=== PATIENT | female | born 1965 | race Caucasian/White ===

== ENCOUNTER 2020-10-17 15:21 | Inpatient (IN) ==
[2020-10-17] MEDS ORDERED: DEXAMETHASONE SOD INJ 10 MG/ML VIAL IV ONE (15:47)
[2020-10-17] MEDS ORDERED: SODIUM CHLORIDE 0.9% 1000ML 1,000 ML IV STA (15:47)
[2020-10-17] MEDS ORDERED: KETOROLAC TROMETHAMINE 15 MG/ML VIAL IV ONE (15:49)
--- NOTE | 2020-10-17 15:57 | Emergency Department Note ---
Impression & Plan Pneumonia due to COVID-19 virus, Breathlessness, Weakness, Fatigue, Respiratory failure ED Provider Note Provider: Mac Lorenzo MD DATE OF SERVICE: 10/17/2020 CHIEF COMPLAINT: Shortness of breath, weakness HISTORY OF PRESENT ILLNESS: Patient is a 55-year-old female history of diabetes, hypertension, hyperlipidemia as well as GERD presenting here today via ambulance from her house due to worsening weakness shortness of breath and fatigue. Patient states he began to feel ill about 1 week ago and last Sunday went to urgent care and had a rapid Covid test that was positive. Patient states she has had decreased oral intake over the course the week and since yesterday evening has a decline of her breathing status. Reports a little bit of chest discomfort on deep inspiration. Denies significant qing pain or nausea but reports a little bit loose stools. She is unsure if this is related to Covid or possibly related to Metformin she takes it she says when she does not eat a nor mal amount she sometimes gets loose stools. States she is quite thirsty and again has not been drinking well. Patient reports she has been using some Tylenol Motrin and [id number] cold medicine last taken this morning. Was at home with her who is also mildly ill and son who tested negative is otherwise well. EMS found the patient to be in the 70s on room air and significantly tachycardic. Brought here for further evaluation receiving supplemental oxygen. Denies leg swelling or rash. REVIEW OF SYSTEMS: A total of 10 review of systems was obtained and negative except as stated above in the HPI. 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 NECK: Trachea midline. LUNGS: Airway patent. No retractions but increased work of breathing noted. Tachypnea. HEART: Regular tachycardic rate and rhythm. ABDOMEN: Soft and non-tender, without guarding or rebound. SKIN: Acyanotic, warm, dry, without rashes EXTREMITIES: Without swelling, tenderness or deformity NEUROLOGICAL: No focal deficits. No aphasia. No facial droop or slurred speech. EK bpm sinus tachycardia with PVC noted. No acute ST segment elevation noted QTC 458. Left axis noted. Compared to previous from July 09, 2015 patient now with a left axis and significantly tachycardic with inferior Q waves noted. CONTINUOUS CARDIAC MONITORING: was ordered and showed a heart rate of 102-126 bpm in sinus tachycardia Patient's laboratory studies and imaging reviewed. Differential includes Infection, dehydration, metabolic abnormality, hypo/hyperglycemia, electrolyte disturbance, anemia, hypoxia, cardiac sources, intracerebral event, toxicologic, neurologic, as well as other pathologies. IMPRESSION/MEDICAL DECISION MAKING: Patient is a 55-year-old female reportedly positive week ago with rapid Covid test with worsening symptoms today found to be hypoxic. Now on supplemental oxygen initially 10 L. Patient distant former smoker. Patient Dors is thirsty and given some IV fluids she appears somewhat clinically dehydrated. Benign abdomen. EKG without STEMI criteria patient denies significant chest discomfort. Troponin was sent as well as inflammatory markers. Chest x-ray ordered as well as a CT of the chest to exclude PE overlying this. Given some dexamethasone given her hypoxic Covid status. Formal Covid test was ordered here. Patient febrile upon arrival and given small dose of Toradol. Chest x-ray showed extensive inflammatory infiltrative process consistent with COVID-19 and Covid test was positive. No leukocytosis, leukopenia or anemia noted. Electrolytes within normal limits. Renal function appears stable. Hypoglycemia noted given D50. Patient has been stable on [address] of the chest per radiology without evidence of PE inflammatory change consistent with Covid. Discussed with the patient. She is having some juice and did receive some D50 for some hyperglycemia noted on blood work and this improved. Stable on 10 L but if she takes the mask off for more than 10 or 20 seconds does desaturate. Do not feel she needs high flow oxygen at this point but may in the near future. Discussed the need for admission for further care she was in agreement with this plan. DIAGNOSIS: COVID-19 pneumonia, hypoxic respiratory failure, weakness, fatigue, shortness of breath DISPOSITION: Hospitalist will evaluate Patient was agreeable with this plan. Critical Care I have personally spent 32 minutes of critical care time in the direct management of this patient. This includes bedside care, interpretation of diagnostic studies, and testing, discussion with consultants, patient, and other required patient management activities. These 32 minutes is in excess of all separately billable procedures. Past Med/Surg History Medical History (Updated 10/17/20 @ 17:44 by Mac Lorenzo M.D.) Diabetes mellitus Diabetic neuropathy Diverticulosis GERD (gastroesophageal reflux disease) Hyperlipemia Hypertension Osteoarthritis PCOS (polycystic ovarian syndrome) Surgical History (Updated 08/24/20 @ 10:53 by Terri Sherman DO) Previous section (2006) Family History (Updated 08/24/20 @ 10:53 by Terri Sherman DO) Mother Breast cancer, Onset Age: 51 Hypertension Gall bladder disease Father Hypertension Heart disease S/P coronary artery stent placement Diabetes Sister Hypertension Gall bladder disease Denies family history of Ovarian cancer Prostate cancer Myocardial infarction Colorectal cancer Social History (Updated 08/24/20 @ 10:54 by Terri Sherman DO) Smoking Status: Never smoker Tobacco Type: Cigarettes Age Started Using Tobacco: 16; Age Quit Using Tobacco: 41; packs per day: 0.5; Second Hand Exposure: No; Hx Alcohol Use: No Hx Substance Use: No Preferred Language: Faroese Visual Impairment: Limited Hearing Ability: Normal Motion Picture Scene 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 Required: No Beliefs That Will Affect Care: None marital status: Current Living Situation: Spouse and Family Current Living Situation Comment: lives with and son current occupational status: employed current occupation: works for [employer] How many Children do You have: 1 Feels Safe at Home: Yes Childhood Exposure to Second-Hand Smoke: Yes (father smoked) caffeine: Yes during the past year weight has: remained stable Dental Care, Regularly: No Physical Activity Frequency: Daily Physical Activity Frequency 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 Seatbelt Use: always Sunscreen Use: No Assistive Devices: Glasses Allergies Allergies Allergy/AdvReac Type Severity Reaction Status Date / Time No Known Allergies Allergy Verified 10/17/20 16:50 Home Meds Home Medications Medication Instructions Recorded Confirmed aspirin 81 mg tablet,delayed 81 mg PO QAM 08/24/20 10/17/20 release omeprazole 20 mg capsule,delayed 20 mg PO DAILY PRN 08/24/20 10/17/20 release atorvastatin 20 mg PO QAM 10/17/20 10/17/20 glimepiride 8 mg PO QAM 10/17/20 10/17/20 metformin 2,000 mg PO QAM 10/17/20 10/17/20 olmesartan 20 mg PO QAM 10/17/20 10/17/20 Previous Rx's Medication Instructions Recorded linagliptin 5 mg tablet 5 mg PO QAM #90 tab 08/30/20 Results & Data (ED) Vital Signs Vital Signs - 24 hr 10/17/20 15:27 10/17/20 15:33 10/17/20 15:35 Temperature Temperature Source Pulse Rate 122 H 124 H 125 H Pulse Rate from SpO2 Sensor 120 H 125 H 125 H Respiratory Rate Blood Pressure 104/78 143/88 H Blood Pressure Mean 86 106 Pulse Oximetry 90 92 90 Oxygen Delivery Method Oxygen Flow Rate Sepsis Recent Fever Within 48 Hours Sepsis New/Unexplained Change in Mental Status Sepsis Action Taken by Nursing 10/17/20 15:40 10/17/20 15:50 10/17/20 16:00 Temperature 39.2 C H Temperature Source Oral Pulse Rate 123 H 120 H 123 H Pulse Rate from SpO2 Sensor 124 H 120 H 125 H Respiratory Rate 20 Blood Pressure 104/78 Blood Pressure Mean 86 Pulse Oximetry 92 92 90 Oxygen Delivery Method Oxymask Oxygen Flow Rate 10 Sepsis Recent Fever Within 48 Hours Yes Sepsis New/Unexplained Change in Mental Status No Sepsis Action Taken by Nursing Physician Notified 10/17/20 16:01 10/17/20 16:10 10/17/20 16:20 Temperature Temperature Source Pulse Rate 111 H 115 H Pulse Rate from SpO2 Sensor 125 H 117 H 108 H Respiratory Rate 24 24 Blood Pressure 156/111 H Blood Pressure Mean 126 Pulse Oximetry 76 L 93 94 Oxygen Delivery Method Oxygen Flow Rate Sepsis Recent Fever Within 48 Hours Sepsis New/Unexplained Change in Mental Status Sepsis Action Taken by Nursing 10/17/20 16:30 10/17/20 16:40 10/17/20 16:50 Temperature Temperature Source Pulse Rate Pulse Rate from SpO2 Sensor 111 H 103 H 106 H Respiratory Rate Blood Pressure 135/84 Blood Pressure Mean 101 Pulse Oximetry 92 91 94 Oxygen Delivery Method Oxygen Flow Rate Sepsis Recent Fever Within 48 Hours Sepsis New/Unexplained Change in Mental Status Sepsis Action Taken by Nursing 10/17/20 17:00 10/17/20 17:03 10/17/20 17:10 Temperature Temperature Source Pulse Rate 99 H 99 H 101 H Pulse Rate from SpO2 Sensor 102 H 99 H 101 H Respiratory Rate 24 24 24 Blood Pressure 120/70 Blood Pressure Mean 86 Pulse Oximetry 91 91 93 Oxygen Delivery Method Oxygen Flow Rate Sepsis Recent Fever Within 48 Hours Sepsis New/Unexplained Change in Mental Status Sepsis Action Taken by Nursing 10/17/20 17:20 10/17/20 17:30 10/17/20 18:01 Temperature Temperature Source Pulse Rate 93 H 99 H Pulse Rate from SpO2 Sensor 100 H 93 H 99 H Respiratory Rate 23 6 L Blood Pressure 136/89 122/80 Blood Pressure Mean 104 94 Pulse Oximetry 92 92 93 Oxygen Delivery Method Oxygen Flow Rate Sepsis Recent Fever Within 48 Hours Sepsis New/Unexplained Change in Mental Status Sepsis Action Taken by Nursing 10/17/20 18:30 10/17/20 18:46 Temperature Temperature Source Pulse Rate 100 H 103 H Pulse Rate from SpO2 Sensor 99 H 102 H Respiratory Rate 27 H 18 Blood Pressure 135/75 104/84 Blood Pressure Mean 95 90 Pulse Oximetry 94 89 L Oxygen Delivery Method Oxygen Flow Rate Sepsis Recent Fever Within 48 Hours Sepsis New/Unexplained Change in Mental Status Sepsis Action Taken by Nursing Laboratory Data Result diagrams: 10/17/20 15:45 10/17/20 17:02 Lab Results 10/17/20 10/17/20 10/17/20 Range/Units 15:45 15:45 15:45 WBC (4.8-10.8) K/uL RBC (4.2-5.4) M/uL Hgb (12.0-16.0) g/dL Hct (37-47) % MCV (80-100) fL MCH (25-34) pg MCHC (32-36) g/dL RDW Std Deviation (36.4-46.3) fL RDW Coeff of Nader (11.5-14.5) % Plt Count (130-400) K/uL MPV (7.4-10.4) fL Immature Gran % (Auto) % Neut % (Auto) % Lymph % (Auto) % Hitchcock % (Auto) % Eos % (Auto) % Baso % (Auto) % Neut # (Auto) (1.4-6.5) K/uL Lymph # (Auto) (1.2-3.4) K/uL Hitchcock # (Auto) (0.11-0.59) K/uL Eos # (Auto) (0-0.5) K/uL Baso # (Auto) (0-0.2) K/uL Immature Gran # (Auto) (0.00-0.02) K/uL PT 10.1 (9.0-12.0) Seconds INR 1.0 (0.9-1.1) D-Dimer 1060 H* (0-500) ug/L FEU Sodium Cancelled Potassium Cancelled Chloride Cancelled Carbon Dioxide Cancelled Anion Gap Cancelled BUN Cancelled Creatinine Cancelled Est Cr Clr Drug Dosing Cancelled Est GFR ( Amer) Cancelled Est GFR (Non-Af Amer) Cancelled BUN/Creatinine Ratio Cancelled Glucose Cancelled POC Glucose (70-99) mg/dl Lactate Calcium Cancelled Total Bilirubin Cancelled AST Cancelled ALT Cancelled Alkaline Phosphatase Cancelled Troponin I Cancelled C-Reactive Protein Cancelled Total Protein Cancelled Albumin Cancelled Globulin Cancelled Albumin/Globulin Ratio Cancelled Lipase Cancelled Procalcitonin Cancelled COVID-19 Eval Order SARS-CoV-2 (PCR) (Negative) Influenza Type A (PCR) (Neg) Influenza Type B (PCR) (Neg) RSV (RT-PCR) (Neg) 10/17/20 10/17/20 10/17/20 Range/Units 15:45 15:45 16:15 WBC 5.95 (4.8-10.8) K/uL RBC 5.28 (4.2-5.4) M/uL Hgb 15.9 (12.0-16.0) g/dL Hct 44.6 (37-47) % MCV 84.5 (80-100) fL MCH 30.1 (25-34) pg MCHC 35.7 (32-36) g/dL RDW Std Deviation 44.5 (36.4-46.3) fL RDW Coeff of Nader 14.3 (11.5-14.5) % Plt Count 285 (130-400) K/uL MPV 9.4 (7.4-10.4) fL Immature Gran % (Auto) 0.2 % Neut % (Auto) 77.5 % Lymph % (Auto) 13.9 % Hitchcock % (Auto) 8.2 % Eos % (Auto) 0.0 % Baso % (Auto) 0.2 % Neut # (Auto) 4.61 (1.4-6.5) K/uL Lymph # (Auto) 0.83 L (1.2-3.4) K/uL Hitchcock # (Auto) 0.49 (0.11-0.59) K/uL Eos # (Auto) 0.00 (0-0.5) K/uL Baso # (Auto) 0.01 (0-0.2) K/uL Immature Gran # (Auto) 0.01 (0.00-0.02) K/uL PT (9.0-12.0) Seconds INR (0.9-1.1) D-Dimer (0-500) ug/L FEU Sodium Potassium Chloride Carbon Dioxide Anion Gap BUN Creatinine Est Cr Clr Drug Dosing Est GFR ( Amer) Est GFR (Non-Af Amer) BUN/Creatinine Ratio Glucose POC Glucose (70-99) mg/dl Lactate Cancelled Calcium Total Bilirubin AST ALT Alkaline Phosphatase Troponin I C-Reactive Protein Total Protein Albumin Globulin Albumin/Globulin Ratio Lipase Procalcitonin COVID-19 Eval Order CovFluRsv at [facility] SARS-CoV-2 (PCR) (Negative) Influenza Type A (PCR) (Neg) Influenza Type B (PCR) (Neg) RSV (RT-PCR) (Neg) 10/17/20 10/17/20 10/17/20 Range/Units 16:15 17:02 17:02 WBC (4.8-10.8) K/uL RBC (4.2-5.4) M/uL Hgb (12.0-16.0) g/dL Hct (37-47) % MCV (80-100) fL MCH (25-34) pg MCHC (32-36) g/dL RDW Std Deviation (36.4-46.3) fL RDW Coeff of Nader (11.5-14.5) % Plt Count (130-400) K/uL MPV (7.4-10.4) fL Immature Gran % (Auto) % Neut % (Auto) % Lymph % (Auto) % Hitchcock % (Auto) % Eos % (Auto) % Baso % (Auto) % Neut # (Auto) (1.4-6.5) K/uL Lymph # (Auto) (1.2-3.4) K/uL Hitchcock # (Auto) (0.11-0.59) K/uL Eos # (Auto) (0-0.5) K/uL Baso # (Auto) (0-0.2) K/uL Immature Gran # (Auto) (0.00-0.02) K/uL PT (9.0-12.0) Seconds INR (0.9-1.1) D-Dimer (0-500) ug/L FEU Sodium 139 Potassium 3.9 Chloride 107 Carbon Dioxide 22 Anion Gap 10.0 BUN 9 Creatinine 0.63 Est Cr Clr Drug Dosing 125.8 Est GFR ( Amer) 118.7 Est GFR (Non-Af Amer) 102.4 BUN/Creatinine Ratio 14.3 Glucose 45 L* POC Glucose (70-99) mg/dl Lactate Calcium 8.3 L Total Bilirubin 0.6 AST 32 ALT 17 Alkaline Phosphatase 53 Troponin I C-Reactive Protein 11.90 H Total Protein 7.3 Albumin 3.0 L Globulin 4.3 H Albumin/Globulin Ratio 0.7 L Lipase Procalcitonin < 0.05 COVID-19 Eval Order SARS-CoV-2 (PCR) POSITIVE A* (Negative) Influenza Type A (PCR) Negative (Neg) Influenza Type B (PCR) Negative (Neg) RSV (RT-PCR) Negative (Neg) 10/17/20 10/17/20 Range/Units 17:02 18:26 WBC (4.8-10.8) K/uL RBC (4.2-5.4) M/uL Hgb (12.0-16.0) g/dL Hct (37-47) % MCV (80-100) fL MCH (25-34) pg MCHC (32-36) g/dL RDW Std Deviation (36.4-46.3) fL RDW Coeff of Ndaer (11.5-14.5) % Plt Count (130-400) K/uL MPV (7.4-10.4) fL Immature Gran % (Auto) % Neut % (Auto) % Lymph % (Auto) % Hitchcock % (Auto) % Eos % (Auto) % Baso % (Auto) % Neut # (Auto) (1.4-6.5) K/uL Lymph # (Auto) (1.2-3.4) K/uL Hitchcock # (Auto) (0.11-0.59) K/uL Eos # (Auto) (0-0.5) K/uL Baso # (Auto) (0-0.2) K/uL Immature Gran # (Auto) (0.00-0.02) K/uL PT (9.0-12.0) Seconds INR (0.9-1.1) D-Dimer (0-500) ug/L FEU Sodium Potassium Chloride Carbon Dioxide Anion Gap BUN Creatinine Est Cr Clr Drug Dosing Est GFR ( Amer) Est GFR (Non-Af Amer) BUN/Creatinine Ratio Glucose POC Glucose 198 H (70-99) mg/dl Lactate 0.8 Calcium Total Bilirubin AST ALT Alkaline Phosphatase Troponin I C-Reactive Protein Total Protein Albumin Globulin Albumin/Globulin Ratio Lipase Procalcitonin COVID-19 Eval Order SARS-CoV-2 (PCR) (Negative) Influenza Type A (PCR) (Neg) Influenza Type B (PCR) (Neg) RSV (RT-PCR) (Neg) Administered Medications Discontinued Medications Dexamethasone (Dexamethasone Sod Inj 10 Mg/Ml Vial) 6 mg IV NOW ONE Stop: 10/17/20 15:48 Last Admin: 10/17/20 16:12 Dose: 6 mg Documented by: [id number] Dextrose (Dextrose 50% 50 Ml Syringe) 50 ml IV NOW STA Stop: 10/17/20 17:41 Last Admin: 10/17/20 17:49 Dose: 50 ml Documented by: [id number] Sodium Chloride (Nss 1000ml) 1,000 mls @ 125 mls/hr IV .Q8H STA Stop: 10/17/20 23:46 Last Admin: 10/17/20 16:12 Dose: Not Given Documented by: [id number] Sodium Chloride (Nss 1000ml) 1,000 mls @ 999 mls/hr IV .Q1H1M ONE Stop: 10/17/20 17:07 Last Infusion: 10/17/20 17:27 Dose: 0 mls/hr Documented by: [id number] Admin: 10/17/20 16:12 Dose: 999 mls/hr Documented by: [id number] Ioversol (Optiray 320 125ml) 119 ml IV ONCE ONE Stop: 10/17/20 17:39 Last Admin: 10/17/20 17:39 Dose: 119 ml Documented by: [id number] Ketorolac Tromethamine (Ketorolac Tromethamine 15 Mg/Ml Vial) 10 mg IV NOW ONE Stop: 10/17/20 15:50 Last Admin: 10/17/20 16:13 Dose: 10 mg Documented by: [id number] Discharge Plan Visit Data Chief Complaint: Shortness of Breath/Dyspnea Stated Complaint: SOB, FATIGUE, COVID + ED Provider: Mac Lorenzo Discharge Problem: Pneumonia due to COVID-19 virus, Breathlessness, Weakness, Fatigue, Respiratory failure Patient Disposition: Admitted As Inpatient Forms Stand Alone Forms: My [facility] Prescriptions Prescriptions: No Action Tradjenta 5 mg tablet 5 mg PO QAM Qty: 90 RF: 3 omeprazole 20 mg capsule,delayed release(DR/EC) 20 mg PO DAILY PRN (Reason: Acid Reflux) RF: 0 aspirin [Adult Low Dose Aspirin] 81 mg tablet,delayed release (DR/EC) 81 mg PO QAM RF: 0 atorvastatin 20 mg tablet 20 mg PO QAM RF: 0 glimepiride 4 mg tablet 8 mg PO QAM RF: 0 metformin 500 mg tablet extended release 24 hr 2,000 mg PO QAM RF: 0 olmesartan 20 mg tablet 20 mg PO QAM RF: 0 Referrals Referrals: Terri Sherman DO [Primary Care Provider] - Discharge Problem: Fatigue Qualifiers: Fatigue type: unspecified Qualified Code(s): R53.83 - Other fatigue Respiratory failure Qualifiers: Chronicity: acute Respiratory failure complication: hypoxia Qualified Code(s): J96.01 - Acute respiratory failure with hypoxia
[2020-10-17] MEDS ORDERED: SODIUM CHLORIDE 0.9% 1000ML 1,000 ML IV ONE (16:07)
[2020-10-17 16:17] LABS: Basophils # (auto) 0.01 K/uL (0-0.2); Basophils % (auto) 0.2 %; Hematocrit (blood only) 44.6 % (37-47); Hemoglobin 15.9 g/dL (12.0-16.0); Immature Granulocytes # (auto) 0.01 K/uL (0.00-0.02); Immature Granulocytes % (auto) 0.2 %; Lymphocytes # (auto) 0.83 K/uL (1.2-3.4); Lymphocytes % (auto) 13.9 %; Mean Corpuscular Hemoglobin 30.1 pg (25-34); Mean Corpuscular Hgb Conc 35.7 g/dL (32-36); Mean Corpuscular Volume 84.5 fL (80-100); Mean Platelet Volume 9.4 fL (7.4-10.4); Monocytes # (auto) 0.49 K/uL (0.11-0.59); Monocytes % (auto) 8.2 %; Neutrophils # (auto) 4.61 K/uL (1.4-6.5); Neutrophils % (auto) 77.5 %; Platelet Count 285 K/uL (130-400); RDW Coefficient of Variation 14.3 % (11.5-14.5); RDW Standard Deviation 44.5 fL (36.4-46.3); Red Blood Count 5.28 M/uL (4.2-5.4); White Blood Count 5.95 K/uL (4.8-10.8)
--- NOTE | 2020-10-17 16:32 | XRay Report ---
XR chest 1V portable HISTORY: Fever COMPARISON: Chest 07/07/2015. FINDINGS: Multifocal bilateral airspace opacities are new from the prior study. This likely represent s a pneumonia. No pneumothorax. No pleural effusions. There are low lung volumes. Stable mild cardiom egaly. IMPRESSION: Moderate multifocal airspace opacities consistent with a pneumonia. ACT 112: Negative or not required by law. Electronically signed by: Diego Bowen M.D. 10/17/2020 4:31 PM
[2020-10-17 16:34] LABS: Prothrombin Time 10.1 Seconds (9.0-12.0)
[2020-10-17 16:44] LABS: D Dimer 1060 ug/L FEU (0-500)
[2020-10-17 17:06] LABS: Influenza A virus by PCR Negative (Neg); Influenza B virus by PCR Negative (Neg); RSV by PCR Negative (Neg)
[2020-10-17 17:11] LABS: SARS CoV2 RNA(COVID-19) InHosp POSITIVE (Negative)
[2020-10-17 17:38] LABS: Albumin Globulin Ratio 0.7 (0.9-2); BUN Creatinine Ratio 14.3 (10-20); Bilirubin,Total 0.6 mg/dl (0.2-1); Calcium 8.3 mg/dl (8.5-10.1); Creatinine Clr Calc Pharmacy 125.8 ml/min; Est GFR (African American) 118.7; Est GFR (Non-African American) 102.4; Globulin 4.3 gm/dl (2.5-4.0); Potassium 3.9 mmol/L (3.5-5.1); Total Protein 7.3 gm/dl (6.4-8.2)
[2020-10-17] MEDS ORDERED: OPTIRAY 320 125ml IV ONE (17:38)
[2020-10-17] MEDS ORDERED: DEXTROSE 50% 50 ML SYRINGE IV STA (17:40)
--- NOTE | 2020-10-17 18:01 | CT Scan Report ---
CHEST CTA for PULMONARY ARTERIES CT DOSE: 757.29 mGy.cm HISTORY: PE, COVID, shortness of breath, hypoxic TECHNIQUE: Multiaxial CT images of the chest were performed following the intravenous administration of contrast to evaluate the pulmonary arteries. Maximal intensity projection images were also obtaine d. A dose lowering technique was utilized adhering to the principles of ALARA. COMPARISON STUDY: None. FINDINGS: Normal caliber thoracic aorta with no evidence for dissection. No pleural or pericardial ef fusions. The heart is mildly enlarged. Visualized liver and spleen are unremarkable. Normal caliber e sophagus. A few prominent mediastinal and bilateral hilar lymph nodes. This may be reactive. No filli ng defects within the pulmonary arteries to suggest pulmonary embolus. No suspicious lytic or blastic osseous lesions. No pneumothorax. The central airways are patent. Moderate multifocal groundglass ai rspace opacities seen throughout the lungs consistent with a viral pneumonia. IMPRESSION: 1. No evidence for pulmonary embolus. 2. Moderate multifocal pneumonia. 3. Mild cardiomegaly. ACT 112: Negative or not required by law. Electronically signed by: Diego Bowen M.D. 10/17/2020 6:00 PM
--- NOTE | 2020-10-17 18:39 | History & Physical Report ---
Date of Service October 17, 2020 Assessment & Plan (1) Acute respiratory failure with hypoxia: Aim O2 sats > 90% Secondary to COVID-19 PNA, no definitive evidence of bacterial pneumonia but slight concern she feels she has been getting much worse in the last 2 days after initially doing well. (2) Pneumonia due to COVID-19 virus: Symptoms > 1 week therefore no benefit from remdesivir or convalescent plasma Dexamethasone 6mg IV daily for 10 days Isolation precautions (3) Left leg swelling: without calf pain US venous doppler to r/o DVT (4) Diabetes mellitus: HbA1C 7.3 in Aug 2020. Repeat with AM labs. Hold her usual metformin, linagliptin and glimepiride Consult pharmacy for glycemic control in setting of steroid use. (5) Diabetic neuropathy: Noted history of this (6) Hypertension: Continue olmesartan with hold parameters sBP < 100 (7) Hyperlipemia: Continue atorvastatin 20mg PO daily (8) PCOS (polycystic ovarian syndrome): Noted (9) GERD (gastroesophageal reflux disease): Switch omeprazole for pantoprazole as per hospital formulary (10) DVT prophylaxis: Lovenox 0.5mg/kg due to elevated d-dimer in setting of COVID-19 pneumonia and elevated BMI > 40 Admission and Anticipated Discharge Date Admission Date: October 17, 2020 History of Present Illness Chief Complaint: Shortness of breath, hypoxia Primary Care Provider: Terri Sherman DO Nikky Law is a 55 year old female with morbid obesity, T2DM, former smoker who presents to the ER with worsening shortness of breath in the setting of known COVID-19 pneumonia. Initial symptoms started Sunday (8 days ago). She tested positive that following Sunday. Initially was feeling ok until becoming much more short of breath over the past few days with new onset sore throat and continued fever and chills. Associated poor appetite, dry mouth, mild cough and nasal congestion. She denies any chest pain, abdominal pain, diarrhea. In the ER she was symptomatically hypoglycemic which responded to Dextrose 50% 50 ml, CXR confirmed multifocal viral pneumonia, d-dimer was elevated therefore patient underwent CT angiogram which was negative for pulmonary embolism. She was referred to medicine for admission and ongoing management for COVID-19 and hypoxia. Allergies Allergy/AdvReac Type Severity Reaction Status Date / Time No Known Allergies Allergy Verified 10/17/20 16:50 Home Medications Medication Instructions Recorded Confirmed Type aspirin 81 mg tablet,delayed 81 mg PO QAM 08/24/20 10/17/20 History release omeprazole 20 mg capsule,delayed 20 mg PO DAILY PRN 08/24/20 10/17/20 History release linagliptin 5 mg tablet 5 mg PO QAM #90 tab 08/30/20 10/17/20 Rx atorvastatin 20 mg PO QAM 10/17/20 10/17/20 History glimepiride 8 mg PO QAM 10/17/20 10/17/20 History metformin 2,000 mg PO QAM 10/17/20 10/17/20 History olmesartan 20 mg PO QAM 10/17/20 10/17/20 History Past Med/Surg History Medical History Diabetes mellitus Diabetic neuropathy Diverticulosis GERD (gastroesophageal reflux disease) Hyperlipemia Hypertension Osteoarthritis PCOS (polycystic ovarian syndrome) Surgical History Previous section (2006) Family History Mother Breast cancer, Onset Age: 51 Hypertension Gall bladder disease Father Hypertension Heart disease S/P coronary artery stent placement Diabetes Sister Hypertension Gall bladder disease Denies family history of Ovarian cancer Prostate cancer Myocardial infarction Colorectal cancer Social History Smoking Status: Former smoker Tobacco Type: Cigarettes Age Started Using Tobacco: 16; Age Quit Using Tobacco: 41; packs per day: 0.5; Second Hand Exposure: No; Hx Alcohol Use: No Hx Substance Use: No Preferred Language: Japanese Visual Impairment: Limited Hearing Ability: Normal 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 Beliefs That Will Affect Care: None marital status: Current Living Situation: Spouse and Family Current Living Situation Comment: lives with and son current occupational status: employed current occupation: works for [employer] How many Children do You have: 1 Feels Safe at Home: Yes Childhood Exposure to Second-Hand Smoke: Yes (father smoked) caffeine: Yes during the past year weight has: remained stable Dental Care, Regularly: No Physical Activity Frequency: Daily Physical Activity Frequency 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 Seatbelt Use: always Sunscreen Use: No Assistive Devices: Glasses and Oxygen - Continuous Review of Systems Review of Systems: All systems reviewed & are unremarkable except as noted in HPI & below Physical Exam Constitutional: well developed, + acute distress (shortness of breath) and + morbidly obese; + not well nourished Eyes: + anicteric sclerae; normal pupil size Neck: normal visual inspection and trachea midline Respiratory: + respiratory distress, + labored breathing, + uses accessory muscles and able to speak in complete sentences; no cough Auscultation: + diminished lung sounds (bibasal); no crackles and no wheezes Cardiovascular: RRR, no murmur, no edema Gastrointestinal (Abdomen): normal bowel sounds, soft, nontender, no hepatosplenomegaly Musculoskeletal: no cyanosis or clubbing, extremities motor strength 5/5 Skin: no rashes, warm and dry Neurologic: moves all extremities and awake; not confused Psychiatric: A+Ox3, euthymic affect Genitourinary: no CVA tenderness Results & Data Results & Data ([facility]) Vital Signs (Past 12 Hours) Vital Signs Temp Pulse Resp BP Pulse Ox 10/17/20 17:20 92 10/17/20 17:10 101 H 24 93 10/17/20 17:03 99 H 24 120/70 91 10/17/20 17:00 99 H 24 91 10/17/20 16:50 94 10/17/20 16:40 91 10/17/20 16:30 135/84 92 10/17/20 16:20 115 H 94 10/17/20 16:10 111 H 24 93 10/17/20 16:01 24 156/111 H 76 L 10/17/20 16:00 123 H 90 10/17/20 15:50 120 H 92 10/17/20 15:40 39.2 C H 123 H 20 104/78 92 10/17/20 15:35 125 H 143/88 H 90 10/17/20 15:33 124 H 92 10/17/20 15:27 122 H 104/78 90 Diagnostic Findings XR chest 1V portable IMPRESSION: Moderate multifocal airspace opacities consistent with a pneumonia. CHEST CTA for PULMONARY ARTERIES IMPRESSION: 1. No evidence for pulmonary embolus. 2. Moderate multifocal pneumonia. 3. Mild cardiomegaly. Medications Administered ER Medications given: NSS 1L bolus then 125 ml/hr Toradol 10mg IV Dexamethasone 6mg IV Dextrose 50% 50ml IV ECG Indication: tachycardia Rate (beats per minute): 122 Findings: + other (Non specific ST abnormality) and + PVC Comparison ECG Date: from (October 17, 2020) Change: the following changes noted (PVCs now present) Code Status & VTE Plan Code Status Full VTE Prophylaxis Plan VTE Prophylaxis will be ordered: Yes PG Care Time/CCT Total # of Minutes Spent Total Time Spent with Patient: Total time spent is greater than 50% in coordination of care (as documented) at patient's floor/unit and/or counseling patient: Coding Level of Care Code 87363 Initial Inpt Care Lvl 3 Diagnoses Acute respiratory failure with hypoxia J96.01 Pneumonia due to COVID-19 virus U07.1; J12.82 Left leg swelling M79.89 Diabetes mellitus E11.9 Diabetic neuropathy E11.40 Hypertension I10 Hyperlipemia E78.5 PCOS (polycystic ovarian syndrome) E28.2 GERD (gastroesophageal reflux disease) K21.9 DVT prophylaxis Z29.9
[2020-10-17 18:59] LABS: C Reactive Protein 11.9 mg/dl (0-0.29)
[2020-10-17] MEDS ORDERED: ONDANSETRON INJ 2 MG/ML 2 ML VIAL IV PRN (20:06)
[2020-10-17] MEDS ORDERED: PHARMACY GLYCEMIC MGMT CONSULT PRN (20:06)
[2020-10-17] MEDS ORDERED: ALUMINUM/MAGNESIUM SUSP 30 ML UDC PO PRN (20:06)
[2020-10-17] MEDS ORDERED: POLYETHYLENE (MIRALAX) 17 GM PACK PO PRN (20:06)
[2020-10-17] MEDS: PANTOprazole 40 MG TAB PO SCH (20:46)
[2020-10-17] MEDS: cefTRIAXone SODIUM 2,000 MG in DEXTROSE 5% 50 ML IV SCH (20:48)
[2020-10-17] MEDS: INSULIN ASPART 100 UNITS/ML 3 ML PEN SC SCH ×2 (21:30→22:04)
[2020-10-17] MEDS: guaiFENesin 600 MG TABCR PO SCH (22:11)
[2020-10-17] MEDS: ENOXAPARIN INJ 60 MG/0.6 ML SYR SQ SCH (22:11)
[2020-10-17] MEDS: AZITHROMYCIN 500 MG in DEXTROSE 5% 250 ML IV SCH (22:15)
[2020-10-18] MEDS: INSULIN ASPART 100 UNITS/ML 3 ML PEN SC SCH ×7 (00:10→23:58)
[2020-10-18] MEDS: ACETAMINOPHEN 325 MG TAB PO PRN ×2 (01:32→21:03)
[2020-10-18 03:48] LABS: Appearance Urine Clear (Clear); Bilirubin Urine Negative (Negative); Blood Urine Negative (Negative); Color Urine Yellow; Glucose Urine UA 3+ (Negative); Ketones Urine Trace (Negative); Leukocyte Esterase Urine Negative (Negative); Nitrite Urine Negative (Negative); Protein Urine Negative (Negative); Specific Gravity Urine 1.028 (1.000-1.030); Urobilinogen Urine Negative (Negative)
--- NOTE | 2020-10-18 06:51 | Ultrasound Report ---
US venous doppler LE LT CLINICAL HISTORY: Left lower extremity swelling. Covid positive patient COMPARISON STUDY: No previous studies for comparison. FINDINGS: Real-time and color flow Doppler imaging were performed. Flow was seen within the femoral, popliteal and calf veins with no intraluminal thrombus demonstrated. The saphenous vein is patent. IMPRESSION: No evidence of left lower extremity DVT ACT 112: Negative or not required by law. Electronically signed by: Lauri Wilks M.D. 10/18/2020 6:50 AM
[2020-10-18] MEDS: ALBUT/IPRATROP 3MG/0.5MG NEB 3 ML VIAL NEB SCH ×4 (07:15→19:44)
[2020-10-18 07:30] LABS: Hematocrit (blood only) 43.1 % (37-47); Hemoglobin 15.3 g/dL (12.0-16.0); Immature Granulocytes # (auto) 0.01 K/uL (0.00-0.02); Immature Granulocytes % (auto) 0.2 %; Lymphocytes # (auto) 0.87 K/uL (1.2-3.4); Lymphocytes % (auto) 13.6 %; Mean Corpuscular Hemoglobin 30.1 pg (25-34); Mean Corpuscular Hgb Conc 35.5 g/dL (32-36); Mean Corpuscular Volume 84.8 fL (80-100); Monocytes # (auto) 0.57 K/uL (0.11-0.59); Monocytes % (auto) 8.9 %; Neutrophils # (auto) 4.94 K/uL (1.4-6.5); Neutrophils % (auto) 77.3 %; Platelet Count 311 K/uL (130-400); RDW Coefficient of Variation 14.3 % (11.5-14.5); RDW Standard Deviation 44.8 fL (36.4-46.3); Red Blood Count 5.08 M/uL (4.2-5.4); White Blood Count 6.39 K/uL (4.8-10.8)
[2020-10-18 08:05] LABS: BUN Creatinine Ratio 11.7 (10-20); Calcium 8.9 mg/dl (8.5-10.1); Creatinine Clr Calc Pharmacy 95.6 ml/min; Est GFR (African American) 93.3; Est GFR (Non-African American) 80.5; Magnesium 1.8 mg/dl (1.8-2.4); Potassium 4.4 mmol/L (3.5-5.1)
[2020-10-18 08:47] LABS: Estimated Average Glucose 171 mg/dl; Hemoglobin A1C 7.6 % (4.5-5.6)
[2020-10-18] MEDS ORDERED: DEXAMETHASONE SOD INJ 10 MG/ML VIAL IV SCH (09:00)
--- NOTE | 2020-10-18 09:01 | Hospitalist Progress Note ---
Date of Service October 18, 2020 Assessment & Plan (1) Acute respiratory failure with hypoxia: Aim O2 sats > 90% Secondary to COVID-19 PNA, no definitive evidence of bacterial pneumonia no on vapo therm 30 L and 85 5 and bipap, some loss of smell (2) Pneumonia due to COVID-19 virus: Symptoms > 1 week therefore no indication for remdesivir or convalescent plasma Dexamethasone 6mg daily for 10 days airborne Isolation precautions (3) Left leg swelling: without calf pain US venous doppler negative for DVT elevated D Dimer from covid and not suspected from clot (4) Diabetes mellitus: HbA1C 7.3 in Aug 2020 Hold her usual metformin lingliptin and glimepiride Consult pharmacy for glycemic control in setting (5) Diabetic neuropathy: Noted history of this (6) Hypertension: Continue olmesartan with hold parameters sBP < 100 (7) Hyperlipemia: Continue atorvastatin 20mg PO daily (8) PCOS (polycystic ovarian syndrome): Noted (9) GERD (gastroesophageal reflux disease): Switch omeprazole for pantoprazole as per hospital formulary (10) DVT prophylaxis: Lovenox 0.5mg/kg due to elevated d-dimer in setting of COVID-19 pneumonia and elevated BMI > 40 Admission and Anticipated Discharge Date Admission Date: October 17, 2020 Subjective this pt is emotionally labile, she is not aware of her hypoxia, she is tolerating vapotherm and bipap when needed and trying to prone as much as able. Review of Systems Review of Systems: Moderate distress and fatigue no headache, blurry or double vision some loss of smell no loss of taste no speech or swallowing issues no chest pain, pressure or palpitations shortness of breath, non productive cough no wheezes no abdominal pain, nausea or vomiting, no diarrhea no dysuria, hematuria or frequency no focal joint pain or swelling no back pain, CVA tenderness or radicular pain no bruising, bleeding or rashes no focal signs of weakness or numbness or altered sensation no complaints of anxiety or depression.. Physical Exam Physical Exam: The patient appeared in moderate distress Vital signs as documented. Head exam is normocephalic atraumatic no scleral icterus Neck is without JVD, thyromegaly, or carotid bruits. Lungs are coarse breath sounds with rales bilaterally, poor air movement Cardiac exam, Rhythm is regular.. No murmurs, rubs or gallops. Abdominal exam reveals normal bowel sounds, soft non tender, no masses Extremities are nonedematous and both pedal pulses are present Neurologic exam is alert and oriented, no focal loss of strength or sensation Skin is without bruises or rashes Psychologically is without concerns for anxiety or depression Results & Data Results & Data ([facility]) Vital Signs (Past 12 Hours) Vital Signs Temp Pulse Pulse Resp BP Pulse Ox 10/18/20 08:08 99.0 F 76 26 H 147/60 H 96 10/18/20 07:31 80 91 10/18/20 07:18 86 32 H 92 10/18/20 05:24 85 29 H 93 10/18/20 03:59 98.2 F 85 20 141/69 H 96 10/18/20 03:35 86 26 H 95 10/18/20 00:00 98.2 F 88 20 121/77 93 10/17/20 22:36 97.9 F 96 H 20 129/75 92 PG Care Time/CCT Total # of Minutes Spent Total Time Spent with Patient: Total time spent is greater than 50% in coor dination of care (as documented) at patient's floor/unit and/or counseling patient: Coding Level of Care Code 45363 Subseq Hosp Care Lvl 3 Diagnoses Acute respiratory failure with hypoxia J96.01 Pneumonia due to COVID-19 virus U07.1; J12.82 Left leg swelling M79.89 Diabetes mellitus E11.9 Diabetic neuropathy E11.40 Hypertension I10 Hyperlipemia E78.5 PCOS (polycystic ovarian syndrome) E28.2 GERD (gastroesophageal reflux disease) K21.9 DVT prophylaxis Z29.9
[2020-10-18] MEDS: OLMESARTAN MEDOXOMIL 20 MG TAB PO SCH (09:14)
[2020-10-18] MEDS: dexAMETHasone 6 MG in SYRINGE 0 ML IV SCH (09:14)
[2020-10-18] MEDS: ATORVASTATIN 20 MG TAB PO SCH (09:14)
[2020-10-18] MEDS: PANTOprazole 40 MG TAB PO SCH (09:14)
[2020-10-18] MEDS: ASPIRIN 81 MG ECTAB PO SCH (09:14)
[2020-10-18] MEDS: guaiFENesin 600 MG TABCR PO SCH ×2 (09:15→19:58)
[2020-10-18] MEDS: ENOXAPARIN INJ 60 MG/0.6 ML SYR SQ SCH ×2 (09:15→19:58)
[2020-10-18] MEDS ORDERED: INSULIN HUMAN NPH SC ONE (10:00)
--- NOTE | 2020-10-18 10:58 | Pharmacy Report ---
Pharmacy Glycemic Short Note 2 - Date of Service October 18, 2020 - Glycemic Short BSG Results (Last 24 hours): 10/17/20 10/17/20 10/17/20 15:45 17:02 18:26 Glucose Cancelled 45 L* POC Glucose 198 H 10/17/20 10/18/20 10/18/20 20:39 00:25 04:01 Glucose POC Glucose 267 H 297 H 253 H 10/18/20 10/18/20 07:09 08:17 Glucose 235 H POC Glucose 226 H OUTPATIENT ANTIDIABETIC REGIMEN: * Metformin 2 g PO qAM * Tradjenta 5 mg PO daily * Glimepiride 8 mg PO daily * HbA1c: 7.6% (10/18/20) ASSESSMENT: * HEAVEN is a 55 year old female admitted on evening of 10/17/20 with COVID-19 pneumonia * Ordered dexamethasone 6 mg IV daily (first dose yesterday at 1612) - no basal insulin administered yesterday * BSGs poorly controlled yesterday evening, 267, 297, and 253 mg/dL * Fasting BSG of 226 mg/dL * Will order NPH with today's dexamethasone dose and tighten Novolog parameters * Receiving IV ceftriaxone and azithromycin PLAN FOR INPATIENT GLYCEMIC CONTROL: * Hold outpatient oral diabetes medications * Basal insulin * NPH 35 units (0.32 unit/kg actual body weight) SC x 1 with dexamethasone * NPH scale with dinner (0-10 units based on BSG) * Bolus insulin - tighten * NovoLog per scale ACHS or Q6hrs while NPO * Goal Range: Low 110 mg/dL - High 140 mg/dL * Correction Factor: 15 mg/dL/unit * Nutritional / Prandial insulin per carb ratio of 1 unit per 5 grams CHO consumed * 00,04 checks overnight PLAN FOR DISCHARGE: * tbd
[2020-10-18 11:23] LABS: iSTAT Creatinine 0.5 mg/dl (0.6-1.3); iSTAT Hemoglobin 13.9 g/dl (12.0-16.0); iSTAT Ionized Calcium 1.12 mmol/l (1.12-1.32); iSTAT Potassium 3.8 mmol/L (3.3-5.0)
--- NOTE | 2020-10-18 12:28 | Electrocardiogram Report ---
Test Reason : Blood Pressure : / mmHG Vent. Rate : 122 BPM Atrial Rate : 122 BPM P-R Int : 162 ms QRS Dur : 110 ms QT Int : 322 ms P-R-T Axes : 045 -36 036 degrees QTc Int : 458 ms Sinus tachycardia with occasional Premature ventricular complexes Left axis deviation Minimal voltage criteria for LVH, may be normal variant Nonspecific ST abnormality Abnormal ECG When compared with ECG of 09-JUL-2015 07:06, Premature ventricular complexes are now Present Vent. rate has increased BY 57 BPM Questionable change in QRS duration Confirmed by Kentrell Rodriguez ([id number]) on 10/18/2020 12:27:40 PM Referred By: REFERRED SELF Confirmed By:Kentrell Rodriguez
[2020-10-18] MEDS ORDERED: INSULIN HUMAN NPH SC SCH (17:30)
[2020-10-18] MEDS: cefTRIAXone SODIUM 2,000 MG in DEXTROSE 5% 50 ML IV SCH (20:00)
[2020-10-18] MEDS: AZITHROMYCIN 500 MG in DEXTROSE 5% 250 ML IV SCH (21:05)
[2020-10-19] MEDS: ACETAMINOPHEN 325 MG TAB PO PRN ×3 (04:44→21:37)
[2020-10-19] MEDS: INSULIN ASPART 100 UNITS/ML 3 ML PEN SC SCH ×5 (04:53→21:00)
[2020-10-19] MEDS: ALBUT/IPRATROP 3MG/0.5MG NEB 3 ML VIAL NEB SCH (07:33)
[2020-10-19] MEDS: ENOXAPARIN INJ 60 MG/0.6 ML SYR SQ SCH ×2 (08:46→20:30)
[2020-10-19] MEDS: dexAMETHasone 6 MG in SYRINGE 0 ML IV SCH (08:46)
[2020-10-19] MEDS: OLMESARTAN MEDOXOMIL 20 MG TAB PO SCH (08:47)
[2020-10-19] MEDS: guaiFENesin 600 MG TABCR PO SCH ×2 (08:47→20:30)
[2020-10-19] MEDS: ASPIRIN 81 MG ECTAB PO SCH (08:48)
[2020-10-19] MEDS: ATORVASTATIN 20 MG TAB PO SCH (08:48)
[2020-10-19] MEDS: PANTOprazole 40 MG TAB PO SCH (08:48)
[2020-10-19] MEDS ORDERED: INSULIN HUMAN NPH SC ONE (09:00)
--- NOTE | 2020-10-19 09:25 | Pharmacy Report ---
Pharmacy Glycemic Short Note 2 - Date of Service October 19, 2020 - Glycemic Short BSG Results (Last 24 hours): 10/17/20 10/18/20 10/18/20 17:09 11:54 16:35 POC Glucose 270 H 299 H POC Glucose (other) 47 L* 10/18/20 10/18/20 10/18/20 21:06 21:08 23:32 POC Glucose 318 H* 318 H* 253 H POC Glucose (other) 10/19/20 10/19/20 04:04 07:38 POC Glucose 115 H 91 POC Glucose (other) OUTPATIENT ANTIDIABETIC REGIMEN: * Metformin 2 g PO qAM * Tradjenta 5 mg PO daily * Glimepiride 8 mg PO daily * HbA1c: 7.6% (10/18/20) ASSESSMENT: 10/19/20 * BSGs significantly elevated yesterday, 226, 270, 299, and 318 mg/dL * Patient received 122 units of insulin (45 units of NPH and 77 units of Novolog) * Hyperglycemia likely steroid-induced given IV dexamethasone * Fasting BSG of 91 mg/dL this morning * Will give NPH 45 units with this morning's dose of IV dexamethasone (0.4 unit/kg) 10/18/20 * MJ is a 55 year old female admitted on evening of 10/17/20 with COVID-19 pneumonia * Ordered dexamethasone 6 mg IV daily (first dose yesterday at 1612) - no basal insulin administered yesterday * BSGs poorly controlled yesterday evening, 267, 297, and 253 mg/dL * Fasting BSG of 226 mg/dL * Will order NPH with today's dexamethasone dose and tighten Novolog parameters * Receiving IV ceftriaxone and azithromycin PLAN FOR INPATIENT GLYCEMIC CONTROL: * Hold outpatient oral diabetes medications * Basal insulin * NPH 45 units SC daily with IV dexamethasone (0.4 unit/kg) * Bolus insulin * NovoLog per scale ACHS or Q6hrs while NPO * Goal Range: Low 110 mg/dL - High 140 mg/dL * Correction Factor: 12 mg/dL/unit * Nutritional / Prandial insulin per carb ratio of 1 unit per 4 grams CHO consumed PLAN FOR DISCHARGE: * Reasonable HbA1c goal for most non- adults would be less than 7% * HbA1c of 7.6% is above goal * Patient is on three PO antidiabetic medications that are all at maximum doses * Patient would likely benefit from once daily basal insulin - will need to reassess dose once steroids are discontinued
[2020-10-19] MEDS ORDERED: ALBUT/IPRATROP 3MG/0.5MG NEB 3 ML VIAL NEB PRN (10:38)
--- NOTE | 2020-10-19 18:50 | Hospitalist Progress Note ---
Date of Service October 19, 2020 Assessment & Plan (1) Acute respiratory failure with hypoxia: Aim O2 sats > 90% Secondary to COVID-19 PNA, no definitive evidence of bacterial pneumonia no on vapo therm 35 L and 80% and bipap when she sleeps, will try 1 dose of Lasix in the evening of 10/19/2020 (2) Pneumonia due to COVID-19 virus: Symptoms > 1 week therefore no indication for remdesivir or convalescent plasma Dexamethasone 6mg daily while hypoxic airborne Isolation precautions (3) Left leg swelling: without calf pain US venous doppler negative for DVT elevated D Dimer from covid and not suspected from clot (4) Diabetes mellitus: HbA1C 7.3 in Aug 2020. Repeat with AM labs. Hold her usual metformin, linagliptin and glimepiride Consult pharmacy for glycemic control in setting of steroid use. (5) Diabetic neuropathy: Noted history of this (6) Hypertension: Continue olmesartan with hold parameters sBP < 100 (7) Hyperlipemia: Continue atorvastatin 20mg PO daily (8) PCOS (polycystic ovarian syndrome): Noted (9) GERD (gastroesophageal reflux disease): Switch omeprazole for pantoprazole as per hospital formulary (10) DVT prophylaxis: Lovenox 0.5mg/kg due to elevated d-dimer in setting of COVID-19 pneumonia and elevated BMI > 40 Admission and Anticipated Discharge Date Admission Date: October 17, 2020 Subjective Patient is somewhat better spirits in the room today. Even while she is low and walking around the room she is not aware of her hypoxia, she is tolerating vapotherm and bipap when needed and continues trying to prone as much as able. Review of Systems Review of Systems: Moderate distress and fatigue no headache, blurry or double vision some loss of smell no loss of taste no speech or swallowing issues no chest pain, pressure or palpitations shortness of breath, non productive cough no wheezes no abdominal pain, nausea or vomiting, no diarrhea no dysuria, hematuria or frequency no focal joint pain or swelling no back pain, CVA tenderness or radicular pain no bruising, bleeding or rashes no focal signs of weakness or numbness or altered sensation no complaints of anxiety or depression.. Physical Exam Physical Exam: The patient appeared in moderate distress Vital signs as documented. Head exam is normocephalic atraumatic no scleral icterus Neck is without JVD, thyromegaly, or carotid bruits. Lungs are coarse breath sounds with rales bilaterally, poor air movement Cardiac exam, Rhythm is regular.. No murmurs, rubs or gallops. Abdominal exam reveals normal bowel sounds, soft non tender, no masses Extremities are nonedematous and both pedal pulses are present Neurologic exam is alert and oriented, no focal loss of strength or sensation Skin is without bruises or rashes Psychologically is without concerns for anxiety or depression Results & Data Results & Data ([facility]) Vital Signs (Past 12 Hours) Vital Signs Temp Pulse Pulse Resp BP Pulse Ox 10/19/20 16:00 98.2 F 87 24 166/86 H 89 L 10/19/20 15:13 88 21 90 10/19/20 11:44 97.7 F 97 H 24 137/87 88 L 10/19/20 11:25 100 H 20 90 10/19/20 08:00 85 10/19/20 07:41 99.0 F 98 H 22 141/87 H 90 10/19/20 07:34 93 H 22 89 L PG Care Time/CCT Total # of Minutes Spent Total Time Spent with Patient: Total time spent is greater than 50% in coordination of care (as documented) at patient's floor/unit and/or counseling patient: Coding Level of Care Code 55050 Subseq Hosp Care Lvl 3 Diagnoses Acute respiratory failure with hypoxia J96.01 Pneumonia due to COVID-19 virus U07.1; J12.82 Left leg swelling M79.89 Diabetes mellitus E11.9 Diabetic neuropathy E11.40 Hypertension I10 Hyperlipemia E78.5 PCOS (polycystic ovarian syndrome) E28.2 GERD (gastroesophageal reflux disease) K21.9 DVT prophylaxis Z29.9
[2020-10-19] MEDS ORDERED: FUROSEMIDE 20 MG in SYRINGE 0 ML IV ONE (19:30)
[2020-10-19] MEDS: cefTRIAXone SODIUM 2,000 MG in DEXTROSE 5% 50 ML IV SCH (20:31)
[2020-10-19] MEDS: AZITHROMYCIN 500 MG in DEXTROSE 5% 250 ML IV SCH (21:36)
[2020-10-20] MEDS ORDERED: INSULIN ASPART 100 UNITS/ML 3 ML PEN SC SCH (02:00)
[2020-10-20 06:49] LABS: BUN Creatinine Ratio 21.2 (10-20); Calcium 9.6 mg/dl (8.5-10.1); Creatinine Clr Calc Pharmacy 93.7 ml/min; Est GFR (Non-African American) 79.3; Potassium 3.6 mmol/L (3.5-5.1)
[2020-10-20] MEDS: dexAMETHasone 6 MG in SYRINGE 0 ML IV SCH (07:16)
[2020-10-20] MEDS: ASPIRIN 81 MG ECTAB PO SCH (07:16)
[2020-10-20] MEDS: OLMESARTAN MEDOXOMIL 20 MG TAB PO SCH (07:17)
[2020-10-20] MEDS: PANTOprazole 40 MG TAB PO SCH (07:17)
[2020-10-20] MEDS: ATORVASTATIN 20 MG TAB PO SCH (07:17)
[2020-10-20] MEDS: guaiFENesin 600 MG TABCR PO SCH ×2 (07:17→21:14)
[2020-10-20] MEDS: ENOXAPARIN INJ 60 MG/0.6 ML SYR SQ SCH ×2 (07:18→21:15)
[2020-10-20] MEDS: INSULIN ASPART 100 UNITS/ML 3 ML PEN SC SCH ×4 (08:12→22:19)
[2020-10-20] MEDS: INSULIN HUMAN NPH SC SCH (08:15)
[2020-10-20] MEDS ORDERED: INSULIN HUMAN NPH SC SCH (09:00)
[2020-10-20] MEDS: ACETAMINOPHEN 325 MG TAB PO PRN ×2 (09:44→18:05)
[2020-10-20] MEDS ORDERED: COUGH DROP (SUGAR FREE) LOZ 24 LOZ/1 BOX BUCCAL PRN (18:17)
[2020-10-20] MEDS ORDERED: CHLORASEPTIC 1.4% SOLN 180 ML BTL MT PRN (18:17)
--- NOTE | 2020-10-20 18:19 | Hospitalist Progress Note ---
Date of Service October 20, 2020 Assessment & Plan (1) Acute respiratory failure with hypoxia: Aim O2 sats > 90% Secondary to COVID-19 PNA, no definitive evidence of bacterial pneumonia no on vapo therm 35 L and 80-85 % and bipap when she sleeps, no real help with lasix (2) Pneumonia due to COVID-19 virus: Symptoms > 1 week therefore no indication for remdesivir or convalescent plasma Dexamethasone 6mg daily while hypoxic airborne Isolation precautions try low dose oxycodone to help arthritic shoulder pain to help prone (3) Left leg swelling: without calf pain US venous doppler negative for DVT elevated D Dimer from covid and not suspected from clot (4) Diabetes mellitus: HbA1C 7.3 in Aug 2020. Repeat with AM labs. Hold her usual metformin, linagliptin and glimepiride Consult pharmacy for glycemic control in setting of steroid use. (5) Diabetic neuropathy: Noted history of this (6) Hypertension: Continue olmesartan with hold parameters sBP < 100 (7) Hyperlipemia: Continue atorvastatin 20mg PO daily (8) PCOS (polycystic ovarian syndrome): Noted (9) GERD (gastroesophageal reflux disease): Switch omeprazole for pantoprazole as per hospital formulary (10) DVT prophylaxis: Lovenox 0.5mg/kg due to elevated d-dimer in setting of COVID-19 pneumonia and elevated BMI > 40 Admission and Anticipated Discharge Date Admission Date: October 17, 2020 Subjective Patient is somewhat better spirits in the room today. Even while she is low and walking around the room she is not aware of her hypoxia, she is tolerating vapotherm and bipap when needed and continues trying to prone as much as able. Review of Systems Review of Systems: Moderate distress and fatigue no headache, blurry or double vision some loss of smell no loss of taste no speech or swallowing issues no chest pain, pressure or palpitations shortness of breath, non productive cough no wheezes no abdominal pain, nausea or vomiting, no diarrhea no dysuria, hematuria or frequency no focal joint pain or swelling no back pain, CVA tenderness or radicular pain no bruising, bleeding or rashes no focal signs of weakness or numbness or altered sensation no complaints of anxiety or depression.. Physical Exam Physical Exam: The patient appeared in moderate distress Vital signs as documented. Head exam is normocephalic atraumatic no scleral icterus Neck is without JVD, thyromegaly, or carotid bruits. Lungs are coarse breath sounds with rales bilaterally, poor air movement Cardiac exam, Rhythm is regular.. No murmurs, rubs or gallops. Abdominal exam reveals normal bowel sounds, soft non tender, no masses Extremities are nonedematous and both pedal pulses are present Neurologic exam is alert and oriented, no focal loss of strength or sensation Skin is without bruises or rashes Psychologically is without concerns for anxiety or depression Results & Data Results & Data ([facility]) Vital Signs (Past 12 Hours) Vital Signs Temp Pulse Pulse Resp BP BP Pulse Ox 10/20/20 17:26 98.2 F 95 H 20 135/96 93 10/20/20 15:13 80 10/20/20 14:53 76 33 H 94 10/20/20 11:12 98.1 F 80 20 125/73 91 10/20/20 10:28 92 H 20 91 10/20/20 10:13 83 10/20/20 07:17 84 24 127/80 85 L PG Care Time/CCT Total # of Minutes Spent Total Time Spent with Patient: Total time spent is greater than 50% in coordination of care (as documented) at patient's floor/unit and/or counseling patient: Coding Level of Care Code 91707 Subseq Hosp Care Lvl 3 Diagnoses Acute respiratory failure with hypoxia J96.01 Pneumonia due to COVID-19 virus U07.1; J12.82 Left leg swelling M79.89 Diabetes mellitus E11.9 Diabetic neuropathy E11.40 Hypertension I10 Hyperlipemia E78.5 PCOS (polycystic ovarian syndrome) E28.2 GERD (gastroesophageal reflux disease) K21.9 DVT prophylaxis Z29.9
[2020-10-20] MEDS: cefTRIAXone SODIUM 2,000 MG in DEXTROSE 5% 50 ML IV SCH (22:01)
[2020-10-20] MEDS: oxyCODONE HCL IR 5 MG TAB (IMMEDIATE RELEASE) PO PRN (22:51)
[2020-10-21] MEDS ORDERED: GLUCAGON FOR INJ 1 MG VIAL IM PRN (07:45)
[2020-10-21] MEDS ORDERED: GLUCOSE 40% GEL 15 GM TUBE PO PRN (07:45)
[2020-10-21] MEDS ORDERED: DEXTROSE 50% 50 ML SYRINGE IV PRN (07:45)
[2020-10-21] MEDS ORDERED: GLUCOSE 10 TABS/TUBE PO PRN (07:45)
[2020-10-21] MEDS: guaiFENesin 600 MG TABCR PO SCH ×2 (08:07→20:34)
[2020-10-21] MEDS: OLMESARTAN MEDOXOMIL 20 MG TAB PO SCH (08:07)
[2020-10-21] MEDS: ATORVASTATIN 20 MG TAB PO SCH (08:08)
[2020-10-21] MEDS: ENOXAPARIN INJ 60 MG/0.6 ML SYR SQ SCH ×2 (08:08→20:34)
[2020-10-21] MEDS: PANTOprazole 40 MG TAB PO SCH (08:08)
[2020-10-21] MEDS: ASPIRIN 81 MG ECTAB PO SCH (08:08)
[2020-10-21] MEDS: INSULIN ASPART 100 UNITS/ML 3 ML PEN SC SCH ×3 (08:18→18:05)
[2020-10-21] MEDS: dexAMETHasone 6 MG in SYRINGE 0 ML IV SCH (09:31)
[2020-10-21] MEDS: ZINC SULFATE 220 MG CAPSULE PO SCH (09:31)
[2020-10-21] MEDS: AZITHROMYCIN 250 MG TAB PO SCH (09:31)
[2020-10-21] MEDS: INSULIN HUMAN NPH SC SCH (09:45)
--- NOTE | 2020-10-21 10:25 | Pharmacy Report ---
Pharmacy Glycemic Short Note 2 - Date of Service October 21, 2020 - Glycemic Short BSG Results (Last 24 hours): 10/20/20 10/20/20 10/20/20 11:11 16:26 21:05 POC Glucose 234 H 294 H 342 H* 10/21/20 10/21/20 10/21/20 07:31 07:32 08:18 POC Glucose 60 L* 60 L* 78 OUTPATIENT ANTIDIABETIC REGIMEN: * Metformin 2 g PO qAM * Tradjenta 5 mg PO daily * Glimepiride 8 mg PO daily * HbA1c: 7.6% (10/18/20) ASSESSMENT: 10/20/20 * BSGs continue to be uncontrolled, especially postprandials: [phone] mg/dL * Fasting hypoglycemia today of 60 mg/dL - no Novolog administered this AM * Will tighten CR with breakfast, lunch and dinner * Will loosen CF/CR at bedtime to prevent fasting hypoglycemia * Continued 50 units NPH for Dexamethasone dose 10/19/20 * BSGs significantly elevated yesterday, 226, 270, 299, and 318 mg/dL * Patient received 122 units of insulin (45 units of NPH and 77 units of Novolog) * Hyperglycemia likely steroid-induced given IV dexamethasone * Fasting BSG of 91 mg/dL this morning * Will give NPH 45 units with this morning's dose of IV dexamethasone (0.4 unit/kg) 10/18/20 * MJ is a 55 year old female admitted on evening of 10/17/20 with COVID-19 pneumonia * Ordered dexamethasone 6 mg IV daily (first dose yesterday at 1612) - no basal insulin administered yesterday * BSGs poorly controlled yesterday evening, 267, 297, and 253 mg/dL * Fasting BSG of 226 mg/dL * Will order NPH with today's dexamethasone dose and tighten Novolog parameters * Receiving IV ceftriaxone and azithromycin PLAN FOR INPATIENT GLYCEMIC CONTROL: * Hold outpatient oral diabetes medications * Basal insulin * NPH 50 units SC daily with IV dexamethasone * Bolus insulin * NovoLog per scale ACHS or Q6hrs while NPO * Goal Range: Low 110 mg/dL - High 140 mg/dL * Breakfast, Lunch, Dinner: Correction Factor: 10 mg/dL/unit; Nutritional / Prandial insulin per carb ratio of 1 unit per 3 grams CHO consumed * Bedtime: Correction Factor: 15 mg/dL/unit; Nutritional / Prandial insulin per carb ratio of 1 unit per 5 grams CHO consumed PLAN FOR DISCHARGE: * Reasonable HbA1c goal for most non- adults would be less than 7% * HbA1c of 7.6% is above goal * Patient is on three PO antidiabetic medications that are all at maximum doses * Patient would likely benefit from once daily basal insulin - will need to reassess dose once steroids are discontinued
[2020-10-21] MEDS ORDERED: LOPERAMIDE HCL 2 MG CAP PO PRN ×2 (13:24→13:40)
--- NOTE | 2020-10-21 13:45 | Hospitalist Progress Note ---
Date of Service October 21, 2020 Assessment & Plan (1) Acute respiratory failure with hypoxia: Aim O2 sats > 90% Secondary to COVID-19 PNA, no definitive evidence of bacterial pneumonia no on vapo therm 30 L and 75 % and bipap when she sleeps, no real help with lasix so will not continue diarrhea likely secondary to covid, will check c diff and add imodium (2) Pneumonia due to COVID-19 virus: Symptoms > 1 week therefore no indication for remdesivir or convalescent plasma Dexamethasone 6mg daily while hypoxic airborne Isolation precautions try low dose oxycodone to help arthritic shoulder pain to help prone (3) Left leg swelling: without calf pain US venous doppler negative for DVT elevated D Dimer from covid and not suspected from clot (4) Diabetes mellitus: HbA1C 7.3 in Aug 2020. Repeat with AM labs. Hold her usual metformin, linagliptin and glimepiride Consult pharmacy for glycemic control in setting of steroid use. (5) Diabetic neuropathy: Noted history of this (6) Hypertension: Continue olmesartan with hold parameters sBP < 100 (7) Hyperlipemia: Continue atorvastatin 20mg PO daily (8) PCOS (polycystic ovarian syndrome): Noted (9) GERD (gastroesophageal reflux disease): Switch omeprazole for pantoprazole as per hospital formulary (10) DVT prophylaxis: Lovenox 0.5mg/kg due to elevated d-dimer in setting of COVID-19 pneumonia and elevated BMI > 40 Admission and Anticipated Discharge Date Admission Date: October 17, 2020 Subjective Patient is on slightly less oxygen that days previous for the first time, continues with diarrhea, she did prone longer than ever yesterday and we may have noted the hypoxia improve due to that. Review of Systems Review of Systems: Moderate distress and fatigue no headache, blurry or double vision some loss of smell no loss of taste no speech or swallowing issues no chest pain, pressure or palpitations shortness of breath, non productive cough no wheezes no abdominal pain, nausea or vomiting, no diarrhea no dysuria, hematuria or frequency no focal joint pain or swelling no back pain, CVA tenderness or radicular pain no bruising, bleeding or rashes no focal signs of weakness or numbness or altered sensation no complaints of anxiety or depression.. Physical Exam Physical Exam: The patient appeared in moderate distress Vital signs as documented. Head exam is normocephalic atraumatic no scleral icterus Neck is without JVD, thyromegaly, or carotid bruits. Lungs are coarse breath sounds with rales bilaterally, poor air movement Cardiac exam, Rhythm is regular.. No murmurs, rubs or gallops. Abdominal exam reveals normal bowel sounds, soft non tender, no masses Extremities are nonedematous and both pedal pulses are present Neurologic exam is alert and oriented, no focal loss of strength or sensation Skin is without bruises or rashes Psychologically is without concerns for anxiety or depression Results & Data Results & Data ([facility]) Vital Signs (Past 12 Hours) Vital Signs Temp Pulse Pulse Resp BP BP Pulse Ox 10/21/20 11:36 98.2 F 92 H 20 135/83 90 10/21/20 11:28 84 20 91 10/21/20 08:03 97.9 F 76 20 162/79 H 92 10/21/20 07:51 49 L 10/21/20 07:19 70 22 94 10/21/20 03:43 98.1 F 80 24 105/90 90 10/21/20 02:33 55 L 30 H 90 PG Care Time/CCT Total # of Minutes Spent Total Time Spent with Patient: Total time spent is greater than 50% in coordination of care (as documented) at patient's floor/unit and/or counseling patient: Coding Level of Care Code 40985 Subseq Hosp Care Lvl 3 Diagnoses Acute respiratory failure with hypoxia J96.01 Pneumonia due to COVID-19 virus U07.1; J12.82 Left leg swelling M79.89 Diabetes mellitus E11.9 Diabetic neuropathy E11.40 Hypertension I10 Hyperlipemia E78.5 PCOS (polycystic ovarian syndrome) E28.2 GERD (gastroesophageal reflux disease) K21.9 DVT prophylaxis Z29.9
[2020-10-21] MEDS: oxyCODONE HCL IR 5 MG TAB (IMMEDIATE RELEASE) PO PRN ×2 (14:10→22:57)
[2020-10-21] MEDS: cefTRIAXone SODIUM 2,000 MG in DEXTROSE 5% 50 ML IV SCH (20:31)
[2020-10-22] MEDS: INSULIN ASPART 100 UNITS/ML 3 ML PEN SC SCH ×5 (00:04→21:01)
[2020-10-22] MEDS ORDERED: INSULIN ASPART 100 UNITS/ML 3 ML PEN SC SCH (02:00)
[2020-10-22] MEDS: AZITHROMYCIN 250 MG TAB PO SCH (08:35)
[2020-10-22] MEDS: ATORVASTATIN 20 MG TAB PO SCH (08:35)
[2020-10-22] MEDS: OLMESARTAN MEDOXOMIL 20 MG TAB PO SCH (08:35)
[2020-10-22] MEDS: ZINC SULFATE 220 MG CAPSULE PO SCH (08:35)
[2020-10-22] MEDS: guaiFENesin 600 MG TABCR PO SCH ×2 (08:35→21:00)
[2020-10-22] MEDS: PANTOprazole 40 MG TAB PO SCH (08:35)
[2020-10-22] MEDS: ASPIRIN 81 MG ECTAB PO SCH (08:35)
[2020-10-22] MEDS: dexAMETHasone 6 MG in SYRINGE 0 ML IV SCH (08:35)
[2020-10-22] MEDS: ENOXAPARIN INJ 60 MG/0.6 ML SYR SQ SCH ×2 (08:37→21:01)
[2020-10-22] MEDS: INSULIN HUMAN NPH SC SCH (09:02)
--- NOTE | 2020-10-22 13:06 | Pharmacy Report ---
Pharmacy Glycemic Short Note 2 - Date of Service October 22, 2020 - Glycemic Short BSG Results (Last 24 hours): 10/21/20 10/21/20 10/22/20 16:39 20:29 03:22 POC Glucose 229 H 353 H* 70 10/22/20 10/22/20 07:33 11:53 POC Glucose 140 H 255 H OUTPATIENT ANTIDIABETIC REGIMEN: * Metformin 2 g PO qAM * Tradjenta 5 mg PO daily * Glimepiride 8 mg PO daily * HbA1c: 7.6% (10/18/20) ASSESSMENT: 10/22/20 * BSGs increased throughout the day yesterday, 60, 152, 229, and 353 mg/dL * Will tighten carb ratio today * Fasting BSG this morning of 140 mg/dL * Continues on dexamethasone 6 mg IV daily - will continue to cover with NPH 50 units * Give lows observed in hr analyst on last 2 days - will loosen HS Novolog parameters 10/18/20 * MJ is a 55 year old female admitted on evening of 10/17/20 with COVID-19 pneumonia * Ordered dexamethasone 6 mg IV daily (first dose yesterday at 1612) - no basal insulin administered yesterday * BSGs poorly controlled yesterday evening, 267, 297, and 253 mg/dL * Fasting BSG of 226 mg/dL * Will order NPH with today's dexamethasone dose and tighten Novolog parameters * Receiving IV ceftriaxone and azithromycin PLAN FOR INPATIENT GLYCEMIC CONTROL: * Hold outpatient oral diabetes medications * Basal insulin * NPH 50 units SC daily with IV dexamethasone * Bolus insulin * NovoLog per scale ACHS or Q6hrs while NPO * Goal Range: Low 110 mg/dL - High 140 mg/dL * Breakfast, Lunch, Dinner: Correction Factor: 10 mg/dL/unit; Nutritional / Prandial insulin per carb ratio of 1 unit per 2.5 grams CHO consumed * Bedtime: Correction Factor: 25 mg/dL/unit; Nutritional / Prandial insulin per carb ratio of 1 unit per 8 grams CHO consumed PLAN FOR DISCHARGE: * Reasonable HbA1c goal for most non- adults would be less than 7% * HbA1c of 7.6% is above goal * Patient is on three PO antidiabetic medications that are all at maximum doses * Patient would likely benefit from once daily basal insulin - will need to reassess dose once steroids are discontinued
--- NOTE | 2020-10-22 17:35 | Hospitalist Progress Note ---
Date of Service October 22, 2020 Assessment & Plan (1) Acute respiratory failure with hypoxia: Aim O2 sats > 90% Secondary to COVID-19 PNA, no definitive evidence of bacterial pneumonia transitioning off vapotherm, to wall unit high flow diarrhea likely secondary to covid, pending check c diff and add imodium (2) Pneumonia due to COVID-19 virus: Symptoms > 1 week therefore no indication for remdesivir or convalescent plasma Dexamethasone 6mg daily while hypoxic airborne Isolation precautions low dose oxycodone has helped arthritic shoulder pain to help prone (3) Left leg swelling: without calf pain US venous doppler negative for DVT elevated D Dimer from covid and not suspected from clot (4) Diabetes mellitus: HbA1C 7.3 in Aug 2020. Repeat with AM labs. Hold her usual metformin, linagliptin and glimepiride Consult pharmacy for glycemic control in setting of steroid use. (5) Diabetic neuropathy: Noted history of this (6) Hypertension: Continue olmesartan with hold parameters sBP < 100 (7) Hyperlipemia: Continue atorvastatin 20mg PO daily (8) PCOS (polycystic ovarian syndrome): Noted (9) GERD (gastroesophageal reflux disease): Switch omeprazole for pantoprazole as per hospital formulary (10) DVT prophylaxis: Lovenox 0.5mg/kg due to elevated d-dimer in setting of COVID-19 pneumonia and elevated BMI > 40 Admission and Anticipated Discharge Date Admission Date: October 17, 2020 Subjective the pt has had improving oxygenation with attempts to have high flow now in place of vapo therm, otherwise still has some diarrhea Review of Systems Review of Systems: Moderate distress and fatigue no headache, blurry or double vision some loss of smell no loss of taste no speech or swallowing issues no chest pain, pressure or palpitations shortness of breath, non productive cough no wheezes no abdominal pain, nausea or vomiting, no diarrhea no dysuria, hematuria or frequency no focal joint pain or swelling no back pain, CVA tenderness or radicular pain no bruising, bleeding or rashes no focal signs of weakness or numbness or altered sensation no complaints of anxiety or depression.. Physical Exam Physical Exam: The patient appeared in moderate distress Vital signs as documented. Head exam is normocephalic atraumatic no scleral icterus Neck is without JVD, thyromegaly, or carotid bruits. Lungs are coarse breath sounds with rales bilaterally, poor air movement Cardiac exam, Rhythm is regular.. No murmurs, rubs or gallops. Abdominal exam reveals normal bowel sounds, soft non tender, no masses Extremities are nonedematous and both pedal pulses are present Neurologic exam is alert and oriented, no focal loss of strength or sensation Skin is without bruises or rashes Psychologically is without concerns for anxiety or depression Results & Data Results & Data ([facility]) Vital Signs (Past 12 Hours) Vital Signs Temp Pulse Pulse Pulse Resp BP Pulse Ox 10/22/20 16:19 98.4 F 72 19 153/91 H 94 10/22/20 15:05 82 18 90 10/22/20 12:04 97.7 F 87 18 137/92 10/22/20 11:12 88 18 90 10/22/20 08:11 78 19 93 10/22/20 07:35 98.4 F 70 93 H 18 156/98 H 90 PG Care Time/CCT Total # of Minutes Spent Total Time Spent with Patient: Total time spent is greater than 50% in coordination of care (as documented) at patient's floor/unit and/or counseling patient: Coding Level of Care Code 46589 Subseq Hosp Care Lvl 2 Diagnoses Acute respiratory failure with hypoxia J96.01 Pneumonia due to COVID-19 virus U07.1; J12.82 Left leg swelling M79.89 Diabetes mellitus E11.9 Diabetic neuropathy E11.40 Hypertension I10 Hyperlipemia E78.5 PCOS (polycystic ovarian syndrome) E28.2 GERD (gastroesophageal reflux disease) K21.9 DVT prophylaxis Z29.9
[2020-10-22] MEDS: cefTRIAXone SODIUM 2,000 MG in DEXTROSE 5% 50 ML IV SCH (20:59)
[2020-10-22] MEDS: oxyCODONE HCL IR 5 MG TAB (IMMEDIATE RELEASE) PO PRN (22:41)
[2020-10-23] MEDS: INSULIN ASPART 100 UNITS/ML 3 ML PEN SC SCH ×3 (08:33→17:00)
[2020-10-23] MEDS: ATORVASTATIN 20 MG TAB PO SCH (08:49)
[2020-10-23] MEDS: OLMESARTAN MEDOXOMIL 20 MG TAB PO SCH (08:49)
[2020-10-23] MEDS: guaiFENesin 600 MG TABCR PO SCH ×2 (08:49→21:20)
[2020-10-23] MEDS: AZITHROMYCIN 250 MG TAB PO SCH (08:50)
[2020-10-23] MEDS: PANTOprazole 40 MG TAB PO SCH (08:50)
[2020-10-23] MEDS: dexAMETHasone 6 MG in SYRINGE 0 ML IV SCH (08:50)
[2020-10-23] MEDS: ZINC SULFATE 220 MG CAPSULE PO SCH (08:50)
[2020-10-23] MEDS: ASPIRIN 81 MG ECTAB PO SCH (08:50)
[2020-10-23] MEDS: ENOXAPARIN INJ 60 MG/0.6 ML SYR SQ SCH ×2 (08:50→21:21)
[2020-10-23] MEDS ORDERED: INSULIN HUMAN NPH SC SCH (09:00)
[2020-10-23] MEDS: ACETAMINOPHEN 325 MG TAB PO PRN (13:17)
--- NOTE | 2020-10-23 13:44 | Pharmacy Report ---
Pharmacy Glycemic Short Note 2 - Date of Service October 23, 2020 - Glycemic Short BSG Results (Last 24 hours): 10/22/20 10/22/20 10/22/20 16:16 16:18 21:00 POC Glucose 365 H* 327 H* 305 H* 10/23/20 10/23/20 10/23/20 07:50 07:51 11:57 POC Glucose 67 L* 60 L* 195 H OUTPATIENT ANTIDIABETIC REGIMEN: * Metformin 2 g PO qAM * Tradjenta 5 mg PO daily * Glimepiride 8 mg PO daily * HbA1c: 7.6% (10/18/20) ASSESSMENT: 10/23/20 * BSGs remain poorly controlled, 140, 255, 327, and 305 mg/dL yesterday * This is certainly steroid-induced, discussed with hospitalist and will switch to PO starting tomorrow * Will further tighten Novolog parameters this morning and lower the low end of goal range to subtract off less insulin * Fasting BSG of 60 mg/dL this morning * Patient received 153 units of insulin yesterday - 50 units of NPH and 103 units of prandial/correctional * Given pattern of AM lows - will remove HS Novolog check 10/18/20 * MJ is a 55 year old female admitted on evening of 10/17/20 with COVID-19 pneu monia * Ordered dexamethasone 6 mg IV daily (first dose yesterday at 1612) - no basal insulin administered yesterday * BSGs poorly controlled yesterday evening, 267, 297, and 253 mg/dL * Fasting BSG of 226 mg/dL * Will order NPH with today's dexamethasone dose and tighten Novolog parameters * Receiving IV ceftriaxone and azithromycin PLAN FOR INPATIENT GLYCEMIC CONTROL: * Hold outpatient oral diabetes medications * Basal insulin - increase * NPH 55 units SC daily with IV dexamethasone * Bolus insulin - tighten parameters, lower the low-end of goal range * NovoLog per scale ACHS or Q6hrs while NPO * Goal Range: Low 90 mg/dL - High 140 mg/dL * Breakfast, Lunch, Dinner: Correction Factor: 8 mg/dL/unit; Nutritional / Prandial insulin per carb ratio of 1 unit per 2 grams CHO consumed * Bedtime: no insulin PLAN FOR DISCHARGE: * Reasonable HbA1c goal for most non- adults would be less than 7% * HbA1c of 7.6% is above goal * Patient is on three PO antidiabetic medications that are all at maximum doses * Patient would likely benefit from once daily basal insulin - will need to reassess dose once steroids are discontinued
--- NOTE | 2020-10-23 15:56 | Hospitalist Progress Note ---
Date of Service October 23, 2020 Assessment & Plan (1) Acute respiratory failure with hypoxia: Aim O2 sats > 90% Secondary to COVID-19 PNA, no definitive evidence of bacterial pneumonia transitioning off vapotherm, to wall unit high flow diarrhea likely secondary to covid, negative c diff (2) Pneumonia due to COVID-19 virus: Symptoms > 1 week therefore no indication for remdesivir or convalescent plasma Dexamethasone 6mg daily while hypoxic, transition to po due to difficult to control glucoses airborne Isolation precautions low dose oxycodone has helped arthritic shoulder pain to help prone (3) Left leg swelling: without calf pain US venous doppler negative for DVT elevated D Dimer from covid and not suspected from clot (4) Diabetes mellitus: HbA1C 7.3 in Aug 2020. Repeat with AM labs. Hold her usual metformin, linagliptin and glimepiride Consult pharmacy for glycemic control in setting of steroid use. now on nph and ssi (5) Diabetic neuropathy: Noted history of this (6) Hypertension: Continue olmesartan with hold parameters sBP < 100 (7) Hyperlipemia: Continue atorvastatin 20mg PO daily (8) PCOS (polycystic ovarian syndrome): Noted (9) GERD (gastroesophageal reflux disease): Switch omeprazole for pantoprazole as per hospital formulary (10) DVT prophylaxis: Lovenox 0.5mg/kg due to elevated d-dimer in setting of COVID-19 pneumonia and elevated BMI > 40 Admission and Anticipated Discharge Date Admission Date: October 17, 2020 Subjective the pt has had improving oxygenation now on wall regulator high flow and off vapotherm, encouraged to prone as much as able, otherwise still has some diarrhea Review of Systems Review of Systems: Moderate distress and fatigue no headache, blurry or double vision some loss of smell no loss of taste no speech or swallowing issues no chest pain, pressure or palpitations shortness of breath, non productive cough no wheezes no abdominal pain, nausea or vomiting, no diarrhea no dysuria, hematuria or frequency no focal joint pain or swelling no back pain, CVA tenderness or radicular pain no bruising, bleeding or rashes no focal signs of weakness or numbness or altered sensation no complaints of anxiety or depression.. Physical Exam Physical Exam: The patient appeared in moderate distress Vital signs as documented. Head exam is normocephalic atraumatic no scleral icterus Neck is without JVD, thyromegaly, or carotid bruits. Lungs are coarse breath sounds with rales bilaterally, poor air movement Cardiac exam, Rhythm is regular.. No murmurs, rubs or gallops. Abdominal exam reveals normal bowel sounds, soft non tender, no masses Extremities are nonedematous and both pedal pulses are present Neurologic exam is alert and oriented, no focal loss of strength or sensation Skin is without bruises or rashes Psychologically is without concerns for anxiety or depression Results & Data Results & Data ([facility]) Vital Signs (Past 12 Hours) Vital Signs Temp Pulse Pulse Resp BP Pulse Ox 10/23/20 12:00 98.2 F 85 20 145/99 H 90 10/23/20 08:00 80 10/23/20 07:56 97.7 F 88 20 146/93 H 90 10/23/20 04:00 97.5 F L 82 16 152/85 H 89 L PG Care Time/CCT Total # of Minutes Spent Total Time Spent with Patient: Total time spent is greater than 50% in coordination of care (as documented) at patient's floor/unit and/or counseling patient: Coding Level of Care Code 77935 Subseq Hosp Care Lvl 2 Diagnoses Acute respiratory failure with hypoxia J96.01 Pneumonia due to COVID-19 virus U07.1; J12.82 Left leg swelling M79.89 Diabetes mellitus E11.9 Diabetic neuropathy E11.40 Hypertension I10 Hyperlipemia E78.5 PCOS (polycystic ovarian syndrome) E28.2 GERD (gastroesophageal reflux disease) K21.9 DVT prophylaxis Z29.9
[2020-10-23] MEDS ORDERED: INSULIN ASPART 100 UNITS/ML 3 ML PEN SC ONE (17:30)
[2020-10-23] MEDS: oxyCODONE HCL IR 5 MG TAB (IMMEDIATE RELEASE) PO PRN (21:20)
[2020-10-24 06:50] LABS: Hematocrit (blood only) 42.1 % (37-47); Hemoglobin 14.6 g/dL (12.0-16.0); Mean Corpuscular Hemoglobin 29.3 pg (25-34); Mean Corpuscular Hgb Conc 34.7 g/dL (32-36); Mean Corpuscular Volume 84.5 fL (80-100); Mean Platelet Volume 8.9 fL (7.4-10.4); Platelet Count 463 K/uL (130-400); RDW Coefficient of Variation 13.4 % (11.5-14.5); RDW Standard Deviation 40.7 fL (36.4-46.3); Red Blood Count 4.98 M/uL (4.2-5.4); White Blood Count 11.22 K/uL (4.8-10.8)
[2020-10-24 07:31] LABS: BUN Creatinine Ratio 23.3 (10-20); Calcium 8.9 mg/dl (8.5-10.1); Creatinine Clr Calc Pharmacy 110.7 ml/min; Est GFR (African American) 112.7; Est GFR (Non-African American) 97.2
[2020-10-24] MEDS: ZINC SULFATE 220 MG CAPSULE PO SCH (08:44)
[2020-10-24] MEDS: OLMESARTAN MEDOXOMIL 20 MG TAB PO SCH (08:44)
[2020-10-24] MEDS: ASPIRIN 81 MG ECTAB PO SCH (08:44)
[2020-10-24] MEDS: ATORVASTATIN 20 MG TAB PO SCH (08:44)
[2020-10-24] MEDS: PANTOprazole 40 MG TAB PO SCH (08:44)
[2020-10-24] MEDS: guaiFENesin 600 MG TABCR PO SCH ×2 (08:44→21:30)
[2020-10-24] MEDS: ENOXAPARIN INJ 60 MG/0.6 ML SYR SQ SCH ×2 (08:45→21:31)
[2020-10-24] MEDS: metFORMIN HCL ER 500 MG TABCR PO SCH (08:55)
[2020-10-24] MEDS ORDERED: dexAMETHasone 4 MG TAB PO SCH (09:00)
[2020-10-24] MEDS ORDERED: INSULIN HUMAN NPH SC SCH ×2 (09:00)
[2020-10-24] MEDS: INSULIN ASPART 100 UNITS/ML 3 ML PEN SC SCH ×3 (09:10→17:24)
--- NOTE | 2020-10-24 14:25 | Pharmacy Report ---
Pharmacy Glycemic Short Note 2 - Date of Service October 24, 2020 - Glycemic Short BSG Results (Last 24 hours): 10/23/20 10/23/20 10/24/20 16:13 20:26 06:33 Glucose 58 L POC Glucose 282 H 264 H 10/24/20 10/24/20 08:16 12:10 Glucose POC Glucose 74 299 H OUTPATIENT ANTIDIABETIC REGIMEN: * Metformin 2 g PO qAM * Tradjenta 5 mg PO daily * Glimepiride 8 mg PO daily * HbA1c: 7.6% (10/18/20) ASSESSMENT: 10/24/20 * BSGs yesterday, 60, 195, 282, and 264 mg/dL * Patient received 55 units of NPH and 118 units of Novolog * Steroids changed to PO dexamethasone today * Fasting BSG of 74 mg/dL this morning - continue to hold HS Novolog * Discussed with hospitalist and will restart metformin today * Reduced NPH empirically given change in steroids to PO and addition of metformin * Pre-lunch BSG of 299 mg/dL - will tighten Novolog back to yesterday's parameters 10/23/20 * BSGs remain poorly controlled, 140, 255, 327, and 305 mg/dL yesterday * This is certainly steroid-induced, discussed with hospitalist and will switch to PO starting tomorrow * Will further tighten Novolog parameters this morning and lower the low end of goal range to subtract off less insulin * Fasting BSG of 60 mg/dL this morning * Patient received 153 units of insulin yesterday - 50 units of NPH and 103 units of prandial/correctional * Given pattern of AM lows - will remove HS Novolog check 10/18/20 * MJ is a 55 year old female admitted on evening of 10/17/20 with COVID-19 pneumonia * Ordered dexamethasone 6 mg IV daily (first dose yesterday at 1612) - no basal insulin administered yesterday * BSGs poorly controlled yesterday evening, 267, 297, and 253 mg/dL * Fasting BSG of 226 mg/dL * Will order NPH with today's dexamethasone dose and tighten Novolog parameters * Receiving IV ceftriaxone and azithromycin PLAN FOR INPATIENT GLYCEMIC CONTROL: * Restart metformin ER 2 g PO daily * Consider adding glimepiride 8 mg PO daily starting tomorrow * Basal insulin * NPH 45 units SC daily with IV dexamethasone * Bolus insulin - tighten parameters, lower the low-end of goal range * NovoLog per scale ACHS or Q6hrs while NPO * Goal Range: Low 90 mg/dL - High 140 mg/dL * Breakfast, Lunch, Dinner: Correction Factor: 8 mg/dL/unit; Nutritional / Prandial insulin per carb ratio of 1 unit per 2 grams CHO consumed * Bedtime: no insulin PLAN FOR DISCHARGE: * Reasonable HbA1c goal for most non- adults would be less than 7% * HbA1c of 7.6% is above goal * Patient is on three PO antidiabetic medications that are all at maximum doses * Patient would likely benefit from once daily basal insulin - will need to reassess dose once steroids are discontinued
--- NOTE | 2020-10-24 15:30 | Hospitalist Progress Note ---
Date of Service October 24, 2020 Assessment & Plan (1) Acute respiratory failure with hypoxia: Aim O2 sats > 90% Secondary to COVID-19 PNA, no definitive evidence of bacterial pneumonia transitioning off vapotherm, to wall unit high flow diarrhea likely secondary to covid, negative c diff (2) Pneumonia due to COVID-19 virus: Symptoms > 1 week therefore no indication for remdesivir or convalescent plasma Dexamethasone 6mg daily while hypoxic, transition to po due to difficult to control glucoses airborne Isolation precautions low dose oxycodone has helped arthritic shoulder pain to help prone (3) Left leg swelling: without calf pain US venous doppler negative for DVT elevated D Dimer from covid and not suspected from clot (4) Diabetes mellitus: HbA1C 7.3 in Aug 2020. Repeat with AM labs. Hold her usual metformin, linagliptin and glimepiride Consult pharmacy for glycemic control in setting of steroid use. now on nph and ssi (5) Diabetic neuropathy: Noted history of this (6) Hypertension: Continue olmesartan with hold parameters sBP < 100 (7) Hyperlipemia: Continue atorvastatin 20mg PO daily (8) PCOS (polycystic ovarian syndrome): Noted (9) GERD (gastroesophageal reflux disease): Switch omeprazole for pantoprazole as per hospital formulary (10) DVT prophylaxis: Lovenox 0.5mg/kg due to elevated d-dimer in setting of COVID-19 pneumonia and elevated BMI > 40 Admission and Anticipated Discharge Date Admission Date: October 17, 2020 Subjective the pt now on wall regulator high flow and off vapotherm, encouraged to prone as much as able, otherwise still has some diarrhea, has not made great strides in oxygen today Review of Systems Review of Systems: Moderate distress and fatigue no headache, blurry or double vision some loss of smell no loss of taste no speech or swallowing issues no chest pain, pressure or palpitations shortness of breath, non productive cough no wheezes no abdominal pain, nausea or vomiting, no diarrhea no dysuria, hematuria or frequency no focal joint pain or swelling no back pain, CVA tenderness or radicular pain no bruising, bleeding or rashes no focal signs of weakness or numbness or altered sensation no complaints of anxiety or depression.. Physical Exam Physical Exam: The patient appeared in moderate distress Vital signs as documented. Head exam is normocephalic atraumatic no scleral icterus Neck is without JVD, thyromegaly, or carotid bruits. Lungs are coarse breath sounds with rales bilaterally, poor air movement Cardiac exam, Rhythm is regular.. No murmurs, rubs or gallops. Abdominal exam reveals normal bowel sounds, soft non tender, no masses Extremities are nonedematous and both pedal pulses are present Neurologic exam is alert and oriented, no focal loss of strength or sensation Skin is without bruises or rashes Psychologically is without concerns for anxiety or depression Results & Data Results & Data ([facility]) Vital Signs (Past 12 Hours) Vital Signs Temp Pulse Pulse Resp BP Pulse Ox 10/24/20 12:13 97.9 F 82 19 136/84 92 10/24/20 08:13 97.9 F 77 19 157/86 H 96 10/24/20 08:00 63 10/24/20 04:31 98.4 F 78 19 150/96 H 90 PG Care Time/CCT Total # of Minutes Spent Total Time Spent with Patient: Total time spent is greater than 50% in coordination of care (as documented) at patient's floor/unit and/or counseling patient: Coding Level of Care Code 92642 Subseq Hosp Care Lvl 2 Diagnoses Acute respiratory failure with hypoxia J96.01 Pneumonia due to COVID-19 virus U07.1; J12.82 Left leg swelling M79.89 Diabetes mellitus E11.9 Diabetic neuropathy E11.40 Hypertension I10 Hyperlipemia E78.5 PCOS (polycystic ovarian syndrome) E28.2 GERD (gastroesophageal reflux disease) K21.9 DVT prophylaxis Z29.9
[2020-10-24] MEDS: oxyCODONE HCL IR 5 MG TAB (IMMEDIATE RELEASE) PO PRN (21:29)
[2020-10-25 01:19] LABS: BUN Creatinine Ratio 21.4 (10-20); Calcium 9.4 mg/dl (8.5-10.1); Creatinine Clr Calc Pharmacy 95.8 ml/min; Est GFR (African American) 94.7; Est GFR (Non-African American) 81.7; Magnesium 1.6 mg/dl (1.8-2.4); Phosphorus 2.4 mg/dl (2.5-4.9); Potassium 3.6 mmol/L (3.5-5.1)
[2020-10-25] MEDS: MAGNESIUM SULFATE / D5W 1 GM/100 ML BAG IV SCH ×2 (02:42→05:12)
[2020-10-25 07:59] LABS: BUN Creatinine Ratio 23.2 (10-20); Calcium 8.6 mg/dl (8.5-10.1); Creatinine Clr Calc Pharmacy 113.9 ml/min; Est GFR (African American) 115.2; Est GFR (Non-African American) 99.4; Magnesium 2.3 mg/dl (1.8-2.4); Potassium 3.7 mmol/L (3.5-5.1)
[2020-10-25] MEDS: CARBOHYDRATES FOR HYPOGLYCEMIA PO PRN (08:11)
[2020-10-25] MEDS: metFORMIN HCL ER 500 MG TABCR PO SCH (08:12)
[2020-10-25] MEDS: dexAMETHasone 6 MG in SYRINGE 0 ML IV SCH (08:12)
[2020-10-25] MEDS: PANTOprazole 40 MG TAB PO SCH (08:12)
[2020-10-25] MEDS: ASPIRIN 81 MG ECTAB PO SCH (08:12)
[2020-10-25] MEDS: ZINC SULFATE 220 MG CAPSULE PO SCH (08:12)
[2020-10-25] MEDS: ATORVASTATIN 20 MG TAB PO SCH (08:12)
[2020-10-25] MEDS: guaiFENesin 600 MG TABCR PO SCH ×2 (08:13→20:37)
[2020-10-25] MEDS: OLMESARTAN MEDOXOMIL 20 MG TAB PO SCH (08:13)
[2020-10-25] MEDS: ENOXAPARIN INJ 60 MG/0.6 ML SYR SQ SCH ×2 (08:13→20:37)
[2020-10-25] MEDS: INSULIN HUMAN NPH SC SCH (09:15)
[2020-10-25] MEDS: INSULIN ASPART 100 UNITS/ML 3 ML PEN SC SCH ×3 (09:15→16:43)
[2020-10-25] MEDS ORDERED: POTASSIUM PHOS 3 MMOL/1 ML INFUSION IV STA (09:25)
--- NOTE | 2020-10-25 09:25 | Hospitalist Progress Note ---
Date of Service October 25, 2020 Assessment & Plan (1) Acute respiratory failure with hypoxia: Aim O2 sats > 90% Secondary to COVID-19 PNA, no definitive evidence of bacterial pneumonia on 9L wall high flow give Lasix 20mg IV trial, see if she responds and can try to titrate down on oxygen requirements once down to 3-4L NC will try for two step, hope to get home later this week (2) Pneumonia due to COVID-19 virus: Symptoms > 1 week therefore no indication for remdesivir or convalescent plasma Dexamethasone 6mg daily while hypoxic, transition to po due to difficult to control glucoses airborne Isolation precautions low dose oxycodone has helped arthritic shoulder pain to help prone Day 8 of admission, two more days of Decadron improving slowly, add Lasix today to keep lungs dry (3) Left leg swelling: without calf pain US venous doppler negative for DVT elevated D Dimer from covid and not suspected from clot (4) Diabetes mellitus: HbA1C 7.3 in Aug 2020. Repeat with AM labs. Hold her usual metformin, linagliptin and glimepiride Consult pharmacy for glycemic control in setting of steroid use. now on nph and ssi sugars labile, low this morning at 65, up to 87 now prior to Decadron sugars will jump to 300's later in day pharmacy helping to manage (5) Diabetic neuropathy: Noted history of this (6) Hypertension: Continue olmesartan with hold parameters sBP < 100 (7) Hyperlipemia: Continue atorvastatin 20mg PO daily (8) PCOS (polycystic ovarian syndrome): Noted (9) GERD (gastroesophageal reflux disease): Switch omeprazole for pantoprazole as per hospital formulary (10) DVT prophylaxis: Lovenox 0.5mg/kg due to elevated d-dimer in setting of COVID-19 pneumonia and elevated BMI > 40 (11) Hypophosphatemia: low at 2.4, give K PHos today Admission and Anticipated Discharge Date Admission Date: October 17, 2020 Subjective patient feeling well, sitting up in a chair, no distress she says her breathing is better than yesterday quick review of I/O and she is 4.6 liters positive, not sure if this is entirely accurate she is eating and drinking well, bowels are moving, soft BM will give Lasix 20mg IV, discussed with RN, will allow her to shower as well, can take off monitor temporarily reviewed chart, reviewed labs, K is 3.7, Cr 0.69, glucose was low at 65, up to 87 phos low 2.4, will give K Phos IV today Review of Systems Review of Systems: All systems reviewed & are unremarkable except as noted in Subjective Constitutional: no fever, no chills, no sweats, no fatigue and no weakness Respiratory: + dyspnea on exertion; no cough and no dyspnea Cardiovascular: no chest pain and no edema Gastrointestinal: no abdominal pain, no nausea, no vomiting, no constipation and no diarrhea/loose stools Physical Exam Constitutional: WD/WN, vitals as above + overweight Neck: trachea midline, no thyromegaly Respiratory: normal respiratory effort, lungs clear to auscultation Cardiovascular: RRR, no murmur, no edema Gastrointestinal (Abdomen): normal bowel sounds, soft, nontender, no hepatosplenomegaly Musculoskeletal: no cyanosis or clubbing, extremities motor strength 5/5 Skin: no rashes, warm and dry Neurologic: patellar DTR's 2+ bilat, sensation intact and PERRL, EOMI, accommodation nl, no face palsy, no dysarthria Psychiatric: A+Ox3, euthymic affect Lymphatic: no cervical or axillary lymphadenopathy Results & Data Results & Data ([facility]) Vital Signs (Past 12 Hours) Vital Signs Temp Pulse Pulse Resp BP Pulse Ox 10/25/20 07:59 36.6 C 70 16 163/74 H 92 10/25/20 02:50 36.9 C 71 18 169/85 H 92 10/25/20 00:07 36.9 C 79 18 161/80 H 93 10/25/20 00:00 53 L Laboratory Results Laboratory Results - last 24 hr 10/24/20 10/24/20 10/24/20 12:10 17:10 17:11 Sodium Potassium Chloride Carbon Dioxide Anion Gap BUN Creatinine Est Cr Clr Drug Dosing Est GFR ( Amer) Est GFR (Non-Af Amer) BUN/Creatinine Ratio Glucose POC Glucose 299 H 336 H* 340 H* Calcium Phosphorus Magnesium 10/24/20 10/25/20 10/25/20 20:50 00:14 07:02 Sodium 141 143 Potassium 3.6 3.7 Chloride 106 109 H Carbon Dioxide 30 29 Anion Gap 5.0 5.0 BUN 18 16 Creatinine 0.82 0.69 Est Cr Clr Drug Dosing 95.8 113.9 Est GFR ( Amer) 94.7 115.2 Est GFR (Non-Af Amer) 81.7 99.4 BUN/Creatinine Ratio 21.4 H 23.2 H Glucose 112 H 65 L POC Glucose 269 H Calcium 9.4 8.6 Phosphorus 2.4 L Magnesium 1.6 L 2.3 10/25/20 10/25/20 10/25/20 07:55 08:22 08:23 Sodium Potassium Chloride Carbon Dioxide Anion Gap BUN Creatinine Est Cr Clr Drug Dosing Est GFR ( Amer) Est GFR (Non-Af Amer) BUN/Creatinine Ratio Glucose POC Glucose 64 L* 64 L* 65 L* Calcium Phosphorus Magnesium 10/25/20 08:43 Sodium Potassium Chloride Carbon Dioxide Anion Gap BUN Creatinine Est Cr Clr Drug Dosing Est GFR ( Amer) Est GFR (Non-Af Amer) BUN/Creatinine Ratio Glucose POC Glucose 87 Calcium Phosphorus Magnesium Medications Administered Current Inpatient Medications Acetaminophen (Acetaminophen 325 Mg Tab) 650 mg PO Q4H PRN PRN Reason: Pain or Fever Stop: 11/16/20 20:05 Last Admin: 10/23/20 13:17 Dose: 650 mg Documented by: Al Hydrox/Mg Hydrox/Simethicone (Aluminum/Magnesium Susp 30 Ml Udc) 15 ml PO Q4H PRN PRN Reason: Dyspepsia Stop: 11/16/20 20:05 Albuterol (Albut/Ipratrop 3mg/0.5mg Neb 3 Ml Vial) 3 ml NEB Q4 PRN PRN Reason: Shortness Of Breath Or Wheezing Stop: 11/18/20 10:36 Aspirin (Aspirin 81 Mg Ectab) 81 [facility] [place] Stop: 11/17/20 08:59 Last Admin: 10/25/20 08:12 Dose: 81 mg Documented by: Atorvastatin Calcium (Atorvastatin 20 Mg Tab) 20 mg PO QAM [facility] Stop: 11/17/20 08:59 Last Admin: 10/25/20 08:12 Dose: 20 mg Documented by: Dextrose (Dextrose 50% 50 Ml Syringe) 25 - 50 ml IV UD PRN; Protocol PRN Reason: Hypoglycemia Protocol Stop: 11/20/20 07:44 Enoxaparin Sodium (Enoxaparin Inj 60 Mg/0.6 Ml Syr) 60 mg SQ Q12H [facility] Stop: 11/16/20 20:59 Last Admin: 10/25/20 08:13 Dose: 60 mg Documented by: Glucagon (Glucagon For Inj 1 Mg Vial) 1 mg IM UD PRN; Protocol PRN Reason: Hypoglycemia Protocol Stop: 11/20/20 07:44 Glucose (Glucose 40% Gel 15 Gm Tube) 15 - 30 gm PO UD PRN; Protocol PRN Reason: Hypoglycemia Protocol Stop: 11/20/20 07:44 Last Admin: 10/25/20 08:27 Dose: 15 gm Documented by: Glucose (Glucose 10 Tabs/Tube) 4 - 8 tabs PO UD PRN; Protocol PRN Reason: Hypoglycemia Protocol Stop: 11/20/20 07:44 Guaifenesin (Guaifenesin 600 Mg Tabcr) 1,200 mg PO Q12 [facility] Stop: 11/16/20 20:59 Last Admin: 10/25/20 08:13 Dose: 1,200 mg Documented by: Dexamethasone Sodium Phosphate (6 mg/ Syringe) 1.5 mls @ 1 mls/min IV DAILY [facility] Stop: 11/24/20 08:59 Last Admin: 10/25/20 08:12 Dose: 1 mls/min Documented by: Furosemide 20 mg/ Syringe 2 mls @ 4 mls/min IV ONE ONE Stop: 10/25/20 09:31 Insulin Aspart (Insulin Aspart 100 Units/Ml 3 Ml Pen) 0 units SC 0730,1130,1630 [facility] Stop: 11/20/20 11:29 Last Admin: 10/25/20 09:15 Dose: 26 units Documented by: Insulin Human NPH (Insulin Human Nph) 65 units SC DAILY@0900 [facility]; Protocol Stop: 11/19/20 08:59 Last Admin: 10/25/20 09:15 Dose: 65 units Documented by: Loperamide HCl (Loperamide Hcl 2 Mg Cap) 2 mg PO Q4 PRN PRN Reason: Diarrhea Stop: 11/20/20 13:23 Loperamide HCl (Loperamide Hcl 2 Mg Cap) 2 mg PO Q4H PRN PRN Reason: Diarrhea Stop: 11/20/20 13:39 Menthol (Cough Drop (Sugar Free) Rahat 24 Rahat/1 Box) 1 rahat BUCCAL Q1H PRN PRN Reason: Sore Throat Stop: 11/19/20 18:16 Last Admin: 10/20/20 21:15 Dose: 1 rahat Documented by: Metformin HCl (Metformin Hcl Er 500 Mg Tabcr) 2,000 mg PO DAILY@0800 [facility] Stop: 11/23/20 08:59 Last Admin: 10/25/20 08:12 Dose: 2,000 mg Documented by: Miscellaneous (Carbohydrates For Hypoglycemia ) 15 - 30 gm PO UD PRN PRN Reason: Hypoglycemia Treatment Stop: 11/20/20 07:44 Last Admin: 10/25/20 08:11 Dose: 15 gm Documented by: Kieracellaneous Information (Pharmacy Glycemic Mgmt Consult) 1 ea N/A UD PRN PRN Reason: Consult Stop: 11/16/20 20:05 Olmesartan (Olmesartan Medoxomil 20 Mg Tab) 20 mg PO QAM [facility] Stop: 11/17/20 08:59 Last Admin: 10/25/20 08:13 Dose: 20 mg Documented by: Ondansetron HCl (Ondansetron Inj 2 Mg/Ml 2 Ml Vial) 4 mg IV Q6H PRN PRN Reason: Nausea Stop: 11/16/20 20:05 Oxycodone HCl (Oxycodone Hcl Ir 5 Mg Tab (Immediate Release)) 5 mg PO Q4H PRN PRN Reason: Pain Stop: 11/03/20 18:16 Last Admin: 10/24/20 21:29 Dose: 5 mg Documented by: Pantoprazole Sodium (Pantoprazole 40 Mg Tab) 40 mg PO DAILY [facility] Stop: 11/16/20 20:05 Last Admin: 10/25/20 08:12 Dose: 40 mg Documented by: Phenol (Chloraseptic 1.4% Soln 180 Ml Btl) 2 sprays MT Q1H PRN PRN Reason: Sore Throat Stop: 11/19/20 18:16 Polyethylene Glycol (Polyethylene (Miralax) 17 Gm Pack) 17 gm PO DAILY PRN PRN Reason: Constipation Stop: 11/16/20 20:05 Zinc Sulfate (Zinc Sulfate 220 Mg Capsule) 220 mg PO QAM [facility] Stop: 11/20/20 08:59 Last Admin: 10/25/20 08:12 Dose: 220 mg Documented by: PG Care Time/CCT Total # of Minutes Spent Total Time Spent with Patient: Total time spent is greater than 50% in coordination of care (as documented) at patient's floor/unit and/or counseling patient: Coding Level of Care Code 24407 Subseq Hosp Care Lvl 3 Diagnoses Acute respiratory failure with hypoxia J96.01 Pneumonia due to COVID-19 virus U07.1; J12.82 Left leg swelling M79.89 Diabetes mellitus E11.9 Diabetic neuropathy E11.40 Hypertension I10 Hyperlipemia E78.5 PCOS (polycystic ovarian syndrome) E28.2 GERD (gastroesophageal reflux disease) K21.9 DVT prophylaxis Z29.9 Hypophosphatemia E83.39
[2020-10-25] MEDS ORDERED: FUROSEMIDE 20 MG in SYRINGE 0 ML IV ONE (09:30)
[2020-10-25] MEDS ORDERED: POTASSIUM PHOSPHATE 21 MMOL in SODIUM CHLORIDE 0.9% 500 ML IV ONE (10:00)
--- NOTE | 2020-10-25 11:21 | Pharmacy Report ---
Pharmacy Glycemic Short Note 2 - Date of Service October 25, 2020 - Glycemic Short BSG Results (Last 24 hours): 10/24/20 10/24/20 10/24/20 12:10 17:10 17:11 Glucose POC Glucose 299 H 336 H* 340 H* 10/24/20 10/25/20 10/25/20 20:50 00:14 07:02 Glucose 112 H 65 L POC Glucose 269 H 10/25/20 10/25/20 10/25/20 07:55 08:22 08:23 Glucose POC Glucose 64 L* 64 L* 65 L* 10/25/20 08:43 Glucose POC Glucose 87 OUTPATIENT ANTIDIABETIC REGIMEN: * Metformin 2 g PO qAM * Tradjenta 5 mg PO daily * Glimepiride 8 mg PO daily * HbA1c: 7.6% (10/18/20) ASSESSMENT: 10/25/20 * BSGs yesterday continue to be uncontrolled: [id number] mg/dL * Received a total of 169 units of insulin yesterday: 45 units NPH + 124 units bolus * Metformin ER 2000 mg was restarted yesterday as well * Given large bolus insulin requirements while on steroids, will defer starting Glimepiride for now * Fasting BSG of 64 mg/dL this AM - again trend of fasting hypoglycemia continues despite no insulin being administered at HS * Find it highly unlikely that NPH is last 24 hours in this patient and resulting in fasting hypoglycemia * Will discuss adding HS snack nightly to hopefully prevent fasting hypoglycemia in the future * Goal range lowered yesterday * Steroid-induced postprandial hyperglycemia continues to be an issue * Dexamethasone was changed back to IV yesterday by attending * Therefore, given uncontrolled hyperglycemia on current dose and transition from PO to IV steroids, will significantly increase NPH dose to be given with Dexamethasone today 10/24/20 * BSGs yesterday, 60, 195, 282, and 264 mg/dL * Patient received 55 units of NPH and 118 units of Novolog * Steroids changed to PO dexamethasone today * Fasting BSG of 74 mg/dL this morning - continue to hold HS Novolog * Discussed with hospitalist and will restart metformin today * Reduced NPH empirically given change in steroids to PO and addition of metformin * Pre-lunch BSG of 299 mg/dL - will tighten Novolog back to yesterday's parameters 10/23/20 * BSGs remain poorly controlled, 140, 255, 327, and 305 mg/dL yesterday * This is certainly steroid-induced, discussed with hospitalist and will switch to PO starting tomorrow * Will further tighten Novolog parameters this morning and lower the low end of goal range to subtract off less insulin * Fasting BSG of 60 mg/dL this morning * Patient received 153 units of insulin yesterday - 50 units of NPH and 103 units of prandial/correctional * Given pattern of AM lows - will remove HS Novolog check 10/18/20 * HEAVEN is a 55 year old female admitted on evening of 10/17/20 with COVID-19 pneumonia * Ordered dexamethasone 6 mg IV daily (first dose yesterday at 1612) - no basal insulin administered yesterday * BSGs poorly controlled yesterday evening, 267, 297, and 253 mg/dL * Fasting BSG of 226 mg/dL * Will order NPH with today's dexamethasone dose and tighten Novolog parameters * Receiving IV ceftriaxone and azithromycin PLAN FOR INPATIENT GLYCEMIC CONTROL: * Restart metformin ER 2 g PO daily * Defer starting Glimepiride today * Basal insulin - increased * NPH 65 units SC daily with IV dexamethasone * Bolus insulin * NovoLog per scale ACHS or Q6hrs while NPO * Goal Range: Low 70 mg/dL - High 140 mg/dL * Breakfast, Lunch, Dinner: Correction Factor: 8 mg/dL/unit; Nutritional / Prandial insulin per carb ratio of 1 unit per 1.5 grams CHO consumed * Bedtime: no insulin PLAN FOR DISCHARGE: * Reasonable HbA1c goal for most non- adults would be less than 7% * HbA1c of 7.6% is above goal * Patient is on three PO antidiabetic medications that are all at maximum doses * Patient would likely benefit from once daily basal insulin - will need to reassess dose once steroids are discontinued
--- NOTE | 2020-10-26 06:06 | Electrocardiogram Report ---
Test Reason : Blood Pressure : / mmHG Vent. Rate : 069 BPM Atrial Rate : 069 BPM P-R Int : 182 ms QRS Dur : 118 ms QT Int : 446 ms P-R-T Axes : 047 -24 023 degrees QTc Int : 477 ms Sinus rhythm with occasional Premature ventricular complexes Left ventricular hypertrophy with QRS widening Poor R wave progression, consider anterior LA vs. lead placement vs. LVH Abnormal ECG When compared with ECG of 17-OCT-2020 15:33, Vent. rate has decreased BY 53 BPM Confirmed by Fletcher Young ([id number]) on 10/26/2020 6:06:32 AM Referred By: REFERRED SELF Confirmed By:Fletcher Young
[2020-10-26] MEDS: INSULIN ASPART 100 UNITS/ML 3 ML PEN SC SCH ×3 (08:00→18:56)
[2020-10-26] MEDS: dexAMETHasone 6 MG in SYRINGE 0 ML IV SCH (08:24)
[2020-10-26] MEDS: PANTOprazole 40 MG TAB PO SCH (08:24)
[2020-10-26] MEDS: ZINC SULFATE 220 MG CAPSULE PO SCH (08:24)
[2020-10-26] MEDS: guaiFENesin 600 MG TABCR PO SCH ×2 (08:24→20:55)
[2020-10-26] MEDS: ENOXAPARIN INJ 60 MG/0.6 ML SYR SQ SCH ×2 (08:24→20:55)
[2020-10-26] MEDS: ATORVASTATIN 20 MG TAB PO SCH (08:25)
[2020-10-26] MEDS: metFORMIN HCL ER 500 MG TABCR PO SCH (08:25)
[2020-10-26] MEDS: ASPIRIN 81 MG ECTAB PO SCH (08:25)
[2020-10-26] MEDS: OLMESARTAN MEDOXOMIL 20 MG TAB PO SCH (08:25)
[2020-10-26] MEDS: INSULIN HUMAN NPH SC SCH (08:36)
[2020-10-26] MEDS ORDERED: FUROSEMIDE 20 MG in SYRINGE 0 ML IV ONE (08:45)
--- NOTE | 2020-10-26 12:57 | Hospitalist Progress Note ---
Date of Service October 26, 2020 Assessment & Plan (1) Acute respiratory failure with hypoxia: Aim O2 sats > 90% Secondary to COVID-19 PNA, no definitive evidence of bacterial pneumonia down to 3L today continue Lasix 20mg IV again today with great response yesterday will remove airborne isolation (2) Pneumonia due to COVID-19 virus: Symptoms > 1 week therefore no indication for remdesivir or convalescent plasma Dexamethasone 6mg daily x 10 days stop airborne Isolation precautions low dose oxycodone has helped arthritic shoulder pain to help prone Day 9 of admission, one more day of Decadron improving quickly ever since Lasix started (3) Left leg swelling: without calf pain US venous doppler negative for DVT elevated D Dimer from covid and not suspected from clot (4) Diabetes mellitus: HbA1C 7.3 in Aug 2020. Repeat with AM labs. Hold her usual metformin, linagliptin and glimepiride Consult pharmacy for glycemic control in setting of steroid use. now on nph and ssi sugars labile, low in morning and 300's in afternoon trying to use night time snack to help prevent morning hypoglycemia pharmacy helping to manage tomorrow is last day of dexamethasone (5) Diabetic neuropathy: Noted history of this (6) Hypertension: Continue olmesartan with hold parameters sBP < 100 (7) Hyperlipemia: Continue atorvastatin 20mg PO daily (8) PCOS (polycystic ovarian syndrome): Noted (9) GERD (gastroesophageal reflux disease): Switch omeprazole for pantoprazole as per hospital formulary (10) DVT prophylaxis: Lovenox 0.5mg/kg due to elevated d-dimer in setting of COVID-19 pneumonia and elevated BMI > 40 (11) Hypophosphatemia: resolved, up to 3.6 today check BMP, Mg, Phos, CBC tomorrow likely for discharge in a few days Admission and Anticipated Discharge Date Admission Date: October 17, 2020 Subjective patient doing better, down to 3L after starting Lasix, great response breathing easier d/w infection control, can remove airborne isolation based on her initial symptoms she is eating well, wants to get clean today happy about the prospect of getting out of the hospital soon no chest pain, no fever, no N/V, no diarrhea, no sweats Review of Systems Review of Systems: All systems reviewed & are unremarkable except as noted in Subjective Physical Exam Constitutional: WD/WN, vitals as above + overweight Neck: trachea midline, no thyromegaly Respiratory: normal respiratory effort, lungs clear to auscultation Cardiovascular: RRR, no murmur, no edema Gastrointestinal (Abdomen): normal bowel sounds, soft, nontender, no hepatosplenomegaly Musculoskeletal: no cyanosis or clubbing, extremities motor strength 5/5 Skin: no rashes, warm and dry Neurologic: patellar DTR's 2+ bilat, sensation intact and PERRL, EOMI, accommodation nl, no face palsy, no dysarthria Psychiatric: A+Ox3, euthymic affect Lymphatic: no cervical or axillary lymphadenopathy Results & Data Results & Data ([facility]) Vital Signs (Past 12 Hours) Vital Signs Temp Pulse Pulse Resp BP Pulse Ox 10/26/20 10:41 36.5 C 89 18 133/82 96 10/26/20 08:00 79 10/26/20 07:59 80 20 143/83 H 91 10/26/20 03:10 37.1 C 59 L 20 161/83 H 91 Laboratory Results Laboratory Results - last 24 hr 10/25/20 10/25/20 10/26/20 16:26 20:08 07:57 POC Glucose 319 H* 202 H 148 H Phosphorus 10/26/20 10/26/20 09:16 10:40 POC Glucose 234 H Phosphorus 3.6 D Medications Administered Current Inpatient Medications Acetaminophen (Acetaminophen 325 Mg Tab) 650 mg PO Q4H PRN PRN Reason: Pain or Fever Stop: 11/16/20 20:05 Last Admin: 10/23/20 13:17 Dose: 650 mg Documented by: Al Hydrox/Mg Hydrox/Simethicone (Aluminum/Magnesium Susp 30 Ml Udc) 15 ml PO Q4H PRN PRN Reason: Dyspepsia Stop: 11/16/20 20:05 Albuterol (Albut/Ipratrop 3mg/0.5mg Neb 3 Ml Vial) 3 ml NEB Q4 PRN PRN Reason: Shortness Of Breath Or Wheezing Stop: 11/18/20 10:36 Aspirin (Aspirin 81 Mg Ectab) [address] [facility] Stop: 11/17/20 08:59 Last Admin: 10/26/20 08:25 Dose: 81 mg Documented by: Atorvastatin Calcium (Atorvastatin 20 Mg Tab) [address] [facility] Stop: 11/17/20 08:59 Last Admin: 10/26/20 08:25 Dose: 20 mg Documented by: Dextrose (Dextrose 50% 50 Ml Syringe) 25 - 50 ml IV UD PRN; Protocol PRN Reason: Hypoglycemia Protocol Stop: 11/20/20 07:44 Enoxaparin Sodium (Enoxaparin Inj 60 Mg/0.6 Ml Syr) 60 mg SQ Q12H AMPARO Stop: 11/16/20 20:59 Last Admin: 10/26/20 08:24 Dose: 60 mg Documented by: Glucagon (Glucagon For Inj 1 Mg Vial) 1 mg IM UD PRN; Protocol PRN Reason: Hypoglycemia Protocol Stop: 11/20/20 07:44 Glucose (Glucose 40% Gel 15 Gm Tube) 15 - 30 gm PO UD PRN; Protocol PRN Reason: Hypoglycemia Protocol Stop: 11/20/20 07:44 Last Admin: 10/25/20 08:27 Dose: 15 gm Documented by: Glucose (Glucose 10 Tabs/Tube) 4 - 8 tabs PO UD PRN; Protocol PRN Reason: Hypoglycemia Protocol Stop: 11/20/20 07:44 Guaifenesin (Guaifenesin 600 Mg Tabcr) 1,200 mg PO Q12 AMPARO Stop: 11/16/20 20:59 Last Admin: 10/26/20 08:24 Dose: 1,200 mg Documented by: Dexamethasone Sodium Phosphate (6 mg/ Syringe) 1.5 mls @ 1 mls/min IV DAILY AMPARO Stop: 11/24/20 08:59 Last Admin: 10/26/20 08:24 Dose: 1 mls/min Documented by: Insulin Aspart (Insulin Aspart 100 Units/Ml 3 Ml Pen) 0 units SC 0730,1130,1630 [facility] Stop: 11/20/20 11:29 Last Admin: 10/26/20 12:20 Dose: 38 units Documented by: Insulin Human NPH (Insulin Human Nph) 65 units SC DAILY@0900 [facility]; Protocol Stop: 11/19/20 08:59 Last Admin: 10/26/20 08:36 Dose: 65 units Documented by: Loperamide HCl (Loperamide Hcl 2 Mg Cap) 2 mg PO Q4 PRN PRN Reason: Diarrhea Stop: 11/20/20 13:23 Loperamide HCl (Loperamide Hcl 2 Mg Cap) 2 mg PO Q4H PRN PRN Reason: Diarrhea Stop: 11/20/20 13:39 Menthol (Cough Drop (Sugar Free) Rahat 24 Rahat/1 Box) 1 rahat BUCCAL Q1H PRN PRN Reason: Sore Throat Stop: 11/19/20 18:16 Last Admin: 10/20/20 21:15 Dose: 1 rahat Documented by: Metformin HCl (Metformin Hcl Er 500 Mg Tabcr) 2,000 mg PO DAILY@0800 [facility] Stop: 11/23/20 08:59 Last Admin: 10/26/20 08:25 Dose: 2,000 mg Documented by: Miscellaneous (Carbohydrates For Hypoglycemia ) 15 - 30 gm PO UD PRN PRN Reason: Hypoglycemia Treatment Stop: 11/20/20 07:44 Last Admin: 10/25/20 08:11 Dose: 15 gm Documented by: Kieracellaneous Information (Pharmacy Glycemic Mgmt Consult) 1 ea N/A UD PRN PRN Reason: Consult Stop: 11/16/20 20:05 Olmesartan (Olmesartan Medoxomil 20 Mg Tab) [facility] Stop: 11/17/20 08:59 Last Admin: 10/26/20 08:25 Dose: 20 mg Documented by: Ondansetron HCl (Ondansetron Inj 2 Mg/Ml 2 Ml Vial) 4 mg IV Q6H PRN PRN Reason: Nausea Stop: 11/16/20 20:05 Oxycodone HCl (Oxycodone Hcl Ir 5 Mg Tab (Immediate Release)) 5 mg PO Q4H PRN PRN Reason: Pain Stop: 11/03/20 18:16 Last Admin: 10/24/20 21:29 Dose: 5 mg Documented by: Pantoprazole Sodium (Pantoprazole 40 Mg Tab) 40 mg PO DAILY [facility] Stop: 11/16/20 20:05 Last Admin: 10/26/20 08:24 Dose: 40 mg Documented by: Phenol (Chloraseptic 1.4% Soln 180 Ml Btl) 2 sprays MT Q1H PRN PRN Reason: Sore Throat Stop: 11/19/20 18:16 Polyethylene Glycol (Polyethylene (Miralax) 17 Gm Pack) 17 gm PO DAILY PRN PRN Reason: Constipation Stop: 11/16/20 20:05 Zinc Sulfate (Zinc Sulfate 220 Mg Capsule) 220 [facility] Stop: 11/20/20 08:59 Last Admin: 10/26/20 08:24 Dose: 220 mg Documented by: PG Care Time/CCT Total # of Minutes Spent Total Time Spent with Patient: Total time spent is greater than 50% in coordination of care (as documented) at patient's floor/unit and/or counseling patient: Coding Level of Care Code 95806 Subseq Hosp Care Lvl 3 Diagnoses Acute respiratory failure with hypoxia J96.01 Pneumonia due to COVID-19 virus U07.1; J12.82 Left leg swelling M79.89 Diabetes mellitus E11.9 Diabetic neuropathy E11.40 Hypertension I10 Hyperlipemia E78.5 PCOS (polycystic ovarian syndrome) E28.2 GERD (gastroesophageal reflux disease) K21.9 DVT prophylaxis Z29.9 Hypophosphatemia E83.39
[2020-10-27] MEDS: dexAMETHasone 6 MG in SYRINGE 0 ML IV SCH (07:59)
[2020-10-27] MEDS: OLMESARTAN MEDOXOMIL 20 MG TAB PO SCH (07:59)
[2020-10-27] MEDS: ENOXAPARIN INJ 60 MG/0.6 ML SYR SQ SCH ×2 (07:59→20:22)
[2020-10-27] MEDS: ZINC SULFATE 220 MG CAPSULE PO SCH (07:59)
[2020-10-27] MEDS: metFORMIN HCL ER 500 MG TABCR PO SCH (08:00)
[2020-10-27] MEDS: ASPIRIN 81 MG ECTAB PO SCH (08:00)
[2020-10-27] MEDS: guaiFENesin 600 MG TABCR PO SCH ×2 (08:00→20:23)
[2020-10-27] MEDS: INSULIN HUMAN NPH SC SCH (08:01)
[2020-10-27] MEDS: ATORVASTATIN 20 MG TAB PO SCH (08:01)
[2020-10-27] MEDS: PANTOprazole 40 MG TAB PO SCH (08:01)
[2020-10-27] MEDS: CARBOHYDRATES FOR HYPOGLYCEMIA PO PRN ×2 (08:14→08:36)
[2020-10-27] MEDS: INSULIN ASPART 100 UNITS/ML 3 ML PEN SC SCH ×3 (09:07→17:33)
--- NOTE | 2020-10-27 14:25 | Pharmacy Report ---
Pharmacy Glycemic Short Note 2 - Date of Service October 27, 2020 - Glycemic Short BSG Results (Last 24 hours): 10/26/20 10/26/20 10/27/20 16:57 20:58 08:14 POC Glucose 256 H 154 H 59 L* 10/27/20 10/27/20 10/27/20 08:34 08:51 12:05 POC Glucose 62 L* 72 213 H OUTPATIENT ANTIDIABETIC REGIMEN: * Metformin 2 g PO qAM * Tradjenta 5 mg PO daily * Glimepiride 8 mg PO daily * HbA1c: 7.6% (10/18/20) ASSESSMENT: 10/27/20 * Patient received total of 239 units of insulin yesterday, of which 65 units were NPH * Fasting BSG low at 59 mg/dL - nurse called and treated per hypoglycemia protocol. Already given NPH dose for this AM. * Loosened CR to 1.5 this AM * Appears patient's BSGs tend to drop throughout the day - will loosen CF/CR with dinner to hopefully prevent overnight lows PLAN FOR INPATIENT GLYCEMIC CONTROL: * Restart metformin ER 2 g PO daily * Defer starting Glimepiride today * Basal insulin - increased * NPH 65 units SC daily with IV dexamethasone * Bolus insulin * NovoLog per scale ACHS or Q6hrs while NPO * Goal Range: Low 70 mg/dL - High 140 mg/dL * Breakfast, Lunch Correction Factor: 8 mg/dL/unit; Nutritional / Prandial insulin per carb ratio of 1 unit per 1.5 grams CHO consumed * Dinner Correction Factor: 10 mg/dL/unit; Nutritional / Prandial insulin per carb ratio of 1 unit per 2 grams CHO consumed * Bedtime: no insulin PLAN FOR DISCHARGE: * Reasonable HbA1c goal for most non- adults would be less than 7% * HbA1c of 7.6% is above goal * Reasonable to continue home medications on discharge. Could consider dietary changes to help with improvement of A1c * Patient is requiring quite a bit of insulin while on steroids here in hospital, could consider once daily NPH if steroids are going to be continued outpatient
--- NOTE | 2020-10-27 15:55 | Hospitalist Progress Note ---
Date of Service October 27, 2020 Assessment & Plan (1) Acute respiratory failure with hypoxia: Aim O2 sats > 90% Secondary to COVID-19 PNA, no definitive evidence of bacterial pneumonia down to 2L today no need for further Lasix today will remove airborne isolation plan for two step tomorrow and discharge in the afternoon (2) Pneumonia due to COVID-19 virus: Symptoms > 1 week therefore no indication for remdesivir or convalescent plasma Dexamethasone 6mg daily x 10 days, last day today stop airborne Isolation precautions low dose oxycodone has helped arthritic shoulder pain to help prone Day 10 of admission improving quickly ever since Lasix started plan for discharge tomorrow (3) Left leg swelling: without calf pain US venous doppler negative for DVT elevated D Dimer from covid and not suspected from clot (4) Diabetes mellitus: HbA1C 7.3 in Aug 2020. Repeat with AM labs. resumed metformin, holding linagliptin and glimepiride but will resume on discharge sugars labile, low in morning and 300's in afternoon trying to use night time snack to help prevent morning hypoglycemia pharmacy helping to manage no further dexamethasone, stop the NPH tomorrow, can stay on Novolog HbA1c is at goal, < 7.5% will plan to resume home regimen on discharge and dietary changes, low carb (5) Diabetic neuropathy: Noted history of this (6) Hypertension: Continue olmesartan with hold parameters sBP < 100 (7) Hyperlipemia: Continue atorvastatin 20mg PO daily (8) PCOS (polycystic ovarian syndrome): Noted (9) GERD (gastroesophageal reflux disease): Switch omeprazole for pantoprazole as per hospital formulary (10) DVT prophylaxis: Lovenox 0.5mg/kg due to elevated d-dimer in setting of COVID-19 pneumonia and elevated BMI > 40 (11) Hypophosphatemia: resolved Admission and Anticipated Discharge Date Admission Date: October 17, 2020 Subjective patient doing great today, breathing well, down to 2L today, no distress at all she is eating well, making urine, moving her bowels, no diarrhea no labs today sugars remain labile, hypoglycemia this morning but she is on her last day of dexamethasone this morning, will stop NPH insulin tomorrow morning plan for two step tomorrow and discharge Review of Systems Review of Systems: All systems reviewed & are unremarkable except as noted in Subjective Constitutional: no fever, no chills, no sweats, no fatigue and no weakness Respiratory: no cough and no dyspnea Cardiovascular: no chest pain and no edema Gastrointestinal: no abdominal pain, no nausea, no vomiting, no constipation and no diarrhea/loose stools Physical Exam Constitutional: WD/WN, vitals as above + overweight Neck: trachea midline, no thyromegaly Respiratory: normal respiratory effort, lungs clear to auscultation Cardiovascular: RRR, no murmur, no edema Gastrointestinal (Abdomen): normal bowel sounds, soft, nontender, no hepatosplenomegaly Musculoskeletal: no cyanosis or clubbing, extremities motor strength 5/5 Skin: no rashes, warm and dry Neurologic: patellar DTR's 2+ bilat, sensation intact and PERRL, EOMI, accommodation nl, no face palsy, no dysarthria Psychiatric: A+Ox3, euthymic affect Lymphatic: no cervical or axillary lymphadenopathy Results & Data Results & Data ([facility]) Vital Signs (Past 12 Hours) Vital Signs Temp Pulse Resp BP Pulse Ox 10/27/20 08:25 36.5 C 67 18 149/85 H 91 Laboratory Results Laboratory Results - last 24 hr 10/26/20 10/26/20 10/27/20 16:57 20:58 08:14 POC Glucose 256 H 154 H 59 L* 10/27/20 10/27/20 10/27/20 08:34 08:51 12:05 POC Glucose 62 L* 72 213 H Medications Administered Current Inpatient Medications Acetaminophen (Acetaminophen 325 Mg Tab) 650 mg PO Q4H PRN PRN Reason: Pain or Fever Stop: 11/16/20 20:05 Last Admin: 10/23/20 13:17 Dose: 650 mg Documented by: Al Hydrox/Mg Hydrox/Simethicone (Aluminum/Magnesium Susp 30 Ml Udc) 15 ml PO Q4H PRN PRN Reason: Dyspepsia Stop: 11/16/20 20:05 Albuterol (Albut/Ipratrop 3mg/0.5mg Neb 3 Ml Vial) 3 ml NEB Q4 PRN PRN Reason: Shortness Of Breath Or Wheezing Stop: 11/18/20 10:36 Aspirin (Aspirin 81 Mg Ectab) [facility] Stop: 11/17/20 08:59 Last Admin: 10/27/20 08:00 Dose: 81 mg Documented by: Atorvastatin Calcium (Atorvastatin 20 Mg Tab) 20 mg PO QAM [facility] Stop: 11/17/20 08:59 Last Admin: 10/27/20 08:01 Dose: 20 mg Documented by: Dextrose (Dextrose 50% 50 Ml Syringe) 25 - 50 ml IV UD PRN; Protocol PRN Reason: Hypoglycemia Protocol Stop: 11/20/20 07:44 Enoxaparin Sodium (Enoxaparin Inj 60 Mg/0.6 Ml Syr) 60 mg SQ Q12H AMPARO Stop: 11/16/20 20:59 Last Admin: 10/27/20 07:59 Dose: 60 mg Documented by: Glucagon (Glucagon For Inj 1 Mg Vial) 1 mg IM UD PRN; Protocol PRN Reason: Hypoglycemia Protocol Stop: 11/20/20 07:44 Glucose (Glucose 40% Gel 15 Gm Tube) 15 - 30 gm PO UD PRN; Protocol PRN Reason: Hypoglycemia Protocol Stop: 11/20/20 07:44 Last Admin: 10/25/20 08:27 Dose: 15 gm Documented by: Glucose (Glucose 10 Tabs/Tube) 4 - 8 tabs PO UD PRN; Protocol PRN Reason: Hypoglycemia Protocol Stop: 11/20/20 07:44 Guaifenesin (Guaifenesin 600 Mg Tabcr) 1,200 mg PO Q12 AMPARO Stop: 11/16/20 20:59 Last Admin: 10/27/20 08:00 Dose: 1,200 mg Documented by: Insulin Aspart (Insulin Aspart 100 Units/Ml 3 Ml Pen) 0 units SC 0730,1130,1630 [facility] Stop: 11/20/20 11:29 Last Admin: 10/27/20 12:35 Dose: 47 units Documented by: Insulin Aspart (Insulin Aspart 100 Units/Ml 3 Ml Pen) 0 units SC 0000 [facility] Stop: 10/28/20 00:01 Loperamide HCl (Loperamide Hcl 2 Mg Cap) 2 mg PO Q4 PRN PRN Reason: Diarrhea Stop: 11/20/20 13:23 Last Admin: 10/26/20 20:54 Dose: 2 mg Documented by: Loperamide HCl (Loperamide Hcl 2 Mg Cap) 2 mg PO Q4H PRN PRN Reason: Diarrhea Stop: 11/20/20 13:39 Menthol (Cough Drop (Sugar Free) Rahat 24 Rahat/1 Box) 1 rahat BUCCAL Q1H PRN PRN Reason: Sore Throat Stop: 11/19/20 18:16 Last Admin: 10/20/20 21:15 Dose: 1 rahat Documented by: Metformin HCl (Metformin Hcl Er 500 Mg Tabcr) 2,000 mg PO DAILY@0800 [facility] Stop: 11/23/20 08:59 Last Admin: 10/27/20 08:00 Dose: 2,000 mg Documented by: Miscellaneous (Carbohydrates For Hypoglycemia ) 15 - 30 gm PO UD PRN PRN Reason: Hypoglycemia Treatment Stop: 11/20/20 07:44 Last Admin: 10/27/20 08:36 Dose: 15 gm Documented by: Miscellaneous Information (Pharmacy Glycemic Mgmt Consult) 1 ea N/A UD PRN PRN Reason: Consult Stop: 11/16/20 20:05 Olmesartan (Olmesartan Medoxomil 20 Mg Tab) 20 mg PO QAM [facility] Stop: 11/17/20 08:59 Last Admin: 10/27/20 07:59 Dose: 20 mg Documented by: Ondansetron HCl (Ondansetron Inj 2 Mg/Ml 2 Ml Vial) 4 mg IV Q6H PRN PRN Reason: Nausea Stop: 11/16/20 20:05 Oxycodone HCl (Oxycodone Hcl Ir 5 Mg Tab (Immediate Release)) 5 mg PO Q4H PRN PRN Reason: Pain Stop: 11/03/20 18:16 Last Admin: 10/24/20 21:29 Dose: 5 mg Documented by: Pantoprazole Sodium (Pantoprazole 40 Mg Tab) 40 mg PO DAILY [facility] Stop: 11/16/20 20:05 Last Admin: 10/27/20 08:01 Dose: 40 mg Documented by: Phenol (Chloraseptic 1.4% Soln 180 Ml Btl) 2 sprays MT Q1H PRN PRN Reason: Sore Throat Stop: 11/19/20 18:16 Polyethylene Glycol (Polyethylene (Miralax) 17 Gm Pack) 17 gm PO DAILY PRN PRN Reason: Constipation Stop: 11/16/20 20:05 Zinc Sulfate (Zinc Sulfate 220 Mg Capsule) 220 mg PO QAM [facility] Stop: 11/20/20 08:59 Last Admin: 10/27/20 07:59 Dose: 220 mg Documented by: PG Care Time/CCT Total # of Minutes Spent Total Time Spent with Patient: Total time spent is greater than 50% in coordination of care (as documented) at patient's floor/unit and/or counseling patient: Coding Level of Care Code 17380 Subseq Hosp Care Lvl 2 Diagnoses Acute respiratory failure with hypoxia J96.01 Pneumonia due to COVID-19 virus U07.1; J12.82 Left leg swelling M79.89 Diabetes mellitus E11.9 Diabetic neuropathy E11.40 Hypertension I10 Hyperlipemia E78.5 PCOS (polycystic ovarian syndrome) E28.2 GERD (gastroesophageal reflux disease) K21.9 DVT prophylaxis Z29.9 Hypophosphatemia E83.39
[2020-10-28] MEDS ORDERED: INSULIN ASPART 100 UNITS/ML 3 ML PEN SC SCH
[2020-10-28] MEDS: guaiFENesin 600 MG TABCR PO SCH (07:42)
[2020-10-28] MEDS: ZINC SULFATE 220 MG CAPSULE PO SCH (07:42)
[2020-10-28] MEDS: PANTOprazole 40 MG TAB PO SCH (07:43)
[2020-10-28] MEDS: ASPIRIN 81 MG ECTAB PO SCH (07:43)
[2020-10-28] MEDS: OLMESARTAN MEDOXOMIL 20 MG TAB PO SCH (07:44)
[2020-10-28] MEDS: ATORVASTATIN 20 MG TAB PO SCH (07:44)
[2020-10-28] MEDS: ENOXAPARIN INJ 60 MG/0.6 ML SYR SQ SCH (07:45)
[2020-10-28] MEDS: metFORMIN HCL ER 500 MG TABCR PO SCH (08:50)
[2020-10-28] MEDS: INSULIN ASPART 100 UNITS/ML 3 ML PEN SC SCH ×3 (08:50→18:07)
--- NOTE | 2020-10-28 11:01 | Pharmacy Report ---
Pharmacy Glycemic Short Note 2 - Date of Service October 28, 2020 - Glycemic Short BSG Results (Last 24 hours): 10/27/20 10/27/20 10/28/20 12:05 16:50 00:08 POC Glucose 213 H 207 H 259 H 10/28/20 08:22 POC Glucose 105 H OUTPATIENT ANTIDIABETIC REGIMEN: * Metformin 2 g PO qAM * Tradjenta 5 mg PO daily * Glimepiride 8 mg PO daily * HbA1c: 7.6% (10/18/20) ASSESSMENT: 10/28/20: * Pt has received 181 units of insulin over the past 24hrs * 65 units of basal with NPH * 116 units of bolus with NovoLog * BSGs 59,72,213,207,259,105 mg/dl * Last day of DXM was yesterday - no NPH needed today without steroids. * Will loosen CF/CR with dc DXM * Continue metformin; patient can resume glimepiride and tradjenta at DC 10/27/20 * Patient received total of 239 units of insulin yesterday, of which 65 units were NPH * Fasting BSG low at 59 mg/dL - nurse called and treated per hypoglycemia protocol. Already given NPH dose for this AM. * Loosened CR to 1.5 this AM * Appears patient's BSGs tend to drop throughout the day - will loosen CF/CR with dinner to hopefully prevent overnight lows PLAN FOR INPATIENT GLYCEMIC CONTROL: * Continue metformin ER 2 g PO daily * Basal insulin * DC; DXM dc therefore no longer needed. * Bolus insulin: loosen parameters * NovoLog per scale ACHS or Q6hrs while NPO * Goal Range: Low 70 mg/dL - High 140 mg/dL * Correction Factor: 15 mg/dL/unit * Nutritional / Prandial insulin per carb ratio of 1 unit per 5 grams CHO consumed * Bedtime: no insulin PLAN FOR DISCHARGE: * Reasonable HbA1c goal for most non- adults would be less than 7% * HbA1c of 7.6% is above goal * Reasonable to continue home medications on discharge. Could consider d ietary changes to help with improvement of A1c * Patient is requiring quite a bit of insulin while on steroids here in hospital, could consider once daily NPH if steroids are going to be continued outpatient
--- NOTE | 2020-10-28 11:29 | Discharge Summary ---
Date of Service October 28, 2020 Admission HPI Per Admitting Provider Nikky Law is a 55 year old female with morbid obesity, T2DM, former smoker who presents to the ER with worsening shortness of breath in the setting of known COVID-19 pneumonia. Initial symptoms started Sunday (8 days ago). She tested positive that following Sunday. Initially was feeling ok until becoming much more short of breath over the past few days with new onset sore throat and continued fever and chills. Associated poor appetite, dry mouth, mild cough and nasal congestion. She denies any chest pain, abdominal pain, diarrhea. In the ER she was symptomatically hypoglycemic which responded to Dextrose 50% 50 ml, CXR confirmed multifocal viral pneumonia, d-dimer was elevated therefore patient underwent CT angiogram which was negative for pulmonary embolism. She was referred to medicine for admission and ongoing management for COVID-19 and hypoxia. Principal Diagnosis COVID 19 pneumonia, acute hypoxic respiratory failure Discharge Exam Constitutional WD/WN, vitals as above + overweight Neck trachea midline, no thyromegaly Respiratory normal respiratory effort, lungs clear to auscultation Cardiovascular RRR, no murmur, no edema Gastrointestinal (Abdomen) normal bowel sounds, soft, nontender, no hepatosplenomegaly Musculoskeletal no cyanosis or clubbing, extremities motor strength 5/5 Skin no rashes, warm and dry Neurologic patellar DTR's 2+ bilat, sensation intact and PERRL, EOMI, accommodation nl, no face palsy, no dysarthria Psychiatric A+Ox3, euthymic affect Lymphatic no cervical or axillary lymphadenopathy Discharge Data Allergies Allergy/AdvReac Type Severity Reaction Status Date / Time No Known Allergies Allergy Verified 10/17/20 16:50 Consultations 10/17/20 18:42 ED Decision to Admit Stat Ordered Studies 10/17/20 15:47 CT angio chest PE protocol Stat 10/17/20 19:52 US venous doppler LE LT Urgent Hospital Course (1) Acute respiratory failure with hypoxia: Aim O2 sats > 90% Secondary to COVID-19 PNA, no definitive evidence of bacterial pneumonia down to room air at rest, 89%, required 3L on exertion with two step on day of discharge arrange for home oxygen, likely will be off oxygen in a week (2) Pneumonia due to COVID-19 virus: Symptoms > 1 week therefore no indication for remdesivir or convalescent plasma Dexamethasone 6mg daily x 10 days, last day on 10/27 stop airborne Isolation precautions improving quickly ever since Lasix started, removed several liters of fluid (3) Left leg swelling: without calf pain US venous doppler negative for DVT elevated D Dimer from covid and not suspected from clot (4) Diabetes mellitus: HbA1C 7.3 in Aug 2020. Repeat with AM labs. resumed metformin, holding linagliptin and glimepiride but will resume on discharge sugars labile, low in morning and 300's in afternoon trying to use night time snack to help prevent morning hypoglycemia pharmacy helping to manage no further dexamethasone, stop the NPH HbA1c is at goal, < 7.5% will plan to resume home regimen on discharge and dietary changes, low carb do not anticipate any further issues since she will be off dexamethasone (5) Diabetic neuropathy: Noted history of this (6) Hypertension: Continue olmesartan with hold parameters sBP < 100 (7) Hyperlipemia: Continue atorvastatin 20mg PO daily (8) PCOS (polycystic ovarian syndrome): Noted (9) GERD (gastroesophageal reflux disease): Switch omeprazole for pantoprazole as per hospital formulary (10) Hypophosphatemia: resolved Total Time Total Time Spent Total Time Spent (In Minutes): 32 Total Time Includes: Examination of the Patient, Discharge Planning and Medication Reconciliation Discharge Plan Discharge Items Patient Disposition: Home - Self-Care Reason For Visit: ACUTE HYPOXIC RESPIRATORY FAILURE, HYPOGLYCEMIA Discharge Diagnosis: COVID 19 pneumonia Acute hypoxic respiratory failure Condition on Discharge: Good Goals: taper off oxygen the next 7-10 days stay well nourished, well hydrated, well rested Activity: Resume your previous activity Driving/Machine Use: No limitations Weightbearing: Full weightbearing Non-emergency contact: Primary Care Provider Call non-emergency contact if: you have any medication questions Follow-up/Referrals: Terri Sherman DO [Primary Care Provider] - 11/04/20 9:20 am (TELEHEALTH VISIT WITH DR SHERMAN; one week) Diet: Carb Consistent or DM2 Addtl Attending Provider Instructions: Medications: resume all prior home medications, including your diabetic medications Oxygen: prescribed 3L on exertion, you were 89% on room air at rest, if you want to wear 1L at rest for the next few days that is okay use finger pulse oximeter to determine when you can be off oxygen, saturation goal is 90% COVID 19 pneumonia completed 10 days of dexamethasone, last day was yesterday, no further steroids needed use oxygen as described above continue to get rest, stay well nourished and well hydrated you are not considered contagious at this point, so no need to quarantine Diabetes: follow a low carbohydrate diet continue your prior regimen there were issues with high and low blood sugars while here but this was related to acute illness and steroid use Pending Studies at Discharge: No Stand-Alone Forms: My [facility], Smoking Cessation Medications and DC Order Prescriptions: Continued Tradjenta 5 mg tablet 5 mg PO QAM Qty: 90 RF: 3 omeprazole 20 mg capsule,delayed release(DR/EC) 20 mg PO DAILY PRN (Reason: Acid Reflux) RF: 0 aspirin [Adult Low Dose Aspirin] 81 mg tablet,delayed release (DR/EC) 81 mg PO QAM RF: 0 atorvastatin 20 mg tablet 20 mg PO QAM RF: 0 glimepiride 4 mg tablet 8 mg PO QAM RF: 0 metformin 500 mg tablet extended release 24 hr 2,000 mg PO QAM RF: 0 olmesartan 20 mg tablet 20 mg PO QAM RF: 0 Discharge Orders: Discharge Order (Routine); Ordered 10/28/20 Ordered By: Scottie Davey/Other Patient Handouts: Managing Type 2 Diabetes, Managing Diabetes: The A1C Test Admission Data Admit Date/Time: 10/17/20 18:45 Attending Provider: Scottie Lance Admit Provider: Enrique Savage Primary Care Provider: Terri Sherman Other Providers: Enrique Savage Other Interventions: Discharge Summary Assessment (RN) Last Done: 10/28/20 12:12 Coding Level of Care Code D/C Day Management >30 mins Diagnoses Acute respiratory failure with hypoxia J96.01 Pneumonia due to COVID-19 virus U07.1; J12.82 Left leg swelling M79.89 Diabetes mellitus E11.9 Diabetic neuropathy E11.40 Hypertension I10 Hyperlipemia E78.5 PCOS (polycystic ovarian syndrome) E28.2 GERD (gastroesophageal reflux disease) K21.9 Hypophosphatemia E83.39
== END 2020-10-28 19:03 | disposition home or self-care (01) | DRG 177 ==
LOC: ED 15:21 → SUATTDRO 18:45 → 2S 18:45 → 3W 10-26 13:03

== ENCOUNTER 2020-11-17 10:12 | Inpatient (IN) ==
--- NOTE | 2020-11-17 11:29 | Emergency Department Note ---
Impression & Plan Precordial chest pain, SOB (shortness of breath), Pneumonia, COVID-19, Elevated troponin ED Provider Note NAME: GURJIT LONG AGE: 55 SEX: F : 1965 ARRIVES VIA: Walk-In INFORMANT: [Patient] ED PROVIDER(S): [Isreal Montoya MD] CHIEF COMPLAINT: Shortness of breath HISTORY OF PRESENT ILLNESS: The patient is a 55-year-old female who has a history of COVID-19 pneumonia. She was hospitalized about a month ago. She was discharged on oxygen and still has O2 at home and still requires O2. Yesterday, she walked out in her driveway. She only went about 80 feet. She had her oxygen. When she got back to the house, she was very short of breath and her O2 saturation was around 88%. She had some chest pain that lasted a minute. The pain was a 4/10 and did not radiate. It resolved with rest. Patient was told by family, because of the pain, she should be assessed. She has had no further pain since. She has no cardiac history. There has been no vomiting or diarrhea. She has not had fever. REVIEW OF SYSTEMS: See HPI for pertinent positives and negatives. A total of ten systems were reviewed and were otherwise negative. PMHx/PSHx: See Below SOCIAL HISTORY: See Below. PHYSICAL EXAM: GENERAL: Patient is in no acute distress. HEENT: No acute trauma, normocephalic atraumatic, mucous membranes moist, no nasal congestion, no scleral icterus. NECK: No stridor, no adenopathy, no meningismus, trachea is midline. LUNGS: Clear to auscultation bilaterally, no wheeze, no rhonchi, breath sounds equal. HEART: Without murmurs gallops or rubs, regular rate and rhythm. ABDOMEN: Soft, nontender, bowel sounds positive, no hernias, no peritonitis. EXTREMITIES: No cyanosis, mild bilateral pedal edema, full range of motion of all the joints without pain or difficulty, no signs for acute trauma. NEUROLOGIC: Oriented x 3, no acute motor or sensory deficits, no focal weakness. SKIN: No rash, no jaundice, no diaphoresis. DIFFERENTIAL DIAGNOSIS: Reactive airway disease, pneumonia, pneumothorax, COPD, CHF, COVID-19, influenza , infection, cardiac ischemia, pulmonary embolism, bronchitis, musculoskeletal, gastrointestinal, as well as other pathologies. EMERGENCY DEPARTMENT COURSE/PROCEDURES: ECG: Indication was shortness of breath. The ECG shows a normal sinus rhythm with a rate of 79. LVH is present. There is evidence for potential old lateral infarct. The QTc is 472. There is no ST elevation, no PVCs. Compared to an ECG from 24 October 2020, PVCs are no longer present. Continuous Cardiac Monitoring: An order was placed for continuous cardiac monitoring. The monitor shows a rate of 87 with normal sinus rhythm. MEDICAL DECISION MAKING: There is no leukocytosis or concerning anemia. There is a normal platelet count. No coagulopathy. No kidney failure. Magnesium is somewhat low at 1.5. No concerning liver enzyme elevation. ECG shows a sinus rhythm, no acute ischemia. Cardiac enzyme testing x1 does show a slight elevation, this elevation could be consistent with cardiac injury or strain or possibly mismatch. Chest film shows a bilateral pneumonia consistent with her Covid diagnosis. Chest CT showed improvement of her Covid pneumonia, no PE. The patient was given a dose of IV magnesium. She received oral aspirin. She has been resting comfortably. The patient presents with a bout of chest pain yesterday. She is currently on oxygen and recovering from her Covid pneumonia. She has no cardiac history. With her troponin elevation, with the chest pain description, I do think a hospital stay for further cardiac work-up is warranted. I spoke to the patient and case management. The on-call hospitalist was consulted. Past Med/Surg History Medical History Diabetes mellitus Diabetic neuropathy Diverticulosis GERD (gastroesophageal reflux disease) Hyperlipemia Hypertension Osteoarthritis PCOS (polycystic ovarian syndrome) Pneumonia due to COVID-19 virus (10/2020) Surgical History Previous section (2006) Family History Mother Breast cancer, Onset Age: 51 Hypertension Gall bladder disease Father Hypertension Heart disease S/P coronary artery stent placement Diabetes Sister Hypertension Gall bladder disease Denies family history of Ovarian cancer Prostate cancer Myocardial infarction Colorectal cancer Social History Smoking Status: Former smoker Tobacco Type: Cigarettes Age Started Using Tobacco: 16; Age Quit Using Tobacco: 41; packs per day: 0.5; Second Hand Exposure: No; Hx Alcohol Use: No Hx Substance Use: No Preferred Language: Chilean Communication Ability: Effective Visual Impairment: Limited Hearing Ability: Normal Research 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 Required: No Beliefs That Will Affect Care: None marital status: Current Living Situation: Spouse and Family Current Living Situation Comment: lives with and son current occupational status: employed current occupation: works for [employer] How many Children do You have: 1 Feels Safe at Home: Yes Childhood Exposure to Second-Hand Smoke: Yes (father smoked) caffeine: Yes during the past year weight has: remained stable Dental Care, Regularly: No Physical Activity Frequency: Daily Physical Activity Frequency 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 Seatbelt Use: always Sunscreen Use: No Assistive Devices: None Allergies Allergies Allergy/AdvReac Type Severity Reaction Status Date / Time No Known Allergies Allergy Verified 11/04/20 09:29 Home Meds Home Medications Medication Instructions Recorded Confirmed aspirin 81 mg tablet,delayed 81 mg PO QAM 08/24/20 11/17/20 release atorvastatin 20 mg PO QAM 10/17/20 11/17/20 glimepiride 8 mg PO QAM 10/17/20 11/17/20 metformin 2,000 mg PO QAM 10/17/20 11/17/20 olmesartan 20 mg PO QAM 10/17/20 11/17/20 Previous Rx's Medication Instructions Recorded linagliptin 5 mg tablet 5 mg PO QAM #90 tab 08/30/20 Results & Data (ED) Vital Signs Vital Signs - 24 hr 11/17/20 10:16 11/17/20 10:39 11/17/20 10:40 Temperature 36.4 C L Temperature Source Temporal Artery Scan Pulse Rate 93 H Pulse Rate from SpO2 Sensor Respiratory Rate 22 Respiratory Effort / Characteristics Non-Labored Non-Labored Spontaneous Respiratory Depth Normal Blood Pressure 162/87 H Blood Pressure Mean 112 Blood Pressure Position Sitting Pulse Oximetry 97 95 Oxygen Delivery Method Nasal Cannula Nasal Cannula Nasal Cannula Oxygen Flow Rate 3 3 3 Sepsis Recent Fever Within 48 Hours No Sepsis New/Unexplained Change in Mental Status No Sepsis Action Taken by Nursing No Action Required 11/17/20 10:48 11/17/20 10:51 11/17/20 11:00 Temperature Temperature Source Pulse Rate 77 72 Pulse Rate from SpO2 Sensor 79 73 Respiratory Rate 22 28 H Respiratory Effort / Characteristics Respiratory Depth Blood Pressure 153/92 H 153/98 H Blood Pressure Mean 112 116 Blood Pressure Position Pulse Oximetry 97 99 97 Oxygen Delivery Method Room Air Nasal Cannula Room Air Oxygen Flow Rate 3 Sepsis Recent Fever Within 48 Hours Sepsis New/Unexplained Change in Mental Status Sepsis Action Taken by Nursing 11/17/20 11:30 11/17/20 12:08 11/17/20 12:30 Temperature Temperature Source Pulse Rate 72 75 73 Pulse Rate from SpO2 Sensor 73 76 73 Respiratory Rate 27 H 22 24 Respiratory Effort / Characteristics Respiratory Depth Blood Pressure 142/101 H 160/73 H 137/78 Blood Pressure Mean 114 102 97 Blood Pressure Position Pulse Oximetry 97 97 99 Oxygen Delivery Method Room Air Nasal Cannula Nasal Cannula Oxygen Flow Rate 2 2 Sepsis Recent Fever Within 48 Hours Sepsis New/Unexplained Change in Mental Status Sepsis Action Taken by Nursing 11/17/20 13:17 11/17/20 13:30 11/17/20 14:00 Temperature Temperature Source Pulse Rate 77 69 70 Pulse Rate from SpO2 Sensor 79 70 71 Respiratory Rate 18 18 23 Respiratory Effort / Characteristics Respiratory Depth Blood Pressure 146/83 H 144/72 H 158/86 H Blood Pressure Mean 104 96 110 Blood Pressure Position Pulse Oximetry 100 99 100 Oxygen Delivery Method Nasal Cannula Nasal Cannula Nasal Cannula Oxygen Flow Rate 3 3 3 Sepsis Recent Fever Within 48 Hours Sepsis New/Unexplained Change in Mental Status Sepsis Action Taken by Nursing 11/17/20 14:30 11/17/20 15:00 11/17/20 15:30 Temperature Temperature Source Pulse Rate 68 72 70 Pulse Rate from SpO2 Sensor 70 72 69 Respiratory Rate 24 24 15 Respiratory Effort / Characteristics Respiratory Depth Blood Pressure 142/82 H 146/85 H 150/96 H Blood Pressure Mean 102 105 114 Blood Pressure Position Pulse Oximetry 98 99 98 Oxygen Delivery Method Nasal Cannula Nasal Cannula Nasal Cannula Oxygen Flow Rate 3 3 3 Sepsis Recent Fever Within 48 Hours Sepsis New/Unexplained Change in Mental Status Sepsis Action Taken by Nursing 11/17/20 16:00 Temperature Temperature Source Pulse Rate 87 Pulse Rate from SpO2 Sensor 87 Respiratory Rate 16 Respiratory Effort / Characteristics Respiratory Depth Blood Pressure 142/84 H Blood Pressure Mean 103 Blood Pressure Position Pulse Oximetry 95 Oxygen Delivery Method Nasal Cannula Oxygen Flow Rate 3 Sepsis Recent Fever Within 48 Hours Sepsis New/Unexplained Change in Mental Status Sepsis Action Taken by Long-Term Medications Current Medication List: was personally reviewed by ar Laboratory Data Attestation: I reviewed the patient's lab results. Result diagrams: 11/17/20 11:40 11/17/20 13:59 Lab Results 11/17/20 11/17/20 11/17/20 Range/Units 11:40 11:40 11:54 WBC 7.64 (4.8-10.8) K/uL RBC 4.70 (4.2-5.4) M/uL Hgb 13.8 (12.0-16.0) g/dL Hct 41.0 (37-47) % MCV 87.2 (80-100) fL MCH 29.4 (25-34) pg MCHC 33.7 (32-36) g/dL RDW Std Deviation 48.2 H (36.4-46.3) fL RDW Coeff of Nader 15.2 H (11.5-14.5) % Plt Count 269 (130-400) K/uL MPV 9.2 (7.4-10.4) fL Immature Gran % (Auto) 0.3 % Neut % (Auto) 59.4 % Lymph % (Auto) 26.3 % [place] % (Auto) 9.2 % Eos % (Auto) 4.5 % Baso % (Auto) 0.3 % Neut # (Auto) 4.55 (1.4-6.5) K/uL Lymph # (Auto) 2.01 (1.2-3.4) K/uL [place] # (Auto) 0.70 H (0.11-0.59) K/uL Eos # (Auto) 0.34 (0-0.5) K/uL Baso # (Auto) 0.02 (0-0.2) K/uL Immature Gran # (Auto) 0.02 (0.00-0.02) K/uL PT 10.0 (9.0-12.0) Seconds INR 1.0 (0.9-1.1) APTT 23.9 (21.0-31.0) Seconds PTT Ratio 0.9 Fibrinogen (184-400) mg/dl Sodium 140 (136-145) mmol/L Potassium TNP Chloride 107 (98-107) mmol/L Carbon Dioxide 30 (21-32) mmol/L Anion Gap 3.0 (3-11) BUN 12 (7-18) mg/dl Creatinine 0.72 (0.6-1.2) mg/dl Est Cr Clr Drug Dosing 111.9 ml/min Est GFR ( Amer) 110.8 Est GFR (Non-Af Amer) 95.6 BUN/Creatinine Ratio 16.1 (10-20) Glucose 129 H (70-99) mg/dl POC Glucose (70-99) mg/dl Calcium 8.8 (8.5-10.1) mg/dl Magnesium TNP Total Bilirubin 1.1 H (0.2-1) mg/dl AST TNP ALT 22 (12-78) U/L Alkaline Phosphatase 81 (45-117) U/L Troponin I 0.050 H* (0-0.045) ng/ml C-Reactive Protein (0-0.29) mg/dl Total Protein 7.8 (6.4-8.2) gm/dl Albumin 3.3 L (3.4-5.0) gm/dl Globulin 4.5 H (2.5-4.0) gm/dl Albumin/Globulin Ratio 0.7 L (0.9-2) Procalcitonin (0-0.5) ng/ml 11/17/20 11/17/20 11/17/20 Range/Units 12:37 13:59 14:57 WBC (4.8-10.8) K/uL RBC (4.2-5.4) M/uL Hgb (12.0-16.0) g/dL Hct (37-47) % MCV (80-100) fL MCH (25-34) pg MCHC (32-36) g/dL RDW Std Deviation (36.4-46.3) fL RDW Coeff of Nader (11.5-14.5) % Plt Count (130-400) K/uL MPV (7.4-10.4) fL Immature Gran % (Auto) % Neut % (Auto) % Lymph % (Auto) % [place] % (Auto) % Eos % (Auto) % Baso % (Auto) % Neut # (Auto) (1.4-6.5) K/uL Lymph # (Auto) (1.2-3.4) K/uL [place] # (Auto) (0.11-0.59) K/uL Eos # (Auto) (0-0.5) K/uL Baso # (Auto) (0-0.2) K/uL Immature Gran # (Auto) (0.00-0.02) K/uL PT (9.0-12.0) Seconds INR (0.9-1.1) APTT (21.0-31.0) Seconds PTT Ratio Fibrinogen 420 H (184-400) mg/dl Sodium (136-145) mmol/L Potassium 3.6 Chloride (98-107) mmol/L Carbon Dioxide (21-32) mmol/L Anion Gap (3-11) BUN (7-18) mg/dl Creatinine (0.6-1.2) mg/dl Est Cr Clr Drug Dosing ml/min Est GFR ( Amer) Est GFR (Non-Af Amer) BUN/Creatinine Ratio (10-20) Glucose (70-99) mg/dl POC Glucose 111 H (70-99) mg/dl Calcium (8.5-10.1) mg/dl Magnesium 1.5 L Total Bilirubin (0.2-1) mg/dl AST 12 L ALT (12-78) U/L Alkaline Phosphatase (45-117) U/L Troponin I (0-0.045) ng/ml C-Reactive Protein (0-0.29) mg/dl Total Protein (6.4-8.2) gm/dl Albumin (3.4-5.0) gm/dl Globulin (2.5-4.0) gm/dl Albumin/Globulin Ratio (0.9-2) Procalcitonin (0-0.5) ng/ml 11/17/20 11/17/20 11/17/20 Range/Units 14:57 14:57 15:54 WBC (4.8-10.8) K/uL RBC (4.2-5.4) M/uL Hgb (12.0-16.0) g/dL Hct (37-47) % MCV (80-100) fL MCH (25-34) pg MCHC (32-36) g/dL RDW Std Deviation (36.4-46.3) fL RDW Coeff of Nader (11.5-14.5) % Plt Count (130-400) K/uL MPV (7.4-10.4) fL Immature Gran % (Auto) % Neut % (Auto) % Lymph % (Auto) % [place] % (Auto) % Eos % (Auto) % Baso % (Auto) % Neut # (Auto) (1.4-6.5) K/uL Lymph # (Auto) (1.2-3.4) K/uL [place] # (Auto) (0.11-0.59) K/uL Eos # (Auto) (0-0.5) K/uL Baso # (Auto) (0-0.2) K/uL Immature Gran # (Auto) (0.00-0.02) K/uL PT (9.0-12.0) Seconds INR (0.9-1.1) APTT (21.0-31.0) Seconds PTT Ratio Fibrinogen (184-400) mg/dl Sodium (136-145) mmol/L Potassium Chloride (98-107) mmol/L Carbon Dioxide (21-32) mmol/L Anion Gap (3-11) BUN (7-18) mg/dl Creatinine (0.6-1.2) mg/dl Est Cr Clr Drug Dosing ml/min Est GFR ( Amer) Est GFR (Non-Af Amer) BUN/Creatinine Ratio (10-20) Glucose (70-99) mg/dl POC Glucose 92 (70-99) mg/dl Calcium (8.5-10.1) mg/dl Magnesium Total Bilirubin (0.2-1) mg/dl AST ALT (12-78) U/L Alkaline Phosphatase (45-117) U/L Troponin I (0-0.045) ng/ml C-Reactive Protein 0.92 H (0-0.29) mg/dl Total Protein (6.4-8.2) gm/dl Albumin (3.4-5.0) gm/dl Globulin (2.5-4.0) gm/dl Albumin/Globulin Ratio (0.9-2) Procalcitonin < 0.05 (0-0.5) ng/ml Administered Medications Magnesium Sulfate/Dextrose (Magnesium Sulfate / D5w) 1 gm in 100 mls @ 50 mls/hr IV Q2H AMPARO Stop: 11/17/20 20:59 Last Admin: 11/17/20 16:48 Dose: 50 mls/hr Documented by: [id number] Discontinued Medications Magnesium Sulfate/Dextrose (Magnesium Sulfate / D5w) 1 gm in 100 mls @ 50 mls/hr IV Q2H STA Stop: 11/17/20 16:34 Last Infusion: 11/17/20 16:49 Dose: 0 mls/hr Documented by: [id number] Admin: 11/17/20 14:46 Dose: 50 mls/hr Documented by: [id number] Ioversol (Optiray 320 125ml) 119 ml IV ONCE ONE Stop: 11/17/20 13:08 Last Admin: 11/17/20 13:07 Dose: 119 ml Documented by: [id number] Potassium Chloride (Potassium Chloride 10 Meq Tabcr) 20 meq PO NOW STA Stop: 11/17/20 15:30 Last Admin: 11/17/20 15:45 Dose: 20 meq Documented by: [id number] Prednisone (Prednisone 20 Mg Tab) 20 mg PO BID STA Stop: 11/17/20 15:41 Last Admin: 11/17/20 15:45 Dose: 20 mg Documented by: [id number] Imaging Data Radiologist's Impression: Chest X-Ray 11/17/20 00:00 XR chest 1V portable CLINICAL HISTORY: Shortness of breath. COMPARISON STUDY: Chest CT and chest radiograph October 17, 2020. FINDINGS: Cardiomegaly is unchanged. There is no pneumothorax or pleural effusion. Lung volumes are diminished. Moderate multifocal airspace opacities are noted. Overall, mild improvement is noted since prior exam. IMPRESSION: Moderate multifocal airspace opacities, slightly diminished since prior exam. The findings favor viral pneumonia. ACT 112: Negative or not required by law. Electronically signed by: Daniel Bynum M.D. 11/17/2020 1:23 PM Chest CTA 11/17/20 11:22 CT ANGIOGRAM OF THE CHEST CLINICAL HISTORY: Dyspnea. COMPARISON STUDY: Chest CT dated 10/17/2020. TECHNIQUE: Following the IV administration of 119 cc of Optiray 320, CT angiogram of the chest was performed from the upper abdomen to the thoracic inlet utilizing the pulmonary embolus protocol. Images are reviewed in the axial, sagittal, and coronal planes. 3-D MIPS images are created and assessed. IV contrast was administered without complication. A dose lowering technique was utilized adhering to the principles of ALARA. The examination is degraded by large body habitus, and by streak artifact from the body wall abutting the CT gantry. CT DOSE: 866.89 mGy.cm FINDINGS: Thyroid: Normal in size and heterogeneous in attenuation. Thoracic aorta: There is atherosclerotic calcification of the thoracic aorta, which is normal in caliber and demonstrates bovine variant arch anatomy. No dissection is seen. Pulmonary vasculature: The pulmonary trunk is normal in caliber. There are no filling defects identified in main, lobar, or segmental pulmonary branches to suggest pulmonary embolus. Heart: The heart is enlarged and without pericardial effusion. The coronary arteries are densely calcified. Lungs and pleural spaces: Multifocal groundglass consolidation is seen throughout both lungs. No pleural effusion or pneumothorax is seen. The trachea and central airways are clear. Mediastinum: There are numerous subcentimeter mediastinal lymph nodes. Danni: Mildly enlarged hilar nodes measure up to 13 mm in short axis. Axillae: There is no axillary lymphadenopathy. Upper abdomen: The liver appears enlarged and steatotic. A small hiatal hernia is noted. Skeletal structures: The skeletal structures are osteopenic. Degenerative change and hyperkyphosis are noted in the thoracic spine. No lytic or blastic bony lesions are seen. IMPRESSION: 1. There is no evidence of pulmonary embolus in the main, lobar, or segmental pulmonary arteries. 2. Multifocal groundglass consolidation is seen throughout both lungs. This has only partially cleared as compared to 10/17/2020. 3. Cardiomegaly. 4. Hepatic steatosis. 5. Mildly enlarged hilar nodes are likely reactive. ACT 112: Negative or not required by law. Electronically signed by: Isreal Todd M.D. 11/17/2020 1:23 PM Discharge Plan Visit Data Chief Complaint: Shortness of Breath/Dyspnea Stated Complaint: CHEST PAIN WITH ACTIVITY,TACHYCARDIA,HX COVID ED Provider: Isreal Montoya Discharge Problem: Precordial chest pain, SOB (shortness of breath), Pneumonia, COVID-19, Elevated troponin Patient Disposition: Admitted As Inpatient Condition: Fair Forms Stand Alone Forms: [employer] [facility] Prescriptions Prescriptions: No Action Tradjenta 5 mg tablet 5 mg PO QAM Qty: 90 RF: 3 aspirin [Adult Low Dose Aspirin] 81 mg tablet,delayed release (DR/EC) 81 mg PO QAM RF: 0 atorvastatin 20 mg tablet 20 mg PO QAM RF: 0 glimepiride 4 mg tablet 8 mg PO QAM RF: 0 metformin 500 mg tablet extended release 24 hr 2,000 mg PO QAM RF: 0 olmesartan 20 mg tablet 20 mg PO QAM RF: 0 Referrals Referrals: Terri Sherman DO [Primary Care Provider] - Discharge Problem: Pneumonia Qualifiers: Pneumonia type: due to unspecified organism Laterality: bilateral Lung location: unspecified part of lung Qualified Code(s): J18.9 - Pneumonia, unspecified organism
[2020-11-17 11:55] LABS: Basophils # (auto) 0.02 K/uL (0-0.2); Basophils % (auto) 0.3 %; Eosinophils # (auto) 0.34 K/uL (0-0.5); Eosinophils % (auto) 4.5 %; Hemoglobin 13.8 g/dL (12.0-16.0); Immature Granulocytes # (auto) 0.02 K/uL (0.00-0.02); Immature Granulocytes % (auto) 0.3 %; Lymphocytes # (auto) 2.01 K/uL (1.2-3.4); Lymphocytes % (auto) 26.3 %; Mean Corpuscular Hemoglobin 29.4 pg (25-34); Mean Corpuscular Hgb Conc 33.7 g/dL (32-36); Mean Corpuscular Volume 87.2 fL (80-100); Mean Platelet Volume 9.2 fL (7.4-10.4); Monocytes % (auto) 9.2 %; Neutrophils # (auto) 4.55 K/uL (1.4-6.5); Neutrophils % (auto) 59.4 %; Platelet Count 269 K/uL (130-400); RDW Coefficient of Variation 15.2 % (11.5-14.5); RDW Standard Deviation 48.2 fL (36.4-46.3); White Blood Count 7.64 K/uL (4.8-10.8)
[2020-11-17 12:34] LABS: Partial Thromboplastin Ratio 0.9; Partial Thromboplastin Time 23.9 Seconds (21.0-31.0)
[2020-11-17 12:56] LABS: Alanine Aminotransferase 22 U/L (12-78); Albumin Globulin Ratio 0.7 (0.9-2); Albumin Level 3.3 gm/dl (3.4-5.0); Alkaline Phosphatase 81 U/L (45-117); BUN Creatinine Ratio 16.1 (10-20); Bilirubin,Total 1.1 mg/dl (0.2-1); Blood Urea Nitrogen 12 mg/dl (7-18); Calcium 8.8 mg/dl (8.5-10.1); Carbon Dioxide 30 mmol/L (21-32); Chloride 107 mmol/L (98-107); Creatinine Clr Calc Pharmacy 111.9 ml/min; Est GFR (African American) 110.8; Est GFR (Non-African American) 95.6; Globulin 4.5 gm/dl (2.5-4.0); Glucose 129 mg/dl (70-99); Sodium 140 mmol/L (136-145); Total Protein 7.8 gm/dl (6.4-8.2)
[2020-11-17] MEDS ORDERED: OPTIRAY 320 125ml IV ONE (13:07)
--- NOTE | 2020-11-17 13:24 | CT Scan Report ---
CT ANGIOGRAM OF THE CHEST CLINICAL HISTORY: Dyspnea. COMPARISON STUDY: Chest CT dated 10/17/2020. TECHNIQUE: Following the IV administration of 119 cc of Optiray 320, CT angiogram of the chest was pe rformed from the upper abdomen to the thoracic inlet utilizing the pulmonary embolus protocol. Images are reviewed in the axial, sagittal, and coronal planes. 3-D MIPS images are created and assessed. I V contrast was administered without complication. A dose lowering technique was utilized adhering to the principles of ALARA. The examination is degraded by large body habitus, and by streak artifact f rom the body wall abutting the CT gantry. CT DOSE: 866.89 mGy.cm FINDINGS: Thyroid: Normal in size and heterogeneous in attenuation. Thoracic aorta: There is atherosclerotic calcification of the thoracic aorta, which is normal in [place] and demonstrates bovine variant arch anatomy. No dissection is seen. Pulmonary vasculature: The pulmonary trunk is normal in caliber. There are no filling defects identif ied in main, lobar, or segmental pulmonary branches to suggest pulmonary embolus. Heart: The heart is enlarged and without pericardial effusion. The coronary arteries are densely calc ified. Lungs and pleural spaces: Multifocal groundglass consolidation is seen throughout both lungs. No pleu ral effusion or pneumothorax is seen. The trachea and central airways are clear. Mediastinum: There are numerous subcentimeter mediastinal lymph nodes. Danni: Mildly enlarged hilar nodes measure up to 13 mm in short axis. Axillae: There is no axillary lymphadenopathy. Upper abdomen: The liver appears enlarged and steatotic. A small hiatal hernia is noted. Skeletal structures: The skeletal structures are osteopenic. Degenerative change and hyperkyphosis ar e noted in the thoracic spine. No lytic or blastic bony lesions are seen. IMPRESSION: 1. There is no evidence of pulmonary embolus in the main, lobar, or segmental pulmonary arteries. 2. Multifocal groundglass consolidation is seen throughout both lungs. This has only partially cleare d as compared to 10/17/2020. 3. Cardiomegaly. 4. Hepatic steatosis. 5. Mildly enlarged hilar nodes are likely reactive. ACT 112: Negative or not required by law. Electronically signed by: Isreal Todd M.D. 11/17/2020 1:23 PM
--- NOTE | 2020-11-17 13:24 | XRay Report ---
XR chest 1V portable CLINICAL HISTORY: Shortness of breath. COMPARISON STUDY: Chest CT and chest radiograph October 17, 2020. FINDINGS: Cardiomegaly is unchanged. There is no pneumothorax or pleural effusion. Lung volumes are d iminished. Moderate multifocal airspace opacities are noted. Overall, mild improvement is noted since prior exam. IMPRESSION: Moderate multifocal airspace opacities, slightly diminished since prior exam. The findin gs favor viral pneumonia. ACT 112: Negative or not required by law. Electronically signed by: Daniel Bynum M.D. 11/17/2020 1:23 PM
[2020-11-17 14:28] LABS: Potassium 3.6 mmol/L (3.5-5.1)
--- NOTE | 2020-11-17 14:30 | Electrocardiogram Report ---
Test Reason : Blood Pressure : / mmHG Vent. Rate : 079 BPM Atrial Rate : 079 BPM P-R Int : 172 ms QRS Dur : 110 ms QT Int : 412 ms P-R-T Axes : 032 -34 016 degrees QTc Int : 472 ms Normal sinus rhythm Left axis deviation Moderate voltage criteria for LVH, may be normal variant Possible Lateral infarct , age undetermined Abnormal ECG When compared with ECG of 24-OCT-2020 23:37, Premature ventricular complexes are no longer Present Confirmed by Kentrell Rodriguez ([id number]) on 11/17/2020 2:29:47 PM Referred By: REFERRED SELF Confirmed By:Kentrell Rodriguez
[2020-11-17 14:32] LABS: Magnesium 1.5 mg/dl (1.8-2.4)
[2020-11-17] MEDS ORDERED: MAGNESIUM SULFATE / D5W 1 GM/100 ML BAG IV STA ×2 (14:35→14:59)
--- NOTE | 2020-11-17 15:12 | History & Physical Report ---
Date of Service November 17, 2020 Assessment & Plan (1) Abnormal CT scan, lung: Patient s/p COVID 19 pneumonia, with dyspnea on exertion - Continue progression and rehab following COVID (2) Dyspnea: Continue with home O2- continues to recover from COVID disease - Prednisone 40mg QD (20mg q12) for 3-5 days - Albuterol 2 puffs q4-6 hours as needed PRN - Continue with activity progression as above - PT/OT consult (3) Atypical chest pain: Chest pain x1 eppisode with exertion and hypoxia post COVID - will trend troponin and ECG q6 hours - ECHO to evaluate heart function and size following COVID as well with borderline LVH and HTN (4) Hypertension: Poorly controlled - Continue Olmesartan - Continue to work with PCP to get to goal <140 - Additional agents may be required - Continue ASA for primary prevention (5) Hyperlipemia: Lipids in morning - continue moderate dose statin- Atorvastatin 20 (6) Diabetes mellitus: A1C 7 - transition to insulin sliding scale while in house - Goal <180 (7) DVT prophylaxis: Lovenox 40mg Qd- inflammatory markers pending. If still remain high will increase to 0.5mg/kg/day History of Present Illness Chief Complaint: chest pain Primary Care Provider: Terri Sherman, DO 55 YOF with past medical history of DMII, HTN, HLD, PCOS, GERD, lower leg swelling, COVID 19 pneumonia (10/17/20). Was recently discharged from [facility] on following COVID infection. The patient was discharged on home oxygen 3L and she has been slowly working her way back up to activity. She still gets short of breath at home and has to take breaks, but she recovers without problems. Yesterday she went down the driveway ~80feet to get the mail, she wore her oxygen 3L with her. She got chest pain that "just hurt" in the center of her chest, she walked back up the driveway and sat down. She checked her SPO2 and it was at 88% with her HR 110 on her home pulse ox reader. The pain went away while she was resting and lasted ~15 minutes. She called her PCP and was recommended that she come to the ER yesterday, but patient deferred and came today. The patient is comfortable in her room with normal respirations, normal HR, and SPO2 98-100 % resting on her 3LNC. The patient troponin level was checked in the emergency room and noted to be at 0.050; her ECG has no acute changes borderline LVH still noted and PVC's on monitor. Patient will be admitted to trend troponin, continue with pulmonary rehab. In the ER the patient had a CT scan of the chest that was negative for pulmonary embolism, but still shows moderate ground glass opacities. Allergies Allergy/AdvReac Type Severity Reaction Status Date / Time No Known Allergies Allergy Verified 11/04/20 09:29 Home Medications Medication Instructions Recorded Confirmed Type aspirin 81 mg tablet,delayed 81 mg PO QAM 08/24/20 11/17/20 History release linagliptin 5 mg tablet 5 mg PO QAM #90 tab 08/30/20 11/17/20 Rx atorvastatin 20 mg PO QAM 10/17/20 11/17/20 History glimepiride 8 mg PO QAM 10/17/20 11/17/20 History metformin 2,000 mg PO QAM 10/17/20 11/17/20 History olmesartan 20 mg PO QAM 10/17/20 11/17/20 History Past Med/Surg History Medical History Diabetes mellitus Diabetic neuropathy Diverticulosis GERD (gastroesophageal reflux disease) Hyperlipemia Hypertension Osteoarthritis PCOS (polycystic ovarian syndrome) Pneumonia due to COVID-19 virus (10/2020) Surgical History Previous section (2006) Family History Mother Breast cancer, Onset Age: 51 Hypertension Gall bladder disease Father Hypertension Heart disease S/P coronary artery stent placement Diabetes Sister Hypertension Gall bladder disease Denies family history of Ovarian cancer Prostate cancer Myocardial infarction Colorectal cancer Social History Smoking Status: Former smoker Tobacco Type: Cigarettes Age Started Using Tobacco: 16; Age Quit Using Tobacco: 41; packs per day: 0.5; Second Hand Exposure: No; Hx Alcohol Use: No Hx Substance Use: No Preferred Language: Montserratian Communication Ability: Effective Visual Impairment: Limited Hearing Ability: Normal Passenger Flagman Required: No Beliefs That Will Affect Care: None marital status: Current Living Situation: Spouse and Family Current Living Situation Comment: lives with and son current occupational status: employed current occupation: works for [employer] How many Children do You have: 1 Other Information That Helps Us Care for You: No Feels Safe at Home: Yes Safety Concerns: Feels Safe At This Time Childhood Exposure to Second-Hand Smoke: Yes (father smoked) caffeine: Yes during the past year weight has: remained stable Dental Care, Regularly: No Physical Activity Frequency: Daily Physical Activity Frequency 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 Seatbelt Use: always Sunscreen Use: No Assistive Devices: Glasses and Oxygen - Continuous Review of Systems Review of Systems: REVIEW OF SYSTEMS: Constitutional: No fever, sweats or chills Eyes: No diplopia, no worsening or blurred vision ENT: normal hearing, no trouble swallowing Respiratory: (+) cough, dyspnea on exertion, (-) sputum, dyspnea at rest Cardiovascular: (+) chest pain, (-) tightness or palpitations Abdomen: No pain, nausea, vomiting, diarrhea or constipation Musculoskeletal:(+) swelling of lower extremities, No joint pain, calf pain Neurologic: No weakness, numbness/tingling, or balance problems Psychiatric: No anxiety or depression Skin: No rash or itch Physical Exam Physical Exam: PHYSICAL EXAM: General: awake, alert, no apparent distress Head: Normocephalic, atraumatic ENT: PERRL, EOMI, no pharyngeal exudate, mucous membranes moist Neuro: AAO x 3, speech clear and appropriate, strength intact bilaterally 5/5, sensation intact and equal all extremities and dermatomes, no pronator drift Chest: equal rise and fall of the chest, no accessory muscle use, no heaves or thrills,decreased in lower thirds of the bilateral lung hahn to auscultation, on 3LNC, Cardiac: Regular rate and rhythm, telemetry reviewed occasional PVC, skin warm dry, cap refill <3 seconds, peripheral pulses +2 no JVD, no murmur, trace lower extremity edema bilateral GI: NABS x 4 quadrants, soft, nontender to palpation, no rebound, guarding or tenderness : Spontaneously voiding, no pain, no CVA tenderness, Extremities: Normal inspection, no peripheral edema or erythema, calfs nontender to palpation Psych: Normal mood and affect Skin: no rash or erythema Results & Data Results & Data ([facility]) Vital Signs (Past 12 Hours) Vital Signs Temp Pulse Resp BP Pulse Ox 11/17/20 14:30 68 24 142/82 H 98 11/17/20 14:00 70 23 158/86 H 100 11/17/20 13:30 69 18 144/72 H 99 11/17/20 13:17 77 18 146/83 H 100 11/17/20 12:30 73 24 137/78 99 11/17/20 12:08 75 22 160/73 H 97 11/17/20 11:30 72 27 H 142/101 H 97 11/17/20 11:00 72 28 H 153/98 H 97 11/17/20 10:51 99 11/17/20 10:48 77 22 153/92 H 97 11/17/20 10:39 95 11/17/20 10:16 36.4 C L 93 H 22 162/87 H 97 Laboratory Results Abnormal lab results 11/17/20 11/17/20 11/17/20 Range/Units 11:40 11:40 12:37 RDW Std Deviation 48.2 H (36.4-46.3) fL RDW Coeff of Nader 15.2 H (11.5-14.5) % Edmunds # (Auto) 0.70 H (0.11-0.59) K/uL Glucose 129 H (70-99) mg/dl POC Glucose 111 H (70-99) mg/dl Magnesium (1.8-2.4) mg/dl Total Bilirubin 1.1 H (0.2-1) mg/dl AST (15-37) U/L Troponin I 0.050 H* (0-0.045) ng/ml Albumin 3.3 L (3.4-5.0) gm/dl Globulin 4.5 H (2.5-4.0) gm/dl Albumin/Globulin Ratio 0.7 L (0.9-2) 11/17/20 Range/Units 13:59 RDW Std Deviation (36.4-46.3) fL RDW Coeff of Nader (11.5-14.5) % Edmunds # (Auto) (0.11-0.59) K/uL Glucose (70-99) mg/dl POC Glucose (70-99) mg/dl Magnesium 1.5 L (1.8-2.4) mg/dl Total Bilirubin (0.2-1) mg/dl AST 12 L (15-37) U/L Troponin I (0-0.045) ng/ml Albumin (3.4-5.0) gm/dl Globulin (2.5-4.0) gm/dl Albumin/Globulin Ratio (0.9-2) Diagnostic Findings CT ANGIOGRAM OF THE CHEST CLINICAL HISTORY: Dyspnea. COMPARISON STUDY: Chest CT dated 10/17/2020. TECHNIQUE: Following the IV administration of 119 cc of Optiray 320, CT angiogram of the chest was performed from the upper abdomen to the thoracic inlet utilizing the pulmonary embolus protocol. Images are reviewed in the axial, sagittal, and coronal planes. 3-D MIPS images are created and assessed. IV contrast was administered without complication. A dose lowering technique was utilized adhering to the principles of ALARA. The examination is degraded by large body habitus, and by streak artifact from the body wall abutting the CT gantry. CT DOSE: 866.89 mGy.cm FINDINGS: Thyroid: Normal in size and heterogeneous in attenuation. Thoracic aorta: There is atherosclerotic calcification of the thoracic aorta, which is normal in caliber and demonstrates bovine variant arch anatomy. No dissection is seen. Pulmonary vasculature: The pulmonary trunk is normal in caliber. There are no filling defects identified in main, lobar, or segmental pulmonary branches to suggest pulmonary embolus. Heart: The heart is enlarged and without pericardial effusion. The coronary arteries are densely calcified. Lungs and pleural spaces: Multifocal groundglass consolidation is seen throughout both lungs. No pleural effusion or pneumothorax is seen. The trachea and central airways are clear. Mediastinum: There are numerous subcentimeter mediastinal lymph nodes. Danni: Mildly enlarged hilar nodes measure up to 13 mm in short axis. Axillae: There is no axillary lymphadenopathy. Upper abdomen: The liver appears enlarged and steatotic. A small hiatal hernia is noted. Skeletal structures: The skeletal structures are osteopenic. Degenerative change and hyperkyphosis are noted in the thoracic spine. No lytic or blastic bony lesions are seen. IMPRESSION: 1. There is no evidence of pulmonary embolus in the main, lobar, or segmental pulmonary arteries. 2. Multifocal groundglass consolidation is seen throughout both lungs. This has only partially cleared as compared to 10/17/2020. 3. Cardiomegaly. 4. Hepatic steatosis. 5. Mildly enlarged hilar nodes are likely reactive. XR chest 1V portable CLINICAL HISTORY: Shortness of breath. COMPARISON STUDY: Chest CT and chest radiograph October 17, 2020. FINDINGS: Cardiomegaly is unchanged. There is no pneumothorax or pleural effusion. Lung volumes are diminished. Moderate multifocal airspace opacities are noted. Overall, mild improvement is noted since prior exam. IMPRESSION: Moderate multifocal airspace opacities, slightly diminished since prior exam. The findings favor viral pneumonia. Medications Administered Magnesium Sulfate/Dextrose (Magnesium Sulfate / D5w) 1 gm in 100 mls @ 50 mls/hr IV Q2H STA Stop: 11/17/20 16:34 Last Admin: 11/17/20 14:46 Dose: 50 mls/hr Documented by: [id number] Discontinued Medications Ioversol (Optiray 320 125ml) 119 ml IV ONCE ONE Stop: 11/17/20 13:08 Last Admin: 11/17/20 13:07 Dose: 119 ml Documented by: [id number] Home Medications aspirin 81 mg tablet,delayed release 81 mg PO QAM 08/24/20 [History Confirmed 11/17/20] linagliptin 5 mg tablet 5 mg PO QAM #90 tab 08/30/20 [Rx Confirmed 11/17/20] atorvastatin 20 mg PO QAM 10/17/20 [History Confirmed 11/17/20] glimepiride 8 mg PO QAM 10/17/20 [History Confirmed 11/17/20] metformin 2,000 mg PO QAM 10/17/20 [History Confirmed 11/17/20] olmesartan 20 mg PO QAM 10/17/20 [History Confirmed 11/17/20] Active Medications Magnesium Sulfate/Dextrose (Magnesium Sulfate / D5w) 1 gm in 100 mls @ 50 mls/hr IV Q2H STA Stop: 11/17/20 16:34 Last Admin: 11/17/20 14:46 Dose: 50 mls/hr Documented by: Magnesium Sulfate/Dextrose (Magnesium Sulfate / D5w) 1 gm in 100 mls @ 50 mls/hr IV Q2H AMPARO Stop: 11/17/20 20:59 ECG Additional Comments: Vent. Rate : 079 BPM Atrial Rate : 079 BPM P-R Int : 172 ms QRS Dur : 110 ms QT Int : 412 ms P-R-T Axes : 032 -34 016 degrees QTc Int : 472 ms Normal sinus rhythm Left axis deviation Moderate voltage criteria for LVH, may be normal variant Possible Lateral infarct , age undetermined Abnormal ECG When compared with ECG of 24-OCT-2020 23:37, Premature ventricular complexes are no longer Present Confirmed by Kentrell Rodriguez ([id number]) on 11/17/2020 2:29:47 PM Code Status & VTE Plan VTE Prophylaxis Plan VTE Prophylaxis will be ordered: Yes Supervising Physician Co-Signing Physician Notes Attending Attestation: Pt seen/examined, chart reviewed, care plan d/w LAWRENCE Smith. I agree w/ the angela components of his documentation. Ti 55yo female with morbid obesity, PCOS, T2DM, HTN, hyperlipidemia, prior tobacco usage - hospitalized at [facility] in early October for 10 days due to severe COVID-19 pneumonia, d/c home on 3 L NC O2 continuously - presents with episode of chest pain that occurred while walking to the mailbox yesterday. Pain lasted about 5 minutes in total; pain resolved with sitting down to rest. On her 3 L NC O2 her sats were 88% when she got back into her house. Pain did not radiate. No nausea. No diaphoresis. She has had no further episodes of central chest discomfort since then, but has had some vague discomfort in her lower neck/throat region since being admitted to the hospital. It does not feel like GERD as she has had GERD symptoms in the past - and this is different. She is discouraged by her slow recovery as she is getting dyspneic with minimal activities at home. PMH, PSH, allergies, meds, sochx, famhx - reviewed VSS, no fever, O2 sats mid 90s on 3 L NC gen - pleasant, NAD, obese neck - no JVD heart - RRR, s1 s2, no murmur lungs - decreased BS bases, no rales/wheeze abd - soft NT ND BS+ ext - left calf is larger than right calf, no cords/swelling/tenderness/warmth labs reviewed CTA chest reviewed EKG - my reading: NSR, ST flattening anterolateral leads and inferior leads; poor anterior R wave progression; RSR' pattern III; in comparison to EKG on 10/17/[address] flattening is new A/P: 1. severe COVID-19 pneumonia with resp failure leading to hospital admission in October 2020 2. chronic hypoxic resp failure 2nd to #1 3. chest pain x 5 minutes on 11/16, now resolved 4. troponin elevation at presentation today, now normal 5. multiple CAD risk factors as above 6. LLE larger than RLE 7. uncontrolled HTN echo in am pulmonary consult for ongoing #2; question if patient should be on ongoing steroids, inhalers, etc - defer to pulmonary consider cardiology consultation - does patient need stress test?? other testing? +troponin, abnormal EKG, symptoms, etc. doppler LLE r/o DVT titrate BP meds replace low mag Enrique Mejia MD PG Care Time/CCT Total # of Minutes Spent Total Time Spent with Patient: Total time spent is greater than 50% in coordination of care (as documented) at patient's floor/unit and/or counseling patient: Coding Level of Care Code 61349 Initial Inpt Care Lvl [address] scan, lung R91.8 Dyspnea R06.02 Dyspnea type: shortness of breath Atypical chest pain R07.89 Hypertension I10 Hypertension type: essential hypertension Hyperlipemia E78.5 Hyperlipidemia type: unspecified Diabetes mellitus E11.9 Diabetes mellitus complication status: without complication Diabetes mellitus senior care insulin use: without director long term care use Diabetes mellitus type: type 2 DVT prophylaxis Z29.9 (1) Diabetes mellitus Diabetes mellitus complication status: without complication Diabetes mellitus director long term care insulin use: without senior care use Diabetes mellitus type: type 2 Qualified Code(s): E11.9 - Type 2 diabetes mellitus without complications (2) Dyspnea Dyspnea type: shortness of breath Qualified Code(s): R06.02 - Shortness of breath (3) Hyperlipemia Hyperlipidemia type: unspecified Qualified Code(s): E78.5 - Hyperlipidemia, unspecified (4) Hypertension Hypertension type: essential hypertension Qualified Code(s): I10 - Essential (primary) hypertension
[2020-11-17] MEDS ORDERED: POTASSIUM CHLORIDE 10 MEQ TABCR PO STA (15:29)
[2020-11-17 15:39] LABS: Fibrinogen 420 mg/dl (184-400)
[2020-11-17] MEDS ORDERED: predniSONE 20 MG TAB PO STA (15:40)
[2020-11-17] MEDS: MAGNESIUM SULFATE / D5W 1 GM/100 ML BAG IV SCH ×2 (16:48→20:42)
[2020-11-17] MEDS ORDERED: ASPIRIN CHEW 324 MG PO STA (17:02)
[2020-11-17] MEDS ORDERED: DEXTROSE 50% 50 ML SYRINGE IV PRN (18:39)
[2020-11-17] MEDS ORDERED: GLUCOSE 10 TABS/TUBE PO PRN (18:39)
[2020-11-17] MEDS ORDERED: GLUCOSE 40% GEL 15 GM TUBE PO PRN (18:39)
[2020-11-17] MEDS ORDERED: GLUCAGON FOR INJ 1 MG VIAL SQ PRN (18:39)
[2020-11-17] MEDS ORDERED: CARBOHYDRATES FOR HYPOGLYCEMIA PO PRN (18:39)
[2020-11-17] MEDS ORDERED: ACETAMINOPHEN 325 MG TAB PO PRN (19:02)
[2020-11-17] MEDS ORDERED: ONDANSETRON INJ 2 MG/ML 2 ML VIAL IV PRN (19:02)
[2020-11-17] MEDS ORDERED: POLYETHYLENE (MIRALAX) 17 GM PACK PO PRN (19:02)
[2020-11-17] MEDS ORDERED: SODIUM CHLORIDE 0.65% NA SOLN 45 ML (OCEAN) PRN (19:02)
[2020-11-17] MEDS: INSULIN ASPART 100 UNITS/ML 3 ML PEN SC SCH ×2 (20:42→20:54)
[2020-11-17] MEDS: ENOXAPARIN INJ 40 MG/0.4 ML SYR SQ SCH (20:42)
--- NOTE | 2020-11-18 06:44 | Ultrasound Report ---
US venous doppler LE LT HISTORY: 55 years-old Female recent COVID, LLE enlargement; eval DVT acute pain and swelling of the left lower extremity COMPARISON: Doppler exam 10/18/2020 TECHNIQUE: Multiple real-time sonographic images of the left lower extremity deep venous structures w ere obtained assessing grayscale appearance, color and spectral flow FINDINGS: Normal flow, compressibility, phasicity and augmentation of the left lower extremity deep venous stru ctures. IMPRESSION: No sonographic evidence of deep venous thrombosis. ACT 112: Negative or not required by law. The above report was generated using voice recognition software. It may contain grammatical, syntax o r spelling errors. Electronically signed by: Sen Wall M.D. 11/18/2020 6:43 AM
--- NOTE | 2020-11-18 07:11 | Hospitalist Progress Note ---
Date of Service November 18, 2020 Assessment & Plan (1) Abnormal CT scan, lung: Patient s/p COVID 19 pneumonia, with dyspnea on exertion, pulmonary medicine did see and does not recommend any additional testing outside of 2 step prior to dc - CT chest 11/17/20 IMPRESSION: 1. There is no evidence of pulmonary embolus in the main, lobar, or segmental pulmonary arteries. 2. Multifocal groundglass consolidation is seen throughout both lungs. This has only partially cleared as compared to 10/17/2020. 3. Cardiomegaly. 4. Hepatic steatosis. 5. Mildly enlarged hilar nodes are likely reactive (2) Dyspnea: systolic heart failure, Echo reveals EF 40-45% with inferior RWMA, will have cardiology evaluate to consider lhc (3) Atypical chest pain: ef is depressed which could be covid but does have discrete RWMA and risk factors of diabetes previous smoking dyslipidemia and obesity, plus father with CAD last lipid 09/02 shows favorable treatment (4) Hypertension: Poorly controlled - Continue Olmesartan - Continue to work with PCP to get to goal <140 - Additional agents may be required - Continue ASA for primary prevention (5) Hyperlipemia: Lipids in morning - continue moderate dose statin- Atorvastatin 20 (6) Diabetes mellitus: A1C 7 - transition to insulin sliding scale while in house - Goal <180 (7) DVT prophylaxis: Lovenox 40mg Qd- inflammatory markers pending. If still remain high will increase to 0.5mg/kg/day Admission and Anticipated Discharge Date Admission Date: November 17, 2020 Subjective Pt describes two days prehospital with intermittent symptoms, one while doing laundry 2 days ago that was fatigued and with some shortness of breath. the second one day prior to admission with walking to mailbox, this was with chest pressure, shortness of breath without radiation or diaphoresis, no nausea or other symptoms, I did discuss case with Cardiology and may consider LHC will keep npo after mn Review of Systems Review of Systems: Mild distress and fatigue no headache, blurry or double vision no speech or swallowing issues chest pain, described as pressure no palpitations associated with shortness of breath, no cough or wheezes( previous wheezes ) no abdominal pain, nausea or vomiting, diarrhea or constipation no dysuria, hematuria or frequency no focal joint pain or swelling no back pain, CVA tenderness or radicular pain no bruising, bleeding or rashes no focal signs of weakness or numbness or altered sensation no complaints of anxiety or depression.. Physical Exam Physical Exam: The patient appeared well nourished and normally developed. Vital signs as documented. Head exam is normocephalic atraumatic no scleral icterus Neck is without JVD, thyromegaly, or carotid bruits. Lungs are clear to auscultation, no focal loss of breath sounds Cardiac exam, Rhythm is regular.. No murmurs, rubs or gallops. Abdominal exam reveals normal bowel sounds, soft non tender, no masses Extremities are nonedematous and both pedal pulses are present Neurologic exam is alert and oriented, no focal loss of strength or sensation Skin is without bruises or rashes Psychologically is without concerns for anxiety or depression Results & Data Results & Data ([facility]) Vital Signs (Past 12 Hours) Vital Signs Temp Pulse Pulse Resp BP Pulse Ox 11/18/20 03:09 98.6 F 76 18 131/83 97 11/18/20 00:02 96 H 11/17/20 23:48 99.0 F 92 H 18 133/81 94 11/17/20 20:07 96 H 11/17/20 19:59 98.6 F 70 18 150/87 H 93 PG Care Time/CCT Total # of Minutes Spent Total Time Spent with Patient: Total time spent is greater than 50% in coordination of care (as documented) at patient's floor/unit and/or counseling patient: Coding Level of Care Code 96739 Subseq Hosp Care Lvl [address] scan, lung R91.8 Dyspnea R06.02 Dyspnea type: shortness of breath Atypical chest pain R07.89 Hypertension I10 Hypertension type: essential hypertension Hyperlipemia E78.5 Hyperlipidemia type: unspecified Diabetes mellitus E11.9 Diabetes mellitus complication status: without complication Diabetes mellitus mcfp insulin use: without long term care pharmacist use Diabetes mellitus type: type 2 DVT prophylaxis Z29.9 (1) Diabetes mellitus Diabetes mellitus complication status: without complication Diabetes mellitus mcfp insulin use: without long term care pharmacist use Diabetes mellitus type: type 2 Qualified Code(s): E11.9 - Type 2 diabetes mellitus without complications (2) Dyspnea Dyspnea type: shortness of breath Qualified Code(s): R06.02 - Shortness of breath (3) Hyperlipemia Hyperlipidemia type: unspecified Qualified Code(s): E78.5 - Hyperlipidemia, unspecified (4) Hypertension Hypertension type: essential hypertension Qualified Code(s): I10 - Essential (primary) hypertension
[2020-11-18 07:16] LABS: Basophils # (auto) 0.01 K/uL (0-0.2); Basophils % (auto) 0.1 %; Eosinophils # (auto) 0.16 K/uL (0-0.5); Eosinophils % (auto) 1.8 %; Hematocrit (blood only) 41.5 % (37-47); Hemoglobin 13.8 g/dL (12.0-16.0); Immature Granulocytes # (auto) 0.04 K/uL (0.00-0.02); Immature Granulocytes % (auto) 0.5 %; Lymphocytes # (auto) 2.59 K/uL (1.2-3.4); Lymphocytes % (auto) 29.8 %; Mean Corpuscular Hgb Conc 33.3 g/dL (32-36); Mean Corpuscular Volume 87.2 fL (80-100); Monocytes # (auto) 0.71 K/uL (0.11-0.59); Monocytes % (auto) 8.2 %; Neutrophils # (auto) 5.17 K/uL (1.4-6.5); Neutrophils % (auto) 59.6 %; Platelet Count 341 K/uL (130-400); RDW Coefficient of Variation 15.4 % (11.5-14.5); RDW Standard Deviation 48.7 fL (36.4-46.3); Red Blood Count 4.76 M/uL (4.2-5.4); White Blood Count 8.68 K/uL (4.8-10.8)
[2020-11-18 07:42] LABS: BUN Creatinine Ratio 15.6 (10-20); Calcium 8.5 mg/dl (8.5-10.1); Creatinine Clr Calc Pharmacy 133.2 ml/min; Est GFR (African American) 120.6; Est GFR (Non-African American) 104.1; Magnesium 2.3 mg/dl (1.8-2.4)
[2020-11-18] MEDS: ATORVASTATIN 20 MG TAB PO SCH (08:23)
[2020-11-18] MEDS: ASPIRIN 81 MG ECTAB PO SCH (08:23)
[2020-11-18] MEDS: OLMESARTAN MEDOXOMIL 20 MG TAB PO SCH (08:24)
[2020-11-18] MEDS: INSULIN ASPART 100 UNITS/ML 3 ML PEN SC SCH ×4 (08:27→20:29)
--- NOTE | 2020-11-18 08:36 | Pulmonary Consultation ---
Date of Consultation November 18, 2020 Assessment & Plan (1) SOB (shortness of breath): Impression: This is a 55-year-old female that was recently admitted for Covid pneumonia in October 2020. At the time of her discharge she was sent home with 3 L of supplemental oxygen per minute via nasal cannula. She is remained on supplemental oxygen since that time with no further follow-up regarding her oxygenation status. She presents with dyspnea with exertion and some precordial chest pain. Slight elevation in troponins. Appears to be at baseline since discharge from Covid with her respiratory status. Recommendations: 1. Dyspnea with exertion: I suspect this is probably continued inflammatory response to the COVID-19 pneumonia. Her procalcitonin is negative. She has no white count. She has no fever. She has no sputum production. She has no hemoptysis. On physical examination she has no bronchospasm. I explained to the patient that she probably will have some residual shortness of breath and oxygen requirements for several weeks. Would recommend incentive spirometry while inpatient and continue on discharge. Would also recommend ambulation as tolerated. Prior to discharge, a two-step should be completed to evaluate for continued supplemental oxygen need. She does have a prior history of tobacco abuse and is never seen a help desk agent or had pulmonary function testing. We will be glad to set up outpatient follow-up in the pulmonary office for PFTs and further evaluation of her solitary pulmonary nodule. 2. Right lower lobe pulmonary nodule: Patient has CT chest in September 2019 ordered by her PCP for shortness of breath. She had identified 6 mm pulmonary nodule of on clear etiology. A follow-up CT chest was completed in March 2020 and showed a stable 6 mm pulmonary nodule. On her CT scan in October when she was admitted for Covid and her follow-up CT scan yesterday, she has groundglass opacities secondary to her Covid pneumonia so is difficult to evaluate for pulmonary nodules. Inasmuch as she is a former smoker, would recommend follow- up in the outpatient office with continued CT surveillance per Fleischner criteria. 3. Hypoxia: This appears to be residual since her Covid pneumonia admission. She had no prior requirement for supplemental oxygen. Would continue to allow tincture of time for continued healing of her postinflammatory response from Covid. Recommend two-step evaluation prior to discharge. Again, we would be glad to follow her in the outpatient office. 4. Precordial chest pain with elevated troponin: Patient has slight elevation in her troponin on admission. The following 2 troponins serially showed decre ase in her troponin with no further significant chest pain and no EKG findings that were relevant. Echocardiogram has been ordered and report is pending. Will defer to remaining chest pain work-up to hospitalist team. 5. GERD: No outpatient PPI or H2 larissa. It may be beneficial to treat the patient with famotidine in the event that the precordial pain was midepigastric pain. Will defer to the hospitalist team regarding further treatment. Thank you very much for including us in the care of this patient. At this time we will sign off from a pulmonary perspective. Feel free to reconsult if further pulmonary needs are identified. We would be glad to follow the patient in an outpatient setting. Please refer to Dr. Cadena's addendum for further recommendations and corrections (2) Chronic hypoxemic respiratory failure: (3) Abnormal CT scan, lung: (4) Pulmonary nodule: (5) Precordial chest pain: (6) Elevated troponin: (7) GERD (gastroesophageal reflux disease): (8) Diabetes mellitus: Diabetes mellitus complication status: without complication Diabetes mellitus buttermaker helper insulin use: without buttermaker helper use Diabetes mellitus type: type 2 Qualified Code(s): E11.9 - Type 2 diabetes mellitus witho ut complications (9) Hypertension: Hypertension type: essential hypertension Qualified Code(s): I10 - Essential (primary) hypertension (10) DVT prophylaxis: Supervising Physician Co-Signing Physician Notes Patient seen and examined. EMR reviewed. Imaging was independently reviewed as well. This 55-year-old female with a history of Covid 2 weeks ago presents with chest pain. She is hypoxemic due to her Covid infection and a CT scan confirmed persistent fibrotic lung disease. She is scheduled to meet with pulmonary next month in the outpatient setting. She had an echocardiogram showing reduced ejection fraction of 40 to 45% with severe hypokinesis of the inferior lateral wall. She is scheduled to undergo cardiac catheterization tomorrow. With regards to her post Covid pulmonary symptoms, there is no current therapy shown to impact her disease. Supportive care is recommended. Continue supplemental oxygen titrated to keep saturations at or above 88%. Would recommend pulmonary function test and a follow-up CT scan in 8 to 10 weeks. She already has follow-up scheduled with pulmonary. Pulmonary will sign off at this point time. Feel free to contact us if we can be of additional assistance. History of Present Illness Attending Physician: Natalio Aquino MD History of Present Illness Attending: Dr. Cadena This is a 55-year-old female with a past medical history including diabetes mellitus type 2, hypertension, hyperlipidemia, PCOS, GERD, chronic lower extremity swelling, COVID-19 pneumonia (discharged and and NC 10/28/2020). She has been on 3 L/min via nasal cannula since discharge with COVID. No previous supplemental oxygen use. Pulmonary nodule identified in 09/2020 by PCP. Patient unclear on follow up. Has not seen a help desk agent in the past. She feels as though she has sleep apnea but has never been tested and has never been on CPAP or BiPAP in the past. The patient presented the emergency department for evaluation treatment for chest pain which she developed while walking approximately 80 feet to get the mail yesterday. She had her oxygen on and states that she just had this pain in the middle of her chest. She never had any syncope or presyncope but felt e xtremely weak. She was able to walk back to the house and rest. She has a pulse oximeter and noted that her heart rate was 110 but that she was saturating appropriately. In the emergency room the patient had a CT scan of her chest to rule out pulmonary emboli. This was negative. She has moderate groundglass opacities which are chronic and have slightly improved since previous imaging during her admission for COVID PNA. White count is 8.68. Procalcitonin is negative. Electrolytes are balanced. Hemoglobin A1c was 7.6% on 10/18/2020. Presenting troponin was 0.05. It is trending down and is currently 0.04. Patient currently denies any further chest pain. She has no conversational dysp ismael. She has no cough or sputum production is significant. She denies any fever. Appetite is appropriate. No nausea or vomiting with eating. No other acute complaints at this time. Allergies Allergy/AdvReac Type Severity Reaction Status Date / Time No Known Allergies Allergy Verified 11/04/20 09:29 Home Medications Medication Instructions Recorded Confirmed Type aspirin 81 mg tablet,delayed 81 mg PO QAM 08/24/20 11/17/20 History release linagliptin 5 mg tablet 5 mg PO QAM #90 tab 08/30/20 11/17/20 Rx atorvastatin 20 mg PO QAM 10/17/20 11/17/20 History glimepiride 8 mg PO QAM 10/17/20 11/17/20 History metformin 2,000 mg PO QAM 10/17/20 11/17/20 History olmesartan 20 mg PO QAM 10/17/20 11/17/20 History Patient History Medical History (Updated 11/18/20 @ 08:49 by Isreal Hook PA-C) Chronic hypoxemic respiratory failure Diabetes mellitus Diabetic neuropathy Diverticulosis GERD (gastroesophageal reflux disease) Hyperlipemia Hypertension Osteoarthritis PCOS (polycystic ovarian syndrome) Pneumonia due to COVID-19 virus (10/2020) Surgical History Previous section (2006) Family History Mother Breast cancer, Onset Age: 51 Hypertension Gall bladder disease Father Hypertension Heart disease S/P coronary artery stent placement Diabetes Sister Hypertension Gall bladder disease Denies family history of Ovarian cancer Prostate cancer Myocardial infarction Colorectal cancer Social History Smoking Status: Former smoker Tobacco Type: Cigarettes Age Started Using Tobacco: 16; Age Quit Using Tobacco: 41; packs per day: 0.5; Second Hand Exposure: No; Hx Alcohol Use: No Hx Substance Use: No Preferred Language: French Communication Ability: Effective Visual Impairment: Limited Hearing Ability: Normal Bartender Required: No Beliefs That Will Affect Care: None marital status: Current Living Situation: Spouse and Family Current Living Situation Comment: lives with and son current occupational status: employed current occupation: works for [employer] How many Children do You have: 1 Other Information That Helps Us Care for You: No Feels Safe at Home: Yes Safety Concerns: Feels Safe At This Time Childhood Exposure to Second-Hand Smoke: Yes (father smoked) caffeine: Yes during the past year weight has: remained stable Dental Care, Regularly: No Physical Activity Frequency: Daily Physical Activity Frequency 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 Good inspirational effort. No cough with deep breathing. No conversational dyspnea. HEART: Regular, rate controlled ABDOMEN: Soft, NT, ND, BS Present EXTREMITIES: No LE edema, pedal pulses intact NEURO: A&OX3 Results & Data Results & Data ([facility]) Vital Signs (Past 12 Hours) Vital Signs Temp Pulse Pulse Resp BP Pulse Ox 11/18/20 07:58 36.7 C 70 18 130/82 94 11/18/20 07:12 94 H 11/18/20 03:09 37 C 76 18 131/83 97 11/18/20 00:02 96 H 11/17/20 23:48 37.2 C 92 H 18 133/81 94 Laboratory Results 11/18/20 06:34 11/18/20 06:34 11/17/20 11/17/20 11/17/20 11:40 19:22 22:26 Troponin I 0.050 H* 0.[address] ANGIOGRAM OF THE CHEST CLINICAL HISTORY: Dyspnea. COMPARISON STUDY: Chest CT dated 10/17/2020. TECHNIQUE: Following the IV administration of 119 cc of Optiray 320, CT angiogram of the chest was performed from the upper abdomen to the thoracic inlet utilizing the pulmonary embolus protocol. Images are reviewed in the a xial, sagittal, and coronal planes. 3-D MIPS images are created and assessed. IV contrast was administered without complication. A dose lowering technique was utilized adhering to the principles of ALARA. The examination is degraded by large body habitus, and by streak artifact from the body wall abutting the CT gantry. CT DOSE: 866.89 mGy.cm FINDINGS: Thyroid: Normal in size and heterogeneous in attenuation. Thoracic aorta: There is atherosclerotic calcification of the thoracic aorta, which is normal in caliber and demonstrates bovine variant arch anatomy. No dissection is seen. Pulmonary vasculature: The pulmonary trunk is normal in caliber. There are no filling defects identified in main, lobar, or segmental pulmonary branches to suggest pulmonary embolus. Heart: The heart is enlarged and without pericardial effusion. The coronary arteries are densely calcified. Lungs and pleural spaces: Multifocal groundglass consolidation is seen throughout both lungs. No pleural effusion or pneumothorax is seen. The trachea and central airways are clear. Mediastinum: There are numerous subcentimeter mediastinal lymph nodes. Danni: Mildly enlarged hilar nodes measure up to 13 mm in short axis. Axillae: There is no axillary lymphadenopathy. Upper abdomen: The liver appears enlarged and steatotic. A small hiatal hernia is noted. Skeletal structures: The skeletal structures are osteopenic. Degenerative change and hyperkyphosis are noted in the thoracic spine. No lytic or blastic bony lesions are seen. IMPRESSION: 1. There is no evidence of pulmonary embolus in the main, lobar, or segmental pulmonary arteries. 2. Multifocal groundglass consolidation is seen throughout both lungs. This has only partially cleared as compared to 10/17/2020. 3. Cardiomegaly. 4. Hepatic steatosis. 5. Mildly enlarged hilar nodes are likely reactive. ACT 112: Negative or not required by law. Electronically signed by: Isreal Todd M.D. 11/17/2020 1:23 PM US venous doppler LE LT HISTORY: 55 years-old Female recent COVID, LLE enlargement; eval DVT acute pain and swelling of the left lower extremity COMPARISON: Doppler exam 10/18/2020 TECHNIQUE: Multiple real-time sonographic images of the left lower extremity deep venous structures were obtained assessing grayscale appearance, color and spectral flow FINDINGS: Normal flow, compressibility, phasicity and augmentation of the left lower extremity deep venous structures. IMPRESSION: No sonographic evidence of deep venous thrombosis. ACT 112: Negative or not required by law. The above report was generated using voice recognition software. It may contain grammatical, syntax or spelling errors. Electronically signed by: Sen Wall M.D. 11/18/2020 6:43 AM PG Care Time/CCT Total # of Minutes Spent Total Time Spent with Patient: Total time spent is greater than 50% in coordination of care (as documented) at patient's floor/unit and/or counseling patient:45 minutes Coding Level of Care Code 43281 Inpt Consult Level 4 Diagnoses SOB (shortness of breath) R06.02 Chronic hypoxemic respiratory failure J96.[address] scan, lung R91.8 Pulmonary nodule R91.1 Precordial chest pain R07.2 Elevated troponin R77.8 GERD (gastroesophageal reflux disease) K21.9 Diabetes mellitus E11.9 Diabetes mellitus complication status: without complication Diabetes mellitus intermediate insulin use: without buttermaker helper use Diabetes mellitus type: type 2 Hypertension I10 Hypertension type: essential hypertension DVT prophylaxis Z29.9 Time Spent (min) 45
[2020-11-18 08:57] LABS: Estimated Average Glucose 169 mg/dl; Hemoglobin A1C 7.5 % (4.5-5.6)
--- NOTE | 2020-11-18 09:17 | XCELERA ---
[id number]
--- NOTE | 2020-11-18 15:34 | Electrocardiogram Report ---
Test Reason : Blood Pressure : / mmHG Vent. Rate : 077 BPM Atrial Rate : 077 BPM P-R Int : 180 ms QRS Dur : 074 ms QT Int : 420 ms P-R-T Axes : 036 -30 021 degrees QTc Int : 475 ms Normal sinus rhythm Left axis deviation Moderate voltage criteria for LVH, may be normal variant Abnormal ECG When compared with ECG of 17-NOV-2020 10:45, QRS duration has decreased Nonspecific T wave abnormality no longer evident in Lateral leads Confirmed by Kentrell Rodriguez ([id number]) on 11/18/2020 3:33:42 PM Referred By: REFERRED SELF Confirmed By:Kentrell Rodriguez
[2020-11-18] MEDS ORDERED: LORazepam 0.5 MG TAB PO PRN (20:02)
--- NOTE | 2020-11-18 20:27 | Cardiology Consultation ---
Date of Consultation November 18, 2020 Assessment & Plan (1) Precordial chest pain: 2. Mild LV dysfunction with inferior/inferolateral wall motion abnormality. 3. Heavily calcified coronary arteries on CT 4. Type 2 diabetes 5. Hypertension 6. Dyslipidemia 7. Recent Covid pneumonia with chronic respiratory failure 8. Obesity 9. Brief nonsustained VT on telemetry Patient here after episode of exertional chest pain with minimal elevated troponin. Current ECG unremarkable. Of note did have borderline inferior ST elevations on initial ECG on admission back in October. Brief NSVT on telemetry during cardioversion. Reviewed patient's recent echocardiogram and CTA. Echo imaging technically limited but LV function at least mild to mildly reduced and wall motion abnormalities seen to extend from inferolateral to inferior, inferoseptal renteria as well. CTA remarkable for dense, heavily calcified left system. With risk factors, echo, CT finding suspicion for CAD is high and would favor proceeding directly with cardiac catheterization for additional risk stratification. Discussed procedure including risk, benefits, alternatives and she is when to proceed. We will perform via right radial artery tomorrow. N.p.o. after midnight History of Present Illness Attending Physician: Natalio Aquino MD History of Present Illness 55-year-old woman seen today as a new consult in the setting of episode of exertional chest pain and newly noted LV dysfunction with regional wall motion abnormalities. Patient with a history of type 2 diabetes, hypertension, dyslipidemia, GERD, PCOS, former smoker and recent hospitalization for acute respiratory failure secondary to COVID-19 pneumonia (10/17-10/28). Slowly recovering, intermittently requiring 3 L O2 at home. Admitted yesterday after an episode of exertional chest discomfort 2 days ago (11/16) lasting approximately 15 minutes. No prior similar symptoms. No prior cardiac history. ECG on arrival showed sinus rhythm, LVH with no dynamic ST changes. Of note prior ECG on 10/17/[address]ations. Initial troponin on arrival 0.05 and has since down trended. CTA negative for PE. Had stable groundglass opacities. Notable dense coronary calcification. Echo today showed LVEF 40 to 45% with severe inferolateral hypokinesis, severe LVH. Allergies Allergy/AdvReac Type Severity Reaction Status Date / Time No Known Allergies Allergy Verified 11/04/20 09:29 Home Medications Medication Instructions Recorded Confirmed Type aspirin 81 mg tablet,delayed 81 mg PO QAM 08/24/20 11/17/20 History release linagliptin 5 mg tablet 5 mg PO QAM #90 tab 08/30/20 11/17/20 Rx atorvastatin 20 mg PO QAM 10/17/20 11/17/20 History glimepiride 8 mg PO QAM 10/17/20 11/17/20 History metformin 2,000 mg PO QAM 10/17/20 11/17/20 History olmesartan 20 mg PO QAM 10/17/20 11/17/20 History Patient History Medical History (Updated 11/18/20 @ 08:49 by Isreal Hook PA-C) Chronic hypoxemic respiratory failure Diabetes mellitus Diabetic neuropathy Diverticulosis GERD (gastroesophageal reflux disease) Hyperlipemia Hypertension Osteoarthritis PCOS (polycystic ovarian syndrome) Pneumonia due to COVID-19 virus (10/2020) Surgical History Previous section (2006) Family History Mother Breast cancer, Onset Age: 51 Hypertension Gall bladder disease Father Hypertension Heart disease S/P coronary artery stent placement Diabetes Sister Hypertension Gall bladder disease Denies family history of Ovarian cancer Prostate cancer Myocardial infarction Colorectal cancer Social History Smoking Status: Former smoker Tobacco Type: Cigarettes Age Started Using Tobacco: 16; Age Quit Using Tobacco: 41; packs per day: 0.5; Second Hand Exposure: No; Hx Alcohol Use: No Hx Substance Use: No Preferred Language: Greenlandic Communication Ability: Effective Visual Impairment: Limited Hearing Ability: Normal Cyber Security Architect Required: No Beliefs That Will Affect Care: None marital status: Current Living Situation: Spouse and Family Current Living Situation Comment: lives with and son current occupational status: employed current occupation: works for [employer] How many Children do You have: 1 Other Information That Helps Us Care for You: No Feels Safe at Home: Yes Safety Concerns: Feels Safe At This Time Childhood Exposure to Second-Hand Smoke: Yes (father smoked) caffeine: Yes during the past year weight has: remained stable Dental Care, Regularly: No Physical Activity Frequency: Daily Physical Activity Frequency 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 Unable to assess JVD Abdomen: Soft, nontender, nondistended, positive bowel sounds. Extremities: Warm, well perfused, no edema. 2+ radial pulses Skin: No rashes or lesions. Neuro: Nonfocal Psych: Alert orient x3, normal affect and mood Results & Data ([facility]) Vital Signs (Past 12 Hours) Vital Signs Temp Pulse Pulse Resp BP Pulse Ox 11/18/20 19:26 98.8 F 74 16 138/84 95 11/18/20 18:37 86 11/18/20 15:27 98.4 F 79 20 132/79 95 11/18/20 11:19 98.4 F 76 18 139/86 96 PG Care Time/CCT Total # of Minutes Spent Total Time Spent with Patient: Total time spent is greater than 50% in coordination of care (as documented) at patient's floor/unit and/or counseling patient: Coding Level of Care Code 47206 Inpt Consult Level 4 Diagnoses Precordial chest pain R07.2
[2020-11-18] MEDS: ENOXAPARIN INJ 40 MG/0.4 ML SYR SQ SCH (20:28)
[2020-11-19 06:46] LABS: Basophils # (auto) 0.02 K/uL (0-0.2); Basophils % (auto) 0.3 %; Eosinophils # (auto) 0.41 K/uL (0-0.5); Eosinophils % (auto) 5.5 %; Hematocrit (blood only) 38.1 % (37-47); Hemoglobin 13.1 g/dL (12.0-16.0); Immature Granulocytes # (auto) 0.02 K/uL (0.00-0.02); Immature Granulocytes % (auto) 0.3 %; Lymphocytes # (auto) 2.33 K/uL (1.2-3.4); Lymphocytes % (auto) 31.3 %; Mean Corpuscular Hemoglobin 29.9 pg (25-34); Mean Corpuscular Hgb Conc 34.4 g/dL (32-36); Mean Platelet Volume 8.7 fL (7.4-10.4); Monocytes # (auto) 0.71 K/uL (0.11-0.59); Monocytes % (auto) 9.5 %; Neutrophils # (auto) 3.95 K/uL (1.4-6.5); Neutrophils % (auto) 53.1 %; Platelet Count 301 K/uL (130-400); RDW Coefficient of Variation 15.6 % (11.5-14.5); RDW Standard Deviation 49.2 fL (36.4-46.3); Red Blood Count 4.38 M/uL (4.2-5.4); White Blood Count 7.44 K/uL (4.8-10.8)
[2020-11-19 07:14] LABS: BUN Creatinine Ratio 15.5 (10-20); Calcium 8.2 mg/dl (8.5-10.1); Creatinine Clr Calc Pharmacy 123.1 ml/min; Est GFR (African American) 117.5; Est GFR (Non-African American) 101.4; Magnesium 1.9 mg/dl (1.8-2.4); Potassium 3.9 mmol/L (3.5-5.1)
[2020-11-19] MEDS: INSULIN ASPART 100 UNITS/ML 3 ML PEN SC SCH ×4 (08:51→20:43)
[2020-11-19] MEDS: ATORVASTATIN 20 MG TAB PO SCH (08:52)
[2020-11-19] MEDS: OLMESARTAN MEDOXOMIL 20 MG TAB PO SCH (08:52)
[2020-11-19] MEDS: ASPIRIN 81 MG ECTAB PO SCH (08:52)
[2020-11-19] MEDS ORDERED: MIDAZOLAM HCL 1 MG/ML 2ML VIAL ONE (15:54)
[2020-11-19] MEDS ORDERED: niCARdipine HCL INJ 2.5 MG/ML 10 ML AMP ONE (15:55)
[2020-11-19] MEDS ORDERED: HEPARIN (PORCINE) 1000 UNIT/ML 10 ML (CATH LAB USE ONLY) ONE (15:55)
[2020-11-19] MEDS ORDERED: fentaNYL citrate 100 MCG/2 ML VIAL ONE (15:55)
[2020-11-19] MEDS ORDERED: NITROGLYCERIN/D5W 100MCG/ML 20ML SYR ONE (15:56)
--- NOTE | 2020-11-19 16:30 | Pre Anesthesia Assessment ---
Date of Service November 19, 2020 Pre Sedation Assessment Vital Signs Temp Pulse Pulse Resp BP Pulse Ox 11/19/20 15:50 72 20 196/79 H 97 11/19/20 15:31 98.4 F 63 18 145/85 H 98 11/19/20 11:34 98.6 F 79 18 138/85 96 11/19/20 08:00 99.0 F 91 H 18 144/84 H 94 11/19/20 07:06 65 11/19/20 02:51 98.1 F 76 22 135/80 96 11/19/20 00:01 68 11/18/20 23:10 97.9 F 74 20 153/93 H 96 11/18/20 19:26 98.8 F 74 16 138/84 95 11/18/20 18:37 86 Cardiovascular RRR, no murmur, no edema Respiratory normal respiratory effort, lungs clear to auscultation Pre-Sedation Airway Assessment Smoking Status: Former smoker Hx Sleep Apnea: No Hx Difficult Intubation: No Short, Thick Neck: Yes Thyromental Distance: > or= 3.5 Finger Breadths Oral Cavity: + WNL Mallampati Class: II ASA: ASA2 NPO Status Date of Last Intake of Fluids: 11/18/20 Date of Last Intake of Solid Food: 11/18/20 Procedure Planning Contraindications for Sedation: none Current Medications Reviewed: Yes Notes The planned sedation has been discussed with the patient. Informed Consent was obtained. I have identified the patient, determined the appropriateness of sedation and have assessed the patient immediately prior to the procedure. All medicine(s) and interventions are by my order.
[2020-11-19] MEDS ORDERED: TICAGRELOR 90 MG TAB PO ONE (18:26)
--- NOTE | 2020-11-19 18:36 | Post Anesthesia Assessment ---
Date of Service November 19, 2020 Post Sedation Assessment Vital Signs Temp Pulse Pulse Resp BP Pulse Ox 11/19/20 15:50 72 20 196/79 H 97 11/19/20 15:31 98.4 F 63 18 145/85 H 98 11/19/20 11:34 98.6 F 79 18 138/85 96 11/19/20 08:00 99.0 F 91 H 18 144/84 H 94 11/19/20 07:06 65 11/19/20 02:51 98.1 F 76 22 135/80 96 11/19/20 00:01 68 11/18/20 23:10 97.9 F 74 20 153/93 H 96 11/18/20 19:26 98.8 F 74 16 138/84 95 11/18/20 18:37 86 Recovery Score Activity: Moves 4 extremities Respiration: Deep Breath/Cough Circulation: +/-20% PreAnes Value Consciousness: Fully Awake Oxygen Saturation: O2 needed for >90% Discharge Sedation Level of Care: Fast Track Phase II Post Sedation Plan On clinical assessment, the patient appears to have tolerated the sedation without complications. Patient is recovering as anticipated. Patient will continue to be monitored by nursing and may be discharged when sedation discharge criteria are met per below protocol. Upon Completions of procedure up to 15 minutes continue every 5 minute vital signs and the P.A.R. score; then discharge to a Phase I or Fast Track to Phase II per the following guidelines: * Discharge Patient to appropriate Phase II area if PAR is 8 or greater or return to pre- procedure baseline. The post - procedure orders will be as directed. * If PAR score is less than 8 or not return to pre-procedure baseline then patient will follow Phase I monitoring till PAR is reached for Phase II. The Phase I may be done in procedure room or may call to secure a Phase I area. * If naloxone or flumazenil are used for reversal, hold in Phase I for continued monitoring from when last reversal dose was given for a minimum of 60 minutes or longer pending the nurse and/or physician discretion of patient condition before discharge to Phase II. Please call the Sedation Physician to re-evaluate and complete post-note for discharge to Phase II area. Do NOT discharge from procedure sedation or Phase 1 until post- sedation evaluation note is complete by procedure /sedation MD Sedation Discharge Instructions to be given to the patient at discharge to home.
--- NOTE | 2020-11-19 18:42 | Post Operative Brief Note ---
Cardiology Brief Post Op Date of Surgery November 19, 2020 Pre & Post Diagnosis ACS Procedure -- Desktop Publishing Specialist Luis Norris MD Manufacturing Design Engineer Jeferson Estimated Blood Loss 15 Findings See Below 100% RCA chronic total occlusion with left to right collaterals 95% acute proximal large OM2 Successful PCI of OM 2 with single JAON (3.0 x 12 Sadiq). Fluids -- Specimens Specimen Description: -- Anesthesia Type RN Sedation Complications none Disposition Accompanied Patient To Recovery: No Disposition: Surgical ICU Overlapping Procedure I was present for: the critical portions of procedure. I was immediately available: during the entire case. Back up surgeon: was not required during procedure.
--- NOTE | 2020-11-19 18:48 | Hospitalist Progress Note ---
Date of Service November 19, 2020 Assessment & Plan (1) Atypical chest pain: Patient has risk factors presented with a depressed ejection fraction with risk factors patient underwent left heart catheterization which showed 100% occluded right coronary artery with left to right collaterals from a large obtuse marginal which was 95% occluded which was subsequently stented with a drug-eluting stent. Patient was returned to the telemetry thakur be placed on dual antiplatelet agents, however her atorvastatin escalated, continue to have her Metformin held and likely begin a low-dose beta-larissa in addition to her ARB (2) Abnormal CT scan, lung: Patient s/p COVID 19 pneumonia, Repeat Covid testing prior to left heart catheterization shows negative Covid test - CT chest 11/17/20 IMPRESSION: 1. There is no evidence of pulmonary embolus in the main, lobar, or segmental pulmonary arteries. 2. Multifocal groundglass consolidation is seen throughout both lungs. This has only partially cleared as compared to 10/17/2020. 3. Cardiomegaly. 4. Hepatic steatosis. 5. Mildly enlarged hilar nodes are likely reactive (3) Dyspnea: systolic heart failure, Echo reveals EF 40-45% with inferior RWMA, will have cardiology evaluate to consider c (4) Hypertension: Poorly controlled - Continue Olmesartan -Likely begin on beta-larissa therapy due to define coronary artery disease (5) Hyperlipemia: Lipids in morning -Slight statin to high-dose given per proven coronary artery disease (6) Diabetes mellitus: A1C 7 - transition to insulin sliding scale while in house continue to hold metformin with recent intravenous contrast load - Goal <180 (7) DVT prophylaxis: Heparin therapy for DVT prevention at this time Admission and Anticipated Discharge Date Admission Date: November 17, 2020 Subjective Patient anxious and emotional throughout the day she underwent a successful left heart cath with unfortunately a 100% cleared right coronary artery but she did have left to right collaterals seen and there was concern that obtuse marginal 2 of the circumflex had a 95% stenosis which may have contributed to poor perf usion of the collateralized vessels and subsequent was with drug-eluting stent placement Review of Systems Review of Systems: Mild distress and fatigue no headache, blurry or double vision no speech or swallowing issues chest pain, described as pressure no palpitations associated with shortness of breath, no cough or wheezes( previous wheezes ) no abdominal pain, nausea or vomiting, diarrhea or constipation no dysuria, hematuria or frequency no focal joint pain or swelling no back pain, CVA tenderness or radicular pain no bruising, bleeding or rashes no focal signs of weakness or numbness or altered sensation no complaints of anxiety or depression.. Physical Exam Physical Exam: The patient appeared well nourished and normally developed. Vital signs as documented. Head exam is normocephalic atraumatic no scleral icterus Neck is without JVD, thyromegaly, or carotid bruits. Lungs are clear to auscultation, no focal loss of breath sounds Cardiac exam, Rhythm is regular.. No murmurs, rubs or gallops. Abdominal exam reveals normal bowel sounds, soft non tender, no masses Extremities are nonedematous and both pedal pulses are present Neurologic exam is alert and oriented, no focal loss of strength or sensation Skin is without bruises or rashes Psychologically is without concerns for anxiety or depression Results & Data Results & Data ([facility]) Vital Signs (Past 12 Hours) Vital Signs Temp Pulse Pulse Resp BP Pulse Ox 11/19/20 15:50 72 20 196/79 H 97 11/19/20 15:31 98.4 F 63 18 145/85 H 98 11/19/20 11:34 98.6 F 79 18 138/85 96 11/19/20 08:00 99.0 F 91 H 18 144/84 H 94 11/19/20 07:06 65 PG Care Time/CCT Total # of Minutes Spent Total Time Spent with Patient: Total time spent is greater than 50% in coordination of care (as documented) at patient's floor/unit and/or counseling patient: Coding Level of Care Code 27396 Subseq Hosp Care Lvl 3 Diagnoses Atypical chest pain R07.[address] scan, lung R91.8 Dyspnea R06.02 Dyspnea type: shortness of breath Hypertension I10 Hypertension type: essential hypertension Hyperlipemia E78.5 Hyperlipidemia type: unspecified Diabetes mellitus E11.9 Diabetes mellitus type: type 2 Diabetes mellitus termite control technician insulin use: without termite control technician use Diabetes mellitus complication status: without complication DVT prophylaxis Z29.9 (1) Dyspnea Dyspnea type: shortness of breath Qualified Code(s): R06.02 - Shortness of breath (2) Hypertension Hypertension type: essential hypertension Qualified Code(s): I10 - Essential (primary) hypertension (3) Hyperlipemia Hyperlipidemia type: unspecified Qualified Code(s): E78.5 - Hyperlipidemia, unspecified (4) Diabetes mellitus Diabetes mellitus type: type 2 Diabetes mellitus mcc insulin use: without termite control technician use Diabetes mellitus complication status: without complication Qualified Code(s): E11.9 - Type 2 diabetes mellitus without complications
[2020-11-19] MEDS ORDERED: SODIUM CHLORIDE 0.9% 1000ML 1,000 ML IV SCH (19:00)
[2020-11-19] MEDS: ENOXAPARIN INJ 40 MG/0.4 ML SYR SQ SCH (20:28)
--- NOTE | 2020-11-20 00:54 | Cardiac Catheterization ---
[facility] Data: Program Paraprofessional Cardiac Status Clinical evaluation leading to the procedure CAD Presenation: Non STEMI Anginal Classification: CCS IV Heart Failure: No Cardiogenic Shock within 24 Hours: No Cardiac Arrest within 24 Hours: No Imaging Studies Past 6 Months: Yes Stress Studies Past 6 Months: No Diagnostic Physicians Name: Luis Norris MD Status: Elective Closure Device Percutaneous Entry Location: Femoral Closure Device: Angio-Seal and Radial Band Recommendations: PCI without planned CABG PCI Indication: PCI for high risk Non-KAMAR Lesion Segment Name: proximal OM2 Culprit Artery: Yes Stenosis Prior to Rx (%): 95 Chronic Total Occlusion: No IVUS: No FFR: No Pre-Procedure CHRISTINE Flow: 3 Previously Treated Lesion: No Lesion Complexity: Non-High/Non-C Lesion Length (mm): 12 Thrombus Present: Yes Bifurcation Lesion: No Guidewire Across Lesion: Stenosis Post-Procedure (%): 0 Post-Procedure CHRISTINE Flow: 3 Devices(s) Deployed: Yes Yes Intraprocedure Events Significant Disection: No Perforation: No Cardiac Cath Procedure Full Procedure Date November 20, 2020 Pre-Procedure Diagnosis Pre-Procedure Diagnosis: Non STEMI and Cardiomyopathy AUC Score AUC Score: 7 Post-Procedure Diagnosis Post-Procedure Diagnosis: Severe CAD and Successful PCI Procedure(s) Performed Procedure(s) Performed: Coronary Angiography and Drug Eluting Stent Human Resources Coordinator Luis Norris MD Hand Ii Tube Bender(s) Jeferson Estimated Blood Loss Estimated Blood Loss: 20 Medication(s) Medication(s): Fentanyl, Heparin, Lidocaine 1%, Nicardipine, Nitroglycerin and Versed Medication(s): Ticagrelor Summary of Findings Indication: LV dysfunction with inferior/inferolateral wall motion normality, minimally elevated troponin. Access: 6F for right radial artery, 6 Fr right CROP INSURANCE CLAIMS ADJUSTER Catheters: [place], diagnostic JL 3.5, JR4, EBU 3.5 guide, JL 3.5 guide Findings: LM -large caliber, no significant disease LAD -medium caliber, very tortuous, luminal regularities, distal vessel wraps around apex. Large D1 tortuous without significant disease. Circumflex -nondominant, angulated takeoff, very tortuous. High OM1 with 30% ostial disease. Large tortuous with 95% hazy proximal stenosis. RCA -dominant, medium caliber, 99% earlymid stenosis, 100% chronic latemid occlusion. Right PLB fills via [id number] collaterals. LVEDP -7 -- PCI -- Antithrombotic therapy: Heparin, ticagrelor Procedure: Left main cannulated with EBU 3.5 guide Numerous attempts to pass wire into retroflexed circumflex and across OM2. Unable to do so despite attempts with telescope support catheter, foster care social worker 50, whisper, long [place] wire with angled quick cross. Eventually obtained right CROP INSURANCE CLAIMS ADJUSTER access under ultrasound guidance Left main cannulated with JL 3.5 guide Eventually able to pass foster care social worker 50 wire across stenosis into distal OM 2 OM2 dilated with 2.5 balloon Proximal OM 2 stented with 3.0 x 12 mm [place] drug-eluting stent Stent post-dilated with stent balloon. IC vasodilators administered for spasm Post procedure CHRISTINE 3 flow, stent well expanded with minimal residual stenosis and no apparent cardiac complications. Arterial Closure: TR band, angioseal Summary: 1. Severe multivessel coronary artery disease -100% chronic total occlusion of mid RCA with [id number] collaterals. 95% acute proximal large OM 2. 2. Normal intracardiac filling pressure 3. Successful PCI of proximal OM 2 with single drug-eluting stent (3.0 x 12 mm [place]). Recommendations: To PCU for continued monitoring Loaded with ticagrelor 180 mg in cath Continue dual-antiplatelet therapy for at least 1 year Continue statin, and ASCVD risk factor modification Consult cardiac Rehab Hemodynamics Rest Ao:: 165/79/115 Final Ao: 189/98/134 LV: 150/7 Recommendations Recommendations: PCI without planned CABG Specimens Specimens: None Radiation Exposure (mGy) 9210 (patient counseled on signs of radiation intensity) Contrast (mls) 225 Fluids (cc crystalloids) Fluids (cc crystalloids): 285 Drains Drains: None Anesthesia Moderate (6582-1461) Procedural Complication(s) None Disposition PCU I attest to the content of the Intraoperative Record and any orders documented therein. Any exceptions are noted below. [facility] [place] Procedure Codes Cardiac Catheterization Procedure 1: Cardiovascular Cath Procedures: 93510 Coronaries and LHC (+/-LV) Therapeutic Services & Ancillary Proc Procedure 1: Cardiovascular Tx and Anc Procedures: 04265 Ultrasonic Guidance Vascular Access Moderate Sedation Procedure 1: Sedation/Anesthesia: 19211 Mod Sedation by the same physician;Init15 Min Child Age 5 & Up Procedure 2: Sedation/Anesthesia: 67095 Mod Sedation by the same physician; Ea [id number] Minutes Stenting Procedure 1: Cardiovascular Stent Procedures: 43881 Perc transcatheter placement of intracoronary stent(s), with ang PG Care Time/CCT Total # of Minutes Spent Total Time Spent with Patient: Total time spent is greater than 50% in coordination of care (as documented) at patient's floor/unit and/or counseling patient:
[2020-11-20 06:21] LABS: Basophils # (auto) 0.02 K/uL (0-0.2); Basophils % (auto) 0.3 %; Eosinophils # (auto) 0.27 K/uL (0-0.5); Eosinophils % (auto) 3.6 %; Hematocrit (blood only) 38.4 % (37-47); Hemoglobin 13.4 g/dL (12.0-16.0); Immature Granulocytes # (auto) 0.02 K/uL (0.00-0.02); Immature Granulocytes % (auto) 0.3 %; Lymphocytes # (auto) 1.49 K/uL (1.2-3.4); Lymphocytes % (auto) 19.7 %; Mean Corpuscular Hemoglobin 29.9 pg (25-34); Mean Corpuscular Hgb Conc 34.9 g/dL (32-36); Mean Corpuscular Volume 85.7 fL (80-100); Mean Platelet Volume 8.8 fL (7.4-10.4); Monocytes # (auto) 0.86 K/uL (0.11-0.59); Monocytes % (auto) 11.4 %; Neutrophils # (auto) 4.89 K/uL (1.4-6.5); Neutrophils % (auto) 64.7 %; Platelet Count 295 K/uL (130-400); RDW Coefficient of Variation 15.2 % (11.5-14.5); RDW Standard Deviation 46.5 fL (36.4-46.3); Red Blood Count 4.48 M/uL (4.2-5.4); White Blood Count 7.55 K/uL (4.8-10.8)
[2020-11-20] MEDS ORDERED: TICAGRELOR 90 MG TAB PO SCH (06:30)
[2020-11-20 06:40] LABS: BUN Creatinine Ratio 16.1 (10-20); Calcium 8.3 mg/dl (8.5-10.1); Creatinine Clr Calc Pharmacy 128.9 ml/min; Est GFR (African American) 119.3; Est GFR (Non-African American) 102.9
[2020-11-20 07:20] LABS: Magnesium 1.7 mg/dl (1.8-2.4)
[2020-11-20] MEDS: OLMESARTAN MEDOXOMIL 20 MG TAB PO SCH (08:07)
[2020-11-20] MEDS: ASPIRIN 81 MG ECTAB PO SCH (08:07)
[2020-11-20] MEDS: INSULIN ASPART 100 UNITS/ML 3 ML PEN SC SCH ×2 (08:08→12:49)
[2020-11-20] MEDS ORDERED: ATORVASTATIN 40 MG TAB PO SCH ×2 (09:00)
--- NOTE | 2020-11-20 10:12 | Cardiology Progress Note ---
Date of Service November 20, 2020 Assessment & Plan (1) Multi-vessel coronary artery stenosis: 2. Ischemic cardiomyopathy with inferior/inferolateral wall motion abnormality. 3. Type 2 diabetes 4. Hypertension 5. Dyslipidemia 6. Recent Covid pneumonia with chronic respiratory failure 7. Obesity 8. Brief nonsustained VT on telemetry Post PCI with JOAN to proximal OM 2. Chronic RCA RATE CLERK. Patient chest pain-free today. Electrically stable. No access to complications. Postprocedural labs stable. From a cardiac standpoint okay with discharge today. Home on: DAPT with aspirin, ticagrelor Guideline recommended therapy for ICMcontinue home ARB, start Toprol-XL 25 mg daily. Titrate up as an outpatient. Continue high intensity statin. Follow-up with me in 2 weeks. Discuss cardiac/pulmonary rehab at that time. Admission and Anticipated Discharge Date Admission Date: November 17, 2020 Subjective Feeling well this morning. No chest pain. No other new complaints Review of Systems Review of Systems: All systems reviewed & are unremarkable except as noted in HPI & below Physical Exam Physical Exam: General: Comfortable, no acute distress HEENT: Sclerae anicteric Lungs: Clear Cardiac: Tachycardic, regular Abdomen: Soft, nontender Extremities: Right radial artery access site with no ecchymosis, hematoma. Distal pulse and sensation intact. Right COVER CREASER with mild ecchymosis. No he matoma. Pulse intact Neuro: Nonfocal Psych: Alert orient x3, normal affect and mood Results & Data ([facility]) Vital Signs (Past 12 Hours) Vital Signs Temp Pulse Pulse Resp BP Pulse Ox 11/20/20 07:57 98.6 F 97 H 18 130/77 93 11/20/20 00:42 97.9 F 84 19 94 11/19/20 23:42 68 16 146/78 H 96 11/19/20 22:42 76 16 149/88 H 96 11/19/20 22:24 74 PG Care Time/CCT Total # of Minutes Spent Total Time Spent with Patient: Total time spent is greater than 50% in coordination of care (as documented) at patient's floor/unit and/or counseling patient: Coding Level of Care Code 31966 Subseq Hosp Care Lvl 3 Diagnoses Multi-vessel coronary artery stenosis I25.10
--- NOTE | 2020-11-20 17:33 | Hospitalist Progress Note ---
Date of Service November 20, 2020 Assessment & Plan Admission and Anticipated Discharge Date Admission Date: November 17, 2020 Results & Data Results & Data ([facility]) Vital Signs (Past 12 Hours) Vital Signs Temp Pulse Pulse Resp BP Pulse Ox 11/20/20 12:31 98.4 F 96 H 18 120/69 98 11/20/20 12:13 98.6 F 97 H 18 130/77 93 11/20/20 08:00 69 11/20/20 07:57 98.6 F 97 H 18 130/77 93 PG Care Time/CCT Total # of Minutes Spent Total Time Spent with Patient: Total time spent is greater than 50% in coordination of care (as documented) at patient's floor/unit and/or counseling patient: Coding
--- NOTE | 2020-11-20 17:41 | Discharge Summary ---
Date of Service November 20, 2020 Admission HPI Per Admitting Provider 55 YOF with past medical history of DMII, HTN, HLD, PCOS, GERD, lower leg swelling, COVID 19 pneumonia (10/17/20). Was recently discharged from [facility] on following COVID infection. The patient was discharged on home oxygen 3L and she has been slowly working her way back up to activity. She still gets short of breath at home and has to take breaks, but she recovers without problems. Yesterday [id number] she went down the driveway ~80feet to get the mail, she wore her oxygen 3L with her. She got chest pain that "just hurt" in the center of her chest, she walked back up the driveway and sat down. She checked her SPO2 and it was at 88% with her HR 110 on her home pulse ox reader. The pain went away while she was resting and lasted ~15 minutes. She called her PCP and was recommended that she come to the ER yesterday, but patient deferred and came today. The patient is comfortable in her room with normal respirations, normal HR, and SPO2 98-100 % resting on her 3LNC. The patient troponin level was checked in the emergency room and noted to be at 0.050; her ECG has no acute changes borderline LVH still noted and PVC's on monitor. Patient will be admitted to trend troponin, continue with pulmonary rehab. In the ER the patient had a CT scan of the chest that was negative for pulmonary embolism, but still shows moderate ground glass opacities. Principal Diagnosis unstable angina, CAd with intervention with JOAN to OM2 Discharge Exam The patient appeared well Vital signs as documented. Lungs are clear to auscultation and appear unlabored Cardiac exam, Rhythm is regular.. No murmurs, rubs or gallops. Abdominal exam reveals normal bowel sounds, soft non tender, no masses Extremities are nonedematous and both pedal pulses are normal. Neurologic exam is alert and oriented, no focal loss of strength or sensation Skin is catheterization access sites in the right wrist and right groin Psychologically is without concerns for anxiety or depression. Discharge Data Allergies Allergy/AdvReac Type Severity Reaction Status Date / Time No Known Allergies Allergy Verified 11/04/20 09:29 Consultations 11/17/20 13:42 ED Decision to Admit Stat 11/17/20 21:32 Consult Pulmonology Routine 11/18/20 13:40 Consult Cardiology Routine 11/19/20 18:59 Consult Cardiac Rehabilitation Routine Procedures Performed Operation Date: 11/19/20 14:00 Actual Procedures s Cineradiography w/Routine Exam - Ernesto Norris MD p Cath, Left with Cors and Vent - Ernesto Norris MD s Drug Eluting Stent SGl Vessel - Ernesto Norris MD s Ultrasound Vascular Access - Ernesto Norris MD Ordered Studies 11/17/20 11:22 CT angio chest PE protocol Stat 11/17/20 21:32 US venous doppler LE LT Routine 11/19/20 16:09 CL Cath Imgs for PACS use only Stat Hospital Course (1) Atypical chest pain: Patient has risk factors presented with a depressed ejection fraction with risk factors patient underwent left heart catheterization which showed 100% occluded right coronary artery with left to right collaterals from a large obtuse marginal which was 95% occluded which was subsequently stented with a drug-eluting stent. placed on dual antiplatelet agents, however her atorvastatin escalated, continue to have her Metformin held until 11/22/20 continue her ARB likely in the future may start b larissa (2) Abnormal CT scan, lung: Patient s/p COVID 19 pneumonia, Repeat Covid testing prior to left heart catheterization shows negative Covid test CT chest 11/17/20 IMPRESSION: 1. There is no evidence of pulmonary embolus in the main, lobar, or segmental pulmonary arteries. 2. Multifocal ground glass consolidation is seen throughout both lungs. This has only partially cleared as compared to 10/17/2020. 3. Cardiomegaly. 4. Hepatic steatosis. 5. Mildly enlarged hilar nodes are likely reactive (3) Dyspnea: systolic heart failure, Echo reveals EF 40-45% with inferior RWMA, has systolic heart failure hfref (4) Hypertension: - Continue Olmesartan (5) Hyperlipemia: increase statin to 40 mg (6) Diabetes mellitus: A1C 7 -resume home meds, hold metformin until 11/22/20 (7) DVT prophylaxis: Heparin therapy for DVT prevention at this time Total Time Total Time Spent Total Time Spent (In Minutes): It required greater than 30 minutes to prepare this patient for discharge Discharge Plan Discharge Items Patient Disposition: Home - Self-Care Reason For Visit: CHEST PAIN DYSPNEA Discharge Diagnosis: coronary artery disease s/l drug eluting stent to a branch of the circumflex coranary artery Condition on Discharge: Fair Activity: Per Instructions section Activity Comment: low level physical activity, general daily activity is fine Non-emergency contact: Primary Care Provider and Offset Assistant Press Operator Call non-emergency contact if: you have any medication questions and your symptoms worsen Follow-up/Referrals: Terri Sherman DO [Primary Care Provider] - Ernesto Norris MD [Physician] - (two weeks) Diet: Carb Consistent or DM2 and Low Sodium (2gm) Addtl Attending Provider Instructions: DO NOT RESTART YOUR METFORMIN UNTIL 11/22/20 ACTIVITY RECOMMENDATIONS: Excess manipulation of the wrist should be avoided for the next 24-48 hours. * No lifting over 2 pounds (approximately a 1/2 gallon of milk) with the utilized arm for 24 hours. * No strenuous activity such as bowling or tennis for 3 days. * Keep the site of the procedure covered with a bandage for 24 hours. *You may shower the day after the procedure. Do not take a tub bath or submerge the puncture site in water for the next 3 days. *Do not operate any motorized equipment for 3 days. SPECIAL CARE INSTRUCTIONS: The site may be slightly bruised and sore following your procedure. Should any of the following occur, contact the Dr. who performed your procedure. 1. Redness/inflammation, swelling, chills, or fever, or colored drainage at pro cedure site within 3-7 days after your procedure. 2. Coldness, discoloration, ongoing numbness, severe pain, or swelling. Expect mild tingling of hand and tenderness at the puncture site for up to three days. If this persists beyond three days, or other symptoms develop, notify the Dr. who performed your procedure. BLEEDING: If the procedure site on your wrist begins to bleed, do not panic 1. Place 1 or 2 fingers firmly just slightly above the insertion site to stop the bleeding. You may be able to feel your pulse as you hold pressure. 2. Lift your finger after 5 minutes to see if the bleeding has stopped. 3. Once the bleeding has stopped, gently wipe the wrist area clean with a bandage. * If the bleeding from your wrist does not stop after 10 minutes, or if there is a large amount of bleeding or spurting, call 911 (do not drive yourself to the hospital). SKIN IRRITATION: * You may experience some redness and/or swelling in the area where radiation was administered. If any skin irritation occurs, please contact your family physician. FOLLOW UP VISIT: Keep any scheduled doctor appointments. Pending Studies at Discharge: No Stand-Alone Forms: My [facility] [employer], Smoking Cessation Medications and DC Order Prescriptions: New atorvastatin 40 mg Tablet 40 mg PO QAM Qty: 30 RF: 3 Brilinta 90 mg Tablet 90 mg PO BID Qty: 60 RF: 5 (DME) Oxygen Home Liters Per Minute 2 ea .Route CONTINOUS Qty: 1 RF: 0 Continued Tradjenta 5 mg tablet 5 mg PO QAM Qty: 90 RF: 3 aspirin [Adult Low Dose Aspirin] 81 mg tablet,delayed release (DR/EC) 81 mg PO QAM RF: 0 glimepiride 4 mg tablet 8 mg PO QAM RF: 0 metformin 500 mg tablet extended release 24 hr 2,000 mg PO QAM RF: 0 olmesartan 20 mg tablet 20 mg PO QAM RF: 0 Discontinued atorvastatin 20 mg tablet 20 mg PO QAM RF: 0 Discharge Orders: Discharge Order (Routine); Ordered 11/20/20 Ordered By: Natalio Davey/Other Patient Handouts: Managing Type 2 Diabetes, Managing Diabetes: The A1C Test Admission Data Admit Date/Time: 11/17/20 14:39 Attending Provider: Natalio Aquino Admit Provider: Enrique Mejia Primary Care Provider: Terri Sherman Other Providers: Enrique Mejia ; Gabino Guzman ; Ernesto Norris Other Interventions: Discharge Summary Assessment (RN) Last Done: 11/20/20 12:13 Coding Level of Care Code D/C Day Management >30 mins Diagnoses Atypical chest pain R07.[address] scan, lung R91.8 Dyspnea R06.02 Dyspnea type: shortness of breath Hypertension I10 Hypertension type: essential hypertension Hyperlipemia E78.5 Hyperlipidemia type: unspecified Diabetes mellitus E11.9 Diabetes mellitus complication status: without complication Diabetes mellitus usp insulin use: without regional 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
--- NOTE | 2020-11-29 10:52 | Coding Query ---
CODING QUERY To promote full compliance with coding requirements relating to patient care, provider participation is requested in all cases of commercial lines assistant uncertainty. Please assist us with the question(s) below: Coding Question(s): 1. Systolic Heart Failure is documented. Please specify below regarding Systolic Heart Failure, in your clinical opinion. ( ) Chronic Systolic Heart Failure (xx ) Acute Systolic Heart Failure ( ) Acute on Chronic Systolic Heart Failure ( ) Unspecified Systolic Heart Failure ( ) Other: Please Specify 2. Please Specify below, in your clinical opinion, regarding documentation of COVID-19 Pneumonia, documented on ER, other documentation in chart showing s/p COVID-19 Pneumonia and post Covid pulmonary symptoms and Discharge Summary documentation of, "Abnormal CT scan, lung: Patient s/p COVID 19 pneumonia, Repeat Covid testing prior to left heart catheterization shows negative Covid test". ( ) Pulmonary symptoms are sequela of recent COVID-19 Pneumonia ( xx ) History only of COVID-19 Pneumonia with no sequela ( ) this is COVID-19 Pneumonia, still active, despite negative test ( ) Other: Please Specify Physician's Response(s): Thank you Millie Post Principal Diagnosis: "that condition established after study, to be chiefly responsible for occasioning the admission of the patient to the hospital for care." Co-Existing Principal Diagnosis: "when two or more diagnoses equally meet the criteria for principal diagnosis as determined by the circumstances of admission, diagnostic work up, and/or therapy provided, and the Alphabetic Index, Tabular List, or another coding guideline does not provide sequencing direction, any one of the diagnoses may be sequenced first." "When the physician has documented what appears to be a current diagnosis in the body of the record, but has not included the diagnosis in the final diagnostic statement, the physician should be asked whether the diagnosis should be added." (Source Coding [facility] 2 QTR90. p3-4) DONNY
== END 2020-11-20 14:30 | disposition home or self-care (01) | DRG 246 ==
LOC: ED 10:12 → 2N 14:39 → SUATTDRO 14:39 → 2N 17:50 → 2S 11-19 19:10

== ENCOUNTER 2022-02-12 04:52 | Inpatient (IN) ==
[2022-02-12] MEDS ORDERED: ALBUT/IPRATROP 3MG/0.5MG NEB 3 ML VIAL NEB STA (05:07)
--- NOTE | 2022-02-12 05:10 | Emergency Department Note ---
History of Present Illness General Chief complaint: Shortness of Breath/Dyspnea Time Seen by Provider: 02/12/22 04:57 History of Present Illness This 56-year-old with a history of heart disease presents to the ER complaining of acute shortness of breath with weight gain with no history of heart failure Location: Generalized Quality: Hard to breathe Severity: Moderate Duration: Past week Timing: Started a week ago Context: Patient was concerned and came in Modifying factors: better with rest; worse with activity No history of heart failure. Patient has had a heart attack. She follows with Dr. Norris. Patient states she has been more short of breath over the past week with weight gain. Patient denies fevers, abdominal pain, leg pain or swelling. She quit smoking many years ago. Home Medications Medication Instructions Recorded Confirmed Type aspirin 81 mg tablet,delayed 81 mg PO QAM 08/24/20 01/10/22 History release (Adult Low Dose Aspirin) omeprazole 20 mg capsule,delayed 20 mg PO DAILY PRN 11/30/20 01/10/22 History release CPAP Supplies 1 ea .ROUTE HS #1 ea 01/26/21 01/10/22 Rx Auto Titrating CPAP See Rx Instructions .ROUTE 02/24/21 01/10/22 Rx .COMPLEX #1 ea atorvastatin 80 mg tablet 80 mg PO QAM #90 tab 08/08/21 01/10/22 Rx metformin 500 mg tablet,extended 1,000 mg PO BID #360 tab 08/08/21 01/10/22 Rx release 24 hr glimepiride 4 mg tablet 8 mg PO QAM #180 tab 08/23/21 01/10/22 Rx olmesartan 20 mg tablet 20 mg PO QAM #90 tab 10/31/21 01/10/22 Rx linagliptin 5 mg tablet (Tradjenta) 5 mg PO QAM #90 tab 01/10/22 01/10/22 Rx fluconazole 150 mg tablet 150 mg PO ONCE 1 Days #1 tab 01/19/22 Rx (Diflucan) nystatin 100,000 unit/gram topical 1 applic TOPICAL BID #30 g 01/19/22 Rx cream Allergies Allergy/AdvReac Type Severity Reaction Status Date / Time No Known Allergies Allergy Verified 01/10/22 14:10 Past Med/Surg History Medical History Chronic hypoxemic respiratory failure Diabetes mellitus Diabetic neuropathy Diverticulosis Fatty liver GERD (gastroesophageal reflux disease) Hyperlipemia Hypertension Ischemic cardiomyopathy Multi-vessel coronary artery stenosis Osteoarthritis PCOS (polycystic ovarian syndrome) Pneumonia due to COVID-19 virus (10/2020) Urinary, incontinence, stress female Surgical History Previous section (2006) S/P coronary artery stent placement (11/20/20) JOAN to OM2 Family History Mother Breast cancer, Onset Age: 51 Hypertension Gall bladder disease Father Hypertension Heart disease S/P coronary artery stent placement Diabetes Sister Hypertension Gall bladder disease Denies family history of Ovarian cancer Prostate cancer Myocardial infarction Colorectal cancer Social History Smoking Status: Never smoker Tobacco Type: Cigarettes Age Started Using Tobacco: 16; Age Quit Using Tobacco: 41; packs per day: 0.5; Second Hand Exposure: No; Hx Alcohol Use: No Hx Substance Use: No Preferred Language: Iraqi Communication Ability: Effective Visual Impairment: No Limitations Hearing Ability: Normal Curator Of Manuscripts Required: No Beliefs That Will Affect Care: None marital status: Current Living Situation: Spouse and Family Current Living Situation Comment: lives with and son current occupational status: employed current occupation: works for [employer] How many Children do You have: 1 Feels Safe at Home: Yes Childhood Exposure to Second-Hand Smoke: Yes (father smoked) Diet Comment: regular caffeine: No during the past year weight has: remained stable Dental Care, Regularly: No Physical Activity Frequency: Daily Physical Activity Frequency 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 Seatbelt Use: always Sunscreen Use: No Assistive Devices: Glasses and Oxygen - Continuous Review of Systems A total of 10 systems reviewed and were otherwise negative Physical Exam Vital Signs Vital Signs - 24 hr 02/12/22 05:15 02/12/22 05:32 Temperature 36.7 C Temperature Source Temporal Artery Scan Pulse Rate 132 H 125 H Respiratory Rate 28 H 35 H Respiratory Effort / Characteristics Labored Short of Breath Spontaneous Accessory Muscle Use Labored Short of Breath Respiratory Pattern Tachypnea Blood Pressure 165/103 H Blood Pressure Mean 123 Pulse Oximetry 92 97 Oxygen Delivery Method Nasal Cannula Oxygen Flow Rate 4 Fraction of Inspired Oxygen 40 Sepsis Recent Fever Within 48 Hours No Sepsis New/Unexplained Change in Mental Status N/A Sepsis Action Taken by Nursing Physician Notified VITALS: Vitals are noted on the nurse's note and reviewed by myself. Vital signs tachycardic and O2 92% on 6 L GENERAL: White female working to breathe, in acute distress SKIN: The skin was without rashes, erythema, edema, or bruising. There is no tenting of the skin. Capillary reflex less than 2 seconds. HEAD: Normocephalic atraumatic. EARS: External auditory canals clear, EYES: Pupils equal round and reactive to light and accommodation. Conjunctivae without injection, sclerae without icterus. Extraocular movements intact. NOSE: Patent, turbinates without inflammation or discharge. MOUTH: Mucous membranes moist. Pharynx without erythema or exudate. Uvula midline. Airway patent. Tongue does not deviate. NECK: Supple without nuchal rigidity. No lymphadenopathy. No thyromegaly. Cervical spine is nontender. No JVD. HEART: Tachycardic rate and rhythm LUNGS: Basilar rales, diffuse inspiratory and end expiratory wheezes, working to breathe ABDOMEN: Positive bowel sounds x 4. Normal tympanic percussion. Soft, nontender, without masses or organomegaly. Mcdowell sign negative. No guarding or rebound tenderness. No CVA tenderness MUSCULOSKELETAL: No muscle atrophy, erythema, or edema noted. NEURO: Patient was alert and oriented to person place and time. Normal sensation to light and sharp touch. No focal neurological deficits. Course Administered Medications Discontinued Medications Albuterol (Albut/Ipratrop 3mg/0.5mg Neb 3 Ml Vial) 3 ml NEB NOW STA; Protocol Stop: 02/12/22 05:08 Last Admin: 02/12/22 05:13 Dose: 3 ml Documented by: [id number] Furosemide (Furosemide 40 Mg/4 Ml Vial) 40 mg IV ONE ONE Stop: 02/12/22 05:12 Last Admin: 02/12/22 05:45 Dose: 40 mg Documented by: [id number] Nitroglycerin (Nitroglycerin 2% Ointment 30gm Tube) 1 inch EXT NOW ONE Stop: 02/12/22 05:12 Last Admin: 02/12/22 05:45 Dose: 1 inch Documented by: [id number] Critical Care Time Critical Care Time: Yes Total Critical Care Time: 35 I have personally spent 35 minutes of critical care time in the direct management of this patient. This includes bedside care, interpretation of diagnostic studies, and testing, discussion with consultants, patient, and family members, and other required patient management activities. This 35 minutes is in excess of all separately billable procedures. Medical Decision Making Medical Records Attestation: I reviewed the patient's medical records. Home Medications Current Medication List: was personally reviewed by me Laboratory Data Attestation: I reviewed the patient's lab results. Result diagrams: 02/12/22 05:06 02/12/22 05:06 Lab Results 02/12/22 02/12/22 02/12/22 Range/Units 05:06 05:06 05:06 WBC 13.74 H (4.8-10.8) K/uL RBC 4.49 (4.2-5.4) M/uL Hgb 12.3 (12.0-16.0) g/dL POC Hgb (12.0-16.0) g/dl Hct 38.4 (37-47) % POC Hct (37-47) % MCV 85.5 (80-100) fL MCH 27.4 (25-34) pg MCHC 32.0 (32-36) g/dL RDW Std Deviation 45.3 (36.4-46.3) fL RDW Coeff of Nader 14.6 H (11.5-14.5) % Plt Count 208 (130-400) K/uL MPV 10.5 H (7.4-10.4) fL Immature Gran % (Auto) 0.4 % Neut % (Auto) 74.6 % Lymph % (Auto) 17.9 % Broome % (Auto) 6.0 % Eos % (Auto) 1.0 % Baso % (Auto) 0.1 % Neut # (Auto) 10.25 H (1.4-6.5) K/uL Lymph # (Auto) 2.46 (1.2-3.4) K/uL Broome # (Auto) 0.83 H (0.11-0.59) K/uL Eos # (Auto) 0.14 (0-0.5) K/uL Baso # (Auto) 0.01 (0-0.2) K/uL Immature Gran # (Auto) 0.05 H (0.00-0.02) K/uL POC Sodium (135-144) mmol/L Sodium 142 (136-145) mmol/L POC Potassium (3.3-5.0) mmol/L POC Chloride (101-112) mmol/L Chloride 114 H (98-107) mmol/L Carbon Dioxide 20 L (21-32) mmol/L POC Total CO2 (24-31) mmol/L Anion Gap 8 (3-11) POC Anion Gap (16-25) mmol/L POC BUN (7-18) mg/dl BUN 15 (6-23) mg/dl Creatinine 0.64 (0.6-1.2) mg/dl POC Creatinine (0.6-1.3) mg/dl Est Cr Clr Drug Dosing Not Reportable Est GFR ( Amer) 117.3 ml/min Est GFR (Non-Af Amer) 101.2 ml/min BUN/Creatinine Ratio 23.4 H (10-20) Glucose 288 H (70-99(Fasting)) mg/dl POC Glucose (other) (70-99) mg/dl Calcium 6.3 L (8.5-10.1) mg/dl POC Ioniz Calcium Luz Maria (1.12-1.32) mmol/l Total Bilirubin 0.6 (0.2-1.0) mg/dl ALT 37 (7-52) U/L Alkaline Phosphatase 54 (34-104) U/L Troponin I High Sens 66.0 H* (0-14) pg/ml B-Natriuretic Peptide 317 H (0-100) pg/ml Total Protein 5.5 L (6.0-8.3) gm/dl Albumin 3.1 L (3.4-5.0) gm/dl Globulin 2.4 L (2.5-4.0) gm/dl Albumin/Globulin Ratio 1.3 (0.9-2) 02/12/22 Range/Units 05:11 WBC (4.8-10.8) K/uL RBC (4.2-5.4) M/uL Hgb (12.0-16.0) g/dL POC Hgb 16.0 (12.0-16.0) g/dl Hct (37-47) % POC Hct 47 (37-47) % MCV (80-100) fL MCH (25-34) pg MCHC (32-36) g/dL RDW Std Deviation (36.4-46.3) fL RDW Coeff of Nader (11.5-14.5) % Plt Count (130-400) K/uL MPV (7.4-10.4) fL Immature Gran % (Auto) % Neut % (Auto) % Lymph % (Auto) % Broome % (Auto) % Eos % (Auto) % Baso % (Auto) % Neut # (Auto) (1.4-6.5) K/uL Lymph # (Auto) (1.2-3.4) K/uL Broome # (Auto) (0.11-0.59) K/uL Eos # (Auto) (0-0.5) K/uL Baso # (Auto) (0-0.2) K/uL Immature Gran # (Auto) (0.00-0.02) K/uL POC Sodium 140 (135-144) mmol/L Sodium (136-145) mmol/L POC Potassium 4.0 (3.3-5.0) mmol/L POC Chloride 104 (101-112) mmol/L Chloride (98-107) mmol/L Carbon Dioxide (21-32) mmol/L POC Total CO2 25 (24-31) mmol/L Anion Gap (3-11) POC Anion Gap 16.0 (16-25) mmol/L POC BUN 17 (7-18) mg/dl BUN (6-23) mg/dl Creatinine (0.6-1.2) mg/dl POC Creatinine 0.8 (0.6-1.3) mg/dl Est Cr Clr Drug Dosing Est GFR ( Amer) ml/min Est GFR (Non-Af Amer) ml/min BUN/Creatinine Ratio (10-20) Glucose (70-99(Fasting)) mg/dl POC Glucose (other) 348 H (70-99) mg/dl Calcium (8.5-10.1) mg/dl POC Ioniz Calcium Luz Maria 1.12 (1.12-1.32) mmol/l Total Bilirubin (0.2-1.0) mg/dl ALT (7-52) U/L Alkaline Phosphatase (34-104) U/L Troponin I High Sens (0-14) pg/ml B-Natriuretic Peptide (0-100) pg/ml Total Protein (6.0-8.3) gm/dl Albumin (3.4-5.0) gm/dl Globulin (2.5-4.0) gm/dl Albumin/Globulin Ratio (0.9-2) Imaging Data Attestation: I personally reviewed and interpreted this imaging study as follows: MDM Narrative Prior records/ancillary studies reviewed. Triage Nursing notes reviewed. Additional history obtained from EMS The patient's history was concerning for respiratory difficulties. Differential diagnosis: Etiologies such as infections, reactive airway disease, pneumonia, pneumothorax, COPD, CHF, cardiac ischemia, pulmonary embolism, musculoskeletal, gastrointestinal, as well as others were entertained. Physical examination: As above. ER treatment provided: An order was placed for continuous cardiac monitoring. The monitor shows a rate of 60-1 50 with a sinus rhythm. Nebulizer, Lasix, nitro, BiPAP On reassessment the patient felt better. Diagnostic interpretation by me: The electrocardiogram was ordered for dyspnea EKG: Normal sinus, normal intervals, no acute ST-T wave changes. Impression sinus tachycardia 130 interpreted by myself I think arrhythmia is unlikely. EKG shows normal sinus rhythm with no interval abnormalities such as QT prolongation or WPW. There are no findings to suggest Brugada syndrome. Cardiac monitoring in the emergency department reveals no tachycardic or bradycardic dysrhythmia. Hypertrophic cardiomyopathy was considered but there are no clear historical elements pointing toward this. EKG is not suggestive. The QRS voltage is not extremely large and there are no suggestive Q waves. The labs revealed elevated troponin and repeat was ordered; elevated BNP. Hyperglycemia without DKA Imaging studies: Chest x-ray pulmonary congestion concerning for heart failure my interpretation Consultation: A consultation was placed with the hospitalist. The case was discussed and diagnostics were reviewed. The patient was evaluated in the ER for further treatment. This appears to be consistent with new onset congestive heart failure and respiratory failure. Patient was working to breathe. She was placed on BiPAP. She improved. She was medicated as above. Medicine was consulted. She will be admitted. By the evaluation outlined above emergent etiologies such as pulmonary embolism, reactive airway disease, pneumonia, pneumothorax, musculoskeletal, serious bacterial infections, as well as others were deemed relatively unlikely. The pt informed about the findings as listed above. All questions were answered and pleased with the treatment. The chart was completed utilizing Dragon Speech voice recognition software. Grammatical errors, random word insertions, pronoun errors, and incomplete sentences are an occassional consequence of this system due to software limitations, ambient noise, and hardware issues. Any formal questions or con cerns about the content, text, or information contained within the body of this dictation should be directly addressed to the physician video production assistant for clarification. Impression & Plan Acute respiratory failure, Acute CHF Discharge Plan Visit Data Chief Complaint: Shortness of Breath/Dyspnea ED Provider: Kev Mandujano ED Midlevel Provider: Teresa Price Discharge Problem: Acute respiratory failure, Acute CHF Patient Disposition: Admitted As Inpatient Condition: Fair Forms Stand Alone Forms: [employer] Prescriptions Prescriptions: No Action Auto Titrating CPAP Misc See Rx Instructions .ROUTE .COMPLEX Qty: 1 RF: 0 atorvastatin 80 mg tablet 80 mg PO QAM Qty: 90 RF: 2 metformin 500 mg tablet extended release 24 hr 1,000 mg PO BID Qty: 360 RF: 1 glimepiride 4 mg tablet 8 mg PO QAM Qty: 180 RF: 1 olmesartan 20 mg tablet 20 mg PO QAM Qty: 90 RF: 1 nystatin 100,000 unit/gram cream 1 applic topical BID Qty: 30 RF: 0 fluconazole [Diflucan] 150 mg tablet 150 mg PO ONCE 1 Days Qty: 1 RF: 0 omeprazole 20 mg capsule,delayed release(DR/EC) 20 mg PO DAILY PRN (Reason: Gi Upset) RF: 0 CPAP Supplies Misc 1 ea .Route HS Qty: 1 RF: 0 Tradjenta 5 mg tablet 5 mg PO QAM Qty: 90 RF: 3 aspirin [Adult Low Dose Aspirin] 81 mg tablet,delayed release (DR/EC) 81 mg PO QAM RF: 0 Referrals Referrals: Terri Sherman DO [Primary Care Provider] - Discharge Problem: Acute respiratory failure Qualifiers: Respiratory failure complication: unspecified whether with hypoxia or hypercapnia Qualified Code(s): J96.00 - Acute respiratory failure, unspecified whether with hypoxia or hypercapnia
[2022-02-12] MEDS ORDERED: FUROSEMIDE 40 MG/4 ML VIAL IV ONE (05:11)
[2022-02-12] MEDS ORDERED: NITROGLYCERIN 2% OINTMENT 30GM TUBE EXT ONE (05:11)
[2022-02-12 05:23] LABS: iSTAT Creatinine 0.8 mg/dl (0.6-1.3); iSTAT Ionized Calcium 1.12 mmol/l (1.12-1.32)
[2022-02-12 05:46] LABS: Basophils # (auto) 0.01 K/uL (0-0.2); Basophils % (auto) 0.1 %; Eosinophils # (auto) 0.14 K/uL (0-0.5); Hematocrit (blood only) 38.4 % (37-47); Hemoglobin 12.3 g/dL (12.0-16.0); Immature Granulocytes # (auto) 0.05 K/uL (0.00-0.02); Immature Granulocytes % (auto) 0.4 %; Lymphocytes # (auto) 2.46 K/uL (1.2-3.4); Lymphocytes % (auto) 17.9 %; Mean Corpuscular Hemoglobin 27.4 pg (25-34); Mean Corpuscular Volume 85.5 fL (80-100); Mean Platelet Volume 10.5 fL (7.4-10.4); Monocytes # (auto) 0.83 K/uL (0.11-0.59); Neutrophils # (auto) 10.25 K/uL (1.4-6.5); Neutrophils % (auto) 74.6 %; Platelet Count 208 K/uL (130-400); RDW Coefficient of Variation 14.6 % (11.5-14.5); RDW Standard Deviation 45.3 fL (36.4-46.3); Red Blood Count 4.49 M/uL (4.2-5.4); White Blood Count 13.74 K/uL (4.8-10.8)
[2022-02-12 05:56] LABS: Alanine Aminotransferase 37 U/L (7-52); Albumin Globulin Ratio 1.3 (0.9-2); Albumin Level 3.1 gm/dl (3.4-5.0); Alkaline Phosphatase 54 U/L (34-104); Anion Gap 8 (3-11); BUN Creatinine Ratio 23.4 (10-20); Bilirubin,Total 0.6 mg/dl (0.2-1.0); Blood Urea Nitrogen 15 mg/dl (6-23); Calcium 6.3 mg/dl (8.5-10.1); Carbon Dioxide 20 mmol/L (21-32); Chloride 114 mmol/L (98-107); Est GFR (African American) 117.3 ml/min; Est GFR (Non-African American) 101.2 ml/min; Globulin 2.4 gm/dl (2.5-4.0); Glucose 288 mg/dl (70-99(Fasting)); Sodium 142 mmol/L (136-145); Total Protein 5.5 gm/dl (6.0-8.3)
[2022-02-12 06:09] LABS: Aspartate Aminotransferase 55 U/L (13-39); Potassium 4.1 mmol/L (3.5-5.1)
[2022-02-12 06:09] LABS: Appearance Urine Clear (Clear); Bacteria Urine Automated Negative (Negative); Bilirubin Urine Negative (Negative); Blood Urine Negative (Negative); Color Urine Yellow; Epithelial Cell Urine Auto >30 /lpf (0-5); Glucose Urine UA 3+ (Negative); Ketones Urine Negative (Negative); Leukocyte Esterase Urine Negative (Negative); Nitrite Urine Negative (Negative); Protein Urine 2+ (Negative); RBC Urine Automated 0-4 /hpf (0-4); Specific Gravity Urine 1.019 (1.000-1.030); Urobilinogen Urine Negative (Negative)
[2022-02-12] MEDS ORDERED: CARBOHYDRATES FOR HYPOGLYCEMIA PO PRN (06:17)
[2022-02-12] MEDS ORDERED: GLUCOSE 40% GEL 15 GM TUBE PO PRN (06:17)
[2022-02-12] MEDS ORDERED: GLUCOSE 10 TABS/TUBE PO PRN (06:17)
[2022-02-12] MEDS ORDERED: DEXTROSE 50% 50 ML SYRINGE IV PRN (06:17)
[2022-02-12] MEDS ORDERED: GLUCAGON FOR INJ 1 MG VIAL SQ PRN (06:17)
--- NOTE | 2022-02-12 06:48 | History & Physical Report ---
Date of Service February 12, 2022 Assessment & Plan (1) Acute CHF: Plan: 56 y/o F Hx HTN, HLD, DM II, critical COVID, CAD/AK, systolic CHF. She described progressive SOB pronounced with exertion and lying flat x 2 weeks. She has not had CP or a cough. On arrival to the ER, she required BiPAP to maintain an adequate saturation. The pt was not aware that she has a prior diagnosis of CHF and does not take diuretics. Labs were notable for leukocytosis, hyperglycemia and a trop of 66. CXR was consistent with pulmonary edema. EKG demonstrated sinus tach without acute ischemic changes. 1) CHF - technically an exacerbation although she does not normally require diuretics. Cont Lasix, NTG, 02. Echo scheduled, cardiology consult requested. I/O, daily weight. 2) CAD - elevated trop without evidnce of acute AK on EKG . Likely result of CHF exacerbation. Trend trop, cont statin, ASA. Echo pending. 3) DM II - sliding scale 4) HTN, HLD - cont olmesartan, statin Full code - Lovenox prophylaxis Total time for this admission including review of labs, meds, imaging, records - discussion with pt and ER attending - 50 min (2) Hypertension: (3) Hyperlipemia: (4) DM II (diabetes mellitus, type II), controlled: History of Present Illness Chief Complaint: SOB Primary Care Provider: Terri Sheramn, DO 56 y/o F Hx HTN, HLD, DM II, critical COVID, CAD/AK, systolic CHF. She described progressive SOB pronounced with exertion and lying flat x 2 weeks. She has not had CP or a cough. On arrival to the ER, she required BiPAP to maintain an adequate saturation. The pt was not aware that she has a prior diagnosis of CHF and does not take diuretics. Labs were notable for leukocytosis, hyperglycemia and a trop of 66. CXR was consistent with pulmonary edema. EKG demonstrated sinus tach without acute ischemic changes. PMH: 1) HTN 2) HLD 3) DM II 4) CAD - AK 2020 - multivessel disease inc 100% RCA stenosis with collaterals. JOAN to OM1. 5) COVID with resp failure 2020 6) Obese 7) PCOS 8) CHF - EF 40-45% 2020 9) Fatty liver 10) GERD Surgical: Limited to C section Social: Quit smoking 1999. Does not drink alcohol. Family: Mother - breast CA Father alive - CAD Allergies Allergy/AdvReac Type Severity Reaction Status Date / Time No Known Allergies Allergy Verified 01/10/22 14:10 Home Medications Medication Instructions Recorded Confirmed Type aspirin 81 mg tablet,delayed 81 mg PO QAM 08/24/20 01/10/22 History release (Adult Low Dose Aspirin) omeprazole 20 mg capsule,delayed 20 mg PO DAILY PRN 11/30/20 01/10/22 History release CPAP Supplies 1 ea .ROUTE HS #1 ea 01/26/21 01/10/22 Rx Auto Titrating CPAP See Rx Instructions .ROUTE 02/24/21 01/10/22 Rx .COMPLEX #1 ea atorvastatin 80 mg tablet 80 mg PO QAM #90 tab 08/08/21 01/10/22 Rx metformin 500 mg tablet,extended 1,000 mg PO BID #360 tab 08/08/21 01/10/22 Rx release 24 hr glimepiride 4 mg tablet 8 mg PO QAM #180 tab 08/23/21 01/10/22 Rx olmesartan 20 mg tablet 20 mg PO QAM #90 tab 10/31/21 01/10/22 Rx linagliptin 5 mg tablet (Tradjenta) 5 mg PO QAM #90 tab 01/10/22 01/10/22 Rx fluconazole 150 mg tablet 150 mg PO ONCE 1 Days #1 tab 01/19/22 Rx (Diflucan) nystatin 100,000 unit/gram topical 1 applic TOPICAL BID #30 g 01/19/22 Rx cream Past Med/Surg History Medical History Chronic hypoxemic respiratory failure Diabetes mellitus Diabetic neuropathy Diverticulosis Fatty liver GERD (gastroesophageal reflux disease) Hyperlipemia Hypertension Ischemic cardiomyopathy Multi-vessel coronary artery stenosis Osteoarthritis PCOS (polycystic ovarian syndrome) Pneumonia due to COVID-19 virus (10/2020) Urinary, incontinence, stress female Surgical History Previous section (2006) S/P coronary artery stent placement (11/20/20) JOAN to OM2 Family History Mother Breast cancer, Onset Age: 51 Hypertension Gall bladder disease Father Hypertension Heart disease S/P coronary artery stent placement Diabetes Sister Hypertension Gall bladder disease Denies family history of Ovarian cancer Prostate cancer Myocardial infarction Colorectal cancer Social History Smoking Status: Never smoker Tobacco Type: Cigarettes Age Started Using Tobacco: 16; Age Quit Using Tobacco: 41; packs per day: 0.5; Second Hand Exposure: No; Hx Alcohol Use: No Hx Substance Use: No Preferred Language: Moroccan Communication Ability: Effective Visual Impairment: No Limitations Hearing Ability: Normal Javascript Web Developer Required: No Beliefs That Will Affect Care: None marital status: Current Living Situation: Spouse and Family Current Living Situation Comment: lives with and son current occupational status: employed current occupation: works for [employer] How many Children do You have: 1 Feels Safe at Home: Yes Childhood Exposure to Second-Hand Smoke: Yes (father smoked) Diet Comment: regular caffeine: No during the past year weight has: remained stable Dental Care, Regularly: No Physical Activity Frequency: Daily Physical Activity Frequency 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 + exertional dyspnea, orthopnea. Pulmonary: Progressive SOB as above. GI: Denies N/V, diarrhea, constipation Neuro: Denies acute or unilateral weakness, acute gait impairment, headache or acute visual changes Musculoskeletal: Denies joint pain, inflammation Endocrine: Denies polydipsia, polyuria Skin: Denies acute rashes or ulcers Physical Exam Physical Exam: General: Pleasant, middle-aged F, labored breathing, AAO x 3, no overt distress ENT: No erythema or exudates, no thrush Eyes: SAMMIE, EOMI Head and neck: Normocephalic, atraumatic, No JVD, neck is supple. Chest/heart: Nontender, S1,2, RRR, no murmurs, no gallops Lungs: CTAB, no wheezing or crackles (after receiving Lasix) Abdomen: Nontender, nondistended, BS+ Neuro: AAO x 3, speech is clear, no unilateral weakness or loss of sensation, coordination intact Musculoskeletal: No joint inflammation, muscle tenderness, FROM Skin: No acute rashes or ulcers Extremities: No clubbing, cyanosis. 1+ edema BL. Results & Data Results & Data ([facility]) Vital Signs (Past 12 Hours) Vital Signs Temp Pulse Resp BP Pulse Ox 02/12/22 05:32 125 H 35 H 97 02/12/22 05:15 98.1 F 132 H 28 H 165/103 H 92 Code Status & VTE Plan VTE Prophylaxis Plan VTE Prophylaxis will be ordered: Yes PG Care Time/CCT Total # of Minutes Spent Total Time Spent with Patient: Total time spent is greater than 50% in coordination of care (as documented) at patient's floor/unit and/or counseling patient: Coding Level of Care Code 81427 Initial Inpt Care Lvl 3 Diagnoses Acute CHF I50.9 Hypertension I10 Hypertension type: essential hypertension Hyperlipemia E78.5 Hyperlipidemia type: unspecified DM II (diabetes mellitus, type II), controlled E11.9 (1) Hypertension Hypertension type: essential hypertension Qualified Code(s): I10 - Essential (primary) hypertension (2) Hyperlipemia Hyperlipidemia type: unspecified Qualified Code(s): E78.5 - Hyperlipidemia, unspecified
--- NOTE | 2022-02-12 07:06 | XRay Report ---
XR chest 1V portable CLINICAL HISTORY: Dyspnea COMPARISON STUDY: Chest CT March 04, 2021. FINDINGS: No pneumothorax or pleural effusion is noted. Interstitial thickening and extensive bilater al airspace opacities are noted, slightly greater on the right. Cardiomediastinal silhouette is stabl e. Patient is mildly rotated. IMPRESSION: Interstitial thickening and extensive bilateral airspace opacities, greater on the right. The findings could reflect multifocal pneumonia or pulmonary edema. Radiographic follow-up is recomm ended. ACT 112: Negative or not required by law. Electronically signed by: Daniel Bynum M.D. 02/12/2022 7:04 AM
[2022-02-12] MEDS ORDERED: MAGNESIUM SULFATE / D5W 1 GM/100 ML BAG IV ONE (09:11)
[2022-02-12] MEDS ORDERED: OLMESARTAN MEDOXOMIL 20 MG TAB PO SCH (09:11)
[2022-02-12] MEDS ORDERED: PHARMACY GLYCEMIC MGMT CONSULT PRN (09:11)
[2022-02-12] MEDS ORDERED: PANTOprazole 40 MG TAB PO PRN (09:15)
[2022-02-12] MEDS ORDERED: INSULIN ASPART PER UNIT SC SCH ×2 (09:30→12:00)
[2022-02-12] MEDS ORDERED: LANTUS PER UNIT CHARGE SQ ONE ×3 (09:45→21:30)
--- NOTE | 2022-02-12 09:45 | Pharmacy Report ---
Pharmacy Glycemic Short Note 2 - Date of Service February 12, 2022 - Glycemic Short BSG Results (Last 24 hours): 02/12/22 02/12/22 05:06 05:11 Glucose 288 H POC Glucose (other) 348 H OUTPATIENT ANTIDIABETIC REGIMEN: * glimepiride 8 mg daily, metformin 1 gm bid * A1c 9% - 12/2021 ASSESSMENT: * 56 year old female, admitted with shortness of breath/CHF. Patients' BSG elevated in 200-300s on admission. Per outpatient notes, PCP has been adjusting home medications for diabetes. Patient however is refusing injectable medications/insulin per outpatient notes * Plan to start stress of 3 novolog for now, and start basal 0.2 units/kg for this AM as patient is NPO PLAN FOR INPATIENT GLYCEMIC CONTROL: * Hold outpatient oral diabetes medications * Basal insulin * Lantus 20 x 1 * Lantus 0-10 units per BSG value * Bolus insulin * NovoLog per scale ACHS or Q6hrs while NPO * Goal Range: Low 110 mg/dL - High 140 mg/dL * Correction Factor: 20 mg/dL/unit * Nutritional / Prandial insulin per carb ratio of 1 unit per 6 grams CHO consumed
[2022-02-12] MEDS ORDERED: Nursing to Pharmacy Communication SCH (10:15)
[2022-02-12] MEDS: ASPIRIN 81 MG ECTAB PO SCH (10:24)
[2022-02-12] MEDS: ATORVASTATIN 40 MG TAB PO SCH (10:24)
[2022-02-12] MEDS: FUROSEMIDE INJ 20 MG/2 ML VIAL IV SCH ×2 (10:26→14:01)
--- NOTE | 2022-02-12 10:45 | XCELERA ---
[id number] \\[id number]
[2022-02-12] MEDS: MAGNESIUM SULFATE / D5W 1 GM/100 ML BAG IV SCH ×3 (11:17→15:30)
[2022-02-12] MEDS: NITROGLYCERIN 2% OINTMENT 30GM TUBE EXT SCH ×3 (11:23→23:55)
--- NOTE | 2022-02-12 11:25 | History & Physical Bridge Note ---
Date of Service February 12, 2022 History & Physical Bridge Note I have examined the patient, reviewed the History & Physical and in the interval since the performance of the History & Physical I have noted the following changes of clinical significance: no changes noted Patient with prior GA s/p cath in November 2020. Presented with SOB at that time but in context of recent COVID 19 infection. COVID, RSV, Influenza negative Progressive SOB/issues laying flat x 2 weeks, not on diuretic therapy. CXR with multifocal opacities vs CHF BNP elevated at 317 Lasix 40mg IV x 1 in ER, continues on lasix 20mg IV TID for now Patient on 4L NC, some increased tightness/work of breathing and placed back on Bipap currently. Reporting improvement in breathing. Continue nitropaste. EKG w/ cp Currently to use restroom. Dr Young stopped by in room, patient asked to revisit as needing to use bathroom. Ok to eat. Trop 60--> 441, per discussion with cards, likely demand from CHF exacerbation and aim for 1.5-2L outpt/24 hours I&O ordered but just got to the floor --> monitor Also reported significant cramping in legs --> checked mag this morning given prior lows and empirically ordered 1gm IV, however mag low 1.3 and additional IV replacement ordered which suspect will help with breathing as well. No afib on m onitor (only occasionally uses omeprazole at home, ?need for PO supp at d/c) Switched from Lovenox to Heparin SQ for DVT prophylaxis DM educator consulted given A1c 9.1 and elevated blood sugars Will repeat trop @ 1300, as well as BMP to see if any K replacement needed w/ diuretics (K 4.1 on AM labs)
[2022-02-12] MEDS: INSULIN ASPART PER UNIT SC SCH ×4 (12:45→23:54)
[2022-02-12 13:34] LABS: BUN Creatinine Ratio 18.8 (10-20); Calcium 8.5 mg/dl (8.5-10.1); Creatinine Clr Calc Pharmacy 83.8 ml/min; Est GFR (African American) 73.1 ml/min; Est GFR (Non-African American) 63.1 ml/min; Potassium 4.3 mmol/L (3.5-5.1)
[2022-02-12 13:52] LABS: Troponin I High Sensitivity 2727.3 pg/ml (0-14)
[2022-02-12] MEDS ORDERED: HEPARIN SOD 5,000 UNIT/0.5 ML VIAL SQ SCH (14:00)
[2022-02-12] MEDS ORDERED: Heparin IV Adult Wt-Based Standard *NO* Bolus Protocol IV SCH (14:31)
--- NOTE | 2022-02-12 15:12 | Cardiology Consultation ---
Date of Consultation February 12, 2022 Assessment & Plan (1) Acute HFrEF (heart failure with reduced ejection fraction): (2) Non-ST elevation (NSTEMI) myocardial infarction: (3) Multi-vessel coronary artery stenosis: (4) S/P coronary artery stent placement: (5) Hypertension: (6) Hyperlipemia: (7) Ischemic cardiomyopathy: ASSESSMENT/PLAN: 1. Acute HFrEF: She appeared hypervolemic. Continue diuresis. Goal net negative fluid balance 1-2 L today. Strict I&Os. Daily weights. Has been consuming significant amounts of sodium. Discussed the importance of a low- sodium diet, less than 2000 mg daily. Heart failure program referral. Start spironolactone tomorrow morning. Replace ARB with Entresto tomorrow morning. Had been on metoprolol succinate in the past but discontinued. Start carvedilol. SGLT 2 inhibitor on discharge. 2. NSTEMI: Troponins are becoming more elevated. Initially discussed perhaps demand ischemia in the setting of heart failure exacerbation and known occluded RCA with collaterals. Agree with heparin drip which has been initiated by hospitalist service. Continue aspirin. If troponins continue to climb significantly, could consider Plavix. No urgent indication for cardiac catheterization, but depending on clinical course and troponin trend, could consider cardiac catheterization later this hospital stay. Beta-larissa. High- intensity statin therapy. 3. Multivessel CAD s/p OM2 PCI: Continue aspirin 81 mg daily indefinitely. Continue high-intensity statin therapy. Given known occluded RCA with collaterals, recommend beta larissa for antianginal as above. 4. Hypertension: Blood pressure has been mostly normotensive. Adjusting medi kassandra therapy as above. 5. Dyslipidemia: LDL at goal. Continue high-intensity statin therapy. 6. Cardiomyopathy: Moderately reduced LV systolic function. Does not meet criteria for ICD for primary prevention at this time. Adjusting medical therapy as above. 7. Disposition: Patient care has been communicated with Gisela Do of the primary hospitalist service. Cardiology will continue to follow. On discharge, she should follow-up with Dr. Norris, her primary bee rancher. Highly complex medical issues. Thank you for allowing me to participate in the care of your patient. Please call for any other questions or concerns. Sincerely, Chente Young M.D. History of Present Illness Reason for Consultation: CHF Requesting Physician: Dr. Morris Attending Physician: Natalio Aquino MD History of Present Illness Mrs. Law is a very pleasant 56-year-old female with a history significant for ischemic cardiomyopathy, multivessel CAD s/p OM PCI, type 2 diabetes, hypertension, dyslipidemia, and type 2 diabetes with diabetic neuropathy. She also has sleep apnea but has not tolerated CPAP. Her primary bee rancher is Dr. Norris. She has had the following studies/procedures: 1. Echo 04/2021: Mild LVH, LVEF 45 to 50%, inferolateral/lateral wall hypokinesis, normal RV size and function. 2. Cardiac cath/PCI 11/19/2020: 100% mid RCA MACH[employer] with [id number]-xmavo collaterals, 30% ostial OM1, 95% proximal OM2. 3.0 x 12 mm [place] to proximal OM2. 3. Echo 11/2020: LVEF 40 to 45%, inferolateral severe hypokinesis, severe concentric LVH. In the past, angina presented as a push/pressure discomfort in her chest and dyspnea. She states that she has had chest discomfort intermittently over time. More recently, she has been noticing dyspnea with exertion and more noticeably orthopnea over the past couple of weeks. Symptoms were intermittent and not occurring on a nightly basis. She has occasional paroxysmal nocturnal dyspnea. She has noted bilateral lower extremity swelling, but more so in the left leg, ever since COVID in October of 2020. She has noted increased lower extremity swelling on 02/11/2022. Early this morning, at approximately midnight, she woke up due to shortness of breath but did not tell her . At approximately 3:30 a.m., she told him and he called EMS. She admits that she consumes significant amounts of sodium and when she does, lower extremity swelling worsens. She has been eating a lot of potato chips and pretzels recently, and dip, more so than usual. She has been on and off BiPAP while here but overall believes that her breathing has improved. She has noted a substernal chest discomfort while briefly off of BiPAP this morning. It was different than prior angina. She experienced near syncope when she felt short of breath before calling 911. She is being treated with intravenous diuretic and reports increased urination. She currently was without chest discomfort during our discussion/exam. She denies palpitations, melena, hematochezia, hematuria, or other bleeding. Review of systems: As above. Review of systems otherwise negative/unremarkable. Family history: Father had CAD. Social history: She quit smoking in 2006. Rare alcohol. No drugs. She lives at home with her and teenage son. She works for a [employer] company in [place]. 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 She was unaccompanied in her hospital room. Allergies Allergy/AdvReac Type Severity Reaction Status Date / Time No Known Allergies Allergy Verified 01/10/22 14:10 Home Medications Medication Instructions Recorded Confirmed Type aspirin 81 mg tablet,delayed 81 mg PO QAM 08/24/20 01/10/22 History release (Adult Low Dose Aspirin) omeprazole 20 mg capsule,delayed 20 mg PO DAILY PRN 11/30/20 01/10/22 History release CPAP Supplies 1 ea .ROUTE HS #1 ea 01/26/21 01/10/22 Rx Auto Titrating CPAP See Rx Instructions .ROUTE 02/24/21 01/10/22 Rx .COMPLEX #1 ea atorvastatin 80 mg tablet 80 mg PO QAM #90 tab 08/08/21 01/10/22 Rx metformin 500 mg tablet,extended 1,000 mg PO BID #360 tab 08/08/21 01/10/22 Rx release 24 hr glimepiride 4 mg tablet 8 mg PO QAM #180 tab 08/23/21 01/10/22 Rx olmesartan 20 mg tablet 20 mg PO QAM #90 tab 10/31/21 01/10/22 Rx linagliptin 5 mg tablet (Tradjenta) 5 mg PO QAM #90 tab 01/10/22 01/10/22 Rx fluconazole 150 mg tablet 150 mg PO ONCE 1 Days #1 tab 01/19/22 Rx (Diflucan) nystatin 100,000 unit/gram topical 1 applic TOPICAL BID #30 g 01/19/22 Rx cream Patient History Medical History (Updated 02/12/22 @ 15:18 by Fletcher Young MD) Chronic hypoxemic respiratory failure Diabetes mellitus Diabetic neuropathy Diverticulosis Fatty liver GERD (gastroesophageal reflux disease) Hyperlipemia Hypertension Ischemic cardiomyopathy Multi-vessel coronary artery stenosis Osteoarthritis PCOS (polycystic ovarian syndrome) Pneumonia due to COVID-19 virus (10/2020) Urinary, incontinence, stress female Surgical History (Updated 02/12/22 @ 15:18 by Fletcher Young MD) Previous section (2006) S/P coronary artery stent placement (11/20/20) JOAN to OM2 Family History Mother Breast cancer, Onset Age: 51 Hypertension Gall bladder disease Father Hypertension Heart disease S/P coronary artery stent placement Diabetes Sister Hypertension Gall bladder disease Denies family history of Ovarian cancer Prostate cancer Myocardial infarction Colorectal cancer Social History Smoking Status: Former smoker Tobacco Type: Cigarettes Age Started Using Tobacco: 16; Age Quit Using Tobacco: 41; packs per day: 0.5; Second Hand Exposure: No; Hx Alcohol Use: Yes Hx Substance Use: No Preferred Language: Mongolian Communication Ability: Effective Visual Impairment: No Limitations Hearing Ability: Normal Treater Required: No Beliefs That Will Affect Care: None marital status: Current Living Situation: Spouse and Family Current Living Situation Comment: SPOUSE AND SON current occupational status: employed current occupation: works for [employer] How many Children do You have: 1 Feels Safe at Home: Yes Childhood Exposure to Second-Hand Smoke: Yes (father smoked) Diet Comment: regular caffeine: No during the past year weight has: remained stable Dental Care, Regularly: No Physical Activity Frequency: Daily Physical Activity Frequency 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 Seatbelt Use: always Sunscreen Use: No Assistive Devices: CPAP and Glasses Physical Exam Physical Exam: Gen.: No acute distress while on BiPAP. Alert and oriented. HEENT: Anicteric sclera. Neck: Thick neck. Mild JVD. No bruits. Normal carotid upstrokes bilaterally. Cardiac: PMI was nonpalpable. No ventricular heave. Regular. Normal S1-S2. No murmurs, rubs, or gallops. Pulmonary: Clear to auscultation bilaterally without wheezes, rales, or rhonchi. Abdomen: Soft, nontender, nondistended, with normoactive bowel sounds. No bruits noted. Extremities: 2+ radial pulses bilaterally. 2+ posterior tibialis pulses bilaterally. Trace bilateral lower extremity edema. No cyanosis. Psychiatric: Affect appears appropriate. Results & Data ([facility]) Vital Signs (Past 12 Hours) Vital Signs Temp Pulse Pulse Resp BP BP Pulse Ox 02/12/22 12:27 36.6 C 100 H 19 131/85 97 02/12/22 08:40 36.7 C 110 H 20 148/78 H 95 02/12/22 08:13 109 H 26 H 132/84 98 02/12/22 07:00 115 H 36 H 94 02/12/22 06:51 114 H 26 H 124/76 96 02/12/22 06:39 120 H 26 H 121/85 95 02/12/22 05:32 125 H 35 H 97 02/12/22 05:15 36.7 C 132 H 28 H 165/103 H 92 Intake & Output 02/10/22 02/11/22 02/12/22 02/13/22 06:59 06:59 06:59 06:59 Intake Total 188.333 / 188.333 Output Total 550 / 550 Balance -361.667 / -361.667 Weight 274 lb 11.135 oz 263 lb 9.6 oz Laboratory Results Laboratory Results - last 24 hr 02/12/22 02/12/22 02/12/22 05:06 05:06 05:06 WBC 13.74 H RBC 4.49 Hgb 12.3 POC Hgb Hct 38.4 POC Hct MCV 85.5 MCH 27.4 MCHC 32.0 RDW Std Deviation 45.3 RDW Coeff of Nader 14.6 H Plt Count 208 MPV 10.5 H Immature Gran % (Auto) 0.4 Neut % (Auto) 74.6 Lymph % (Auto) 17.9 [place] % (Auto) 6.0 Eos % (Auto) 1.0 Baso % (Auto) 0.1 Neut # (Auto) 10.25 H Lymph # (Auto) 2.46 [place] # (Auto) 0.83 H Eos # (Auto) 0.14 Baso # (Auto) 0.01 Immature Gran # (Auto) 0.05 H POC Sodium Sodium 142 POC Potassium Potassium 4.1 POC Chloride Chloride 114 H Carbon Dioxide 20 L POC Total CO2 Anion Gap 8 POC Anion Gap POC BUN BUN 15 Creatinine 0.64 POC Creatinine Est Cr Clr Drug Dosing Not Reportable Est GFR ( Amer) 117.3 Est GFR (Non-Af Amer) 101.2 BUN/Creatinine Ratio 23.4 H Glucose 288 H POC Glucose POC Glucose (other) Calcium 6.3 L POC Ioniz Calcium Luz Maria Magnesium Total Bilirubin 0.6 AST 55 H ALT 37 Alkaline Phosphatase 54 Troponin I High Sens 66.0 H* B-Natriuretic Peptide 317 H Total Protein 5.5 L Albumin 3.1 L Globulin 2.4 L Albumin/Globulin Ratio 1.3 Urine Color Urine Appearance Urine pH Ur Specific [place] Urine Protein Urine Glucose (UA) Urine Ketones Urine Blood Urine Nitrite Urine Bilirubin Urine Urobilinogen Ur Leukocyte Esterase Urine WBC (Auto) Urine RBC (Auto) U Hyaline Cast (Auto) U Epithel Cells (Auto) Urine Bacteria (Auto) Ur Renal Epithelial Cell SARS-CoV-2 (PCR) 02/12/22 02/12/22 02/12/22 05:06 05:11 05:50 WBC RBC Hgb POC Hgb 16.0 Hct POC Hct 47 MCV MCH MCHC RDW Std Deviation RDW Coeff of Nader Plt Count MPV Immature Gran % (Auto) Neut % (Auto) Lymph % (Auto) [place] % (Auto) Eos % (Auto) Baso % (Auto) Neut # (Auto) Lymph # (Auto) [place] # (Auto) Eos # (Auto) Baso # (Auto) Immature Gran # (Auto) POC Sodium 140 Sodium POC Potassium 4.0 Potassium POC Chloride 104 Chloride Carbon Dioxide POC Total CO2 25 Anion Gap POC Anion Gap 16.0 POC BUN 17 BUN Creatinine POC Creatinine 0.8 Est Cr Clr Drug Dosing Est GFR ( Amer) Est GFR (Non-Af Amer) BUN/Creatinine Ratio Glucose POC Glucose POC Glucose (other) 348 H Calcium POC Ioniz Calcium Luz Maria 1.12 Magnesium 1.3 L Total Bilirubin AST ALT Alkaline Phosphatase Troponin I High Sens B-Natriuretic Peptide Total Protein Albumin Globulin Albumin/Globulin Ratio Urine Color Yellow Urine Appearance Clear Urine pH 5.0 Ur Specific [place] 1.019 Urine Protein 2+ H Urine Glucose (UA) 3+ H Urine Ketones Negative Urine Blood Negative Urine Nitrite Negative Urine Bilirubin Negative Urine Urobilinogen Negative Ur Leukocyte Esterase Negative Urine WBC (Auto) 5-10 H Urine RBC (Auto) 0-4 U Hyaline Cast (Auto) 1-5 U Epithel Cells (Auto) >30 H Urine Bacteria (Auto) Negative Ur Renal Epithelial Cell Not Reportable SARS-CoV-2 (PCR) 02/12/22 02/12/22 02/12/22 05:50 07:00 10:34 WBC RBC Hgb POC Hgb Hct POC Hct MCV MCH MCHC RDW Std Deviation RDW Coeff of Nader Plt Count MPV Immature Gran % (Auto) Neut % (Auto) Lymph % (Auto) [place] % (Auto) Eos % (Auto) Baso % (Auto) Neut # (Auto) Lymph # (Auto) [place] # (Auto) Eos # (Auto) Baso # (Auto) Immature Gran # (Auto) POC Sodium Sodium POC Potassium Potassium POC Chloride Chloride Carbon Dioxide POC Total CO2 Anion Gap POC Anion Gap POC BUN BUN Creatinine POC Creatinine Est Cr Clr Drug Dosing Est GFR ( Amer) Est GFR (Non-Af Amer) BUN/Creatinine Ratio Glucose POC Glucose 313 H* POC Glucose (other) Calcium POC Ioniz Calcium Luz Maria Magnesium Total Bilirubin AST ALT Alkaline Phosphatase Troponin I High Sens 419.1 H* D B-Natriuretic Peptide Total Protein Albumin Globulin Albumin/Globulin Ratio Urine Color Urine Appearance Urine pH Ur Specific [place] Urine Protein Urine Glucose (UA) Urine Ketones Urine Blood Urine Nitrite Urine Bilirubin Urine Urobilinogen Ur Leukocyte Esterase Urine WBC (Auto) Urine RBC (Auto) U Hyaline Cast (Auto) U Epithel Cells (Auto) Urine Bacteria (Auto) Ur Renal Epithelial Cell SARS-CoV-2 (PCR) NEGATIVE 02/12/22 02/12/22 02/12/22 12:07 12:09 12:11 WBC RBC Hgb POC Hgb Hct POC Hct MCV MCH MCHC RDW Std Deviation RDW Coeff of Nader Plt Count MPV Immature Gran % (Auto) Neut % (Auto) Lymph % (Auto) [place] % (Auto) Eos % (Auto) Baso % (Auto) Neut # (Auto) Lymph # (Auto) [place] # (Auto) Eos # (Auto) Baso # (Auto) Immature Gran # (Auto) POC Sodium Sodium POC Potassium Potassium POC Chloride Chloride Carbon Dioxide POC Total CO2 Anion Gap POC Anion Gap POC BUN BUN Creatinine POC Creatinine Est Cr Clr Drug Dosing Est GFR ( Amer) Est GFR (Non-Af Amer) BUN/Creatinine Ratio Glucose POC Glucose 388 H* 311 H* 310 H* POC Glucose (other) Calcium POC Ioniz Calcium Luz Maria Magnesium Total Bilirubin AST ALT Alkaline Phosphatase Troponin I High Sens B-Natriuretic Peptide Total Protein Albumin Globulin Albumin/Globulin Ratio Urine Color Urine Appearance Urine pH Ur Specific [place] Urine Protein Urine Glucose (UA) Urine Ketones Urine Blood Urine Nitrite Urine Bilirubin Urine Urobilinogen Ur Leukocyte Esterase Urine WBC (Auto) Urine RBC (Auto) U Hyaline Cast (Auto) U Epithel Cells (Auto) Urine Bacteria (Auto) Ur Renal Epithelial Cell SARS-CoV-2 (PCR) 02/12/22 12:56 WBC RBC Hgb POC Hgb Hct POC Hct MCV MCH MCHC RDW Std Deviation RDW Coeff of Nader Plt Count MPV Immature Gran % (Auto) Neut % (Auto) Lymph % (Auto) [place] % (Auto) Eos % (Auto) Baso % (Auto) Neut # (Auto) Lymph # (Auto) [place] # (Auto) Eos # (Auto) Baso # (Auto) Immature Gran # (Auto) POC Sodium Sodium 138 POC Potassium Potassium 4.3 POC Chloride Chloride 100 Carbon Dioxide 28 POC Total CO2 Anion Gap 10 POC Anion Gap POC BUN BUN 19 Creatinine 1.01 D POC Creatinine Est Cr Clr Drug Dosing 83.8 Est GFR ( Amer) 73.1 Est GFR (Non-Af Amer) 63.1 BUN/Creatinine Ratio 18.8 Glucose 389 H* POC Glucose POC Glucose (other) Calcium 8.5 D POC Ioniz Calcium Luz Maria Magnesium Total Bilirubin AST ALT Alkaline Phosphatase Troponin I High Sens 2727.3 H* D B-Natriuretic Peptide Total Protein Albumin Globulin Albumin/Globulin Ratio Urine Color Urine Appearance Urine pH Ur Specific [place] Urine Protein Urine Glucose (UA) Urine Ketones Urine Blood Urine Nitrite Urine Bilirubin Urine Urobilinogen Ur Leukocyte Esterase Urine WBC (Auto) Urine RBC (Auto) U Hyaline Cast (Auto) U Epithel Cells (Auto) Urine Bacteria (Auto) Ur Renal Epithelial Cell SARS-CoV-2 (PCR) Diagnostic Findings Telemetry personally reviewed: Sinus rhythm and mild sinus tachycardia. Echo 02/12/2022: Mildly dilated LV. EF 35-40%. Severe hypokinesis of the inferolateral and anterolateral renteria, otherwise mild global hypokinesis. Mild LVH. No significant valvular abnormalities. ECGs personally reviewed: ECG 02/12/2022 at 5:08 a.m.: Sinus tachycardia 130 beats per minute. Nonspecific ST/T-wave abnormality. ECG 02/12/2022 at 8:57 a.m.: Sinus tachycardia 107 beats per minute. Nonspecific ST/T-wave abnormality. ECG 02/12/2022 at 2:18 p.m.: Sinus rhythm 100 beats per minute. LVH. Nonspecific ST/T-wave abnormality. Cath report reviewed as noted above in HPI. Chest x-ray 02/12/2022: Interstitial thickening and extensive bilateral airspace opacities, greater on the right per Radiology. Medications Administered Current Inpatient Medications Aspirin (Aspirin 81 Mg Ectab) 81 mg PO QAM [facility] Stop: 03/14/22 09:10 Last Admin: 02/12/22 10:24 Dose: 81 mg Documented by: Atorvastatin Calcium (Atorvastatin 40 Mg Tab) 80 mg PO QAM [facility] Stop: 03/14/22 09:10 Last Admin: 02/12/22 10:24 Dose: 80 mg Documented by: Dextrose (Dextrose 50% 50 Ml Syringe) 25 - 50 ml IV UD PRN; Protocol PRN Reason: Hypoglycemia Protocol Stop: 03/14/22 06:16 Furosemide (Furosemide Inj 20 Mg/2 Ml Vial) 20 mg IV TID [facility] Stop: 03/14/22 09:10 Last Admin: 02/12/22 14:01 Dose: 20 mg Documented by: Glucagon (Glucagon For Inj 1 Mg Vial) 1 mg SQ UD PRN; Protocol PRN Reason: Hypoglycemia Protocol Stop: 03/14/22 06:16 Glucose (Glucose 10 Tabs/Tube) 4 - 8 tabs PO UD PRN; Protocol PRN Reason: Hypoglycemia Protocol Stop: 03/14/22 06:16 Glucose (Glucose 40% Gel 15 Gm Tube) 15 - 30 gm PO UD PRN; Protocol PRN Reason: Hypoglycemia Protocol Stop: 03/14/22 06:16 Magnesium Sulfate/Dextrose (Magnesium Sulfate / D5w) 1 gm in 100 mls @ 50 mls/hr IV Q2H [facility] Stop: 02/12/22 18:14 Last Admin: 02/12/22 13:03 Dose: 50 mls/hr Documented by: Heparin Sodium/Dextrose (Heparin Sodium/Dextrose) 25,000 units in 500 mls @ 30 mls/hr IV .[id number] [facility]; Protocol Stop: 03/14/22 14:59 Insulin Aspart (Insulin Aspart Per Unit) 0 units SC ACHS [facility] Stop: 03/14/22 12:29 Last Admin: 02/12/22 12:45 Dose: 4 units Documented by: Insulin Aspart (Insulin Aspart Per Unit) 0 units SC 0000,0400 [facility] Stop: 02/13/22 04:01 Insulin Glargine (Lantus Per Unit Charge) 0 units SQ HS [facility]; Protocol Stop: 03/14/22 20:59 Miscellaneous (Carbohydrates For Hypoglycemia ) 15 - 30 gm PO UD PRN PRN Reason: Hypoglycemia Protocol Stop: 03/14/22 06:16 Miscellaneous Information (Pharmacy Glycemic Mgmt Consult) 1 ea N/A UD PRN PRN Reason: Consult Stop: 03/14/22 09:10 Nitroglycerin (Nitroglycerin 2% Ointment 30gm Tube) 1 inch EXT Q6H [facility] Stop: 03/14/22 11:59 Last Admin: 02/12/22 11:23 Dose: 1 inch Documented by: Olmesartan (Olmesartan Medoxomil 20 Mg Tab) 20 mg PO QAM [facility] Stop: 03/14/22 09:10 Last Admin: 02/12/22 10:25 Dose: 20 mg Documented by: Pantoprazole Sodium (Pantoprazole 40 Mg Tab) 40 mg PO DAILY PRN PRN Reason: Gi Upset Stop: 03/14/22 09:14 PG Care Time/CCT Total # of Minutes Spent Total Time Spent with Patient: Total time spent is greater than 50% in coordination of care (as documented) at patient's floor/unit and/or counseling patient: Coding Level of Care Code 43664 Inpt Consult Level 5 Diagnoses Acute HFrEF (heart failure with reduced ejection fraction) I50.21 Non-ST elevation (NSTEMI) myocardial infarction I21.4 Multi-vessel coronary artery stenosis I25.10 S/P coronary artery stent placement Z95.5 Hypertension I10 Hypertension type: essential hypertension Hyperlipemia E78.5 Hyperlipidemia type: unspecified Ischemic cardiomyopathy I25.5 (1) Hypertension Hypertension type: essential hypertension Qualified Code(s): I10 - Essential (primary) hypertension (2) Hyperlipemia Hyperlipidemia type: unspecified Qualified Code(s): E78.5 - Hyperlipidemia, unspecified
[2022-02-12] MEDS: HEPARIN SODIUM/DEXTROSE 25,000 UNITS/500 ML BAG IV SCH (15:28)
[2022-02-12 15:39] LABS: Partial Thromboplastin Ratio 0.9; Partial Thromboplastin Time 24.2 Seconds (21.0-31.0); Prothrombin Time 10.3 Seconds (9.0-12.0)
[2022-02-12] MEDS: ACETAMINOPHEN 500 MG TAB PO PRN ×2 (16:09→23:55)
[2022-02-12] MEDS ORDERED: MELATONIN 3 MG TAB PO PRN (19:20)
[2022-02-12] MEDS: carvediloL 3.125 MG TAB PO SCH (20:31)
[2022-02-12] MEDS: FUROSEMIDE 40 MG/4 ML VIAL IV SCH (20:31)
[2022-02-12 20:50] LABS: Partial Thromboplastin Ratio 1.3; Partial Thromboplastin Time 35.9 Seconds (21.0-31.0)
[2022-02-12] MEDS ORDERED: HEPARIN SOD (PORCINE) 1000 UNIT/ML IV ONE (21:00)
[2022-02-12] MEDS ORDERED: LANTUS PER UNIT CHARGE SQ SCH (21:00)
[2022-02-12] MEDS ORDERED: INSULIN HUMAN REGULAR PER UNIT 10 UNITS in SYRINGE 9.9 ML IV ONE (21:30)
[2022-02-13 03:54] LABS: Hematocrit (blood only) 42.3 % (37-47); Hemoglobin 14.4 g/dL (12.0-16.0); Mean Corpuscular Hemoglobin 28.9 pg (25-34); Mean Corpuscular Volume 84.8 fL (80-100); Mean Platelet Volume 9.5 fL (7.4-10.4); Platelet Count 306 K/uL (130-400); RDW Coefficient of Variation 14.7 % (11.5-14.5); RDW Standard Deviation 45.2 fL (36.4-46.3); Red Blood Count 4.99 M/uL (4.2-5.4); White Blood Count 11.78 K/uL (4.8-10.8)
[2022-02-13] MEDS: INSULIN ASPART PER UNIT SC SCH ×5 (04:01→20:42)
[2022-02-13 04:12] LABS: Albumin Globulin Ratio 1.4 (0.9-2); Albumin Level 4.2 gm/dl (3.4-5.0); BUN Creatinine Ratio 30.7 (10-20); Bilirubin,Total 1.2 mg/dl (0.2-1.0); Calcium 8.4 mg/dl (8.5-10.1); Creatinine Clr Calc Pharmacy 112.9 ml/min; Est GFR (African American) 104.7 ml/min; Est GFR (Non-African American) 90.4 ml/min; Magnesium 2.2 mg/dl (1.7-2.4); Potassium 3.7 mmol/L (3.5-5.1); Total Protein 7.2 gm/dl (6.0-8.3)
[2022-02-13 04:14] LABS: Partial Thromboplastin Ratio 2.2
[2022-02-13 04:16] LABS: Partial Thromboplastin Time 60.4 Seconds (21.0-31.0)
[2022-02-13] MEDS: NITROGLYCERIN 2% OINTMENT 30GM TUBE EXT SCH ×2 (04:25→11:49)
[2022-02-13] MEDS: HEPARIN SODIUM/DEXTROSE 25,000 UNITS/500 ML BAG IV SCH ×2 (06:06→20:49)
--- NOTE | 2022-02-13 06:59 | XRay Report ---
XR chest 1V portable CLINICAL HISTORY: f/u chf vs multifocal opacities COMPARISON STUDY: Chest radiograph February 12, 2022. Chest CT March 04, 2021. FINDINGS: Cardiomegaly is unchanged. There is no pneumothorax or pleural effusion. Interstitial thick ening and bilateral opacities have improved. IMPRESSION: 1. Interval improvement in interstitial thickening and bilateral opacities. Pulmonary edema is favore d. 2. Cardiomegaly. ACT 112: Negative or not required by law. Electronically signed by: Daniel Bynum M.D. 02/13/2022 6:57 AM
[2022-02-13] MEDS: carvediloL 3.125 MG TAB PO SCH ×2 (07:53→20:41)
[2022-02-13] MEDS: ATORVASTATIN 40 MG TAB PO SCH (07:53)
[2022-02-13] MEDS: FUROSEMIDE 40 MG/4 ML VIAL IV SCH ×2 (07:54→20:41)
[2022-02-13] MEDS: VALSARTAN/SACUBITRIL 26/24MG TAB PO SCH ×2 (07:54→20:41)
[2022-02-13] MEDS: SPIRONOLACTONE 25 MG TAB PO SCH (07:54)
[2022-02-13] MEDS: ASPIRIN 81 MG ECTAB PO SCH (07:55)
[2022-02-13] MEDS ORDERED: LANTUS PER UNIT CHARGE SQ SCH ×2 (08:00→09:00)
--- NOTE | 2022-02-13 08:08 | Hospitalist Progress Note ---
Date of Service February 13, 2022 Assessment & Plan (1) Acute CHF: Plan: 56 y/o F Hx HTN, HLD, DM II,past COVID, CAD/UT, systolic CHF. ON arrival acute systolic heart failure and acute respiratory failure with hypoxia requiring BiPAP to maintain an adequate saturation. CXR was consistent with pulmonary edema. EKG demonstrated sinus tach without acute ischemic changes. now negative 3 liters from admission elevated troponin is from demand ischemia versus NSTEMI cardiology is following 1) acute systolic heart failure clinically improving-echocardiogram from 02/12/2022 shows EF of 35 to 40%. Severe hypokinesis of the inferolateral and anterolateral renteria. No significant valvular abnormalities Continues on aspirin atorvastatin twice daily Lasix, carvedilol 3.125 twice daily spironolactone and Entresto twice daily. 2) CAD - elevated trop discussion of demand ischemia versus NSTEMI. Patient on heparin drip. patient with known coronary disease. Patient now with symptoms associated with her systolic dysfunction. Cardiology discussion risk stratification with interventional study possibly on 02/14 versus nuclear perfusion study Cardiac cath from November 2020 shows 100% occlusion of the RCA with [id number] collaterals. 95% occlusion of a large proximal acute obtuse marginal treated with with single drug-eluting stent placed 3) DM II - sliding scale Full code -Heparin drip (2) Hypertension: (3) Hyperlipemia: (4) DM II (diabetes mellitus, type II), controlled: Admission and Anticipated Discharge Date Admission Date: February 12, 2022 Subjective Pt has improved dyspnea, she overall feels better tolerating entresto Review of Systems Review of Systems: Mild distress and fatigue no headache, no visual changes no speech or swallowing issues no chest pain, pressure or palpitations Still some dyspnea on exertion, cough or wheezes no abdominal pain, nausea or vomiting, diarrhea or constipation no dysuria, hematuria or frequency no focal joint pain remains with lower extremity swelling no back pain, CVA tenderness or radicular pain no bruising, bleeding or rashes no focal signs of weakness or numbness or altered sensation no complaints of anxiety or depression.. Physical Exam Physical Exam: The patient appeared well nourished and normally developed. Vital signs as documented. Head exam is normocephalic atraumatic Neck is with mild JVD, thyromegaly, or carotid bruits. Lungs are rales at the base which clear after inspiration Cardiac exam, Rhythm is regular.. No murmurs, rubs or gallops. Abdominal exam reveals normal bowel sounds, soft non tender, no masses Extremities are trace to 1+ edematous and both pedal pulses are present Neurologic exam is alert and oriented, no focal loss of strength or sensation Skin is without bruises or rashes Psychologically is without concerns for anxiety or depression.. Results & Data Results & Data ([facility]) Vital Signs (Past 12 Hours) Vital Signs Temp Pulse Pulse Resp BP Pulse Ox 02/13/22 03:38 97.5 F L 83 18 125/76 97 02/12/22 23:38 97.9 F 82 20 124/77 95 02/12/22 22:57 84 PG Care Time/CCT Total # of Minutes Spent Total Time Spent with Patient: Total time spent is greater than 50% in coordination of care (as documented) at patient's floor/unit and/or counseling patient: Coding Level of Care Code 26213 Subseq Hosp Care Lvl 3 Diagnoses Acute CHF I50.9 Hypertension I10 Hypertension type: essential hypertension Hyperlipemia E78.5 Hyperlipidemia type: unspecified DM II (diabetes mellitus, type II), controlled E11.9 (1) Hyperlipemia Hyperlipidemia type: unspecified Qualified Code(s): E78.5 - Hyperlipidemia, unspecified (2) Hypertension Hypertension type: essential hypertension Qualified Code(s): I10 - Essential (primary) hypertension
--- NOTE | 2022-02-13 14:59 | Pharmacy Report ---
Pharmacy Glycemic Short Note 2 - Date of Service February 13, 2022 - Glycemic Short BSG Results (Last 24 hours): 02/12/22 02/12/22 02/12/22 16:30 16:32 20:55 Glucose POC Glucose 338 H* 309 H* 323 H* 02/12/22 02/12/22 02/13/22 20:57 23:43 03:37 Glucose 205 H POC Glucose 307 H* 178 H 02/13/22 02/13/22 02/13/22 03:55 07:18 11:35 Glucose POC Glucose 194 H 180 H 155 H OUTPATIENT ANTIDIABETIC REGIMEN: * glimepiride 8 mg daily, metformin 1 gm bid * A1c 9% - 12/2021 ASSESSMENT: 02/13/22: * Patient received total 98 units of insulin yesterday; 50 units basal and 48 units bolus. * BSGs yesterday were [phone] mg/dl * Fasting BSG today was 205 mg/dl. Basal 25 units added this AM and HS dose scale ordered based on BSG for tonight. * Pre-lunch BSG trended down to 155 mg/dl. * Novolog continued at stress of 3. Background 02/12/22: * 56 year old female, admitted with shortness of breath/CHF. Patients' BSG elevated in 200-300s on admission. Per outpatient notes, PCP has been adjusting home medications for diabetes. Patient however is refusing injectable medications/insulin per outpatient notes * Plan to start stress of 3 novolog for now, and start basal 0.2 units/kg for this AM as patient is NPO PLAN FOR INPATIENT GLYCEMIC CONTROL: * Hold outpatient oral diabetes medications * Basal insulin * Lantus 25 units SQ QAM * Lantus 20-25 units SQ HS per BSG value * Bolus insulin * NovoLog per scale ACHS or Q6hrs while NPO * Goal Range: Low 110 mg/dL - High 140 mg/dL * Correction Factor: 15 mg/dL/unit * Nutritional / Prandial insulin per carb ratio of 1 unit per 4 grams CHO consumed
--- NOTE | 2022-02-13 16:13 | Cardiology Progress Note ---
Date of Service February 13, 2022 Assessment & Plan (1) Acute HFrEF (heart failure with reduced ejection fraction): (2) Non-ST elevation (NSTEMI) myocardial infarction: (3) Multi-vessel coronary artery stenosis: (4) S/P coronary artery stent placement: (5) Hypertension: (6) Hyperlipemia: (7) Ischemic cardiomyopathy: Plan: ASSESSMENT/PLAN: 1. Acute HFrEF: Hypervolemic but improving. Continue diuresis. Strict I&Os. Daily weights. Has been consuming significant amounts of sodium as an outpatient. Low-sodium diet, less than 2000 mg daily. Heart failure program referral. ARB replaced with Entresto. Spironolactone and carvedilol initiated. SGLT 2 inhibitor on discharge. 2. NSTEMI: Troponin peaked at 3261.7. Continue aspirin. Continue heparin drip. Beta-larissa. High-intensity statin therapy. Discussed possibility of cardiac catheterization tomorrow, and she is agreeable. Will discuss with Dr. Norris, her primary sole sewer hand. No urgent indication for catheterization today. 3. Multivessel CAD s/p OM2 PCI: Continue aspirin 81 mg daily indefinitely. Continue high-intensity statin therapy. Beta-larissa initiated. 4. Hypertension: Blood pressure well controlled. Continue current regimen. 5. Dyslipidemia: LDL at goal. Continue high-intensity statin therapy. 6. Cardiomyopathy: Moderately reduced LV systolic function. Does not meet criteria for ICD for primary prevention at this time. Medical therapy has been adjusted and can be further titrated as appropriate. 7. Disposition: Patient care communicated with Dr. Aquino of the primary hospitalist service. Cardiology will continue to follow. Dr. Norris will be updated on her presentation. NPO after midnight except for medications. Admission and Anticipated Discharge Date Admission Date: February 12, 2022 Subjective Patient seen earlier today. She feels better today. She has intermittent slight chest discomfort which last only a few seconds. It is right-sided and substernal chest pain. She slept with her head elevated. Shortness of breath improved but she remains on 4 L of supplemental oxygen. She denies palpitations, syncope, near-syncope, or bleeding. She was alone in her hospital room. Physical Exam Physical Exam: Gen.: No acute distress. Alert and oriented. HEENT: Anicteric sclera. Neck: Thick neck. No appreciable JVD. Hepatic jugular reflux noted. Cardiac: Regular. Normal S1-S2. No murmurs, rubs, or gallops. Pulmonary: Clear to auscultation bilaterally without wheezes, rales, or rhonchi. Abdomen: Soft, nontender, nondistended, with normoactive bowel sounds. No bruits noted. Extremities: 2+ radial pulses bilaterally. 2+ posterior tibialis pulses bilaterally. Trace bilateral lower extremity edema. No cyanosis. Psychiatric: Affect appears appropriate. Results & Data ([facility]) Vital Signs (Past 12 Hours) Vital Signs Temp Pulse Pulse Resp BP Pulse Ox 02/13/22 15:50 36.4 C L 84 18 123/80 95 02/13/22 12:06 36.6 C 86 18 121/76 96 02/13/22 08:07 36.5 C 79 18 131/83 95 02/13/22 08:00 65 Intake & Output 02/11/22 02/12/22 02/13/22 02/14/22 06:59 06:59 06:59 06:59 Intake Total 1674.933 / 1674.933 360 / 360 Output Total 5100 / 5100 750 / 750 Balance -3425.067 / -3425.067 -390 / -390 Weight 274 lb 11.135 oz 257 lb 11.526 oz Laboratory Results Laboratory Results - last 24 hr 02/12/22 02/12/22 02/12/22 16:30 16:32 20:17 WBC RBC Hgb Hct MCV MCH MCHC RDW Std Deviation RDW Coeff of Nader Plt Count MPV APTT PTT Ratio Sodium Potassium Chloride Carbon Dioxide Anion Gap BUN Creatinine Est Cr Clr Drug Dosing Est GFR ( Amer) Est GFR (Non-Af Amer) BUN/Creatinine Ratio Glucose POC Glucose 338 H* 309 H* Calcium Magnesium Total Bilirubin AST ALT Alkaline Phosphatase Troponin I High Sens 3261.7 H* Total Protein Albumin Globulin Albumin/Globulin Ratio 02/12/22 02/12/22 02/12/22 20:17 20:55 20:57 WBC RBC Hgb Hct MCV MCH MCHC RDW Std Deviation RDW Coeff of Nader Plt Count MPV APTT 35.9 H PTT Ratio 1.3 Sodium Potassium Chloride Carbon Dioxide Anion Gap BUN Creatinine Est Cr Clr Drug Dosing Est GFR ( Amer) Est GFR (Non-Af Amer) BUN/Creatinine Ratio Glucose POC Glucose 323 H* 307 H* Calcium Magnesium Total Bilirubin AST ALT Alkaline Phosphatase Troponin I High Sens Total Protein Albumin Globulin Albumin/Globulin Ratio 02/12/22 02/13/22 02/13/22 23:43 03:37 03:37 WBC 11.78 H RBC 4.99 Hgb 14.4 Hct 42.3 MCV 84.8 MCH 28.9 MCHC 34.0 RDW Std Deviation 45.2 RDW Coeff of Nader 14.7 H Plt Count 306 MPV 9.5 APTT PTT Ratio Sodium 138 Potassium 3.7 Chloride 100 Carbon Dioxide 30 Anion Gap 8 BUN 23 Creatinine 0.75 Est Cr Clr Drug Dosing 112.9 Est GFR ( Amer) 104.7 Est GFR (Non-Af Amer) 90.4 BUN/Creatinine Ratio 30.7 H Glucose 205 H POC Glucose 178 H Calcium 8.4 L Magnesium 2.2 Total Bilirubin 1.2 H D AST 23 ALT 33 Alkaline Phosphatase 59 Troponin I High Sens Total Protein 7.2 D Albumin 4.2 Globulin 3.0 Albumin/Globulin Ratio 1.4 02/13/22 02/13/22 02/13/22 03:37 03:37 03:55 WBC RBC Hgb Hct MCV MCH MCHC RDW Std Deviation RDW Coeff of Nader Plt Count MPV APTT 60.4 H* PTT Ratio 2.2 Sodium Potassium Chloride Carbon Dioxide Anion Gap BUN Creatinine Est Cr Clr Drug Dosing Est GFR ( Amer) Est GFR (Non-Af Amer) BUN/Creatinine Ratio Glucose POC Glucose 194 H Calcium Magnesium Total Bilirubin AST ALT Alkaline Phosphatase Troponin I High Sens 2843.7 H* Total Protein Albumin Globulin Albumin/Globulin Ratio 02/13/22 02/13/22 07:18 11:35 WBC RBC Hgb Hct MCV MCH MCHC RDW Std Deviation RDW Coeff of Nader Plt Count MPV APTT PTT Ratio Sodium Potassium Chloride Carbon Dioxide Anion Gap BUN Creatinine Est Cr Clr Drug Dosing Est GFR ( Amer) Est GFR (Non-Af Amer) BUN/Creatinine Ratio Glucose POC Glucose 180 H 155 H Calcium Magnesium Total Bilirubin AST ALT Alkaline Phosphatase Troponin I High Sens Total Protein Albumin Globulin Albumin/Globulin Ratio Diagnostic Findings Telemetry personally reviewed: Sinus rhythm. Four beat run of ventricular tachycardia this morning. No sustained arrhythmia. ECG personally reviewed 02/13/2022: Sinus rhythm 79 beats per minute. PVCs. LVH. Lateral T-wave abnormality. Medications Administered Current Inpatient Medications Acetaminophen (Acetaminophen 500 Mg Tab) 1,000 mg PO Q8 PRN PRN Reason: Pain or Fever Stop: 03/14/22 15:45 Last Admin: 02/12/22 23:55 Dose: 1,000 mg Documented by: Aspirin (Aspirin 81 Mg Ectab) 81 mg PO QAM [facility] Stop: 03/14/22 09:10 Last Admin: 02/13/22 07:55 Dose: 81 mg Documented by: Atorvastatin Calcium (Atorvastatin 40 Mg Tab) 80 mg PO QAM [facility] Stop: 03/14/22 09:10 Last Admin: 02/13/22 07:53 Dose: 80 mg Documented by: Carvedilol (Carvedilol 3.125 Mg Tab) 3.125 mg PO BID [facility] Stop: 03/14/22 20:59 Last Admin: 02/13/22 07:53 Dose: 3.125 mg Documented by: Dextrose (Dextrose 50% 50 Ml Syringe) 25 - 50 ml IV UD PRN; Protocol PRN Reason: Hypoglycemia Protocol Stop: 03/14/22 06:16 Furosemide (Furosemide 40 Mg/4 Ml Vial) 40 mg IV BID [facility] Stop: 03/14/22 20:59 Last Admin: 02/13/22 07:54 Dose: 40 mg Documented by: Glucagon (Glucagon For Inj 1 Mg Vial) 1 mg SQ UD PRN; Protocol PRN Reason: Hypoglycemia Protocol Stop: 03/14/22 06:16 Glucose (Glucose 10 Tabs/Tube) 4 - 8 tabs PO UD PRN; Protocol PRN Reason: Hypoglycemia Protocol Stop: 03/14/22 06:16 Glucose (Glucose 40% Gel 15 Gm Tube) 15 - 30 gm PO UD PRN; Protocol PRN Reason: Hypoglycemia Protocol Stop: 03/14/22 06:16 Heparin Sodium/Dextrose (Heparin Sodium/Dextrose) 25,000 units in 500 mls @ 27 mls/hr IV .[id number] [facility]; Protocol Stop: 03/14/22 14:59 Last Admin: 02/13/22 06:06 Dose: 1,650 units/hr, 33 mls/hr Documented by: Insulin Aspart (Insulin Aspart Per Unit) 0 units SC ACHS [facility] Stop: 03/14/22 12:29 Last Admin: 02/13/22 12:03 Dose: 8 units Documented by: Insulin Glargine (Lantus Per Unit Charge) 25 units SQ QAM [facility] Stop: 03/16/22 08:59 Insulin Glargine (Lantus Per Unit Charge) 0 units SQ HS [facility]; Protocol Stop: 03/15/22 20:59 Melatonin (Melatonin 3 Mg Tab) 3 mg PO HS PRN PRN Reason: Sleep Stop: 03/14/22 19:19 Miscellaneous (Carbohydrates For Hypoglycemia ) 15 - 30 gm PO UD PRN PRN Reason: Hypoglycemia Protocol Stop: 03/14/22 06:16 Miscellaneous Information (Pharmacy Glycemic Mgmt Consult) 1 ea N/A UD PRN PRN Reason: Consult Stop: 03/14/22 09:10 Pantoprazole Sodium (Pantoprazole 40 Mg Tab) 40 mg PO DAILY PRN PRN Reason: Gi Upset Stop: 03/14/22 09:14 Sacubitril/Valsartan (Valsartan/Sacubitril 26/24mg Tab) 1 tab PO BID [facility] Stop: 03/15/22 08:59 Last Admin: 02/13/22 07:54 Dose: 1 tab Documented by: Spironolactone (Spironolactone 25 Mg Tab) 25 mg PO QAM [facility] Stop: 03/15/22 08:59 Last Admin: 02/13/22 07:54 Dose: 25 mg Documented by: PG Care Time/CCT Total # of Minutes Spent Total Time Spent with Patient: Total time spent is greater than 50% in coordination of care (as documented) at patient's floor/unit and/or counseling patient: Coding Level of Care Code 47378 Subseq Hosp Care Lvl 3 Diagnoses Acute HFrEF (heart failure with reduced ejection fraction) I50.21 Non-ST elevation (NSTEMI) myocardial infarction I21.4 Multi-vessel coronary artery stenosis I25.10 S/P coronary artery stent placement Z95.5 Hypertension I10 Hypertension type: essential hypertension Hyperlipemia E78.5 Hyperlipidemia type: unspecified Ischemic cardiomyopathy I25.5 (1) Hypertension Hypertension type: essential hypertension Qualified Code(s): I10 - Essential (primary) hypertension (2) Hyperlipemia Hyperlipidemia type: unspecified Qualified Code(s): E78.5 - Hyperlipidemia, unspecified
[2022-02-13] MEDS: LANTUS PER UNIT CHARGE SQ SCH (20:41)
--- NOTE | 2022-02-14 05:53 | Electrocardiogram Report ---
Test Reason : Blood Pressure : / mmHG Vent. Rate : 130 BPM Atrial Rate : 130 BPM P-R Int : 168 ms QRS Dur : 110 ms QT Int : 296 ms P-R-T Axes : 062 -08 079 degrees QTc Int : 435 ms Sinus tachycardia Possible Left atrial enlargement Nonspecific ST and T wave abnormality Abnormal ECG When compared with ECG of 18-NOV-2020 06:30, Vent. rate has increased BY 53 BPM QRS duration has increased Nonspecific T wave abnormality, worse in Inferior leads Confirmed by Fletcher Young ([id number]) on 02/14/2022 5:53:16 AM Referred By: REFERRED SELF Confirmed By:Fletcher Young
[2022-02-14] MEDS: INSULIN ASPART PER UNIT SC SCH ×4 (06:04→20:34)
--- NOTE | 2022-02-14 06:04 | Electrocardiogram Report ---
Test Reason : Blood Pressure : / mmHG Vent. Rate : 107 BPM Atrial Rate : 107 BPM P-R Int : 174 ms QRS Dur : 114 ms QT Int : 374 ms P-R-T Axes : 057 -17 086 degrees QTc Int : 499 ms Sinus tachycardia Nonspecific ST and T wave abnormality Abnormal ECG When compared with ECG of 12-FEB-2022 05:08, No significant change Confirmed by Fletcher Young ([id number]) on 02/14/2022 6:04:27 AM Referred By: REFERRED SELF Confirmed By:Fletcher Young
--- NOTE | 2022-02-14 06:11 | Electrocardiogram Report ---
Test Reason : Blood Pressure : / mmHG Vent. Rate : 095 BPM Atrial Rate : 095 BPM P-R Int : 120 ms QRS Dur : 074 ms QT Int : 368 ms P-R-T Axes : 077 057 000 degrees QTc Int : 462 ms Normal sinus rhythm T wave abnormality, consider inferolateral ischemia Abnormal ECG When compared with ECG of 12-FEB-2022 08:57, T wave inversion now evident in Inferolateral leads Confirmed by Fletcher Young ([id number]) on 02/14/2022 6:11:39 AM Referred By: REFERRED SELF Confirmed By:Fletcher Young
[2022-02-14] MEDS: VALSARTAN/SACUBITRIL 26/24MG TAB PO SCH ×2 (07:38→20:36)
[2022-02-14] MEDS: carvediloL 3.125 MG TAB PO SCH ×2 (07:38→20:33)
[2022-02-14] MEDS: ATORVASTATIN 40 MG TAB PO SCH (07:39)
[2022-02-14] MEDS: ASPIRIN 81 MG ECTAB PO SCH (07:39)
[2022-02-14] MEDS: SPIRONOLACTONE 25 MG TAB PO SCH (07:39)
[2022-02-14] MEDS: FUROSEMIDE 40 MG/4 ML VIAL IV SCH ×2 (07:39→20:34)
[2022-02-14] MEDS: LANTUS PER UNIT CHARGE SQ SCH ×2 (07:50→20:51)
[2022-02-14 08:09] LABS: Partial Thromboplastin Ratio 2.1
[2022-02-14 08:10] LABS: Partial Thromboplastin Time 59.1 Seconds (21.0-31.0)
[2022-02-14 08:14] LABS: BUN Creatinine Ratio 26.9 (10-20); Creatinine Clr Calc Pharmacy 106.9 ml/min; Est GFR (African American) 99.9 ml/min; Est GFR (Non-African American) 86.2 ml/min; Potassium 3.8 mmol/L (3.5-5.1)
--- NOTE | 2022-02-14 10:35 | Electrocardiogram Report ---
Test Reason : Blood Pressure : / mmHG Vent. Rate : 100 BPM Atrial Rate : 100 BPM P-R Int : 186 ms QRS Dur : 114 ms QT Int : 380 ms P-R-T Axes : 051 -28 113 degrees QTc Int : 490 ms Normal sinus rhythm PVC Moderate voltage criteria for LVH, may be normal variant Abnormal ECG When compared with ECG of 12-FEB-2022 11:02, PVC is now present T wave inversion now evident in Lateral leads Confirmed by Fletcher Young ([id number]) on 02/14/2022 10:35:19 AM Referred By: REFERRED SELF Confirmed By:Fletcher Young
[2022-02-14] MEDS: HEPARIN SODIUM/DEXTROSE 25,000 UNITS/500 ML BAG IV SCH (11:26)
--- NOTE | 2022-02-14 11:28 | Electrocardiogram Report ---
Test Reason : Blood Pressure : / mmHG Vent. Rate : 079 BPM Atrial Rate : 079 BPM P-R Int : 178 ms QRS Dur : 116 ms QT Int : 460 ms P-R-T Axes : 042 -26 115 degrees QTc Int : 527 ms Poor data quality, interpretation may be adversely affected Sinus rhythm with occasional Premature ventricular complexes Left ventricular hypertrophy Abnormal ECG When compared with ECG of 12-FEB-2022 14:18, No significant change Confirmed by Fletcher Young ([id number]) on 02/14/2022 11:27:43 AM Referred By: REFERRED SELF Confirmed By:Fletcher Young
[2022-02-14] MEDS ORDERED: niCARdipine HCL INJ 2.5 MG/ML 10 ML AMP ONE (12:45)
[2022-02-14] MEDS ORDERED: MIDAZOLAM HCL 1 MG/ML 2ML VIAL ONE (12:45)
[2022-02-14] MEDS ORDERED: fentaNYL citrate 100 MCG/2 ML VIAL ONE (12:45)
[2022-02-14] MEDS ORDERED: HEPARIN (PORCINE) 1000 UNIT/ML 10 ML (CATH LAB USE ONLY) ONE (12:45)
[2022-02-14] MEDS ORDERED: NITROGLYCERIN/D5W 100MCG/ML 20ML SYR ONE (12:46)
--- NOTE | 2022-02-14 13:41 | Pre Anesthesia Assessment ---
Date of Service February 14, 2022 Pre Sedation Assessment Vital Signs Temp Pulse Pulse Resp BP Pulse Ox 02/14/22 12:44 58 L 16 117/64 96 02/14/22 12:43 98.1 F 66 20 106/64 94 02/14/22 08:00 70 02/14/22 07:15 98.2 F 72 19 107/74 96 02/14/22 02:55 97.9 F 73 18 122/79 98 02/14/22 00:10 62 02/13/22 23:13 97.9 F 64 18 104/54 L 93 02/13/22 19:00 98.4 F 74 20 123/76 95 02/13/22 16:00 68 02/13/22 15:50 97.5 F L 84 18 123/80 95 Cardiovascular RRR, no murmur, no edema Respiratory normal respiratory effort, lungs clear to auscultation Pre-Sedation Airway Assessment Smoking Status: Former smoker Hx Sleep Apnea: No Hx Difficult Intubation: No Short, Thick Neck: No Thyromental Distance: > or= 3.5 Finger Breadths Oral Cavity: + WNL Mallampati Class: II ASA: ASA2 NPO Status Date of Last Intake of Fluids: 02/13/22 Time of Last Intake of Fluids: 23:55 Date of Last Intake of Solid Food: 02/13/22 Time of Last Intake of Solid Foods: 23:55 Procedure Planning Contraindications for Sedation: none Current Medications Reviewed: Yes Notes The planned sedation has been discussed with the patient. Informed Consent was obtained. I have identified the patient, determined the appropriateness of sedation and have assessed the patient immediately prior to the procedure. All medicine(s) and interventions are by my order.
--- NOTE | 2022-02-14 14:17 | Post Anesthesia Assessment ---
Date of Service February 14, 2022 Post Sedation Assessment Vital Signs Temp Pulse Pulse Resp BP Pulse Ox 02/14/22 12:44 58 L 16 117/64 96 02/14/22 12:43 98.1 F 66 20 106/64 94 02/14/22 08:00 70 02/14/22 07:15 98.2 F 72 19 107/74 96 02/14/22 02:55 97.9 F 73 18 122/79 98 02/14/22 00:10 62 02/13/22 23:13 97.9 F 64 18 104/54 L 93 02/13/22 19:00 98.4 F 74 20 123/76 95 02/13/22 16:00 68 02/13/22 15:50 97.5 F L 84 18 123/80 95 Recovery Score Activity: Moves 4 extremities Respiration: Deep Breath/Cough Circulation: +/-20% PreAnes Value Consciousness: Fully Awake Oxygen Saturation: O2 needed for >90% Discharge Sedation Level of Care: Fast Track Phase II Post Sedation Plan On clinical assessment, the patient appears to have tolerated the sedation without complications. Patient is recovering as anticipated. Patient will continue to be monitored by nursing and may be discharged when sedation discharge criteria are met per below protocol. Upon Completions of procedure up to 15 minutes continue every 5 minute vital signs and the P.A.R. score; then discharge to a Phase I or Fast Track to Phase II per the following guidelines: * Discharge Patient to appropriate Phase II area if PAR is 8 or greater or return to pre- procedure baseline. The post - procedure orders will be as directed. * If PAR score is less than 8 or not return to pre-procedure baseline then patient will follow Phase I monitoring till PAR is reached for Phase II. The Phase I may be done in procedure room or may call to secure a Phase I area. * If naloxone or flumazenil are used for reversal, hold in Phase I for continued monitoring from when last reversal dose was given for a minimum of 60 minutes or longer pending the nurse and/or physician discretion of patient condition before discharge to Phase II. Please call the Sedation Physician to re-evaluate and complete post-note for discharge to Phase II area. Do NOT discharge from procedure sedation or Phase 1 until post- sedation evaluation note is complete by procedure /sedation MD Sedation Discharge Instructions to be given to the patient at discharge to home.
--- NOTE | 2022-02-14 14:34 | Cardiac Catheterization ---
[facility] Data: Hole Puncher Strap Cardiac Status Clinical evaluation leading to the procedure CAD Presenation: Non STEMI Anginal Classification: CCS IV Heart Failure: NYHA Class: CCS IV Diagnostic Physicians Name: Luis Norris MD Closure Device Recommendations: Medical Therapy and/or Counseling Cardiac Cath Procedure Full Procedure Date February 14, 2022 Pre-Procedure Diagnosis Pre-Procedure Diagnosis: Non STEMI AUC Score AUC Score: 7 Post-Procedure Diagnosis Post-Procedure Diagnosis: Severe CAD and Successful PCI Procedure(s) Performed Procedure(s) Performed: Coronary Angiography and Left Heart Cath Diamond Die Driller Luis Norris MD Computer Systems Software Engineer(s) [place] Estimated Blood Loss Estimated Blood Loss: 5 Medication(s) Medication(s): Fentanyl, Heparin, Lidocaine 1%, Nicardipine, Nitroglycerin and Versed Summary of Findings Indication: NSTEMI, acute heart failure Access: 6F for right radial artery Catheters: Esparto, diagnostic JL 3.5 Findings: LM -large caliber, no significant disease LAD -medium caliber, very tortuous, 30% mid segment stenosis at takeoff of D1, distal vessel wraps around apex. Large D1 tortuous without significant disease. Circumflex -nondominant, angulated takeoff, very tortuous. Tortuous high OM1 w ith 30% ostial disease and widely patent proximal stent RCA -known 100% earlymid chronic total occlusion right PLB fills via [id number]-jhthy collaterals. LVEDP -20 Arterial Closure: TR band Summary: 1. Chronic multivessel coronary artery disease -100% chronic total occlusion of mid RCA with [id number] collaterals. Widely patent OM2 stent -30% mid LAD at bifurcation with D1 2. Elevated left-sided filling pressures (LVEDP 20) Recommendations: To PCU for continued monitoring Continue IV diuresis Continue GDMT Hemodynamics Rest Ao:: 125/81/90 Final Ao: 126/75/120 LV: 118/18 Recommendations Recommendations: Medical Therapy and/or Counseling Specimens Specimens: None Radiation Exposure (mGy) 1372 Contrast (mls) 30 Anesthesia Moderate [id number] Procedural Complication(s) None Disposition PCU I attest to the content of the Intraoperative Record and any orders documented therein. Any exceptions are noted below. PinticsG Card Cath Procedure Codes Cardiac Catheterization Procedure 1: Cardiovascular Cath Procedures: 31374 Coronaries and LHC (+/-LV) Moderate Sedation Procedure 1: Sedation/Anesthesia: 93305 Mod Sedation by the same physician;Init15 Min Child Age 5 & Up PG Care Time/CCT Total # of Minutes Spent Total Time Spent with Patient: Total time spent is greater than 50% in coordination of care (as documented) at patient's floor/unit and/or counseling patient:
--- NOTE | 2022-02-14 17:15 | Hospitalist Progress Note ---
Date of Service February 14, 2022 Assessment & Plan (1) Acute CHF: Plan: 56 y/o F Hx HTN, HLD, DM II,past COVID, CAD/MS, systolic CHF. ON arrival acute systolic heart failure and acute respiratory failure with hypoxia requiring BiPAP to maintain an adequate saturation. CXR was consistent with pulmonary edema. EKG demonstrated sinus tach without acute ischemic changes. now negative 3 liters from admission elevated troponin is from demand ischemia versus NSTEMI cardiology is following 1) acute systolic heart failure clinically improving-echocardiogram from 02/12/2022 shows EF of 35 to 40%. Severe hypokinesis of the inferolateral and anterolateral renteria. No significant valvular abnormalities Continues on aspirin atorvastatin twice daily Lasix, carvedilol 3.125 twice daily spironolactone and Entresto twice daily. 2) CAD - elevated trop discussion of demand ischemia versus NSTEMI. Patient on heparin drip. patient with known coronary disease. Patient now with symptoms associated with her systolic dysfunction. Cardiology discussion risk stratification with cardiac cath 12/15/21 with same results as Cardiac cath from November 2020 shows 100% occlusion of the RCA with [id number] collaterals. 95% occlusion of a large proximal acute obtuse marginal single drug-eluting stent patent 3) DM II - sliding scale (2) Hypertension: (3) Hyperlipemia: (4) DM II (diabetes mellitus, type II), controlled: Admission and Anticipated Discharge Date Admission Date: February 12, 2022 Subjective pt is tearful being overwhelmed by all of her health problems, did have cardiac cath 02/14/22 with no new findings but total right that is chronic. Review of Systems Review of Systems: Mild distress and fatigue no headache, no visual changes no speech or swallowing issues no chest pain, pressure or palpitations Still some dyspnea on exertion, cough or wheezes, still requiring oxygen no abdominal pain, nausea or vomiting, diarrhea or constipation no dysuria, hematuria or frequency no focal joint pain remains with lower extremity swelling no back pain, CVA tenderness or radicular pain no bruising, bleeding or rashes no focal signs of weakness or numbness or altered sensation no complaints of anxiety or depression.. Physical Exam Physical Exam: The patient appeared well nourished and normally developed. Vital signs as documented. Head exam is normocephalic atraumatic Neck is with mild JVD, thyromegaly, or carotid bruits. Lungs continue with rales at the base which clear after inspiration Cardiac exam, Rhythm is regular.. No murmurs, rubs or gallops. Abdominal exam reveals normal bowel sounds, soft non tender, no masses Extremities are trace to 1+ edematous and both pedal pulses are present Neurologic exam is alert and oriented, no focal loss of strength or sensation Skin is without bruises or rashes Psychologically is without concerns for anxiety or depression. Results & Data Results & Data ([facility]) Vital Signs (Past 12 Hours) Vital Signs Temp Pulse Pulse Resp BP BP Pulse Ox 02/14/22 16:03 97.7 F 77 20 103/61 93 02/14/22 16:00 70 02/14/22 15:33 97.9 F 68 20 109/72 91 02/14/22 15:03 97.5 F L 62 20 119/74 93 02/14/22 14:48 97.9 F 55 L 20 107/62 94 02/14/22 14:33 97.7 F 78 20 120/80 94 02/14/22 14:15 64 16 115/64 85 L 02/14/22 12:44 58 L 16 117/64 96 02/14/22 12:43 98.1 F 66 20 106/64 94 02/14/22 08:00 70 02/14/22 07:15 98.2 F 72 19 107/74 96 PG Care Time/CCT Total # of Minutes Spent Total Time Spent with Patient: Total time spent is greater than 50% in coordination of care (as documented) at patient's floor/unit and/or counseling patient: Coding Level of Care Code 31469 Subseq Hosp Care Lvl 2 Diagnoses Acute CHF I50.9 Hypertension I10 Hypertension type: essential hypertension Hyperlipemia E78.5 Hyperlipidemia type: unspecified DM II (diabetes mellitus, type II), controlled E11.9 (1) Hyperlipemia Hyperlipidemia type: unspecified Qualified Code(s): E78.5 - Hyperlipidemia, unspecified (2) Hypertension Hypertension type: essential hypertension Qualified Code(s): I10 - Essential (primary) hypertension
--- NOTE | 2022-02-14 17:29 | Cardiology Progress Note ---
Date of Service February 14, 2022 Assessment & Plan (1) Acute HFrEF (heart failure with reduced ejection fraction): Plan: 2. 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 Elevated troponin 4. Type 2 diabetes 5. Hypertension No new high risk disease on repeat cardiac cath to explain acute decompensated heart failure. LV filling pressures remain elevated Can discontinue heparin infusion continue IV diuretics today. Likely transition to p.o. Lasix tomorrow Continue current Entresto, carvedilol, spironolactone Agree with SGLT2 as an outpatient Continue aspirin, statin Admission and Anticipated Discharge Date Admission Date: February 12, 2022 Subjective Breathing improved from admission. Denies any chest pain. No palpitations. No other new concerns. Underwent cardiac cath this afternoon showing no acute high risk disease. Prior OM stent widely patent Review of Systems Review of Systems: All systems reviewed & are unremarkable except as noted in HPI & below Physical Exam Physical Exam: General: Comfortable HEENT: Sclerae anicteric Lungs: Few crackles at bases bilaterally Cardiac: Regular rate and rhythm, no murmurs. Vascular: TR band in place Abdomen: Soft, nontender Extremities: Well perfused, no peripheral edema Neuro: Nonfocal Psych: Alert orient x3, normal affect and mood Results & Data ([facility]) Vital Signs (Past 12 Hours) Vital Signs Temp Pulse Pulse Resp BP BP Pulse Ox 02/14/22 16:03 97.7 F 77 20 103/61 93 02/14/22 16:00 70 02/14/22 15:33 97.9 F 68 20 109/72 91 02/14/22 15:03 97.5 F L 62 20 119/74 93 02/14/22 14:48 97.9 F 55 L 20 107/62 94 02/14/22 14:33 97.7 F 78 20 120/80 94 02/14/22 14:15 64 16 115/64 85 L 02/14/22 12:44 58 L 16 117/64 96 02/14/22 12:43 98.1 F 66 20 106/64 94 02/14/22 08:00 70 02/14/22 07:15 98.2 F 72 19 107/74 96 PG Care Time/CCT Total # of Minutes Spent Total Time Spent with Patient: Total time spent is greater than 50% in coordination of care (as documented) at patient's floor/unit and/or counseling patient: Coding Level of Care Code 19567 Subseq Hosp Care Lvl 3 Diagnoses Acute HFrEF (heart failure with reduced ejection fraction) I50.21
[2022-02-15 08:40] LABS: Partial Thromboplastin Time 26.2 Seconds (21.0-31.0)
[2022-02-15 08:46] LABS: Hematocrit (blood only) 45.6 % (37-47); Hemoglobin 15.3 g/dL (12.0-16.0); Mean Corpuscular Hemoglobin 28.1 pg (25-34); Mean Corpuscular Hgb Conc 33.6 g/dL (32-36); Mean Corpuscular Volume 83.8 fL (80-100); Mean Platelet Volume 9.5 fL (7.4-10.4); Platelet Count 300 K/uL (130-400); RDW Standard Deviation 45.3 fL (36.4-46.3); Red Blood Count 5.44 M/uL (4.2-5.4); White Blood Count 9.75 K/uL (4.8-10.8)
[2022-02-15 09:00] LABS: BUN Creatinine Ratio 27.3 (10-20); Calcium 9.4 mg/dl (8.5-10.1); Creatinine Clr Calc Pharmacy 107.8 ml/min; Est GFR (African American) 101.5 ml/min; Est GFR (Non-African American) 87.5 ml/min; Potassium 3.7 mmol/L (3.5-5.1)
[2022-02-15] MEDS: INSULIN ASPART PER UNIT SC SCH ×2 (09:04→12:40)
[2022-02-15] MEDS: LANTUS PER UNIT CHARGE SQ SCH (09:05)
[2022-02-15] MEDS: FUROSEMIDE 40 MG/4 ML VIAL IV SCH (09:08)
[2022-02-15] MEDS: ATORVASTATIN 40 MG TAB PO SCH (09:12)
[2022-02-15] MEDS: carvediloL 3.125 MG TAB PO SCH (09:12)
[2022-02-15] MEDS: SPIRONOLACTONE 25 MG TAB PO SCH (09:12)
[2022-02-15] MEDS: ASPIRIN 81 MG ECTAB PO SCH (09:12)
[2022-02-15] MEDS: VALSARTAN/SACUBITRIL 26/24MG TAB PO SCH (09:13)
--- NOTE | 2022-02-15 09:55 | Pharmacy Report ---
Pharmacy Glycemic Short Note 2 - Date of Service February 15, 2022 - Glycemic Short BSG Results (Last 24 hours): 02/14/22 02/14/22 02/14/22 10:33 11:31 16:07 Glucose POC Glucose 192 H 184 H 169 H 02/14/22 02/15/22 02/15/22 20:28 07:25 07:53 Glucose 155 H POC Glucose 138 H 157 H OUTPATIENT ANTIDIABETIC REGIMEN: * glimepiride 8 mg daily, metformin 1 gm bid A1c 9.1% - 12/12/2021 ASSESSMENT: 02/15/22: * BSGs reasonably controlled yesterday, ranging 138-184 mg/dL * Received 52 units of insulin (35 units of basal and 17 units of prandial/correctional bolus) * POD #1 s/p cardiac catheterization * Fasting BSG of 157 mg/dL this morning, will increase basal today 02/13/22: * Patient received total 98 units of insulin yesterday; 50 units basal and 48 units bolus. * BSGs yesterday were [phone] mg/dl * Fasting BSG today was 205 mg/dl. Basal 25 units added this AM and HS dose scale ordered based on BSG for tonight. * Pre-lunch BSG trended down to 155 mg/dl. * Novolog continued at stress of 3. Background 02/12/22: * 56 year old female, admitted with shortness of breath/CHF. Patients' BSG elevated in 200-300s on admission. Per outpatient notes, PCP has been adjusting home medications for diabetes. Patient however is refusing injectable medications/insulin per outpatient notes * Plan to start stress of 3 novolog for now, and start basal 0.2 units/kg for this AM as patient is NPO PLAN FOR INPATIENT GLYCEMIC CONTROL: * Hold outpatient oral diabetes medications * Basal insulin * Lantus 25 units SQ QAM * Lantus 20-25 units SC HS (see EHR for details) * Bolus insulin * NovoLog per scale ACHS or Q6hrs while NPO * Goal Range: Low 110 mg/dL - High 140 mg/dL * Correction Factor: 15 mg/dL/unit * Nutritional / Prandial insulin per carb ratio of 1 unit per 4 grams CHO consumed
--- NOTE | 2022-02-15 11:13 | Discharge Summary ---
Date of Service February 15, 2022 Admission HPI Per Admitting Provider 56 y/o F Hx HTN, HLD, DM II, critical COVID, CAD/DE, systolic CHF. She described progressive SOB pronounced with exertion and lying flat x 2 weeks. She has not had CP or a cough. On arrival to the ER, she required BiPAP to maintain an adequate saturation. The pt was not aware that she has a prior diagnosis of CHF and does not take diuretics. Labs were notable for leukocytosis, hyperglycemia and a trop of 66. CXR was consistent with pulmonary edema. EKG demonstrated sinus tach without acute ischemic changes. PMH: 1) HTN 2) HLD 3) DM II 4) CAD - DE 2020 - multivessel disease inc 100% RCA stenosis with collaterals. JOAN to OM1. 5) COVID with resp failure 2020 6) Obese 7) PCOS 8) CHF - EF 40-45% 2020 9) Fatty liver 10) GERD Surgical: Limited to C section Social: Quit smoking 1999. Does not drink alcohol. Family: Mother - breast CA Father alive - CAD Principal Diagnosis Acute on chronic heart failure with reduced ejection fraction Discharge Exam General: A&Ox3. NAD. Cooperative. HEENT: Atraumatic, normocephalic. Pulm: CTAB A&P. -wheezes, -rales, -rhonchi. Symmetrical chest rise. No increase in work of breathing. No respiratory distress. Cardiac: RRR, -mrg. Radial pulses intact and symmetrical. Abdominal: Nontender, nondistended, soft. BS present. Extremities: Trace left pretibial edema, Discharge Data Allergies Allergy/AdvReac Type Severity Reaction Status Date / Time No Known Allergies Allergy Verified 01/10/22 14:10 Consultations 02/12/22 05:57 ED Decision to Admit Stat 02/12/22 09:11 Consult Cardiology Routine 02/12/22 15:30 [facility] CHF Program Referral Routine Procedures Performed Operation Date: 02/14/22 13:00 Actual Procedures p Cineradiography w/Routine Exam - Ernesto Norris MD p Cath, Left with Cors and Vent - Ernesto Norris MD Ordered Studies 02/14/22 06:57 CL Cath Imgs for PACS use only Routine Hospital Course (1) Acute CHF: 56 y/o F Hx HTN, HLD, DM II,past COVID, CAD/DE, systolic CHF. Nikky presented with acute on chronic congestive heart failure with reduced ejection fraction, likely in the setting of increased salt load from soy sauce/high salt meals prior to onset of symptoms. She did have an elevated troponin, and underwent a cardiac catheterization. Catheterization did not show any acute disease, does have chronic total occlusion of mid RCA with collaterals, widely patent OM2 stent, and 30% mid LAD stenosis. She clinically improved and was at her baseline level of health day of discharge, and felt comfortable discharge to PCP and cardiology follow-up. Was continued on medications as below. To do as outpatient: 1. Continue carvedilol 3.125 mg twice daily 2. Continue spironolactone 25 mg daily 3. Continue Entresto twice daily 4. Continue furosemide 40 mg daily 5. BMP within 1 week to follow potassium/creatinine and adjust medications as needed 6. Discontinue olmesartan, this has been replaced by Entresto 7. Follow-up with PCP for addition of SGLT2 as outpatient Acute systolic heart failure with reduced ejection fraction Echo 02/12: EF 35-40%, hypokinesis of inferior lateral and anterolateral renteria. No valvular disease - CXR was consistent with pulmonary edema. EKG demonstrated sinus tach without acute ischemic changes. -Elevated troponin, underwent cardiac cath. No acute disease. 100% occlusion mid RCA chronic with [id number] collaterals, widely patent OM 2, 30% mid LAD. No signs of acute occlusion Clinically returned to baseline with diuresis, continued on medications as above 2) CAD - elevated trop discussion of demand ischemia versus NSTEMI. On admission placed on heparin drip. patient with known coronary disease. Patient now with symptoms associated with her systolic dysfunction. Cardiology discussion risk stratification with cardiac cath 12/15/21 with same results as Cardiac cath from November 2020 shows 100% occlusion of the RCA with [id number]-yvvys collaterals. 95% occlusion of a large proximal acute obtuse marginal single drug-eluting stent patent Repeat cath as above 3) DM II, received basal bolus SSI with adequate glycemic control during admission Recommended for addition of SGLT2 as outpatient at follow-up Was ambulating independently in normal state of health on time of discharge, patient denied chest pain and felt her breathing was normal although she does note that her breathing had chronically declined since COVID 2 years ago. Breathing at time of discharge was normal for her over the last several months, and unlabored. (2) Hypertension: (3) Hyperlipemia: (4) DM II (diabetes mellitus, type II), controlled: Total Time Total Time Spent Total Time Spent (In Minutes): Time spend day of discharge 40 minutes including direct patient care, documentation, review of labs and images, and coordination of care. Discharge Plan Discharge Items Patient Disposition: Home - Self-Care Reason For Visit: SOB/ADMIT Discharge Diagnosis: Acute on chronic congestive heart failure with reduced ejection fraction Condition on Discharge: Fair Activity: Resume your previous activity Non-emergency contact: Primary Care Provider and Customer Strategy Manager Call non-emergency contact if: you have any medication questions and your symptoms worsen Follow-up/Referrals: Terri Sherman DO [Primary Care Provider] - Josephine Barroso PA-C [Physician Foam Rubber Molder] - 02/21/22 2:00 pm (Congestive Heart Failure Program Appointment Information Early follow up is essential to managing your heart failure. An appointment has been scheduled for you with the [facility] Heart Failure Program within 7 days of discharge. Anticipate this visit to be 30-60 minutes long. Please expect a link wire fabric machine operator phone call from one of our nurses approximately 48 hours from discharge. They will also be placing an order for lab work to be completed 1-2 days prior to your heart failure follow up appointment. Please be sure to have this done so we can go over the results when you come in. Office Location The cardiology office building is located in front of the hospital at [address]. Bring the following with you to your follow-up doctor appointments: Please bring your daily weight log any discharge paperwork all of your medication bottles with you to this visit. ) Diet: Low Sodium (2gm) Addtl Attending Provider Instructions: You are seen in the hospital for shortness of breath and fluid retention consistent with an acute on chronic congestive heart failure episode. You are treated with fluid medicines and clinically improved. Your troponins, a heart marker, was elevated during admission and you had a cardiac catheterization performed which did not show any clinically significant changes from prior. You did have occlusion of your mid RCA with sfly-gm-hqrid collateral blood vessels, a widely patent prior stent, and a small amount of narrowing (30%) at the LAD. There was no evidence of acute blockage. You have had medication changes as noted below. Your olmesartan has been stopped. This is been switched to a different m edication, called Entresto, which has better benefits for heart failure with reduced ejection fraction. Please do not take any further olmesartan when you return home Please take Entresto (sacubitril/valsartan) 24-26 mg tablet twice daily. This replaces your prior olmesartan. Please take spironolactone 25 mg by mouth once daily. Please take carvedilol 3.125 mg by mouth twice daily. You are treated with a fluid medicine, furosemide, during admission and clinically improved. This is been converted to an oral pill which will likely need to be adjusted as an outpatient. Please take furosemide (Lasix) 40 mg by mouth daily, and discussed dose adjustments and follow-up with your primary care provider or supervisor communications and signals. Follow-up appointments are being scheduled with your primary care provider and supervisor communications and signals as above. You should be seen by your primary care physician within 1 week, and should have a BMP (blood work) drawn to check your creatinine and potassium and medications adjusted if needed based on these results If you develop any new or worsening symptoms including fever, chills, sweats, chest pain, chest pressure, difficulty breathing, uncontrolled nausea/vomiting, rash, wheezing, passing out or nearly passing out, bleeding, black/bloody bowel movements, or other new or concerning symptoms please call your primary care physician, or call 911 for re-evaluation in the emergency department if you are very concerned. Addtl Ems Instructor Provider Instructions: Call your Primary Care doctor if any of the following symptoms or problems start or get worse: * Shortness of breath or difficulty breathing * Wake up at night short of breath * Chest pain * Cough * Swelling of your hands, feet, or legs * More fatigued or tired with your normal activity * Palpitations - sudden fast heart beats WEIGHT * Weigh yourself every morning after using the bathroom. * Use the same scale. * Wear the same amount of clothing. * Write your weight down on a chart. * Call your Primary Care doctor if you gain more than 2-3 pounds in 1-2 days. MEDICATIONS * Use this discharge instruction sheet for medication instructions. * Take your medications at the time your doctor ordered. * Do not skip a dose of your medicines. * If you miss a dose of medicine, take it as soon as possible, but DO NOT DOUBLE A DOSE. * Read your medicine information when you get home. * Know all of the side effects of your medicine. If in doubt, ask your pharmacist * Call your Primary Care doctor's office if you have any side effects. * Be sure all of your doctors know what medicine and herbs you take (including cold, flu, and herbal medicine). Take the following with you to your follow-up doctor appointments: * Weight Chart * Medication List * List of questions Do not drink excessive alcohol, beer or wine. Pending Studies at Discharge: No Stand-Alone Forms: [facility], Smoking Cessation Medications and DC Order Prescriptions: New Entresto 24-26 mg Tablet 1 tab PO BID Qty: 60 RF: 0 spironolactone 25 mg Tablet 25 mg PO QAM 30 Days Qty: 30 RF: 0 carvedilol 3.125 mg Tablet 3.125 mg PO BID Qty: 30 RF: 0 furosemide 40 mg tablet 40 mg PO DAILY Qty: 30 RF: 0 Continued Auto Titrating CPAP Misc See Rx Instructions .ROUTE .COMPLEX Qty: 1 RF: 0 atorvastatin 80 mg tablet 80 mg PO QAM Qty: 90 RF: 2 nystatin 100,000 unit/gram cream 1 applic topical BID Qty: 30 RF: 0 fluconazole [Diflucan] 150 mg tablet 150 mg PO ONCE 1 Days Qty: 1 RF: 0 glimepiride 4 mg tablet 8 mg PO QAM Qty: 180 RF: 1 metformin 500 mg tablet extended release 24 hr 1,000 mg PO BID Qty: 360 RF: 1 omeprazole 20 mg capsule,delayed release(DR/EC) 20 mg PO DAILY PRN (Reason: Gi Upset) RF: 0 CPAP Supplies Misc 1 ea .Route HS Qty: 1 RF: 0 Tradjenta 5 mg tablet 5 mg PO QAM Qty: 90 RF: 3 aspirin [Adult Low Dose Aspirin] 81 mg tablet,delayed release (DR/EC) 81 mg PO QAM RF: 0 Discontinued olmesartan 20 mg tablet 20 mg PO QAM Qty: 90 RF: 1 Discharge Orders: Discharge Order (Routine); Ordered 02/15/22 Ordered By: Willi Ordaz Admission Data Admit Date/Time: 02/12/22 06:17 Attending Provider: Willi Ordaz Admit Provider: Driss Morris Primary Care Provider: Terri Sherman Other Providers: Ernesto Norris ; Josephine Barroso ; Driss Morris Coding Level of Care Code D/C DAY MANAGEMENT >30 MINS Diagnoses Acute CHF I50.9 Hypertension I10 Hypertension type: essential hypertension Hyperlipemia E78.5 Hyperlipidemia type: unspecified DM II (diabetes mellitus, type II), controlled E11.9
--- NOTE | 2022-02-15 21:47 | Electrocardiogram Report ---
Test Reason : Blood Pressure : / mmHG Vent. Rate : 064 BPM Atrial Rate : 064 BPM P-R Int : 174 ms QRS Dur : 114 ms QT Int : 486 ms P-R-T Axes : 025 -33 105 degrees QTc Int : 501 ms Sinus rhythm with occasional Premature ventricular complexes Left axis deviation Voltage criteria for left ventricular hypertrophy Prolonged QT Abnormal ECG When compared with ECG of 13-FEB-2022 04:07, No significant change was found Confirmed by Fletcher Young ([id number]) on 02/15/2022 9:47:22 PM Referred By: REFERRED SELF Confirmed By:Fletcher Young
== END 2022-02-15 13:08 | disposition home or self-care (01) | DRG 280 ==
LOC: ED 04:52 → 2S 06:17 → SUATTDRO 06:17 → 2S 08:01

== ENCOUNTER 2022-10-20 15:21 | Observation (INO) ==
--- NOTE | 2022-10-20 15:49 | Emergency Department Note ---
History of Present Illness General Chief complaint: Chest Pain Stated complaint: CHEST PAIN EARLIER TODAY,SWEATING,HX MT Time Seen by Provider: 10/20/22 15:33 Source: patient, family ( who is at the bedside), RN notes reviewed and old records reviewed Mode of arrival: ambulatory Limitations: no limitations History of Present Illness This patient is a 57-year-old female who has a history of cardiac disease and CHF, comes in after having an episode of chest pain. She says she forgot to take her evening medications at 8:00 but remembered around 2:30 in the morning took them then. She then bumped her normal morning meds to 1132 at 1145. She felt okay and was taking care of her horses but developed chest pain around 1130. Nothing felt better or worse she did get diaphoretic. There is no radiation. She had no injury no fever or chills or cough no abdominal pain she does have a history of CHF and was admitted in February but says her weights been stable since then she has no new lower extremity edema no blood or melena stool. She did have COVID in 2020 was hospitalized for 17 days went home on oxygen was getting increasing short of breath and came back to the hospital and tells me she had an MT and a stent at the time. She is followed by Dr. Norris. Home Medications Medication Instructions Recorded Confirmed Type aspirin 81 mg tablet,delayed 81 mg PO QAM 08/24/20 10/20/22 History release (Adult Low Dose Aspirin) magnesium oxide 400 mg PO DAILY #90 tabs 03/13/22 10/20/22 Rx atorvastatin 80 mg tablet 80 mg PO QAM #90 tabs 04/25/22 10/20/22 Rx spironolactone 25 mg tablet 25 mg PO QAM #90 tabs 05/01/22 10/20/22 Rx furosemide 20 mg tablet 20 mg PO DAILY PRN weight gain #90 05/25/22 10/20/22 Rx tabs carvedilol 25 mg tablet 25 mg PO BID #180 tabs 07/10/22 10/20/22 Rx sacubitril 97 mg-valsartan 103 mg 1 tab PO BID #180 tabs 08/01/22 10/20/22 Rx tablet (Entresto) glimepiride 4 mg tablet 8 mg PO QAM #180 tabs 08/09/22 10/20/22 Rx metformin 500 mg tablet,extended 1,000 mg PO BID #360 tabs 08/09/22 10/20/22 Rx release 24 hr dapagliflozin 10 mg tablet 10 mg PO DAILY #90 tabs 10/05/22 10/20/22 Rx blood sugar diagnostic #100 ea 10/19/22 Rx nizatidine 150 mg capsule 150 mg PO BID #180 caps 10/20/22 10/20/22 Rx Allergies Allergy/AdvReac Type Severity Reaction Status Date / Time No Known Allergies Allergy Verified 09/07/22 07:43 Past Med/Surg History Medical History Acute HFrEF (heart failure with reduced ejection fraction) Acute respiratory failure Acute respiratory failure with hypoxia Chronic hypoxemic respiratory failure Diabetes mellitus, type 2 Diabetic neuropathy Diverticulosis Fatty liver GERD (gastroesophageal reflux disease) Hyperlipemia Hypertension Hypophosphatemia Ischemic cardiomyopathy Left leg swelling Multi-vessel coronary artery stenosis Non-ST elevation (NSTEMI) myocardial infarction Osteoarthritis PCOS (polycystic ovarian syndrome) Pneumonia due to COVID-19 virus (10/2020) Urinary, incontinence, stress female Surgical History Previous section (2006) S/P cardiac catheterization 02/14/22 Dr. Luis Norris- Cardiac cath- 100% occ mid RCA with [id number] collaterals, Widely patent OM2 stent, 30% mid LAD at bifurcation with D1, Elevated L sided filling pressures S/P coronary artery stent placement (11/20/20) JOAN to OM2 Family History Mother Breast cancer, Onset Age: 51 Hypertension Gall bladder disease Father Hypertension Heart disease S/P coronary artery stent placement Diabetes Sister Hypertension Gall bladder disease Denies family history of Ovarian cancer Prostate cancer Myocardial infarction Colorectal cancer Social History Smoking Status: Former smoker Tobacco Type: Cigarettes Age Started Using Tobacco: 16; Age Quit Using Tobacco: 41; packs per day: 0.5; Second Hand Exposure: No; Hx Alcohol Use: Yes Hx Substance Use: No Preferred Language: Belarusian Communication Ability: Effective Visual Impairment: No Limitations Hearing Ability: Normal Traffic Manager Required: No Beliefs That Will Affect Care: None marital status: Current Living Situation: Spouse and Family Current Living Situation Comment: SPOUSE AND SON current occupational status: employed current occupation: works for [employer] How many Children do You have: 1 Feels Safe at Home: Yes Childhood Exposure to Second-Hand Smoke: Yes (father smoked) Diet Comment: regular caffeine: No during the past year weight has: remained stable Dental Care, Regularly: No Physical Activity Frequency: Daily Physical Activity Frequency 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 Seatbelt Use: always Sunscreen Use: No Assistive Devices: None Review of Systems A total of 10 systems reviewed and were otherwise negative Physical Exam Vital Signs Vital Signs - 24 hr 10/20/22 15:25 10/20/22 16:05 10/20/22 16:12 Temperature 36.7 C Temperature Source Temporal Artery Scan Pulse Rate 70 72 69 Pulse Rate [Radial] Pulse Rhythm Regular Pulse Rhythm [Radial] Pulse Strength [Radial] Respiratory Rate 18 16 Respiratory Effort / Characteristics Respiratory Pattern Blood Pressure 142/78 H Blood Pressure [Left Arm] Blood Pressure Mean 99 Blood Pressure Mean [Left Arm] Blood Pressure Position Sitting Blood Pressure Position [Left Arm] Pulse Oximetry 98 96 Oxygen Delivery Method Room Air Room Air Sepsis Recent Fever Within 48 Hours No Sepsis New/Unexplained Change in Mental Status No Sepsis Action Taken by Nursing No Action Required 10/20/22 17:47 Temperature 36.8 C Temperature Source Oral Pulse Rate Pulse Rate [Radial] 70 Pulse Rhythm Pulse Rhythm [Radial] Regular Pulse Strength [Radial] Normal Respiratory Rate 17 Respiratory Effort / Characteristics Non-Labored Spontaneous Respiratory Pattern Regular Blood Pressure Blood Pressure [Left Arm] 143/61 H Blood Pressure Mean Blood Pressure Mean [Left Arm] 88 Blood Pressure Position Blood Pressure Position [Left Arm] Semi-fowlers Pulse Oximetry 95 Oxygen Delivery Method Room Air Sepsis Recent Fever Within 48 Hours Sepsis New/Unexplained Change in Mental Status Sepsis Action Taken by Nursing General: Well developed well nourished mildly anxious middle-age female who appears in no acute distress, breathing comfortably on room air. Normal speech HEENT: Normal cephalic atraumatic. Pupils are equal round and reactive to light. Extraocular movements are intact. Oropharynx is pink with moist mucous membranes. No swelling of the mouth lips or tongue. Neck: Supple with a midline trachea. No meningeal signs or stiffness, no JVD or bruits. No Stridor. Chest: Clear to auscultation bilaterally. No wheezes or rhonchi. No increased work of breathing. Heart: Regular rate and rhythm without murmurs or gallops. Abdomen: Soft nontender, nondistended without rebound guarding or rigidity. Extremities: No cyanosis clubbing or edema. No calf tenderness or assymetry Spine/Back. Non tender to palpation. No CVA tenderness Skin: Good turgor without rashes. Neurologic exam: Cranial nerves two through 12 are intact. Motor and sensation are intact and symmetrical throughout. Course Administered Medications Discontinued Medications Aspirin (Aspirin Chew 324 Mg) 324 mg PO NOW STA Stop: 10/20/22 17:41 Last Admin: 10/20/22 17:49 Dose: 324 mg Documented By: Medical Decision Making Differential Diagnosis Acute coronary syndrome, arrhythmia, CHF, electrolyte or metabolic abnormality, anemia Medical Records Attestation: I reviewed the patient's medical records. Home Medications Current Medication List: was personally reviewed by me Laboratory Data Attestation: I reviewed the patient's lab results. 10/20/22 16:44 10/20/22 16:44 Lab Results 10/20/22 10/20/22 10/20/22 Range/Units 16:44 16:44 16:44 WBC 9.50 (4.8-10.8) K/ul RBC 5.16 (4.20-5.40) M/uL Hgb 15.1 (12.0-16.0) g/dl Hct 44.1 (37.0-47.0) % MCV 85.5 (80.0-100.0) fL MCH 29.3 (25.0-34.0) pg MCHC 34.2 (32.0-36.0) g/dL RDW Std Deviation 44.2 (36.4-46.3) fL RDW Coeff of Nader 14.2 (11.5-14.5) % Plt Count 265 (130-400) K/uL MPV 9.3 L (9.4-12.4) fL Immature Gran % (Auto) 0.2 % Neut % (Auto) 64.0 % Lymph % (Auto) 26.5 % [place] % (Auto) 6.8 % Eos % (Auto) 2.0 % Baso % (Auto) 0.5 % Neut # (Auto) 6.07 (1.40-6.50) K/uL Lymph # (Auto) 2.52 (1.2-3.4) K/uL [place] # (Auto) 0.65 H (0.11-0.59) K/uL Eos # (Auto) 0.19 (0-0.50) K/uL Baso # (Auto) 0.05 (0-0.2) K/uL Immature Gran # (Auto) 0.02 (0.01-0.20) K/uL PT 10.9 (9.0-12.0) Seconds INR 1.0 (0.9-1.1) APTT 26.2 (21.0-31.0) Seconds PTT Ratio 1.0 Sodium 142 (136-145) mmol/L Potassium 4.1 (3.5-5.1) mmol/L Chloride 108 H (98-107) mmol/L Carbon Dioxide 28 (21-32) mmol/L Anion Gap 6 (3-11) BUN 17 (6-23) mg/dl Creatinine 0.84 (0.6-1.2) mg/dl Est Cr Clr Drug Dosing 100.2 ml/min Est GFR ( Amer) 90.7 ml/min Est GFR (Non-Af Amer) 78.2 ml/min BUN/Creatinine Ratio 20.2 H (10-20) Glucose 142 H (70-99(Fasting)) mg/dl Calcium 9.6 (8.5-10.1) mg/dl Magnesium (1.7-2.4) mg/dl Total Bilirubin 1.0 (0.2-1.0) mg/dl AST 14 (13-39) U/L ALT 16 (7-52) U/L Alkaline Phosphatase 69 (34-104) U/L Troponin I High Sens 267.0 H* (0-14) pg/ml B-Natriuretic Peptide (0-100) pg/ml Total Protein 7.2 (6.0-8.3) gm/dl Albumin 4.3 (3.4-5.0) gm/dl Globulin 2.9 (2.5-4.0) gm/dl Albumin/Globulin Ratio 1.5 (0.9-2) Lipase 9 L (11-82) U/L SARS-CoV-2, RNA, NAAT (NEGATIVE) 10/20/22 10/20/22 10/20/22 Range/Units 16:44 16:44 17:53 WBC (4.8-10.8) K/ul RBC (4.20-5.40) M/uL Hgb (12.0-16.0) g/dl Hct (37.0-47.0) % MCV (80.0-100.0) fL MCH (25.0-34.0) pg MCHC (32.0-36.0) g/dL RDW Std Deviation (36.4-46.3) fL RDW Coeff of Nader (11.5-14.5) % Plt Count (130-400) K/uL MPV (9.4-12.4) fL Immature Gran % (Auto) % Neut % (Auto) % Lymph % (Auto) % [place] % (Auto) % Eos % (Auto) % Baso % (Auto) % Neut # (Auto) (1.40-6.50) K/uL Lymph # (Auto) (1.2-3.4) K/uL [place] # (Auto) (0.11-0.59) K/uL Eos # (Auto) (0-0.50) K/uL Baso # (Auto) (0-0.2) K/uL Immature Gran # (Auto) (0.01-0.20) K/uL PT (9.0-12.0) Seconds INR (0.9-1.1) APTT (21.0-31.0) Seconds PTT Ratio Sodium (136-145) mmol/L Potassium (3.5-5.1) mmol/L Chloride (98-107) mmol/L Carbon Dioxide (21-32) mmol/L Anion Gap (3-11) BUN (6-23) mg/dl Creatinine (0.6-1.2) mg/dl Est Cr Clr Drug Dosing ml/min Est GFR ( Amer) ml/min Est GFR (Non-Af Amer) ml/min BUN/Creatinine Ratio (10-20) Glucose (70-99(Fasting)) mg/dl Calcium (8.5-10.1) mg/dl Magnesium 1.8 (1.7-2.4) mg/dl Total Bilirubin (0.2-1.0) mg/dl AST (13-39) U/L ALT (7-52) U/L Alkaline Phosphatase (34-104) U/L Troponin I High Sens (0-14) pg/ml B-Natriuretic Peptide 90 (0-100) pg/ml Total Protein (6.0-8.3) gm/dl Albumin (3.4-5.0) gm/dl Globulin (2.5-4.0) gm/dl Albumin/Globulin Ratio (0.9-2) Lipase (11-82) U/L SARS-CoV-2, RNA, NAAT NEGATIVE (NEGATIVE) Imaging Data Attestation: I personally reviewed and interpreted this imaging study as follow s: My Impression: Chest x-rayno acute infiltrate, failure, pneumothorax seen Radiologist's Impression: Chest X-Ray 10/20/22 15:45 SINGLE VIEW CHEST CLINICAL HISTORY: Atypical chest pain FINDINGS: An AP, portable, upright chest radiograph is compared to study dated 02/13/2022 and correlated with chest CT dated 03/04/2021. The heart is enlarged and note atherosclerotic calcification of the thoracic aorta. The pulmonary vasculature is noncongested. Chronic interstitial thickening is similar to previous. There is bibasilar scarring/atelectasis. The lungs and pleural spaces are otherwise clear. No pneumothorax is seen. The skeletal structures are osteopenic. The bony thorax is grossly intact. IMPRESSION: Cardiomegaly with no active disease in the chest. ACT 112: Negative or not required by law. Electronically signed by: Isreal Todd M.D. 10/20/2022 4:01 PM ECG Data Attestation: I personally reviewed and interpreted this ECG as follows: Indication: + chest pain Rate (beats per minute): 64 Rhythm: + normal sinus ECG Intervals/blocks: + Normal QRS, + Normal QT and + Normal ME ECG [place]: + Left axis deviation ECG ST segments: + Normal ST segments ECG Findings: + Poor R wave progression; no PACs Comparison ECG Date: from (02/14/22) Change: the following changes noted (T wave abnormalities laterally have improved) Additional Comments: EKG #2: Sinus bradycardia rate of 59. There is PVC. No significant change compared EKG #1 MDM Narrative This patient comes in as described above. She was placed on a printing plate maker and she had an episode of chest pain last about an hour that occurred around 1130. She is feeling okay at present has no chest pain. She does have a significant cardiac history. Chest x-ray EKG and multiple blood testing was obtained. Chest x-ray does not show congestive heart failure, pneumonia, pneumothorax. EKG shows no ischemic changes when compared to old and in fact looks slightly better with the lateral T waves now improved. She did take aspirin prior to arrival this morning but only took 2 baby aspirin's. In light of this I did give her aspirin 324 mg here. Her second EKG shows no change compared to the first she has remained pain-free. She has no signal electrolyte or metabolic abnormalities. Her troponin however is elevated at 267. It is possible that she had demand ischemia from having tachycardia earlier. I do think she needs to be further ruled out for an acute coronary syndrome. I did order a second troponin so we can trend this and this is pending at this point. I have discussed the case with Dr. Ortega who is the on-call location manager he agrees with the plan. The patient is asymptomatic and does not need acute cath at this point she has no acute EKG changes. I also discussed the case with Dr. Savage who is a hospitalist and he will be admitting her for further treatment and evaluation. She was COVID tested and was negative. Continuous cardiac monitoring: An order was placed in EMR for continuous cardiac monitoring. Upon my interpretation the patient was noted to be in normal sinus rhythm rate of 65 Impression & Plan Chest pain, Multi-vessel coronary artery stenosis, S/P coronary artery stent placement, Elevated troponin, Tachycardia, Lab test negative for COVID-19 virus Discharge Plan Visit Data Chief Complaint: Chest Pain Stated Complaint: CHEST PAIN EARLIER TODAY,SWEATING,HX MT ED Provider: Phillip Baker Discharge Problem: Chest pain, Multi-vessel coronary artery stenosis, S/P coronary artery stent placement, Elevated troponin, Tachycardia, Lab test negative for COVID-19 virus Forms Stand Alone Forms: My [facility] Prescriptions Prescriptions: No Action magnesium oxide 400 mg magnesium tablet 400 mg PO DAILY Qty: 90 3RF atorvastatin 80 mg tablet 80 mg PO QAM Qty: 90 2RF furosemide 20 mg tablet 20 mg PO DAILY PRN (Reason: weight gain) Qty: 90 3RF carvedilol 25 mg tablet 25 mg PO BID Qty: 180 3RF glimepiride 4 mg tablet 8 mg PO QAM Qty: 180 1RF Rx Instructions: TAKE TWO TABLETS EVERY MORNING metformin 500 mg tablet extended release 24 hr 1,000 mg PO BID Qty: 360 1RF (DME) blood sugar diagnostic Strip See Rx Instructions .Route Qty: 100 3RF Rx Instructions: one touch verio test twice daily as directed nizatidine 150 mg capsule 150 mg PO BID Qty: 180 2RF Rx Instructions: to replace famotidine Entresto 97-103 mg tablet 1 tab PO BID Qty: 180 1RF spironolactone 25 mg tablet 25 mg PO QAM Qty: 90 3RF dapagliflozin 10 mg tablet 10 mg PO DAILY Qty: 90 3RF aspirin [Adult Low Dose Aspirin] 81 mg tablet,delayed release (DR/EC) 81 mg PO QAM Referrals Referrals: Terri Sherman DO [Primary Care Provider] -
--- NOTE | 2022-10-20 16:02 | XRay Report ---
SINGLE VIEW CHEST CLINICAL HISTORY: Atypical chest pain FINDINGS: An AP, portable, upright chest radiograph is compared to study dated 02/13/2022 and correlate d with chest CT dated 03/04/2021. The heart is enlarged and note atherosclerotic calcification of the thoracic aorta. The pulmonary vasculature is noncongested. Chronic interstitial thickening is similar to previous. There is bibasilar scarring/atelectasis. The lungs and pleural spaces are otherwise gilma ar. No pneumothorax is seen. The skeletal structures are osteopenic. The bony thorax is grossly intac t. IMPRESSION: Cardiomegaly with no active disease in the chest. ACT 112: Negative or not required by law. Electronically signed by: Isreal Todd M.D. 10/20/2022 4:01 PM
[2022-10-20 17:05] LABS: Basophils # (auto) 0.05 K/uL (0-0.2); Basophils % (auto) 0.5 %; Eosinophils # (auto) 0.19 K/uL (0-0.50); Hematocrit (blood only) 44.1 % (37.0-47.0); Hemoglobin 15.1 g/dl (12.0-16.0); Immature Granulocytes # (auto) 0.02 K/uL (0.01-0.20); Immature Granulocytes % (auto) 0.2 %; Lymphocytes # (auto) 2.52 K/uL (1.2-3.4); Lymphocytes % (auto) 26.5 %; Mean Corpuscular Hemoglobin 29.3 pg (25.0-34.0); Mean Corpuscular Hgb Conc 34.2 g/dL (32.0-36.0); Mean Corpuscular Volume 85.5 fL (80.0-100.0); Mean Platelet Volume 9.3 fL (9.4-12.4); Monocytes # (auto) 0.65 K/uL (0.11-0.59); Monocytes % (auto) 6.8 %; Neutrophils # (auto) 6.07 K/uL (1.40-6.50); Platelet Count 265 K/uL (130-400); RDW Coefficient of Variation 14.2 % (11.5-14.5); RDW Standard Deviation 44.2 fL (36.4-46.3); Red Blood Count 5.16 M/uL (4.20-5.40)
[2022-10-20 17:18] LABS: Albumin Globulin Ratio 1.5 (0.9-2); Albumin Level 4.3 gm/dl (3.4-5.0); BUN Creatinine Ratio 20.2 (10-20); Calcium 9.6 mg/dl (8.5-10.1); Creatinine Clr Calc Pharmacy 100.2 ml/min; Est GFR (African American) 90.7 ml/min; Est GFR (Non-African American) 78.2 ml/min; Globulin 2.9 gm/dl (2.5-4.0); Potassium 4.1 mmol/L (3.5-5.1); Total Protein 7.2 gm/dl (6.0-8.3)
[2022-10-20 17:31] LABS: Partial Thromboplastin Time 26.2 Seconds (21.0-31.0); Prothrombin Time 10.9 Seconds (9.0-12.0)
[2022-10-20] MEDS ORDERED: ASPIRIN CHEW 324 MG PO STA (17:40)
--- NOTE | 2022-10-20 18:47 | History & Physical Report ---
Date of Service October 20, 2022 Assessment & Plan (1) Non-ST elevation (NSTEMI) myocardial infarction: Plan: -Admit to the PCU on tele -The patient is currently afebrile, hemodynamically stable, and stable on RA -The patient's history is concerning for ACS, ECG today have been without acute changes but her high sensitivity trop increased from 267 -->370 on 2 hour repeat -At this time we will start a low-dose heparin drip with bolus, continue to monitor troponin q6h -Cardiology consult placed, will make her NPO at midnight in case of Cath tomorrow -S/P 324 mg PO Aspirin in the ED, continue with 81 mg PO daily tomorrow -Continue Carvedilol with HS dose at 2100 -PRN SL Nitro for chest pain -Will get TTE in the morning -BL SCD's and heparin drip for DVT PPX -AM CBC, BMP, Mag, PTT (2) Diabetes mellitus, type 2: Plan: -Hold metformin, Dapagliflozin, and glimepiride -Monitor BSG Q6H as she will be NPO at midnight, goal is 110-140 -5 units lantus BID, correction factor of 40 with carb ratio of 15 -DM II until midnight then NPO (3) S/P coronary artery stent placement: Plan: -Continue Aspirin (4) ESPERANZA (obstructive sleep apnea): Plan: -Is non-compliant with CPAP due to claustrophobia (5) GERD (gastroesophageal reflux disease): Plan: -40 mg IV protonix daily while admitted (6) Hypertension: Plan: -Stable -Continue Carvedilol and Spironolactone (7) Hyperlipemia: Plan: -Continue high dose statin (8) HFrEF (heart failure with reduced ejection fraction): Plan: -Continue Spironolactone and Entresto Plan The patient was discussed with Dr. Savage at the time of the admission History of Present Illness Chief Complaint: Chest pain Primary Care Provider: DO Nikky Flannery is a 55-year-old woman with multivessel CAD known RCA [employer] and prior PCI to with JOAN 11/2020, HFrEF (LVEF of 40-45% and grade 1 diastolic dysfunction as of 09/01/22), type 2 diabetes, hypertension, dyslipidemia, GERD, PCOS, former smoker, and ESPERANZA who presented to the [facility] ED on 10/20/22 with a chief complaint of chest pain. In the ED she was noted to be afebrile, hemodynamically stable, and stable on RA. Labs were remarkable for a CBC WNL, stable Cr at 0.84, stable electrolytes, glucose of 142, initial high sensitivity trop of 267. BNP of 90, and covid 19 negative. Chest xray was read as "Cardiomegaly with no active disease in the chest.". ECG was equivocal for pos sible anterior infarct. The ED staff gave the patient 324 mg PO aspirin and spoke with Cardiology who recommended admitting the patient with continued monitoring. At the time of the exam the patient was resting in bed in no acute distress with her sitting bedside. She states that she was in her normal state of health prior to today. Yesterday she forgot to take her evening dose of Carved ilol. She woke up this am around 0230 and took the HS dose she forgot to take last night. She did not take her am dose of Carvedilol this morning as she was worried this would interact with the dose she took at 0230. 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 At approximately 1130 she experienced sudden onset of left-sided chest pain. She describes the pain as sharp/stabbing, it did not radiate anywhere else. She went up to their house and the pain intensified so she took her next dose of Carvedilol. Shortly after she took a shower and took a baby aspirin. During her shower her chest pain subsided and she has been chest pain free since. She denies recent fevers, chills, changes in vision, hearing, taste, and smell, SOB, abd pain, nausea, vomiting, diarrhea, dysuria, hematuria, melena, bloody BM's, LE swelling, and recent trauma. We discussed starting a heparin drip at this time, she denies a history of major bleeding. Of note, she was treated for diverticulitis approximately one month ago, her symptoms have resolved at this time. Please refer to Dr. Savage's attestation for any changes to the treatment plan Allergies Allergy/AdvReac Type Severity Reaction Status Date / Time No Known Allergies Allergy Verified 09/07/22 07:43 Home Medications Medication Instructions Recorded Confirmed Type aspirin 81 mg tablet,delayed 81 mg PO QAM 08/24/20 10/20/22 History release (Adult Low Dose Aspirin) magnesium oxide 400 mg PO DAILY #90 tabs 03/13/22 10/20/22 Rx atorvastatin 80 mg tablet 80 mg PO QAM #90 tabs 04/25/22 10/20/22 Rx spironolactone 25 mg tablet 25 mg PO QAM #90 tabs 05/01/22 10/20/22 Rx furosemide 20 mg tablet 20 mg PO DAILY PRN weight gain #90 05/25/22 10/20/22 Rx tabs carvedilol 25 mg tablet 25 mg PO BID #180 tabs 07/10/22 10/20/22 Rx sacubitril 97 mg-valsartan 103 mg 1 tab PO BID #180 tabs 08/01/22 10/20/22 Rx tablet (Entresto) glimepiride 4 mg tablet 8 mg PO QAM #180 tabs 08/09/22 10/20/22 Rx metformin 500 mg tablet,extended 1,000 mg PO BID #360 tabs 08/09/22 10/20/22 Rx release 24 hr dapagliflozin 10 mg tablet 10 mg PO DAILY #90 tabs 10/05/22 10/20/22 Rx blood sugar diagnostic #100 ea 10/19/22 Rx nizatidine 150 mg capsule 150 mg PO BID #180 caps 10/20/22 10/20/22 Rx Past Med/Surg History Medical History (Updated 10/20/22 @ 19:39 by Freddie Ashby PA-C) Acute HFrEF (heart failure with reduced ejection fraction) Acute respiratory failure Acute respiratory failure with hypoxia Chronic hypoxemic respiratory failure Diabetes mellitus, type 2 Diabetic neuropathy Diverticulosis Fatty liver GERD (gastroesophageal reflux disease) Hyperlipemia Hypertension Hypophosphatemia Ischemic cardiomyopathy Left leg swelling Multi-vessel coronary artery stenosis Osteoarthritis PCOS (polycystic ovarian syndrome) Pneumonia due to COVID-19 virus (10/2020) Urinary, incontinence, stress female Surgical History (Updated 10/20/22 @ 19:11 by Phillip Baker MD) Previous section (2006) S/P cardiac catheterization 02/14/22 Dr. Luis Norris- Cardiac cath- 100% occ mid RCA with [id number] collaterals, Widely patent OM2 stent, 30% mid LAD at bifurcation with D1, Elevated L sided filling pressures S/P coronary artery stent placement (11/20/20) JOAN to OM2 Family History Mother Breast cancer, Onset Age: 51 Hypertension Gall bladder disease Father Hypertension Heart disease S/P coronary artery stent placement Diabetes Sister Hypertension Gall bladder disease Denies family history of Ovarian cancer Prostate cancer Myocardial infarction Colorectal cancer Social History Smoking Status: Former smoker Tobacco Type: Cigarettes Age Started Using Tobacco: 16; Age Quit Using Tobacco: 41; packs per day: 0.5; Smoking End Date: 2005; Second Hand Exposure: No; Hx Alcohol Use: No Hx Substance Use: No Preferred Language: Mohawk Communication Ability: Effective Visual Impairment: No Limitations Hearing Ability: Normal Television Announcer Required: No Beliefs That Will Affect Care: None marital status: Current Living Situation: Spouse Current Living Situation Comment: SPOUSE AND SON current occupational status: employed current occupation: works for [employer] How many Children do You have: 1 Feels Safe at Home: Yes Childhood Exposure to Second-Hand Smoke: Yes (father smoked) Diet Comment: regular caffeine: No during the past year weight has: remained stable Dental Care, Regularly: No Physical Activity Frequency: Daily 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 All systems have been reviewed and are otherwise negative. Physical Exam Physical Exam: Physical Exam: General: In no acute distress, stated age, well-nourished, good hygiene, non- toxic appearing HEENT: Normocephalic, atraumatic, no scleral icterus, pupils around round, symmetrical, and reactive to light, moist mucus membranes, trachea midline, no thyromegaly Chest/Pulm: No respiratory distress, symmetrical chest expansion, clear breath sounds throughout Cardiac: RRR, no murmurs noted Abdomen: Negative for ascites and bruising, normoactive bowel sounds, soft, non-tender to palpation throughout Musculoskeletal: Symmetrical and without signs of acute trauma, upper and lower extremities with full ROM, no atrophy, spasticity, or flaccidity Extremities: Radial, dorsalis pedis, and posterior tibial pulses are intact and symmetrical, no edema noted in the BL LE's Skin: Warm, dry, no rashes , lesions, or scars noted Neuro: Alert and oriented to person, place, month, year, and president, no focal defects, CN II-XII tested and intact, no tremors noted Psych: No acute distress, calm and cooperative during the exam Results & Data Results & Data ([facility]) Vital Signs (Past 12 Hours) Vital Signs Temp Pulse Pulse Resp BP BP Pulse Ox 10/20/22 17:47 36.8 C 70 17 143/61 H 95 10/20/22 16:12 69 10/20/22 16:05 72 16 96 10/20/22 15:25 36.7 C 70 18 142/78 H 98 O2 Del Method 10/20/22 17:47 Room Air 10/20/22 16:12 10/20/22 16:05 Room Air 10/20/22 15:25 Room Air Laboratory Results Abnormal lab results 10/20/22 10/20/22 10/20/22 Range/Units 16:44 16:44 18:38 MPV 9.3 L (9.4-12.4) fL [place] # (Auto) 0.65 H (0.11-0.59) K/uL Chloride 108 H (98-107) mmol/L BUN/Creatinine Ratio 20.2 H (10-20) Glucose 142 H (70-99(Fasting)) mg/dl Troponin I High Sens 267.0 H* 370.0 H* D (0-14) pg/ml Lipase 9 L (11-82) U/L Diagnostic Findings Chest X-Ray 10/20/22 15:45 SINGLE VIEW CHEST CLINICAL HISTORY: Atypical chest pain FINDINGS: An AP, portable, upright chest radiograph is compared to study dated 02/13/2022 and correlated with chest CT dated 03/04/2021. The heart is enlarged and note atherosclerotic calcification of the thoracic aorta. The pulmonary vasculature is noncongested. Chronic interstitial thickening is similar to previous. There is bibasilar scarring/atelectasis. The lungs and pleural spaces are otherwise clear. No pneumothorax is seen. The skeletal structures are osteopenic. The bony thorax is grossly intact. IMPRESSION: Cardiomegaly with no active disease in the chest. ACT 112: Negative or not required by law. Electronically signed by: Isreal Todd M.D. 10/20/2022 4:01 PM ECG Additional Comments: Poor data quality, interpretation may be adversely affected Sinus bradycardia Possible Anterior infarct (cited on or before 20-OCT-2022) Abnormal ECG When compared with ECG of 20-OCT-2022 15:56, (unconfirmed) No significant change was found Code Status & VTE Plan Code Status Full code VTE Prophylaxis Plan VTE Prophylaxis will be ordered: Yes Supervising Physician Co-Signing Physician Notes I personally saw and examined the patient. I verified all angela points and agree with Freddie Ashby PA-C with the following exceptions and/or additions: 57 year old female presents with left sided chest pain. Some mix up with her medications after missing a dose of carvedilol but at the time of chest pain she did have carvedilol in her system. Elevated high sensitivity troponin in the ER. Currently chest pain free when seen. O/E A&Ox3, HS RRR, no murmurs, Chest CTAB, Abdo SNT, peripheral pulses normal A/P NSTEMI - presumption of ACS given chest pain in setting of NSTEMI. ASA, low dose heparin with bolus, continue carvedilol, Entresto and atorvastatin. TTE. NPO after midnight for cardiology to consider catheterization although given non- urgent this may be performed on Sunday as long as no recurrent pain. PG Care Time/CCT Total # of Minutes Spent Total Time Spent with Patient: Total time spent is greater than 50% in coordination of care (as documented) at patient's floor/unit and/or counseling patient: Coding [place] [address] INT INP/OBS CARE 3/75MIN Patient Type Established Medical Decision Making High Complexity Diagnoses Non-ST elevation (NSTEMI) myocardial infarction I21.4 Diabetes mellitus, type 2 E11.9 S/P coronary artery stent placement Z95.5 ESPERANZA (obstructive sleep apnea) G47.33 GERD (gastroesophageal reflux disease) K21.9 Hypertension I10 Hypertension type: essential hypertension Hyperlipemia E78.5 Hyperlipidemia type: unspecified HFrEF (heart failure with reduced ejection fraction) I50.20 (6) Hypertension Hypertension type: essential hypertension Qualified Code(s): I10 - Essential (primary) hypertension (7) Hyperlipemia Hyperlipidemia type: unspecified Qualified Code(s): E78.5 - Hyperlipidemia, unspecified
[2022-10-20] MEDS ORDERED: CARBOHYDRATES FOR HYPOGLYCEMIA PO PRN (18:49)
[2022-10-20] MEDS ORDERED: GLUCOSE 40% GEL 15 GM TUBE PO PRN (18:49)
[2022-10-20] MEDS ORDERED: DEXTROSE 50% 50 ML SYRINGE IV PRN (18:49)
[2022-10-20] MEDS ORDERED: GLUCAGON FOR INJ 1 MG VIAL SQ PRN (18:49)
[2022-10-20] MEDS ORDERED: GLUCOSE 10 TAB/TUBE PO PRN (18:49)
[2022-10-20] MEDS ORDERED: ACETAMINOPHEN 325 MG TAB PO PRN (19:10)
[2022-10-20] MEDS ORDERED: Heparin IV Adult Wt-Based Low-Dose WITH Bolus Protocol IV SCH (19:24)
[2022-10-20] MEDS ORDERED: NITROGLYCERIN SL 0.4 MG/TAB TAB SL PRN (19:33)
[2022-10-20] MEDS ORDERED: HEPARIN SOD (PORCINE) 1000 UNIT/ML IV ONE (19:37)
[2022-10-20] MEDS ORDERED: HEPARIN SODIUM/DEXTROSE 25,000 UNITS/500 ML BAG IV SCH (19:45)
[2022-10-20] MEDS ORDERED: PHARMACY GLYCEMIC MGMT CONSULT PRN (20:24)
[2022-10-20] MEDS: INSULIN ASPART PER UNIT CHARGE SC SCH (20:58)
[2022-10-20] MEDS ORDERED: INSULIN ASPART PER UNIT CHARGE SC SCH (21:00)
[2022-10-20] MEDS ORDERED: LANTUS PER UNIT CHARGE SQ SCH (21:00)
[2022-10-20] MEDS: carvediloL 25 MG TAB PO SCH (21:33)
[2022-10-20] MEDS: VALSARTAN/SACUBITRIL 103/97MG TAB PO SCH (21:33)
[2022-10-20] MEDS: PANTOprazole 40 MG in SYRINGE 0 ML IV SCH (22:24)
[2022-10-21] MEDS: INSULIN ASPART PER UNIT CHARGE SC SCH (03:34)
[2022-10-21 04:19] LABS: Partial Thromboplastin Ratio 1.2; Partial Thromboplastin Time 33.6 Seconds (21.0-31.0)
[2022-10-21] MEDS ORDERED: HEPARIN SOD (PORCINE) 1000 UNIT/ML IV ONE (05:00)
[2022-10-21 07:11] LABS: Hematocrit (blood only) 43.2 % (37.0-47.0); Hemoglobin 14.8 g/dl (12.0-16.0); Mean Corpuscular Hemoglobin 29.2 pg (25.0-34.0); Mean Corpuscular Hgb Conc 34.3 g/dL (32.0-36.0); Mean Corpuscular Volume 85.4 fL (80.0-100.0); Mean Platelet Volume 9.4 fL (9.4-12.4); Platelet Count 232 K/uL (130-400); RDW Coefficient of Variation 14.4 % (11.5-14.5); RDW Standard Deviation 44.4 fL (36.4-46.3); Red Blood Count 5.06 M/uL (4.20-5.40); White Blood Count 7.27 K/ul (4.8-10.8)
[2022-10-21] MEDS ORDERED: PERFLUTREN LIPID MICROSPHERE (DEFINITY) IV ONE (07:23)
[2022-10-21 07:34] LABS: BUN Creatinine Ratio 23.4 (10-20); Calcium 9.4 mg/dl (8.5-10.1); Chol HDL Ratio 3.5 (0-5); Creatinine Clr Calc Pharmacy 109.3 ml/min; Est GFR (African American) 100.7 ml/min; Est GFR (Non-African American) 86.9 ml/min; Potassium 3.9 mmol/L (3.5-5.1)
[2022-10-21 07:44] LABS: Estimated Average Glucose 203 mg/dl; Hemoglobin A1C 8.7 % (4.5-5.6)
[2022-10-21 07:57] LABS: Partial Thromboplastin Ratio 2.1
[2022-10-21 08:16] LABS: Partial Thromboplastin Time 58.3 Seconds (21.0-31.0)
[2022-10-21] MEDS ORDERED: SODIUM CHLORIDE 0.9% 1000ML 1,000 ML IV SCH (08:45)
[2022-10-21] MEDS ORDERED: SPIRONOLACTONE 25 MG TAB PO SCH (09:00)
[2022-10-21] MEDS ORDERED: LANTUS PER UNIT CHARGE SQ ONE (09:00)
[2022-10-21] MEDS ORDERED: ASPIRIN 81 MG ECTAB PO SCH (09:00)
[2022-10-21] MEDS ORDERED: ATORVASTATIN 40 MG TAB PO SCH (09:00)
--- NOTE | 2022-10-21 09:29 | Electrocardiogram Report ---
Test Reason : Blood Pressure : / mmHG Vent. Rate : 064 BPM Atrial Rate : 064 BPM P-R Int : 190 ms QRS Dur : 102 ms QT Int : 418 ms P-R-T Axes : 027 -30 026 degrees QTc Int : 431 ms Normal sinus rhythm Left axis deviation Anterior infarct , age undetermined Abnormal ECG When compared with ECG of 14-FEB-2022 14:40, Premature ventricular complexes are no longer Present Anterior infarct is now Present T wave inversion no longer evident in Lateral leads QT has shortened Confirmed by Kentrell Rodriguez ([id number]) on 10/21/2022 9:28:40 AM Referred By: Confirmed By:Kentrell Rodriguez
[2022-10-21] MEDS: carvediloL 25 MG TAB PO SCH ×2 (10:07→11:15)
[2022-10-21] MEDS: VALSARTAN/SACUBITRIL 103/97MG TAB PO SCH (10:07)
[2022-10-21] MEDS: PANTOprazole 40 MG in SYRINGE 0 ML IV SCH (11:16)
--- NOTE | 2022-10-21 11:49 | Hospitalist Progress Note ---
Date of Service October 21, 2022 Assessment & Plan (1) Non-ST elevation (NSTEMI) myocardial infarction: Plan: Troponin peaked at 439 and is now trending downward. Cardiac echo reveals inferior lateral wall motion abnormalities as seen on previous cardiac echo. No acute EKG changes. She remains on a heparin drip. Cardiology assessment is pending (2) Diabetes mellitus, type 2: Plan: Holding metformin, Dapagliflozin, and glimepiride . Currently n.p.o. awaiting cardiology consultation. Sliding scale coverage for now (3) S/P coronary artery stent placement: Plan: History of coronary artery disease and PCI. Continue current medical management. Telemetry (4) ESPERANZA (obstructive sleep apnea): Plan: non-compliant with CPAP due to claustrophobia (5) GERD (gastroesophageal reflux disease): Plan: Stable with Protonix therapy (6) Hypertension: Plan: Stable on carvedilol and spironolactone (7) Hyperlipemia: Plan: Stable on statin therapy (8) HFrEF (heart failure with reduced ejection fraction): Plan: No overt CHF at this time. Continue current medications including Spironolacto ne and Entresto Plan Hopeful discharge to home soon. Awaiting cardiology consultation and recommendations. Admission and Anticipated Discharge Date Admission Date: October 20, 2022 Subjective Alert and oriented. She denies any current symptoms. Cardiac echo reveals evidence of previous inferior lateral wall injury with akinesis in this area. Ejection fraction is 40 to 45%. Awaiting cardiology consultation. She remains on a heparin drip. Troponin peaked at 439 and is now trending downward. We will continue IV fluids while n.p.o. Review of Systems Review of Systems: Constitutional-no fever or chills ENT-no blurred vision, no double vision, no epistaxis, no sore throat Respiratory-no cough, no wheezing, no shortness of breath Cardiac-no palpitations, no chest pain, no syncope GI-no nausea, vomiting, diarrhea, melena, hematochezia -no urinary retention, no urinary incontinence, no dysuria, no hematuria Musculoskeletal-no joint pain, no muscle tenderness Skin-no bruising, no rashes, no pruritus Neuro-no isolated weakness, no paresthesia, no weakness Psych-no depression, no anxiety Physical Exam Physical Exam: General-alert and oriented x3, no fevers, no chills HEENT-head atraumatic and normocephalic, pupils equal and reactive to light, extraocular muscles intact Neck-no lymphadenopathy or thyromegaly, trachea midline Chest-clear to auscultation percussion. No rales wheezing or rhonchi Cardiac-regular rate and rhythm, normal S1 and S2 Abdomen-normal bowel sounds, nontender, no hepatosplenomegaly Extremities-no cyanosis, clubbing, or edema Neuro-cranial nerves II through XII intact, motor and sensory function within normal limits, strength symmetrical , no focal deficits Psych-normal affect, normal mood Results & Data Results & Data ([facility]) Vital Signs (Past 12 Hours) Vital Signs Temp Pulse Resp BP Pulse Ox O2 Del Method 10/21/22 11:25 36.9 C 57 L 18 114/73 97 Room Air 10/21/22 07:37 36.8 C 55 L 18 114/61 96 Room Air 10/21/22 03:14 36.5 C 56 L 18 109/72 93 Room Air Laboratory Results 10/21/22 06:32 10/21/22 06:32 PG Care Time/CCT Total # of Minutes Spent Total Time Spent with Patient: Total time spent is greater than 50% in coordination of care (as documented) at patient's floor/unit and/or counseling patient: Coding Level of Care Code 28288 SUB INP/OBS CARE 3/50MIN Diagnoses Non-ST elevation (NSTEMI) myocardial infarction I21.4 Diabetes mellitus, type 2 E11.9 S/P coronary artery stent placement Z95.5 ESPERANZA (obstructive sleep apnea) G47.33 GERD (gastroesophageal reflux disease) K21.9 Hypertension I10 Hypertension type: essential hypertension Hyperlipemia E78.5 Hyperlipidemia type: unspecified HFrEF (heart failure with reduced ejection fraction) I50.20 (6) Hypertension Hypertension type: essential hypertension Qualified Code(s): I10 - Essential (primary) hypertension (7) Hyperlipemia Hyperlipidemia type: unspecified Qualified Code(s): E78.5 - Hyperlipidemia, unspecified
[2022-10-21] MEDS ORDERED: INSULIN ASPART PER UNIT CHARGE SC SCH (12:00)
--- NOTE | 2022-10-21 12:15 | Cardiology Consultation ---
Date of Consultation October 21, 2022 History of Present Illness Reason for Consultation: Chest pain history of coronary artery disease Attending Physician: Cornel Mijares MD History of Present Illness Patient forgot to take her evening dose of carvedilol and then remembered at about 2:30 in the morning and took it she then delayed her morning dose until after she going to go to the barn for her morning chores. Walking back from the barn she had some chest tightness and some shortness of breath she then took the rest of her morning medications. Her troponin was minimally elevated and actually lower than her last troponin when she was in the hospital. She denies any PND orthopnea. She denies any further chest discomfort. She has any palpitations or fluttering or feeling her heart racing on a normal basis and did not have any palpitations yesterday. She notes she feels like she is back to her self. She is tolerating her home home medical regiment without any issues. The rest of a complete her systems otherwise negative Allergies Allergy/AdvReac Type Severity Reaction Status Date / Time No Known Allergies Allergy Verified 09/07/22 07:43 Home Medications Medication Instructions Recorded Confirmed Type aspirin 81 mg tablet,delayed 81 mg PO QAM 08/24/20 10/20/22 History release (Adult Low Dose Aspirin) magnesium oxide 400 mg PO DAILY #90 tabs 03/13/22 10/20/22 Rx atorvastatin 80 mg tablet 80 mg PO QAM #90 tabs 04/25/22 10/20/22 Rx spironolactone 25 mg tablet 25 mg PO QAM #90 tabs 05/01/22 10/20/22 Rx furosemide 20 mg tablet 20 mg PO DAILY PRN weight gain #90 05/25/22 10/20/22 Rx tabs carvedilol 25 mg tablet 25 mg PO BID #180 tabs 07/10/22 10/20/22 Rx sacubitril 97 mg-valsartan 103 mg 1 tab PO BID #180 tabs 08/01/22 10/20/22 Rx tablet (Entresto) glimepiride 4 mg tablet 8 mg PO QAM #180 tabs 08/09/22 10/20/22 Rx metformin 500 mg tablet,extended 1,000 mg PO BID #360 tabs 08/09/22 10/20/22 Rx release 24 hr dapagliflozin 10 mg tablet 10 mg PO DAILY #90 tabs 10/05/22 10/20/22 Rx blood sugar diagnostic #100 ea 10/19/22 Rx nizatidine 150 mg capsule 150 mg PO BID #180 caps 10/20/22 10/20/22 Rx Patient History Medical History Acute HFrEF (heart failure with reduced ejection fraction) Acute respiratory failure Acute respiratory failure with hypoxia Chronic hypoxemic respiratory failure Diabetes mellitus, type 2 Diabetic neuropathy Diverticulosis Fatty liver GERD (gastroesophageal reflux disease) Hyperlipemia Hypertension Hypophosphatemia Ischemic cardiomyopathy Left leg swelling Multi-vessel coronary artery stenosis Osteoarthritis PCOS (polycystic ovarian syndrome) Pneumonia due to COVID-19 virus (10/2020) Urinary, incontinence, stress female Surgical History Previous section (2006) S/P cardiac catheterization 02/14/22 Dr. Luis Norris- Cardiac cath- 100% occ mid RCA with [id number] collaterals, Widely patent OM2 stent, 30% mid LAD at bifurcation with D1, Elevated L sided filling pressures S/P coronary artery stent placement (11/20/20) JOAN to OM2 Family History Mother Breast cancer, Onset Age: 51 Hypertension Gall bladder disease Father Hypertension Heart disease S/P coronary artery stent placement Diabetes Sister Hypertension Gall bladder disease Denies family history of Ovarian cancer Prostate cancer Myocardial infarction Colorectal cancer Social History Smoking Status: Former smoker Tobacco Type: Cigarettes Age Started Using Tobacco: 16; Age Quit Using Tobacco: 41; packs per day: 0.5; Smoking End Date: 2005; Second Hand Exposure: No; Hx Alcohol Use: No Hx Substance Use: No Preferred Language: Irish Communication Ability: Effective Visual Impairment: No Limitations Hearing Ability: Normal Bricklayer Required: No Beliefs That Will Affect Care: None marital status: Current Living Situation: Spouse Current Living Situation Comment: SPOUSE AND SON current occupational status: employed current occupation: works for [employer] How many Children do You have: 1 Feels Safe at Home: Yes Childhood Exposure to Second-Hand Smoke: Yes (father smoked) Diet Comment: regular caffeine: No during the past year weight has: remained stable Dental Care, Regularly: No Physical Activity Frequency: Daily Physical Activity Frequency 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 Seatbelt Use: always Sunscreen Use: No Assistive Devices: CPAP Assistive Devices Comment: doesn't use CPAP, wakes in a panic when tries to use Results & Data ([facility]) Vital Signs (Past 12 Hours) Vital Signs Temp Pulse Resp BP Pulse Ox O2 Del Method 10/21/22 11:25 36.9 C 57 L 18 114/73 97 Room Air 10/21/22 07:37 36.8 C 55 L 18 114/61 96 Room Air 10/21/22 03:14 36.5 C 56 L 18 109/72 93 Room Air she is awake alert and oriented x3 she is in no acute distress HEENT: 1+ carotid upstrokes Lungs: Clear to auscultation bilaterally no rales rhonchi or wheezing Heart: Regular rate and rhythm no appreciable murmurs rubs or gallops Abdomen: Soft nontender nondistended positive bowel sounds Extremity: No clubbing cyanosis or edema Psychiatric after appear appropriate IMPRESSIONS: 1. Chronic HFmrEF: NYHA Class II symptoms. 2. NSTEMI:February 2022 with a catheterization at that time that was unchanged, troponin this admission actually lower than February 2022 3. Multivessel CAD s/p OM2 PCI: Continue aspirin 81 mg daily indefinitely. Continue high-intensity statin therapy. Beta-larissa initiated. Cath 03/03 - Chronic multivessel coronary artery disease -100% chronic total occlusion of mid RCA with [id number] collaterals. Widely patent OM2 stent -30% mid LAD at bifurcation with D1 Elevated left-sided filling pressures (LVEDP 20) 4. Hypertension: 5. Dyslipidemia: LDL at goal. Continue high-intensity statin therapy. 6. Cardiomyopathy:Mild to moderate left ventricular dysfunction with an EF in the range of 45% with known prior basal to mid inferior and inferior lateral akinesis Her troponins are actually lower than her last admission in February when she had a cardiac catheterization and there was no progression of her coronary disease. I think this is purely related to the fact that she missed a dose of high dose carvedilol. With her medical regimen prior to yesterday she has had no anginal symptoms whatsoever. Her echocardiogram is unchanged with her known prior RCA infarct. Her LV function is preserved. Clinically she is not in heart failure and she is not having any angina today. She can be discharged home from my standpoint. She can be fed today. I discussed with her if she were to notice chest tightness or chest pressure walking to the barn which is about 30 yards on her medical regimen then she would need to let not any cardiology know. She is on quad therapy for her LV dysfunction and coronary artery disease and has been doing quite well on this combination. She likely has some degree of chronic troponin elevations. If you correct her troponin (not using a highly sensitive troponin) her troponin is in the 0.3-0.4 range consistent with demand ischemia.
--- NOTE | 2022-10-21 12:31 | Discharge Summary ---
Date of Service October 21, 2022 Admission HPI Per Admitting Provider Nikky Law is a 55-year-old woman with multivessel CAD known RCA [employer] and prior PCI to OM with JOAN 11/2020, HFrEF (LVEF of 40-45% and grade 1 diastolic dysfunction as of 09/01/22), type 2 diabetes, hypertension, dyslipidemia, GERD, PCOS, former smoker, and ESPERANZA who presented to the [facility] ED on 10/20/22 with a chief complaint of chest pain. In the ED she was noted to be afebrile, hemodynamically stable, and stable on RA. Labs were remarkable for a CBC WNL, stable Cr at 0.84, stable electrolytes, glucose of 142, initial high sensitivity trop of 267. BNP of 90, and covid 19 negative. Chest xray was read as "Cardio megaly with no active disease in the chest.". ECG was equivocal for possible anterior infarct. The ED staff gave the patient 324 mg PO aspirin and spoke with Cardiology who recommended admitting the patient with continued monitoring. At the time of the exam the patient was resting in bed in no acute distress with her sitting bedside. She states that she was in her normal state of health prior to today. Yesterday she forgot to take her evening dose of Carvedilol. She woke up this am around 0230 and took the HS dose she forgot to take last night. She did not take her am dose of Carvedilol this morning as she was worried this would interact with the dose she took at 0230. 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 At approximately 1130 she experienced sudden onset of left-sided chest pain. She describes the pain as sharp/stabbing, it did not radiate anywhere else. She went up to their house and the pain intensified so she took her next dose of Carvedilol. Shortly after she took a shower and took a baby aspirin. During her shower her chest pain subsided and she has been chest pain free since. She denies recent fevers, chills, changes in vision, hearing, taste, and smell, SOB, abd pain, nausea, vomiting, diarrhea, dysuria, hematuria, melena, bloody BM's, LE swelling, and recent trauma. We discussed starting a heparin drip at this time, she denies a history of major bleeding. Of note, she was treated for diverticulitis approximately one month ago, her symptoms have resolved at this time. Please refer to Dr. Savage's attestation for any changes to the treatment plan Principal Diagnosis Noncardiac chest pain, troponin elevation not due to acute coronary syndrome Discharge Exam General-alert and oriented x3, no fevers, no chills HEENT-head atraumatic and normocephalic, pupils equal and reactive to light, extraocular muscles intact Neck-no lymphadenopathy or thyromegaly, trachea midline Chest-clear to auscultation percussion. No rales wheezing or rhonchi Cardiac-regular rate and rhythm, normal S1 and S2 Abdomen-normal bowel sounds, nontender, no hepatosplenomegaly Extremities-no cyanosis, clubbing, or edema Neuro-cranial nerves II through XII intact, motor and sensory function within normal limits, strength symmetrical , no focal deficits Psych-normal affect, normal mood Discharge Data Allergies Allergy/AdvReac Type Severity Reaction Status Date / Time No Known Allergies Allergy Verified 09/07/22 07:43 Consultations 10/20/22 17:58 ED Decision to Admit Stat 10/20/22 19:25 Consult Cardiology Routine Hospital Course (1) Non-ST elevation (NSTEMI) myocardial infarction: Ruled out. Troponin elevation is not due to acute coronary syndrome per cardiology. Cardiac echo reveals inferior lateral wall motion abnormalities as seen on previous cardiac echo. Nothing new. No acute EKG changes. Heparin drip has been discontinued. Appreciate cardiology consultation and recommendations (2) Diabetes mellitus, type 2: Holding metformin, Dapagliflozin, and glimepiride . Will resume at discharge . Sliding scale coverage for now (3) S/P coronary artery stent placement: History of coronary artery disease and PCI. Continue current medical management. Telemetry (4) ESPERANZA (obstructive sleep apnea): non-compliant with CPAP due to claustrophobia (5) GERD (gastroesophageal reflux disease): Stable with Protonix therapy (6) Hypertension: Stable on carvedilol and spironolactone (7) Hyperlipemia: Stable on statin therapy (8) HFrEF (heart failure with reduced ejection fraction): No overt CHF at this time. Continue current medications including Spironolactone and Entresto Plan Discharge to home todayOctober 21 Total Time Total Time Spent Total Time Spent (In Minutes): 40 minutes Discharge Plan Discharge Items Patient Disposition: Home - Self-Care Reason For Visit: CHEST PAIN Discharge Diagnosis: Noncardiac chest pain, troponin elevation Activity: Resume your previous activity Non-emergency contact: Primary Care Provider Call non-emergency contact if: you have any medication questions and your symptoms worsen Follow-up/Referrals: Terri Sherman DO [Primary Care Provider] - Diet: Carb Consistent or DM2 and Heart Healthy Addtl Attending Provider Instructions: All medications remain the same Pending Studies at Discharge: No Stand-Alone Forms: My [facility] [employer], Smoking Cessation Medications and DC Order Prescriptions: Continued magnesium oxide 400 mg magnesium tablet 400 mg PO DAILY Qty: 90 3RF atorvastatin 80 mg tablet 80 mg PO QAM Qty: 90 2RF furosemide 20 mg tablet 20 mg PO DAILY PRN (Reason: weight gain) Qty: 90 3RF carvedilol 25 mg tablet 25 mg PO BID Qty: 180 3RF glimepiride 4 mg tablet 8 mg PO QAM Qty: 180 1RF Rx Instructions: TAKE TWO TABLETS EVERY MORNING metformin 500 mg tablet extended release 24 hr 1,000 mg PO BID Qty: 360 1RF (DME) blood sugar diagnostic Strip See Rx Instructions .Route Qty: 100 3RF Rx Instructions: one touch verio test twice daily as directed nizatidine 150 mg capsule 150 mg PO BID Qty: 180 2RF Rx Instructions: to replace famotidine Entresto 97-103 mg tablet 1 tab PO BID Qty: 180 1RF spironolactone 25 mg tablet 25 mg PO QAM Qty: 90 3RF dapagliflozin 10 mg tablet 10 mg PO DAILY Qty: 90 3RF aspirin [Adult Low Dose Aspirin] 81 mg tablet,delayed release (DR/EC) 81 mg PO QAM Discharge Orders: Discharge Order (Routine); Ordered 10/21/22 Ordered By: Cornel Mijares Admission Data Admit Date/Time: 10/20/22 18:47 Attending Provider: Cornel Mijares Admit Provider: Enrique Savage Primary Care Provider: Terri Sherman Other Providers: Enrique Savage ; Ilan Ortega Coding Level of Care Code 83095 INP/OBS DISCH >30 MIN Diagnoses Non-ST elevation (NSTEMI) myocardial infarction I21.4 Diabetes mellitus, type 2 E11.9 S/P coronary artery stent placement Z95.5 ESPERANZA (obstructive sleep apnea) G47.33 GERD (gastroesophageal reflux disease) K21.9 Hypertension I10 Hypertension type: essential hypertension Hyperlipemia E78.5 Hyperlipidemia type: unspecified HFrEF (heart failure with reduced ejection fraction) I50.20
--- NOTE | 2022-10-21 14:07 | Electrocardiogram Report ---
Test Reason : Blood Pressure : / mmHG Vent. Rate : 056 BPM Atrial Rate : 056 BPM P-R Int : 184 ms QRS Dur : 114 ms QT Int : 454 ms P-R-T Axes : 027 -29 055 degrees QTc Int : 438 ms Poor data quality, interpretation may be adversely affected Sinus bradycardia Possible Anterior infarct (cited on or before 20-OCT-2022) Possible Inferior infarct , age undetermined Abnormal ECG When compared with ECG of 20-OCT-2022 15:56, (unconfirmed) No significant change was found Confirmed by Ilan Ortega ([id number]) on 10/21/2022 2:07:13 PM Referred By: REFERRED SELF Confirmed By:Ilan Ortega
--- NOTE | 2022-10-21 14:08 | Electrocardiogram Report ---
Test Reason : Blood Pressure : / mmHG Vent. Rate : 059 BPM Atrial Rate : 059 BPM P-R Int : 182 ms QRS Dur : 100 ms QT Int : 426 ms P-R-T Axes : 008 -31 045 degrees QTc Int : 421 ms Sinus bradycardia with occasional Premature ventricular complexes Incomplete right bundle branch block Left axis deviation Anterior infarct (cited on or before 20-OCT-2022) Possible Inferior infarct , age undetermined Abnormal ECG When compared with ECG of 20-OCT-2022 18:08, (unconfirmed) Premature ventricular complexes are now Present Confirmed by Ilan Ortega ([id number]) on 10/21/2022 2:08:08 PM Referred By: REFERRED SELF Confirmed By:Ilan Ortega
== END 2022-10-21 14:47 | disposition home or self-care (01) ==
LOC: ED 15:21 → SUATTDRO 18:47 → INTOOBSV 18:47 → 2S 18:47

== ENCOUNTER 2023-01-26 22:24 | Inpatient (IN) ==
[2023-01-26] MEDS ORDERED: SODIUM CHLORIDE 0.9% 1000ML 1,000 ML IV STA (22:42)
[2023-01-26] MEDS ORDERED: ETOMIDATE 2 MG/ML 20 ML VIAL IV ONE ×2 (22:43→23:44)
[2023-01-26 22:56] LABS: Basophils # (auto) 0.06 K/uL (0-0.2); Basophils % (auto) 0.5 %; Eosinophils # (auto) 0.28 K/uL (0-0.50); Eosinophils % (auto) 2.4 %; Hematocrit (blood only) 46.1 % (37.0-47.0); Hemoglobin 15.8 g/dl (12.0-16.0); Immature Granulocytes # (auto) 0.04 K/uL (0.01-0.20); Immature Granulocytes % (auto) 0.3 %; Lymphocytes # (auto) 3.63 K/uL (1.2-3.4); Mean Corpuscular Hemoglobin 29.1 pg (25.0-34.0); Mean Corpuscular Hgb Conc 34.3 g/dL (32.0-36.0); Mean Corpuscular Volume 84.9 fL (80.0-100.0); Mean Platelet Volume 9.4 fL (9.4-12.4); Monocytes # (auto) 0.95 K/uL (0.11-0.59); Monocytes % (auto) 8.1 %; Neutrophils # (auto) 6.75 K/uL (1.40-6.50); Neutrophils % (auto) 57.7 %; Platelet Count 328 K/uL (130-400); RDW Coefficient of Variation 13.3 % (11.5-14.5); RDW Standard Deviation 41.7 fL (36.4-46.3); Red Blood Count 5.43 M/uL (4.20-5.40); White Blood Count 11.71 K/ul (4.8-10.8)
[2023-01-26 23:14] LABS: Albumin Globulin Ratio 1.4 (0.9-2); Albumin Level 4.5 gm/dl (3.4-5.0); BUN Creatinine Ratio 22.3 (10-20); Bilirubin,Total 0.8 mg/dl (0.2-1.0); Calcium 9.8 mg/dl (8.6-10.3); Creatinine Clr Calc Pharmacy 71.5 ml/min; Est GFR (Non-African American) 55.3 ml/min; Globulin 3.3 gm/dl (2.5-4.0); Magnesium 1.4 mg/dl (1.7-2.4); Potassium 4.1 mmol/L (3.5-5.1); Total Protein 7.8 gm/dl (6.0-8.3)
[2023-01-26 23:26] LABS: Partial Thromboplastin Ratio 0.9; Partial Thromboplastin Time 26.3 Seconds (21.0-31.0); Prothrombin Time 10.8 Seconds (9.0-12.0)
[2023-01-26] MEDS: MAGNESIUM SULFATE / D5W 1 GM/100 ML BAG IV SCH (23:45)
--- NOTE | 2023-01-26 23:56 | Emergency Department Note ---
Impression & Plan Wide-complex tachycardia, Acute hypotension ED Provider Note INFORMANT: Patient ED PROVIDER(S): Freddie Dominguez DO CHIEF COMPLAINT: Palpitations PLAN: Disposition: Admission Outpatient prescription management: [none] Discussion with: I spoke with the hospitalist, who will see the patient for admission/observation and further evaluation and consultation. MEDICAL DECISION MAKING: This is a 57-year-old female who presents to the ED with a chief complaint of a sensation of her heart beating irregularly off and on all day. She states that it was 155 tonight on a home monitoring device. She reports a history of AL, stent and CHF in the past. She does report occasional fluttering and pressure in her chest. Her last fluids was recently on her way here. The last food intake was around 7 PM. Exam reveals a tachycardic regular rhythm. Lungs are clear. She is in no distress. The patient on the monitor reveals a wide- complex tachycardia at a rate of 156. Patient's initial triage blood pressure was 79/54 although in the room it was around 110 systolic. After evaluating twelve-lead EKG, concern for V. tach was raised. Comparison to this from a previous EKG does not suggest an interventricular conduction delay and her wide- complex tachycardia today appears similar to PVCs that she had on a previous EKG. The patient was advised that electrical cardioversion was the best options for treating this. Written consent was obtained. The patient was set up for conscious sedation. 10 mg of etomidate IV was used for conscious sedation. The patient was electively cardioverted with synchronized 200 J. She was cardioverted into a sinus rhythm narrow complex. No complications with either procedure. The patient's twelve-lead EKG after cardioversion shows normal sinus rhythm at a rate of 96. No ischemic changes. CBC and chemistry panel did not show any concerning leukocytosis or anemia. The magnesium was slightly low. This was replaced with 2 g of IV magnesium. Chest x-ray did not show acute pulmonary process. The patient will be seen by the hospitalist for further evaluation and care. Triage Nursing notes reviewed. Vital Signs: reviewed Prior /Outside records reviewed: [none] Differential diagnosis: Wide-complex tachycardia, ventricular tachycardia, electrolyte abnormality, myocardial infarction, cardiac ischemia, other. Diagnostics, as interpreted by me: 12 lead ECG: #1: Wide-complex tachycardia likely V. tach at a rate of 156. #2: Narrow complex normal sinus rhythm at a rate of 96. No ischemic changes. No ST elevation. No PVCs. Normal QTc. Cardiac Monitoring ordered: Initially V. tach at a rate of 150s. After cardioversion sinus rhythm in the 80s and 90s. Medical decision rules: none Imaging studies: Chest x-ray: No acute process. No pneumonia. Procedures: Synchronized electrical cardioversion: After written consent and a timeout. The patient was consciously sedated, 200 J was used in a synchronized fashion to cardiovert the patient into a normal rhythm. The patient tolerated this well. No complications. Conscious sedation: After written consent and a timeout, the patient was treated with 10 mg of etomidate IV. The patient was placed on the monitor. End-tidal CO2 monitoring. Pulse ox. Suction was repaired. Oxygen via nasal cannula was administered. The patient did not have any hypoxia or respiratory arrest during the procedure. Awoke without incident. No complication. Initiation of conscious sedation was 2307. Termination of conscious sedation was 2325. Total time 17 minutes Critical care: I have personally spent 30 minutes of critical care time in the direct management of this patient. This includes bedside care, interpretation of diagnostic studies, and testing, discussion with consultants, patient, and family members, and other required patient management activities. This 30 minutes is in excess of all separately billable procedures. HPI: See MDM above. PAST MEDICAL HISTORY: See Below PAST SURGICAL HISTORY: See Below SOCIAL HISTORY: See Below HOME MEDICATIONS:See Below ALLERGIES: See Below VITALS: See Below PHYSICAL EXAMINATION: See MDM for positive findings otherwise unremarkable. CONSTITUTIONAL/VITAL SIGNS: Reviewed GENERAL:done as appropriate INTEGUMENTARY: done as appropriate HEAD: done as appropriate EYES: done as appropriate RESPIRATORY: done as appropriate CARDIOVASCULAR:done as appropriate GI/ABDOMEN:done as appropriate EXTREMITIES: done as appropriate NEUROLOGICAL: done as appropriate PSYCHIATRIC:done as appropriate MUSCULOSKELETAL:done as appropriate TRIAGE NURSING DOCUMENTATION REVIEWED. Past Med/Surg History Medical History Acute HFrEF (heart failure with reduced ejection fraction) Acute respiratory failure Acute respiratory failure with hypoxia Chronic hypoxemic respiratory failure Diabetes mellitus, type 2 Diabetic neuropathy Diverticulosis Fatty liver GERD (gastroesophageal reflux disease) HFrEF (heart failure with reduced ejection fraction) Hyperlipemia Hypertension Hypophosphatemia Ischemic cardiomyopathy Left leg swelling Multi-vessel coronary artery stenosis ESPERANZA (obstructive sleep apnea) Osteoarthritis PCOS (polycystic ovarian syndrome) Pneumonia due to COVID-19 virus (10/2020) Urinary, incontinence, stress female Surgical History Previous section (2006) S/P cardiac catheterization 02/14/22 Dr. Luis Norris- Cardiac cath- 100% occ mid RCA with [id number] collaterals, Widely patent OM2 stent, 30% mid LAD at bifurcation with D1, Elevated L sided filling pressures S/P coronary artery stent placement (11/20/20) JOAN to OM2 Family History Mother Breast cancer, Onset Age: 51 Hypertension Gall bladder disease Father Hypertension Heart disease S/P coronary artery stent placement Diabetes Sister Hypertension Gall bladder disease Denies family history of Ovarian cancer Prostate cancer Myocardial infarction Colorectal cancer Social History Smoking Status: Never smoker Tobacco Type: Cigarettes Age Started Using Tobacco: 16; Age Quit Using Tobacco: 41; packs per day: 0.5; Second Hand Exposure: No; Do You Dip or Chew Tobacco: No; Hx Alcohol Use: No Hx Substance Use: No Preferred Language: Kazakh Communication Ability: Effective Visual Impairment: No Limitations Hearing Ability: Normal Equipment Services Associate Required: No Beliefs That Will Affect Care: None marital status: Current Living Situation: Spouse Current Living Situation Comment: SPOUSE AND SON current occupational status: employed current occupation: works for [employer] How many Children do You have: 1 Feels Safe at Home: Yes Childhood Exposure to Second-Hand Smoke: Yes (father smoked) Diet: regular Diet Comment: regular caffeine: No during the past year weight has: remained stable Dental Care, Regularly: No Physical Activity Frequency: Daily Physical Activity Frequency 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 Seatbelt Use: always Sunscreen Use: No Assistive Devices: CPAP Allergies Allergies Allergy/AdvReac Type Severity Reaction Status Date / Time No Known Allergies Allergy Verified 01/25/23 11:13 Home Meds Home Medications Medication Instructions Recorded Confirmed aspirin 81 mg tablet,delayed 81 mg PO QAM 08/24/20 01/25/23 release (Adult Low Dose Aspirin) Previous Rx's Medication Instructions Recorded magnesium oxide 400 mg PO DAILY #90 tabs 03/13/22 atorvastatin 80 mg tablet 80 mg PO QAM #90 tabs 04/25/22 spironolactone 25 mg tablet 25 mg PO QAM #90 tabs 05/01/22 furosemide 20 mg tablet 20 mg PO DAILY PRN weight gain #90 05/25/22 tabs carvedilol 25 mg tablet 25 mg PO BID #180 tabs 07/10/22 glimepiride 4 mg tablet 8 mg PO QAM #180 tabs 08/09/22 metformin 500 mg tablet,extended 1,000 mg PO BID #360 tabs 08/09/22 release 24 hr dapagliflozin propanediol 10 mg 10 mg PO DAILY #90 tabs 10/05/22 tablet blood sugar diagnostic #100 ea 10/19/22 nizatidine 150 mg capsule 150 mg PO BID #180 caps 10/20/22 sacubitril 97 mg-valsartan 103 mg 1 tab PO BID #180 tabs 12/01/22 tablet (Entresto) Results & Data (ED) Vital Signs Vital Signs - 24 hr 01/26/23 22:25 01/26/23 22:40 01/26/23 22:37 Temperature 36.5 C Temperature Source Temporal Artery Scan Pulse Rate 156 H 155 H 156 H Respiratory Rate 18 18 Respiratory Effort / Characteristics Non-Labored Respiratory Depth Normal Blood Pressure 79/54 L 112/65 Blood Pressure Mean 62 80 Pulse Oximetry 96 Oxygen Delivery Method Room Air Oxygen Flow Rate Sepsis Recent Fever Within 48 Hours No Sepsis New/Unexplained Change in Mental Status No Sepsis Action Taken by Nursing No Action Required End-Tidal CO2 01/26/23 22:40 01/26/23 22:45 01/26/23 22:50 Temperature Temperature Source Pulse Rate 155 H 154 H 154 H Respiratory Rate 20 19 30 H Respiratory Effort / Characteristics Respiratory Depth Blood Pressure Blood Pressure Mean Pulse Oximetry 95 96 94 Oxygen Delivery Method Room Air Room Air Room Air Oxygen Flow Rate Sepsis Recent Fever Within 48 Hours Sepsis New/Unexplained Change in Mental Status Sepsis Action Taken by Nursing End-Tidal CO2 01/26/23 23:00 01/26/23 23:01 01/26/23 23:05 Temperature Temperature Source Pulse Rate 154 H 154 H 155 H Respiratory Rate 32 H 29 H 10 L Respiratory Effort / Characteristics Respiratory Depth Blood Pressure 79/52 L Blood Pressure Mean 61 Pulse Oximetry 94 99 Oxygen Delivery Method Room Air Nasal Cannula Oxygen Flow Rate 6 Sepsis Recent Fever Within 48 Hours Sepsis New/Unexplained Change in Mental Status Sepsis Action Taken by Nursing End-Tidal CO2 21 01/26/23 23:06 01/26/23 23:08 01/26/23 23:10 Temperature Temperature Source Pulse Rate 160 H 155 H 95 H Respiratory Rate 23 19 24 Respiratory Effort / Characteristics Respiratory Depth Blood Pressure 83/57 L 119/76 102/70 Blood Pressure Mean 65 90 80 Pulse Oximetry 99 99 97 Oxygen Delivery Method Nasal Cannula Nasal Cannula Room Air Oxygen Flow Rate 6 6 Sepsis Recent Fever Within 48 Hours Sepsis New/Unexplained Change in Mental Status Sepsis Action Taken by Nursing End-Tidal CO2 22 25 26 01/26/23 23:15 01/26/23 23:20 01/26/23 23:25 Temperature Temperature Source Pulse Rate 91 H 94 H 93 H Respiratory Rate 26 H 25 H 18 Respiratory Effort / Characteristics Respiratory Depth Blood Pressure 86/57 L 85/55 L 93/53 L Blood Pressure Mean 66 65 66 Pulse Oximetry 98 97 95 Oxygen Delivery Method Room Air Room Air Room Air Oxygen Flow Rate Sepsis Recent Fever Within 48 Hours Sepsis New/Unexplained Change in Mental Status Sepsis Action Taken by Nursing End-Tidal CO2 26 26 28 01/26/23 23:30 01/26/23 23:35 Temperature Temperature Source Pulse Rate 92 H 92 H Respiratory Rate 19 17 Respiratory Effort / Characteristics Respiratory Depth Blood Pressure 86/60 L Blood Pressure Mean 68 Pulse Oximetry 93 97 Oxygen Delivery Method Room Air Room Air Oxygen Flow Rate Sepsis Recent Fever Within 48 Hours Sepsis New/Unexplained Change in Mental Status Sepsis Action Taken by Nursing End-Tidal CO2 29 30 Laboratory Data 01/26/23 22:44 01/26/23 22:44 Lab Results 01/26/23 01/26/23 01/26/23 Range/Units 22:44 22:44 22:44 WBC 11.71 H (4.8-10.8) K/ul RBC 5.43 H (4.20-5.40) M/uL Hgb 15.8 (12.0-16.0) g/dl Hct 46.1 (37.0-47.0) % MCV 84.9 (80.0-100.0) fL MCH 29.1 (25.0-34.0) pg MCHC 34.3 (32.0-36.0) g/dL RDW Std Deviation 41.7 (36.4-46.3) fL RDW Coeff of Nader 13.3 (11.5-14.5) % Plt Count 328 (130-400) K/uL MPV 9.4 (9.4-12.4) fL Immature Gran % (Auto) 0.3 % Neut % (Auto) 57.7 % Lymph % (Auto) 31.0 % Forest % (Auto) 8.1 % Eos % (Auto) 2.4 % Baso % (Auto) 0.5 % Neut # (Auto) 6.75 H (1.40-6.50) K/uL Lymph # (Auto) 3.63 H (1.2-3.4) K/uL Forest # (Auto) 0.95 H (0.11-0.59) K/uL Eos # (Auto) 0.28 (0-0.50) K/uL Baso # (Auto) 0.06 (0-0.2) K/uL Immature Gran # (Auto) 0.04 (0.01-0.20) K/uL PT 10.8 (9.0-12.0) Seconds INR 1.0 (0.9-1.1) APTT 26.3 (21.0-31.0) Seconds PTT Ratio 0.9 Sodium 138 (136-145) mmol/L Potassium 4.1 (3.5-5.1) mmol/L Chloride 104 (98-107) mmol/L Carbon Dioxide 20 L (21-32) mmol/L Anion Gap 14 H (3-11) BUN 25 H (6-23) mg/dl Creatinine 1.12 (0.6-1.2) mg/dl Est Cr Clr Drug Dosing 71.5 ml/min Est GFR ( Amer) 64.0 ml/min Est GFR (Non-Af Amer) 55.3 ml/min BUN/Creatinine Ratio 22.3 H (10-20) Glucose 186 H (70-99(Fasting)) mg/dl Calcium 9.8 (8.6-10.3) mg/dl Magnesium 1.4 L (1.7-2.4) mg/dl Total Bilirubin 0.8 (0.2-1.0) mg/dl AST 13 (13-39) U/L ALT 13 (7-52) U/L Alkaline Phosphatase 76 (34-104) U/L Troponin I High Sens 9.0 (0-14) pg/ml Total Protein 7.8 (6.0-8.3) gm/dl Albumin 4.5 (3.4-5.0) gm/dl Globulin 3.3 (2.5-4.0) gm/dl Albumin/Globulin Ratio 1.4 (0.9-2) TSH (0.300-4.500) uIu/ml SARS-CoV-2, RNA, NAAT (NEGATIVE) 01/26/23 01/26/23 Range/Units 22:44 22:45 WBC (4.8-10.8) K/ul RBC (4.20-5.40) M/uL Hgb (12.0-16.0) g/dl Hct (37.0-47.0) % MCV (80.0-100.0) fL MCH (25.0-34.0) pg MCHC (32.0-36.0) g/dL RDW Std Deviation (36.4-46.3) fL RDW Coeff of Nader (11.5-14.5) % Plt Count (130-400) K/uL MPV (9.4-12.4) fL Immature Gran % (Auto) % Neut % (Auto) % Lymph % (Auto) % Forest % (Auto) % Eos % (Auto) % Baso % (Auto) % Neut # (Auto) (1.40-6.50) K/uL Lymph # (Auto) (1.2-3.4) K/uL Forest # (Auto) (0.11-0.59) K/uL Eos # (Auto) (0-0.50) K/uL Baso # (Auto) (0-0.2) K/uL Immature Gran # (Auto) (0.01-0.20) K/uL PT (9.0-12.0) Seconds INR (0.9-1.1) APTT (21.0-31.0) Seconds PTT Ratio Sodium (136-145) mmol/L Potassium (3.5-5.1) mmol/L Chloride (98-107) mmol/L Carbon Dioxide (21-32) mmol/L Anion Gap (3-11) BUN (6-23) mg/dl Creatinine (0.6-1.2) mg/dl Est Cr Clr Drug Dosing ml/min Est GFR ( Amer) ml/min Est GFR (Non-Af Amer) ml/min BUN/Creatinine Ratio (10-20) Glucose (70-99(Fasting)) mg/dl Calcium (8.6-10.3) mg/dl Magnesium (1.7-2.4) mg/dl Total Bilirubin (0.2-1.0) mg/dl AST (13-39) U/L ALT (7-52) U/L Alkaline Phosphatase (34-104) U/L Troponin I High Sens (0-14) pg/ml Total Protein (6.0-8.3) gm/dl Albumin (3.4-5.0) gm/dl Globulin (2.5-4.0) gm/dl Albumin/Globulin Ratio (0.9-2) TSH 3.804 (0.300-4.500) uIu/ml SARS-CoV-2, RNA, NAAT NEGATIVE (NEGATIVE) Discharge Plan Visit Data Chief Complaint: Arrhythmia/Palpitations Stated Complaint: CHEST PAIN,HIGH HEART RATE,PALPITATIONS ED Provider: Freddie Dominguez Discharge Problem: Wide-complex tachycardia, Acute hypotension Forms Stand Alone Forms: My [facility] Prescriptions Prescriptions: No Action magnesium oxide 400 mg magnesium tablet 400 mg PO DAILY Qty: 90 3RF atorvastatin 80 mg tablet 80 mg PO QAM Qty: 90 2RF furosemide 20 mg tablet 20 mg PO DAILY PRN (Reason: weight gain) Qty: 90 3RF carvedilol 25 mg tablet 25 mg PO BID Qty: 180 3RF glimepiride 4 mg tablet 8 mg PO QAM Qty: 180 1RF Rx Instructions: TAKE TWO TABLETS EVERY MORNING metformin 500 mg tablet extended release 24 hr 1,000 mg PO BID Qty: 360 1RF (DME) blood sugar diagnostic Strip See Rx Instructions .Route Qty: 100 3RF Rx Instructions: one touch verio test twice daily as directed nizatidine 150 mg capsule 150 mg PO BID Qty: 180 2RF Rx Instructions: to replace famotidine spironolactone 25 mg tablet 25 mg PO QAM Qty: 90 3RF dapagliflozin propanediol 10 mg tablet 10 mg PO DAILY Qty: 90 3RF Entresto 97-103 mg tablet 1 tab PO BID Qty: 180 1RF aspirin [Adult Low Dose Aspirin] 81 mg tablet,delayed release (DR/EC) 81 mg PO QAM Referrals Referrals: Terri Sherman DO [Primary Care Provider] -
--- NOTE | 2023-01-27 00:24 | History & Physical Report ---
Date of Service January 27, 2023 Assessment & Plan (1) Wide-complex tachycardia: Plan: 57yo female presenting with palpitations found with wide complex tachycardia concerning for VT s/p synchronized cardioversion now in NSR. Troponin is NEGATIVE. EKG with no acute ischemic changes. Patient does not appear to be in acute HF at this time. She reports medication adherence. Mg is low at 1.4 -Admit to PCU -Maintain external pacer pads on chest -Magnesium repletion -Trend troponin -Check 2D echo in AM -Cardiology consultation appreciated -If recurrence of ventricular arrhythmia tonight will administer Amiodarone (2) Hypertension: Plan: Blood pressure is borderline low at present -Hold Spironolactone and Entresto for now -Cotninue Carvedilol with holding parameters (3) Uncontrolled type 2 diabetes mellitus with hyperglycemia: Plan: Hold oral agents -ISS, Lantus 7u BID, goal blood sugar 110-140 (4) Multi-vessel coronary artery stenosis: Plan: -Continue ASA -Continue Atorvastatin (5) Ischemic cardiomyopathy: Plan: Compensated -Monitor weight, I/Os -Repeat labs in AM -Cardiology consultation appreciated History of Present Illness Chief Complaint: palpitations Primary Care Provider: Terri Sherman DO Nikky Law is a 57yo female with history of multivessel CAD s/p NSTEMI with stent placement to OM2 in November 2020. She had a cardiac catheterization in February 2022 which revealed 100% chronic occlusion of the mid-RCA with left to right collaterals and a widely patent OM2 stent. She has ischemic cardiomyopathy with EF of 40-45%, DM, HTN, HLP, GERD and restrictive lung disease presenting with palpitations. Patient reports having an irregular feeling in her chest intermittently throughout the day 01/26/23. She felt "funny" with occasional palpitations. Around 19:30 she took an extra aspirin and at 20:50 she took her evening medications. When she laid down for bed she developed some substernal chest discomfort with lightheadedness and palpitations. She checked her heart rate and found it to be elevated from 150 - 162 bpm which prompted her to come to the ER. Upon arrival patient found to be in wide complex tachycardia concerning for ventricular tachycardia with a rate of 155bpm. She was symptomatic with chest tightness and lightheadedness and had a blood pressure of 79/54. Patient was administered Etomidate 10mg IV and received synchronized cardioversion at 200J with return to normal sinus rhythm. Patient's blood pressure improved as did her chest discomfort and lightheadedness. Presently with no complaints. She denies fever, chills, cough, CP, SOB, recent illness. Denies abdominal pa in, nausea, vomiting, diarrhea or constipation. She does not feel that she is volume overloaded - no edema or orthopnea. Weight has been stable (presently 242# with dry weight of 245# per most recent Heart Failure note). Patient did have similar sensations of palpitations and "feeling funny in the chest" in the past - last was in October 2022. No prior cardioversion. No formal diagnosis of arrhythmia. ER Course: Magnesium 2gm Etomidate Allergies Allergy/AdvReac Type Severity Reaction Status Date / Time No Known Allergies Allergy Verified 01/25/23 11:13 Home Medications Medication Instructions Recorded Confirmed Type aspirin 81 mg tablet,delayed 81 mg PO QAM 08/24/20 01/27/23 History release (Adult Low Dose Aspirin) magnesium oxide 400 mg PO DAILY #90 tabs 03/13/22 01/27/23 Rx atorvastatin 80 mg tablet 80 mg PO QAM #90 tabs 04/25/22 01/27/23 Rx spironolactone 25 mg tablet 25 mg PO QAM #90 tabs 05/01/22 01/27/23 Rx furosemide 20 mg tablet 20 mg PO DAILY PRN weight gain #90 05/25/22 01/27/23 Rx tabs carvedilol 25 mg tablet 25 mg PO BID #180 tabs 07/10/22 01/27/23 Rx glimepiride 4 mg tablet 8 mg PO QAM #180 tabs 08/09/22 01/27/23 Rx metformin 500 mg tablet,extended 1,000 mg PO BID #360 tabs 08/09/22 01/27/23 Rx release 24 hr dapagliflozin propanediol 10 mg 10 mg PO DAILY #90 tabs 10/05/22 01/27/23 Rx tablet blood sugar diagnostic #100 ea 10/19/22 01/27/23 Rx nizatidine 150 mg capsule 150 mg PO BID #180 caps 10/20/22 01/27/23 Rx sacubitril 97 mg-valsartan 103 mg 1 tab PO BID #180 tabs 12/01/22 01/27/23 Rx tablet (Entresto) Past Med/Surg History Medical History Acute HFrEF (heart failure with reduced ejection fraction) Acute respiratory failure Acute respiratory failure with hypoxia Chronic hypoxemic respiratory failure Diabetes mellitus, type 2 Diabetic neuropathy Diverticulosis Fatty liver GERD (gastroesophageal reflux disease) HFrEF (heart failure with reduced ejection fraction) Hyperlipemia Hypertension Hypophosphatemia Ischemic cardiomyopathy Left leg swelling Multi-vessel coronary artery stenosis ESPERANZA (obstructive sleep apnea) Osteoarthritis PCOS (polycystic ovarian syndrome) Pneumonia due to COVID-19 virus (10/2020) Urinary, incontinence, stress female Surgical History Previous section (2006) S/P cardiac catheterization 02/14/22 Dr. Luis Norris- Cardiac cath- 100% occ mid RCA with [id number] collaterals, Widely patent OM2 stent, 30% mid LAD at bifurcation with D1, Elevated L sided filling pressures S/P coronary artery stent placement (11/20/20) JOAN to OM2 Family History Mother Breast cancer, Onset Age: 51 Hypertension Gall bladder disease Father Hypertension Heart disease S/P coronary artery stent placement Diabetes Sister Hypertension Gall bladder disease Denies family history of Ovarian cancer Prostate cancer Myocardial infarction Colorectal cancer Social History Smoking Status: Never smoker Tobacco Type: Cigarettes Age Started Using Tobacco: 16; Age Quit Using Tobacco: 41; packs per day: 0.5; Second Hand Exposure: No; Do You Dip or Chew Tobacco: No; Hx Alcohol Use: No Hx Substance Use: No Preferred Language: Thai Communication Ability: Effective Visual Impairment: No Limitations Hearing Ability: Normal Stone Layout Marker Required: No Beliefs That Will Affect Care: None marital status: Current Living Situation: Spouse Current Living Situation Comment: SPOUSE AND SON current occupational status: employed current occupation: works for [employer] How many Children do You have: 1 Feels Safe at Home: Yes Childhood Exposure to Second-Hand Smoke: Yes (father smoked) Diet: regular Diet Comment: regular caffeine: No during the past year weight has: remained stable Dental Care, Regularly: No Physical Activity Frequency: Daily Physical Activity Frequency 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 Seatbelt Use: always Sunscreen Use: No Assistive Devices: CPAP Review of Systems Review of Systems: All systems reviewed & are unremarkable except as noted in HPI & below Physical Exam Physical Exam: General: patient resting comfortably, NAD, non-toxic in appearance, AA&O x 4 Skin: warm, dry, intact, no rashes or lesions HEENT: NC/AT, PERRL, EOMI, anicteric sclera, conjunctiva without injection, external ear normal to inspection and nontender, nares patent, moist mucus membranes, dentition intact, no oropharyngeal lesions, neck supple, trachea midline, no LAD, no thyromegaly, no JVD Heart: +S1/S2, regular, no m/r/g Lungs: equal air entry bilaterally, no rales/rhonchi/wheezes Abd: +BS, soft, NT/ND, no masses/organomegaly/ascites Ext: warm, 2+ pulses in UE/LE bilaterally, no clubbing/cyanosis or edema Neuro: nonfocal, patient AA&O x 4, speech intact, no facial droop, moving all extremities on command with equal strength 5/5 Results & Data Results & Data Vital Signs (Past 12 Hours) Vital Signs Temp Pulse Resp BP Pulse Ox O2 Del Method O2 Flow Rate 01/26/23 23:35 92 H 17 97 Room Air 01/26/23 23:30 92 H 19 86/60 L 93 Room Air 01/26/23 23:25 93 H 18 93/53 L 95 Room Air 01/26/23 23:20 94 H 25 H 85/55 L 97 Room Air 01/26/23 23:15 91 H 26 H 86/57 L 98 Room Air 01/26/23 23:10 95 H 24 102/70 97 Room Air 01/26/23 23:08 155 H 19 119/76 99 Nasal Cannula 6 01/26/23 23:06 160 H 23 83/57 L 99 Nasal Cannula 6 01/26/23 23:05 155 H 10 L 99 Nasal Cannula 6 01/26/23 23:01 154 H 29 H 79/52 L 94 Room Air 01/26/23 23:00 154 H 32 H 01/26/23 22:50 154 H 30 H 94 Room Air 01/26/23 22:45 154 H 19 96 Room Air 01/26/23 22:40 155 H 20 95 Room Air 01/26/23 22:37 156 H 18 112/65 01/26/23 22:40 155 H 01/26/23 22:25 36.5 C 156 H 18 79/54 L 96 Room Air Laboratory Results Laboratory Results WBC 11.71 K/ul (4.8-10.8) H 01/26/23 22:44 RBC 5.43 M/uL (4.20-5.40) H 01/26/23 22:44 Hgb 15.8 g/dl (12.0-16.0) 01/26/23 22:44 Hct 46.1 % (37.0-47.0) 01/26/23 22:44 MCV 84.9 fL (80.0-100.0) 01/26/23 22:44 MCH 29.1 pg (25.0-34.0) 01/26/23 22:44 MCHC 34.3 g/dL (32.0-36.0) 01/26/23 22:44 RDW Std Deviation 41.7 fL (36.4-46.3) 01/26/23 22:44 RDW Coeff of Nader 13.3 % (11.5-14.5) 01/26/23 22:44 Plt Count 328 K/uL (130-400) 01/26/23 22:44 MPV 9.4 fL (9.4-12.4) 01/26/23 22:44 Immature Gran % (Auto) 0.3 % 01/26/23 22:44 Neut % (Auto) 57.7 % 01/26/23 22:44 Lymph % (Auto) 31.0 % 01/26/23 22:44 [place] % (Auto) 8.1 % 01/26/23 22:44 Eos % (Auto) 2.4 % 01/26/23 22:44 Baso % (Auto) 0.5 % 01/26/23 22:44 Neut # (Auto) 6.75 K/uL (1.40-6.50) H 01/26/23 22:44 Lymph # (Auto) 3.63 K/uL (1.2-3.4) H 01/26/23 22:44 [place] # (Auto) 0.95 K/uL (0.11-0.59) H 01/26/23 22:44 Eos # (Auto) 0.28 K/uL (0-0.50) 01/26/23 22:44 Baso # (Auto) 0.06 K/uL (0-0.2) 01/26/23 22:44 Immature Gran # (Auto) 0.04 K/uL (0.01-0.20) 01/26/23 22:44 PT 10.8 Seconds (9.0-12.0) 01/26/23 22:44 INR 1.0 (0.9-1.1) 01/26/23 22:44 APTT 26.3 Seconds (21.0-31.0) 01/26/23:44 PTT Ratio 0.9 01/26/23 22:44 Sodium 138 mmol/L (136-145) 01/26/23 22:44 Potassium 4.1 mmol/L (3.5-5.1) 01/26/23 22:44 Chloride 104 mmol/L (98-107) 01/26/23 22:44 Carbon Dioxide 20 mmol/L (21-32) L 01/26/23 22:44 Anion Gap 14 (3-11) H 01/26/23 22:44 BUN 25 mg/dl (6-23) H 01/26/23 22:44 Creatinine 1.12 mg/dl (0.6-1.2) 01/26/23 22:44 Est Cr Clr Drug Dosing 71.5 ml/min 01/26/23 22:44 Est GFR ( Amer) 64.0 ml/min 01/26/23 22:44 Est GFR (Non-Af Amer) 55.3 ml/min 01/26/23 22:44 BUN/Creatinine Ratio 22.3 (10-20) H 01/26/23 22:44 Glucose 186 mg/dl (70-99(Fasting)) H 01/26/23 22:44 Calcium 9.8 mg/dl (8.6-10.3) 01/26/23 22:44 Magnesium 1.4 mg/dl (1.7-2.4) L 01/26/23 22:44 Total Bilirubin 0.8 mg/dl (0.2-1.0) 01/26/23 22:44 AST 13 U/L (13-39) 01/26/23 22:44 ALT 13 U/L (7-52) 01/26/23 22:44 Alkaline Phosphatase 76 U/L (34-104) 01/26/23 22:44 Troponin I High Sens 9.0 pg/ml (0-14) 01/26/23 22:44 Total Protein 7.8 gm/dl (6.0-8.3) 01/26/23 22:44 Albumin 4.5 gm/dl (3.4-5.0) 01/26/23 22:44 Globulin 3.3 gm/dl (2.5-4.0) 01/26/23 22:44 Albumin/Globulin Ratio 1.4 (0.9-2) 01/26/23 22:44 TSH 3.804 uIu/ml (0.300-4.500) 01/26/23 22:44 SARS-CoV-2, RNA, NAAT NEGATIVE (NEGATIVE) 01/26/23 22:45 ECG Additional Comments: NSR at 96bpm, no acute ischemic changes PG Care Time/CCT Total # of Minutes Spent Total Time Spent with Patient: Total time spent is greater than 50% in coordination of care (as documented) at patient's floor/unit and/or counseling patient: Coding Level of Care Code 21639 INT INP/OBS CARE 3/75MIN Diagnoses Wide-complex tachycardia R00.0 Hypertension I10 Hypertension type: essential hypertension Uncontrolled type 2 diabetes mellitus with hyperglycemia E11.65 Multi-vessel coronary artery stenosis I25.10 Ischemic cardiomyopathy I25.5 (2) Hypertension Hypertension type: essential hypertension Qualified Code(s): I10 - Essential (primary) hypertension
[2023-01-27] MEDS: MAGNESIUM SULFATE / D5W 1 GM/100 ML BAG IV SCH (00:45)
[2023-01-27] MEDS ORDERED: LACTATED RINGER'S 500 ML IV ONE (01:10)
[2023-01-27] MEDS ORDERED: GLUCOSE 40% GEL 15 GM TUBE PO PRN (02:00)
[2023-01-27] MEDS ORDERED: ACETAMINOPHEN 325 MG TAB PO PRN (02:00)
[2023-01-27] MEDS ORDERED: DEXTROSE 50% 50 ML SYRINGE IV PRN (02:00)
[2023-01-27] MEDS ORDERED: GLUCOSE 10 TAB/TUBE PO PRN (02:00)
[2023-01-27] MEDS ORDERED: CARBOHYDRATES FOR HYPOGLYCEMIA PO PRN (02:00)
[2023-01-27] MEDS ORDERED: GLUCAGON FOR INJ 1 MG VIAL SQ PRN (02:00)
[2023-01-27] MEDS ORDERED: LACTATED RINGER'S 1,000 ML IV SCH (02:00)
[2023-01-27 02:20] LABS: Phosphorus 3.6 mg/dl (2.5-4.9)
[2023-01-27 06:59] LABS: Magnesium 1.9 mg/dl (1.7-2.4)
[2023-01-27 07:15] LABS: Troponin I High Sensitivity 478.1 pg/ml (0-14)
[2023-01-27] MEDS: INSULIN ASPART PER UNIT CHARGE SC SCH ×4 (07:55→20:34)
[2023-01-27] MEDS: ASPIRIN 81 MG ECTAB PO SCH (07:56)
[2023-01-27] MEDS: carvediloL 25 MG TAB PO SCH ×2 (07:57→20:34)
[2023-01-27] MEDS: ATORVASTATIN 40 MG TAB PO SCH (07:57)
[2023-01-27] MEDS: LANTUS PER UNIT CHARGE SQ SCH ×2 (08:03→20:34)
--- NOTE | 2023-01-27 08:29 | XRay Report ---
SINGLE VIEW CHEST CLINICAL HISTORY: Dysrhythmia FINDINGS: An AP, portable, upright chest radiograph is compared to study dated 10/20/2022 and correlat ed with chest CT dated 03/04/2021. The heart is enlarged. The pulmonary vasculature is noncongested. C hronic interstitial thickening is similar to previous. There is mild bibasilar scarring/atelectasis. The lungs and pleural spaces are otherwise clear. No pneumothorax is seen. The skeletal structures ap pear osteopenic. The bony thorax is grossly intact. Spondylotic change is noted in the spine. IMPRESSION: Mild cardiomegaly with no active disease in the chest. ACT 112: Negative or not required by law. Electronically signed by: Isreal Todd M.D. 01/27/2023 8:27 AM
--- NOTE | 2023-01-27 12:27 | XCELERA ---
[id number] \\[id number]
--- NOTE | 2023-01-27 12:43 | Cardiology Consultation ---
Date of Consultation January 27, 2023 Assessment & Plan (1) Wide-complex tachycardia: -ventricular tachycardia until proven otherwise. -would keep in the hospital until seen by the electrophysiology team. (2) Multi-vessel coronary artery stenosis: -fortunately, her initial high sensitivity troponin was normal. -continue medical management. (3) Ischemic cardiomyopathy: -ejection fraction is mildly depressed, but stable. -would restart Entresto, spironolactone, and dapagliflozin. History of Present Illness Attending Physician: Reji Simpson MD History of Present Illness Mrs. Law is a 57-year-old female admitted yesterday after an episode of symptomatic, sustained, ventricular tachycardia. This consultation was ordered to assist in her cardiac management. Of note, she typically follows with Dr. Norris in the outpatient setting. The patient was in her usual state of health until yesterday afternoon when she began to notice intermittent episodes of palpitations. Her symptoms was last for approximately 20-30 minutes and resolve spontaneously. She had no associated chest discomfort or shortness of breath. The patient went to bed just after 9:00 p.m.. She noted the abrupt onset palpitations and substernal chest discomfort. Her heart rate was 150-160 beats per minute range. Her drove her to the emergency room for further care. On arrival here, she was noted to be in wide complex tachycardia at 155 beats per minute. She was complaining of chest discomfort and her blood pressure was 80/50. The patient was sedated and then cardioverted. Hospitalization was recommended. The patient does carry history of coronary artery disease. She had a 3 x 12 On yx stent placed in OM 2 in November 2020. She also was found to have a chronic total occlusion of the mid RCA with good [id number] distal collateralization at that time. She had a follow-up cardiac catheterization performed in February 2022 which noted a patent stent, a 30% mid LAD stenosis, and total occlusion of the mid RCA. She also carries a history of ischemic cardiomyopathy with ejection fraction 40- 45% with an inferolateral wall motion abnormality. She is on appropriate medications and does follow with Josephine Barroso in the CHF clinic. Currently, patient is resting comfortably in bed without complaints. Past medical and surgical history 1. Coronary artery disease-see above 2. OM 2 JOAN-November 2020 3. Ischemic pznbnhrjrhbodr-89-49% 4. Chronic systolic CHF 5. Hypertension 6. Hypercholesterolemia 7. Chronic respiratory failure 8. Diabetes mellitus 9. Diabetic peripheral neuropathy 10. GERD 11. Diverticulitis 12. Steatohepatitis 13. DJD 14. Polycystic ovarian disease 15. [id number] Social History , lives with her Quit tobacco use at age 41, 12 pack year history Rare alcohol Review of systems A 10 point review systems was undertaken and negative except that described. Allergies Allergy/AdvReac Type Severity Reaction Status Date / Time No Known Allergies Allergy Verified 01/25/23 11:13 Home Medications Medication Instructions Recorded Confirmed Type aspirin 81 mg tablet,delayed 81 mg PO QAM 08/24/20 01/27/23 History release (Adult Low Dose Aspirin) magnesium oxide 400 mg PO DAILY #90 tabs 03/13/22 01/27/23 Rx atorvastatin 80 mg tablet 80 mg PO QAM #90 tabs 04/25/22 01/27/23 Rx spironolactone 25 mg tablet 25 mg PO QAM #90 tabs 05/01/22 01/27/23 Rx furosemide 20 mg tablet 20 mg PO DAILY PRN weight gain #90 05/25/22 01/27/23 Rx tabs carvedilol 25 mg tablet 25 mg PO BID #180 tabs 07/10/22 01/27/23 Rx glimepiride 4 mg tablet 8 mg PO QAM #180 tabs 08/09/22 01/27/23 Rx metformin 500 mg tablet,extended 1,000 mg PO BID #360 tabs 08/09/22 01/27/23 Rx release 24 hr dapagliflozin propanediol 10 mg 10 mg PO DAILY #90 tabs 10/05/22 01/27/23 Rx tablet blood sugar diagnostic #100 ea 10/19/22 01/27/23 Rx nizatidine 150 mg capsule 150 mg PO BID #180 caps 10/20/22 01/27/23 Rx sacubitril 97 mg-valsartan 103 mg 1 tab PO BID #180 tabs 12/01/22 01/27/23 Rx tablet (Entresto) Patient History Medical History Acute HFrEF (heart failure with reduced ejection fraction) Acute respiratory failure Acute respiratory failure with hypoxia Chronic hypoxemic respiratory failure Diabetes mellitus, type 2 Diabetic neuropathy Diverticulosis Fatty liver GERD (gastroesophageal reflux disease) HFrEF (heart failure with reduced ejection fraction) Hyperlipemia Hypertension Hypophosphatemia Ischemic cardiomyopathy Left leg swelling Multi-vessel coronary artery stenosis ESPERANZA (obstructive sleep apnea) Osteoarthritis PCOS (polycystic ovarian syndrome) Pneumonia due to COVID-19 virus (10/2020) Urinary, incontinence, stress female Surgical History Previous section (2006) S/P cardiac catheterization 02/14/22 Dr. Luis Norris- Cardiac cath- 100% occ mid RCA with tyrx-sk-egmgg collaterals, Widely patent OM2 stent, 30% mid LAD at bifurcation with D1, Elevated L sided filling pressures S/P coronary artery stent placement (11/20/20) JOAN to OM2 Family History Mother Breast cancer, Onset Age: 51 Hypertension Gall bladder disease Father Hypertension Heart disease S/P coronary artery stent placement Diabetes Sister Hypertension Gall bladder disease Denies family history of Ovarian cancer Prostate cancer Myocardial infarction Colorectal cancer Social History Smoking Status: Former smoker Tobacco Type: Cigarettes Age Started Using Tobacco: 16; Age Quit Using Tobacco: 41; packs per day: 0.5; Smoking End Date: 2005; Second Hand Exposure: No; Do You Dip or Chew Tobacco: No; Hx Alcohol Use: No Hx Substance Use: No Preferred Language: Maltese Communication Ability: Effective Visual Impairment: No Limitations Hearing Ability: Normal Law Enforcement Director Required: No Beliefs That Will Affect Care: None marital status: Current Living Situation: Spouse Current Living Situation Comment: Alone with current occupational status: employed current occupation: works for [employer] How many Children do You have: 1 Other Information That Helps Us Care for You: No Feels Safe at Home: Yes Safety Concerns: Feels Safe At This Time Childhood Exposure to Second-Hand Smoke: Yes (father smoked) Diet: regular Diet Comment: regular caffeine: No during the past year weight has: remained stable Dental Care, Regularly: No Physical Activity Frequency: Daily Physical Activity Frequency 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 HEENT exam is negative. Neck is supple with full carotid upstrokes. There are no carotid bruits. Jugular venous pressure is flat at 90. There is no thyromegaly. Cardiovascular exam reveals a regular rhythm with a normal S1-S2. Heart sounds are distant. No obvious murmurs. Lungs are clear without rales, rhonchi or wheezes. Abdomen is obese without bruits. Extremities reveal intact radial artery pulses bilaterally. There is no peripheral edema. Results & Data Vital Signs (Past 12 Hours) Vital Signs Temp Pulse Pulse Resp BP BP Pulse Ox 01/27/23 11:45 36.4 C L 73 18 110/57 L 95 01/27/23 07:43 36.6 C 67 18 104/72 95 01/27/23 02:08 75 01/27/23 03:08 36.5 C 68 16 103/71 97 01/27/23 02:00 36.7 C 73 16 128/85 97 01/27/23 02:29 36.7 C 73 16 128/85 97 01/27/23 02:00 01/27/23 01:30 82 92/70 L 98 01/27/23 01:15 87 98/60 L 93 01/27/23 01:00 94 H 86/56 L 96 01/27/23 00:55 94 H 84/52 L 93 01/27/23 00:50 90 97/56 L 95 01/27/23 00:45 95 H 91/57 L 96 01/27/23 00:40 94 H 89/61 L 96 01/27/23 00:35 94 H 98/56 L 94 Pulse Ox O2 Del Method O2 Del Method 01/27/23 11:45 Room Air 01/27/23 07:43 Room Air 01/27/23 02:08 01/27/23 03:08 Room Air 01/27/23 02:00 Room Air 01/27/23 02:29 Room Air 01/27/23 02:00 97 Room Air 01/27/23 01:30 Room Air 01/27/23 01:15 Room Air 01/27/23 01:00 Room Air 01/27/23 00:55 Room Air 01/27/23 00:50 Room Air 01/27/23 00:45 Room Air 01/27/23 00:40 Room Air 01/27/23 00:35 Room Air Laboratory Results CBC notes hemoglobin 15.8, crit 46.1, white count 11.7, and platelet count of 280223. Electrolytes note a sodium of 138, potassium 4.1, chloride 104, bicarb 20, BUN 25, creatinine 1.1, glucose of 186. Initial magnesium level was low at 1.4, currently 1.9. High sensitivity troponin was 9 on presentation, currently 478.1. TSH is normal at 3.8. Diagnostic Findings Echocardiogram today was technically limited but noted an ejection fraction 40- 45%. Wall motion abnormalities could not be excluded. There was mild LVH. EKG on presentation noted wide complex tachycardia with right bundle branch block pattern. Follow-up tracing noted sinus rhythm with a left axis deviation, and old anterior CO, an old inferior CO. PG Care Time/CCT Total # of Minutes Spent Total Time Spent with Patient: Total time spent is greater than 50% in coordination of care (as documented) at patient's floor/unit and/or counseling patient: Coding Level of Care Code 41431 IN/OBS CONSULT LVL 4,60M Diagnoses Wide-complex tachycardia R00.0 Multi-vessel coronary artery stenosis I25.10 Ischemic cardiomyopathy I25.5
--- NOTE | 2023-01-27 13:16 | Electrocardiogram Report ---
Test Reason : Blood Pressure : / mmHG Vent. Rate : 155 BPM Atrial Rate : 000 BPM P-R Int : 000 ms QRS Dur : 158 ms QT Int : 350 ms P-R-T Axes : 000 142 -37 degrees QTc Int : 562 ms Wide QRS tachycardia Right bundle branch block Inferior infarct , age undetermined Abnormal ECG When compared with ECG of 20-OCT-2022 18:10, Significant changes have occurred Confirmed by Levi Eddy ([id number]) on 01/27/2023 1:15:56 PM Referred By: REFERRED SELF Confirmed By:Levi Eddy
--- NOTE | 2023-01-27 13:18 | Electrocardiogram Report ---
Test Reason : Blood Pressure : / mmHG Vent. Rate : 096 BPM Atrial Rate : 096 BPM P-R Int : 196 ms QRS Dur : 114 ms QT Int : 356 ms P-R-T Axes : 032 -37 096 degrees QTc Int : 449 ms Poor data quality, interpretation may be adversely affected Normal sinus rhythm Left axis deviation Minimal voltage criteria for LVH, may be normal variant Anterolateral infarct , age undetermined Inferior infarct , age undetermined Abnormal ECG When compared with ECG of 26-JAN-2023 22:34, (unconfirmed) Sinus rhythm has replaced Wide QRS tachycardia Vent. rate has decreased BY 59 BPM Confirmed by Levi Eddy ([id number]) on 01/27/2023 1:18:31 PM Referred By: REFERRED SELF Confirmed By:Levi Eddy
[2023-01-28 06:56] LABS: Hematocrit (blood only) 42.7 % (37.0-47.0); Hemoglobin 14.7 g/dl (12.0-16.0); Mean Corpuscular Hemoglobin 29.4 pg (25.0-34.0); Mean Corpuscular Hgb Conc 34.4 g/dL (32.0-36.0); Mean Corpuscular Volume 85.4 fL (80.0-100.0); Mean Platelet Volume 9.6 fL (9.4-12.4); Platelet Count 268 K/uL (130-400); RDW Coefficient of Variation 13.7 % (11.5-14.5); RDW Standard Deviation 42.4 fL (36.4-46.3); White Blood Count 8.07 K/ul (4.8-10.8)
[2023-01-28 07:38] LABS: Creatinine Clr Calc Pharmacy 97.4 ml/min; Est GFR (African American) 94.8 ml/min; Est GFR (Non-African American) 81.8 ml/min
[2023-01-28 07:39] LABS: BUN Creatinine Ratio 23.5 (10-20); Calcium 9.6 mg/dl (8.6-10.3); Potassium 4.2 mmol/L (3.5-5.1)
[2023-01-28] MEDS: carvediloL 25 MG TAB PO SCH ×2 (08:39→20:10)
[2023-01-28] MEDS: ATORVASTATIN 40 MG TAB PO SCH (08:39)
[2023-01-28] MEDS: ASPIRIN 81 MG ECTAB PO SCH (08:39)
[2023-01-28] MEDS: INSULIN ASPART PER UNIT CHARGE SC SCH ×4 (08:41→20:43)
[2023-01-28] MEDS: LANTUS PER UNIT CHARGE SQ SCH ×2 (08:41→20:43)
--- NOTE | 2023-01-28 12:58 | Cardiology Progress Note ---
Date of Service January 28, 2023 Assessment & Plan (1) Wide-complex tachycardia: Plan: -no further ventricular tachycardia since admission. -will be seen by Dr. Rodriguez tomorrow. (2) Multi-vessel coronary artery stenosis: Plan: -initial high sensitivity troponin was normal. -continue medical management. (3) Ischemic cardiomyopathy: Plan: -ejection fraction mildly depressed, but unchanged. -would restart Entresto, spironolactone, and dapagliflozin. Admission and Anticipated Discharge Date Admission Date: January 27, 2023 Subjective The patient is resting comfortably in bed without complaints of chest pain, dyspnea, or palpitations. Physical Exam Physical Exam: In general is well -developed well-no urished white fema le in no acute dis tress. HEENT exam is negative. Nec k is supple with f ull carotid upstro kes. There are no carotid bruits. Jugular venous pre ssure is flat at 9 0. There is no t hyromegaly. Cardi ovascular exam rev eals a regular rhy thm with a normal S1-S2. Heart soun ds are distant. N o obvious murmurs. Lungs are clear without rales, rho nchi or wheezes. Abdomen is obese w ithout bruits. Ex tremities reveal i ntact radial arter y pulses bilateral ly. There is no p eripheral edema. Results & Data Vital Signs (Past 12 Hours) Vital Signs Temp Pulse Pulse Resp BP Pulse Ox O2 Del Method 01/28/23 11:06 36.8 C 59 L 19 106/68 96 Room Air 01/28/23 09:08 63 01/28/23 07:53 36.4 C L 68 18 120/78 95 Room Air 01/28/23 02:55 36.8 C 67 18 113/75 94 Room Air Diagnostic Findings monitor technician notes an occasional PVC. No ventricular tachycardia. PG Care Time/CCT Total # of Minutes Spent Total Time Spent with Patient: Total time spent is greater than 50% in coordination of care (as documented) at patient's floor/unit and/or counseling patient: Coding Level of Care Code 54725 SUB INP/OBS CARE 3/50MIN Diagnoses Wide-complex tachycardia R00.0 Multi-vessel coronary artery stenosis I25.10 Ischemic cardiomyopathy I25.5
--- NOTE | 2023-01-28 13:12 | Hospitalist Progress Note ---
Date of Service January 28, 2023 Assessment & Plan (1) Wide-complex tachycardia: Plan: 57yo female presenting with palpitations found with wide complex tachycardia concerning for VT s/p synchronized cardioversion now in NSR. Troponin is NEGATIVE. EKG with no acute ischemic changes. Patient does not appear to be in acute HF at this time. -No more episodes of tachycardia since admission -Will be evaluated by electrophysiology tomorrow -Appreciate cardiology consult. -If recurrence of ventricular arrhythmia tonight will administer Amiodarone (2) Hypertension: Plan: Blood pressure is borderline low at present -Hold Spironolactone and Entresto for now -Cotninue Carvedilol with holding parameters (3) Uncontrolled type 2 diabetes mellitus with hyperglycemia: Plan: Hold oral agents -ISS, Lantus 7u BID, goal blood sugar 110-140 (4) Multi-vessel coronary artery stenosis: Plan: -Continue ASA -Continue Atorvastatin (5) Ischemic cardiomyopathy: Plan: Compensated -Monitor weight, I/Os -Repeat labs in AM -Cardiology consultation appreciated Plan Awaiting assessment by electrophysiology Admission and Anticipated Discharge Date Admission Date: January 27, 2023 Subjective Patient seen and examined today, denies any new chest pains but endorses some chest discomfort, denies palpitations Review of Systems Review of Systems: All systems reviewed are negative, apart from the ones contained in the history. Physical Exam Physical Exam: The patient is awake, alert and oriented 3, well developed and well nourished, normocephalic and atraumatic, lying in bed and in no acute distress. HEENT--PERRL, EOMI, mucous membranes and oropharynx mildly dry Neck--supple. No JVD. No bruits. Thyroid normal, trachea midline, no adenopathy. Heart--normal S1 and S2. No murmurs, rubs or gallops. Lungs--clear bilaterally, no respiratory distress, no accessory muscle use. Abdomen--normal bowel sounds and soft. Mild epigastric and left sided abdominal pain Extremities--no cyanosis or clubbing. No edema. Dermatologic--normal skin turgor, normal color, no abnormal lymph nodes, no rash. Neurologic--cranial nerves II through XII grossly intact. Rheumatologic--normal range of motion. Psychiatric--normal affect. Results & Data Results & Data Vital Signs (Past 12 Hours) Vital Signs Temp Pulse Pulse Resp BP Pulse Ox O2 Del Method 01/28/23 11:06 98.2 F 59 L 19 106/68 96 Room Air 01/28/23 09:08 63 01/28/23 07:53 97.5 F L 68 18 120/78 95 Room Air 01/28/23 02:55 98.2 F 67 18 113/75 94 Room Air PG Care Time/CCT Total # of Minutes Spent Total Time Spent with Patient: Total time spent is greater than 50% in coordination of care (as documented) at patient's floor/unit and/or counseling patient: Coding Level of Care Code 56853 SUB INP/OBS CARE 2/35MIN Diagnoses Wide-complex tachycardia R00.0 Hypertension I10 Hypertension type: essential hypertension Uncontrolled type 2 diabetes mellitus with hyperglycemia E11.65 Multi-vessel coronary artery stenosis I25.10 Ischemic cardiomyopathy I25.5 Time Spent (min) 35 (2) Hypertension Hypertension type: essential hypertension Qualified Code(s): I10 - Essential (primary) hypertension
--- NOTE | 2023-01-28 13:46 | Electrocardiogram Report ---
Test Reason : Blood Pressure : / mmHG Vent. Rate : 064 BPM Atrial Rate : 064 BPM P-R Int : 194 ms QRS Dur : 110 ms QT Int : 444 ms P-R-T Axes : 029 -30 031 degrees QTc Int : 458 ms Sinus rhythm with Premature supraventricular complexes Left axis deviation Anterior infarct (cited on or before 20-OCT-2022) Abnormal ECG When compared with ECG of 26-JAN-2023 23:10, Premature supraventricular complexes are now Present Vent. rate has decreased BY 32 BPM Confirmed by Levi Eddy ([id number]) on 01/28/2023 1:45:44 PM Referred By: REFERRED SELF Confirmed By:Levi Eddy
[2023-01-29 07:22] LABS: BUN Creatinine Ratio 24.7 (10-20); Calcium 9.6 mg/dl (8.6-10.3); Creatinine Clr Calc Pharmacy 89.5 ml/min; Est GFR (African American) 84.6 ml/min; Potassium 4.2 mmol/L (3.5-5.1)
[2023-01-29] MEDS: INSULIN ASPART PER UNIT CHARGE SC SCH ×4 (08:41→21:19)
[2023-01-29] MEDS: LANTUS PER UNIT CHARGE SQ SCH ×2 (08:42→21:19)
[2023-01-29] MEDS: ASPIRIN 81 MG ECTAB PO SCH (09:47)
[2023-01-29] MEDS: carvediloL 25 MG TAB PO SCH ×2 (09:47→21:20)
[2023-01-29] MEDS: ATORVASTATIN 40 MG TAB PO SCH (09:47)
--- NOTE | 2023-01-29 10:56 | Hospitalist Progress Note ---
Date of Service January 29, 2023 Assessment & Plan (1) Wide-complex tachycardia: Plan: 57yo female presenting with palpitations found with wide complex tachycardia concerning for VT s/p synchronized cardioversion now in NSR. Troponin is NEGATIVE. EKG with no acute ischemic changes. Patient does not appear to be in acute HF at this time. -No more episodes of tachycardia since admission, she also denies chest pains or palpitations -Will be evaluated by electrophysiology -Appreciate cardiology consult. (2) Hypertension: Plan: resume home meds (3) Uncontrolled type 2 diabetes mellitus with hyperglycemia: Plan: Hold oral agents -ISS, Lantus 7u BID, goal blood sugar 110-140 (4) Multi-vessel coronary artery stenosis: Plan: -Continue ASA -Continue Atorvastatin (5) Ischemic cardiomyopathy: Plan: Compensated -Monitor weight, I/Os -Repeat labs in AM -Cardiology consultation appreciated Plan Awaiting assessment by electrophysiology Admission and Anticipated Discharge Date Admission Date: January 27, 2023 Subjective Patient seen and examined today, denies any new chest pains, denies palpitations, awaiting evaluation by EP Review of Systems Review of Systems: All systems reviewed are negative, apart from the ones contained in the history. Physical Exam Physical Exam: The patient is awake, alert and oriented 3, well developed and well nourished, normocephalic and atraumatic, lying in bed and in no acute distress. HEENT--PERRL, EOMI, mucous membranes and oropharynx mildly dry Neck--supple. No JVD. No bruits. Thyroid normal, trachea midline, no adenopathy. Heart--normal S1 and S2. No murmurs, rubs or gallops. Lungs--clear bilaterally, no respiratory distress, no accessory muscle use. Abdomen--normal bowel sounds and soft. Mild epigastric and left sided abdominal pain Extremities--no cyanosis or clubbing. No edema. Dermatologic--normal skin turgor, normal color, no abnormal lymph nodes, no rash. Neurologic--cranial nerves II through XII grossly intact. Rheumatologic--normal range of motion. Psychiatric--normal affect. Results & Data Results & Data Vital Signs (Past 12 Hours) Vital Signs Temp Pulse Pulse Resp BP BP Pulse Ox 01/29/23 07:45 59 L 01/29/23 07:09 97.5 F L 52 L 18 143/77 H 97 01/29/23 02:00 01/29/23 03:32 98.1 F 55 L 17 122/74 97 01/28/23 23:00 63 01/28/23 23:25 97.9 F 60 16 142/74 H 97 O2 Del Method O2 Del Method 01/29/23 07:45 01/29/23 07:09 Room Air 01/29/23 02:00 Room Air 01/29/23 03:32 Room Air 01/28/23 23:00 01/28/23 23:25 Room Air PG Care Time/CCT Total # of Minutes Spent Total Time Spent with Patient: Total time spent is greater than 50% in coordination of care (as documented) at patient's floor/unit and/or counseling patient: Coding Level of Care Code 04144 SUB INP/OBS CARE 2/35MIN Diagnoses Wide-complex tachycardia R00.0 Hypertension I10 Hypertension type: essential hypertension Uncontrolled type 2 diabetes mellitus with hyperglycemia E11.65 Multi-vessel coronary artery stenosis I25.10 Ischemic cardiomyopathy I25.5 Time Spent (min) 35 (2) Hypertension Hypertension type: essential hypertension Qualified Code(s): I10 - Essential (primary) hypertension
[2023-01-29] MEDS: SPIRONOLACTONE 25 MG TAB PO SCH (12:05)
--- NOTE | 2023-01-29 17:40 | Cardiology Progress Note ---
Date of Service January 29, 2023 Assessment & Plan (1) Wide-complex tachycardia: (2) Multi-vessel coronary artery stenosis: Plan: (3) Ischemic cardiomyopathy: Plan 1. Wide-complex tachycardia: This tachycardia is consistent with ventricular tachycardia, the morphology is consistent with her known coronary disease and she does have a mild to moderate cardiomyopathy. The tachycardia is well- tolerated but should be treated with an ICD. It is likely that this arrhythmia could be terminated by antitachycardia pacing and is likely to recur. I discussed the indications, procedure, risks and alternatives of ICD implantation with her and she understands and agrees to proceed. We will plan on this tomorrow. 2. Coronary disease: She has known coronary artery disease, she does not have evidence of acute myocardial infarction this admission and her enzyme rise is consistent with demand ischemia. I do not feel she needs coronary evaluation before ICD implantation. 3. Ischemic cardiomyopathy: She has a mild to moderate cardiomyopathy due to prior myocardial infarction. Clinically she is not in congestive heart failure. Admission and Anticipated Discharge Date Admission Date: January 27, 2023 Subjective Chart reviewed, in brief this is a 57-year-old woman with a history of coronary artery disease, mild to moderate ischemic cardiomyopathy and presentation with ventricular tachycardia. On discussing her symptoms with her she developed some type of irregularity in her rhythm on the afternoon and evening of January 26, 2023 although she did check her rhythm at home and it was only about 100 bpm and reported to be irregular. She did not have chest discomfort or shortness of breath. On the evening of January 26, 2023 she developed a sustained rapid heart rate which was quite different, she did not have shortness of breath but felt poorly and weak and therefore was brought to the emergency room. In the emergency room she was observed to be in a wide-complex tachycardia with a heart rate of about 155 bpm and blood pressure of around 80 systolic. She was sedated and cardioverted with 200 J in the emergency room. Her presenting electrocardiogram on January 26, 2023 at 2234 shows a wide-complex tachycardia consistent with ventricular tachycardia at a heart rate of 155 bpm. There was precordial concordance with a right bundle branch block morphology and a rightward axis. Another electrocardiogram following cardioversion about half an hour later shows sinus rhythm at 96 bpm with inferior and anterolateral infarcts of indeterminate age. No acute changes. Since the cardioversion she has had no further symptoms of palpitations and no tachycardia. She has been on telemetry and has had no further ventricular tachycardia although she does have premature ventricular beats. An echocardiogram done January 27, 2023 shows mild left ventricular dysfunction with ejection fraction 40 to 45%. High-sensitivity troponin measurements were performed and the initial troponin is normal at 9.0, then 478 8 hours later, the last 400.3 another 4 hours later. This is not consistent with acute myocardial injury but more likely demand ischemia from the tachycardia. At the time of my evaluation this morning she had no complaints, she had no chest discomfort, shortness of breath or palpitations. Physical Exam Physical Exam: Constitutional: Alert, cooperative and in no distress. HEENT: Unremarkable Neck: No jugular venous distention, carotid pulses are normal and equal bilaterally without bruits. Pulmonary: Clear to auscultation bilaterally. Cardiac: Regular rhythm with no murmur, gallop or rub. Abdomen: Soft, nontender with normal bowel sounds. Extremities: No edema. Distal pulses intact. Neurologic: No focal findings. Gait is steady. Skin: No rash, ecchymoses or petechiae. Results & Data Vital Signs (Past 12 Hours) Vital Signs Temp Pulse Pulse Resp BP Pulse Ox O2 Del Method 01/29/23 15:55 36.6 C 67 18 131/86 97 Room Air 01/29/23 16:32 70 01/29/23 12:17 36.5 C 68 18 169/53 H 98 Room Air 01/29/23 12:03 116/73 01/29/23 07:45 59 L 01/29/23 07:09 36.4 C L 52 L 18 143/77 H 97 Room Air Laboratory Results Comprehensive Metabolic Panel 01/29/23 Range/Units 06:35 Sodium 139 (136-145) mmol/L Potassium 4.2 (3.5-5.1) mmol/L Chloride 106 (98-107) mmol/L Carbon Dioxide 28 (21-32) mmol/L BUN 22 (6-23) mg/dl Creatinine 0.89 (0.6-1.2) mg/dl Glucose 151 H (70-99(Fasting)) mg/dl Calcium 9.6 (8.6-10.3) mg/dl Intake and Output 01/29/23 01/29/23 01/29/23 06:59 14:59 22:59 Intake Total 500 / 1450 580 / 580 Balance 500 / 1449 580 / 580 Intake: Oral 500 / 1450 580 / 580 Other: # Unmeasured Voids 2 Weight 113 kg Diagnostic Findings Telemetry: Since termination of her ventricular tachycardia she has been in sinus rhythm with frequent premature ventricular beats. PG Care Time/CCT Total # of Minutes Spent Total Time Spent with Patient: Total time spent is greater than 50% in coordination of care (as documented) at patient's floor/unit and/or counseling patient: Coding Level of Care Code 99223 SUB INP/OBS CARE 3/50MIN Diagnoses Wide-complex tachycardia R00.0 Multi-vessel coronary artery stenosis I25.10 Ischemic cardiomyopathy I25.5
[2023-01-29] MEDS: VALSARTAN/SACUBITRIL 103/97MG TAB PO SCH (21:20)
[2023-01-29] MEDS ORDERED: AMIODARONE 360MG / 200ML D5W IV ONE (22:35)
[2023-01-29] MEDS ORDERED: AMIODARONE 150MG / 100ML D5W IV ONE (22:35)
[2023-01-29] MEDS ORDERED: ADENOSINE IV SOLN 3 MG/ML 2 ML VIAL IV ONE ×2 (22:43→23:03)
[2023-01-29] MEDS ORDERED: AMIODARONE IV BOLUS & DRIP IV STA (23:30)
[2023-01-29] MEDS ORDERED: STAT IV Infusion **Titration per Protocol STA (23:30)
[2023-01-29] MEDS ORDERED: 0.2 MICRON FILTER SET 1 EACH IV STA (23:30)
[2023-01-29] MEDS ORDERED: AMIODARONE / D5W 150 MG/100 ML BAG IV STA (23:30)
[2023-01-29] MEDS ORDERED: ADENOSINE IV SOLN 3 MG/ML 2 ML VIAL IV STA (23:31)
[2023-01-29] MEDS ORDERED: AMIODARONE / D5W 360 MG/200 ML BAG IV ONE (23:40)
[2023-01-30] MEDS ORDERED: ADENOSINE IV SOLN 3 MG/ML 2 ML VIAL IV STA (00:26)
--- NOTE | 2023-01-30 03:12 | Communication Note ---
Date of Service: January 30, 2023 At around 2230 on January 29, pt went back into what appeared to be a ventricular tachycardia similar to what she presented with in the ED. She had mild chest pain but less so than on admission. I spoke with Dr. Rodriguez for further assistance. There was some thought this may be supraventricular so 12mg adenosine was attempted. Not effective on first attempt. Due to concern of IV site occlusion, a 2nd attempt was made with new IV sites and still no effect. Pt was then started on amio bolus/drip. She converted into sinus around 2345 and now remains on amio drip. Cardiology will f/u in the am. Resident Activity Tracking Resident Involvement: Resident Care Provided Care Provided: Adult Hospital Medicine
[2023-01-30] MEDS: AMIODARONE / D5W 360 MG/200 ML BAG IV SCH ×2 (05:04→17:45)
[2023-01-30] MEDS ORDERED: ceFAZolin 330 MG/ML 1 GM VIAL IV SCH (06:00)
[2023-01-30] MEDS ORDERED: LIDOCAINE 1% LOCAL 20 ML VIAL ONE ×2 (07:00→11:19)
[2023-01-30] MEDS ORDERED: WATER, STERILE FOR INJ 10 ML VIAL ONE (07:00)
[2023-01-30] MEDS ORDERED: VANCOMYCIN HCL 1000MG/20ML VIAL ONE (07:00)
[2023-01-30] MEDS ORDERED: LACTATED RINGER'S 1,000 ML IV SCH (08:00)
[2023-01-30] MEDS: VALSARTAN/SACUBITRIL 103/97MG TAB PO SCH ×2 (09:33→21:16)
[2023-01-30] MEDS: ATORVASTATIN 40 MG TAB PO SCH (09:33)
[2023-01-30] MEDS: SPIRONOLACTONE 25 MG TAB PO SCH (09:33)
[2023-01-30] MEDS: ASPIRIN 81 MG ECTAB PO SCH (09:33)
[2023-01-30] MEDS: carvediloL 25 MG TAB PO SCH ×2 (09:34→21:16)
[2023-01-30] MEDS: INSULIN ASPART PER UNIT CHARGE SC SCH ×4 (09:34→21:11)
[2023-01-30] MEDS: LANTUS PER UNIT CHARGE SQ SCH ×2 (09:43→21:11)
--- NOTE | 2023-01-30 10:32 | Cardiology Progress Note ---
Date of Service January 30, 2023 Assessment & Plan (1) Wide-complex tachycardia: (2) Multi-vessel coronary artery stenosis: Plan: (3) Ischemic cardiomyopathy: Plan 1. Wide-complex tachycardia: This tachycardia is consistent with ventricular tachycardia, the morphology is consistent with her known coronary disease and she does have a mild to moderate cardiomyopathy. I cannot be confident that she has A-V dissociation so it is conceivable this represents an aberrant supraventricular rhythm, there are 2 very different morphologies which could represent the tachycardia with a different direction of rotation or different breakout, the rates are similar. The tachycardia is well-tolerated but at this point I think we need to be confident that we are dealing with ventricular tachycardia. In addition with recurrence 4 days after her initial this is not ideally treated with an ICD even if it is ventricular in origin. It is likely that this arrhythmia could be terminated by antitachycardia pacing but is likely to recur frequently and perhaps she would be best served with ablation. I discussed referral to [facility] or [facility] for further evaluation and possible definitive treatment with ablation, at this point our thought is to perform catheterization to make sure there is not an ischemic component and to tentatively plan electrophysiologic study this afternoon to define the arrhythmia. 2. Coronary disease: She has known coronary artery disease, she does not have evidence of acute myocardial infarction this admission and her enzyme rise is consistent with demand ischemia. However she has had some chest discomfort and perhaps coronary evaluation is in order. I would prefer to have that done before electrophysiologic study if possible. 3. Ischemic cardiomyopathy: She has a mild to moderate cardiomyopathy due to prior myocardial infarction. Clinically she is not in congestive heart failure. Admission and Anticipated Discharge Date Admission Date: January 27, 2023 Subjective Events of last night noted. I was involved with this event via telephone. She had sudden onset of her rapid heart rate which was captured on telemetry, the morphology on telemetry appears to be same as her premature ventricular beats and the heart rate is similar to her prior tachycardia (161 bpm last night, 155 beats on presentation) however the morphology is very different. Her recent arrhythmia does not have the upright morphology across her precordium, and the axis is not rightward but instead left axis deviation. The QRS duration on her initial tachycardia was 158 ms, last night it appears narrower at under 120 ms. I believe she has A-V dissociation but I cannot be confident. We did try 12 mg of adenosine to convert the arrhythmia which did not change it, IV amiodarone did after about 40 minutes where she spontaneously converted. At the time of my evaluation today she is feeling well, although may have had some slight chest discomfort. She is not short of breath and has not been active. She has been n.p.o. Physical Exam Physical Exam: Constitutional: Alert, cooperative and in no distress. HEENT: Unremarkable Neck: No jugular venous distention, carotid pulses are normal and equal bilaterally without bruits. Pulmonary: Clear to auscultation bilaterally. Cardiac: Regular rhythm with no murmur, gallop or rub. Abdomen: Soft, nontender with normal bowel sounds. Extremities: No edema. Distal pulses intact. Neurologic: No focal findings. Gait is steady. Skin: No rash, ecchymoses or petechiae. Results & Data Vital Signs (Past 12 Hours) Vital Signs Temp Pulse Pulse Resp BP BP Pulse Ox 01/30/23 08:23 36.8 C 54 L 20 123/76 93 01/30/23 07:50 56 L 01/30/23 03:38 36.6 C 59 L 18 106/70 96 01/29/23 23:55 36.8 C 80 16 94 01/29/23 22:50 160 H 01/29/23 23:00 120/83 O2 Del Method 01/30/23 08:23 Room Air 01/30/23 07:50 01/30/23 03:38 Room Air 01/29/23 23:55 Room Air 01/29/23 22:50 01/29/23 23:00 Laboratory Results Intake and Output 01/29/23 01/30/23 01/30/23 22:59 06:59 14:59 Intake Total 580 / 880 300 / 880 38.41 / 38.41 Output Total 600 / 600 Balance 580 / 280 -300 / 280 38.41 / 38.41 Intake: IV 300 / 300 38.41 / 38.41 Amiodarone / D5w 150 mg In 100 100 / 100 ml @ 600 mls/hr IV NOW STA Rx#: [id number] Amiodarone / D5w 360 mg In 200 200 / 200 38.41 / 38.41 ml @ 0.5 MG/MIN 16.667 mls/hr IV .Q12H [facility] Rx#:[id number] Oral 580 / 580 Output: Urine 600 / 600 Other: Other Intake Source NPO # Unmeasured Voids 3 1 Weight 110.6 kg Weight Measurement Method Built in Bedscale Diagnostic Findings Intake and Output 01/29/23 01/30/23 01/30/23 22:59 06:59 14:59 Intake Total 580 / 880 300 / 880 38.41 / 38.41 Output Total 600 / 600 Balance 580 / 280 -300 / 280 38.41 / 38.41 Intake: IV 300 / 300 38.41 / 38.41 Amiodarone / D5w 150 mg In 100 100 / 100 ml @ 600 mls/hr IV NOW STA Rx#: [id number] Amiodarone / D5w 360 mg In 200 200 / 200 38.41 / 38.41 ml @ 0.5 MG/MIN 16.667 mls/hr IV .Q12H [facility] Rx#:[id number] Oral 580 / 580 Output: Urine 600 / 600 Other: Other Intake Source NPO # Unmeasured Voids 3 1 Weight 110.6 kg Weight Measurement Method Built in Bedscale Telemetry was reviewed in detail. She had abrupt initiation of her ventricular tachycardia with the morphology on telemetry which appears similar to frequent PVCs leading up to it. The arrhythmia terminated cleanly several hours later to sinus bradycardia. PG Care Time/CCT Total # of Minutes Spent Total Time Spent with Patient: Total time spent is greater than 50% in coordination of care (as documented) at patient's floor/unit and/or counseling patient: Coding Level of Care Code 57017 SUB INP/OBS CARE 3/50MIN Diagnoses Wide-complex tachycardia R00.0 Multi-vessel coronary artery stenosis I25.10 Ischemic cardiomyopathy I25.5
[2023-01-30] MEDS ORDERED: fentaNYL citrate PF 100 MCG/2 ML VIAL ONE (11:45)
[2023-01-30] MEDS ORDERED: HEPARIN (PORCINE) 1000 UNIT/ML 10 ML (CATH LAB USE ONLY) ONE (11:45)
[2023-01-30] MEDS ORDERED: niCARdipine HCL INJ 2.5 MG/ML 10 ML AMP ONE (11:45)
[2023-01-30] MEDS ORDERED: MIDAZOLAM HCL 1 MG/ML 2ML VIAL ONE ×2 (11:46→12:44)
[2023-01-30] MEDS ORDERED: NITROGLYCERIN/D5W 100MCG/ML 20ML SYR ONE (11:46)
--- NOTE | 2023-01-30 11:54 | Pre Anesthesia Assessment ---
Date of Service January 30, 2023 Pre Sedation Assessment Vital Signs Temp Pulse Pulse Pulse Resp BP BP 01/30/23 11:28 55 L 20 112/81 01/30/23 08:23 98.2 F 54 L 20 123/76 01/30/23 07:50 56 L 01/30/23 03:38 97.9 F 59 L 18 106/70 01/29/23 23:55 98.2 F 80 16 01/29/23 22:50 160 H 01/29/23 23:00 120/83 01/29/23 20:37 98.4 F 57 L 20 137/68 01/29/23 15:55 97.9 F 67 18 131/86 01/29/23 16:32 70 01/29/23 12:17 97.7 F 68 18 169/53 H 01/29/23 12:03 116/73 Pulse Ox O2 Del Method 01/30/23 11:28 97 Room Air 01/30/23 08:23 93 Room Air 01/30/23 07:50 01/30/23 03:38 96 Room Air 01/29/23 23:55 94 Room Air 01/29/23 22:50 01/29/23 23:00 01/29/23 20:37 95 Room Air 01/29/23 15:55 97 Room Air 01/29/23 16:32 01/29/23 12:17 98 Room Air 01/29/23 12:03 Cardiovascular RRR, no murmur, no edema Respiratory normal respiratory effort, lungs clear to auscultation Pre-Sedation Airway Assessment Smoking Status: Former smoker Hx Sleep Apnea: No Hx Difficult Intubation: No Short, Thick Neck: Yes Thyromental Distance: > or= 3.5 Finger Breadths Oral Cavity: + WNL Mallampati Class: III ASA: ASA3 NPO Status Date of Last Intake of Fluids: 01/29/23 Time of Last Intake of Fluids: 22:00 Date of Last Intake of Solid Food: 01/29/23 Time of Last Intake of Solid Foods: 19:00 Procedure Planning Contraindications for Sedation: none Current Medications Reviewed: Yes Notes The planned sedation has been discussed with the patient. Informed Consent was obtained. I have identified the patient, determined the appropriateness of sedation and have assessed the patient immediately prior to the procedure. All medicine(s) and interventions are by my order.
--- NOTE | 2023-01-30 12:19 | Electrocardiogram Report ---
Test Reason : Blood Pressure : / mmHG Vent. Rate : 161 BPM Atrial Rate : 097 BPM P-R Int : 000 ms QRS Dur : 114 ms QT Int : 328 ms P-R-T Axes : 000 -51 127 degrees QTc Int : 536 ms Wide QRS tachycardia Left axis deviation Left ventricular hypertrophy with repolarization abnormality Inferior infarct Anterior infarct (cited on or before 20-OCT-2022) Abnormal ECG When compared with ECG of 27-JAN-2023 16:11, Significant changes have occurred Confirmed by Levi Eddy ([id number]) on 01/30/2023 12:19:34 PM Referred By: REFERRED SELF Confirmed By:Levi Eddy
--- NOTE | 2023-01-30 12:30 | Electrocardiogram Report ---
Test Reason : Blood Pressure : / mmHG Vent. Rate : 050 BPM Atrial Rate : 050 BPM P-R Int : 204 ms QRS Dur : 112 ms QT Int : 482 ms P-R-T Axes : 039 -23 014 degrees QTc Int : 439 ms Sinus bradycardia Otherwise normal ECG When compared with ECG of 29-JAN-2023 22:16, (unconfirmed) Significant changes have occurred Confirmed by Levi Eddy ([id number]) on 01/30/2023 12:30:07 PM Referred By: REFERRED SELF Confirmed By:Levi Eddy
--- NOTE | 2023-01-30 13:05 | Post Anesthesia Assessment ---
Date of Service January 30, 2023 Post Sedation Assessment Vital Signs Temp Pulse Pulse Pulse Resp BP BP 01/30/23 11:28 55 L 20 112/81 01/30/23 08:23 98.2 F 54 L 20 123/76 01/30/23 07:50 56 L 01/30/23 03:38 97.9 F 59 L 18 106/70 01/29/23 23:55 98.2 F 80 16 01/29/23 22:50 160 H 01/29/23 23:00 120/83 01/29/23 20:37 98.4 F 57 L 20 137/68 01/29/23 15:55 97.9 F 67 18 131/86 01/29/23 16:32 70 Pulse Ox O2 Del Method 01/30/23 11:28 97 Room Air 01/30/23 08:23 93 Room Air 01/30/23 07:50 01/30/23 03:38 96 Room Air 01/29/23 23:55 94 Room Air 01/29/23 22:50 01/29/23 23:00 01/29/23 20:37 95 Room Air 01/29/23 15:55 97 Room Air 01/29/23 16:32 Recovery Score Activity: Moves 4 extremities Respiration: Deep Breath/Cough Circulation: +/-20% PreAnes Value Consciousness: Fully Awake Oxygen Saturation: > 92% On Room Air Post Anesthesia Score: 10 Discharge Sedation Level of Care: Fast Track Phase II Post Sedation Plan On clinical assessment, the patient appears to have tolerated the sedation without complications. Patient is recovering as anticipated. Patient will continue to be monitored by nursing and may be discharged when sedation discharge criteria are met per below protocol. Upon Completions of procedure up to 15 minutes continue every 5 minute vital signs and the P.A.R. score; then discharge to a Phase I or Fast Track to Phase II per the following guidelines: * Discharge Patient to appropriate Phase II area if PAR is 8 or greater or return to pre- procedure baseline. The post - procedure orders will be as directed. * If PAR score is less than 8 or not return to pre-procedure baseline then patient will follow Phase I monitoring till PAR is reached for Phase II. The Phase I may be done in procedure room or may call to secure a Phase I area. * If naloxone or flumazenil are used for reversal, hold in Phase I for continued monitoring from when last reversal dose was given for a minimum of 60 minutes or longer pending the nurse and/or physician discretion of patient condition before discharge to Phase II. Please call the Sedation Physician to re-evaluate and complete post-note for discharge to Phase II area. Do NOT discharge from procedure sedation or Phase 1 until post- sedation evaluation note is complete by procedure /sedation MD Sedation Discharge Instructions to be given to the patient at discharge to home.
--- NOTE | 2023-01-30 13:15 | Cardiac Catheterization ---
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 Cardiac Status Clinical evaluation leading to the procedure CAD Presenation: Sx unlikely to be ischemic Diagnostic Physicians Name: Luis Norris MD Closure Device Recommendations: Medical Therapy and/or Counseling Cardiac Cath Procedure Full Procedure Date January 30, 2023 Pre-Procedure Diagnosis Pre-Procedure Diagnosis: Arrhythmia AUC Score AUC Score: 7 Post-Procedure Diagnosis Post-Procedure Diagnosis: Severe CAD and Normal Intracardiac Pressures Procedure(s) Performed Procedure(s) Performed: Coronary Angiography and Left Heart Cath Teaching Aide Luis Norris MD Engine Setter(s) Rug Hooker Estimated Blood Loss Estimated Blood Loss: 5 Medication(s) Medication(s): Fentanyl, Heparin, Lidocaine 1%, Nicardipine, Nitroglycerin and Versed Summary of Findings Indication: Sustained VT Access: 6F left radial artery Catheters: Dawes, diagnostic JL 3.5, JL3.5 guide Findings: LM -large caliber, 20% ostial stenosis LAD -medium caliber, very tortuous, 30% mid segment stenosis at takeoff of D1, distal vessel wraps around apex. Large D1 tortuous without significant disease. Circumflex -nondominant, angulated takeoff, very tortuous. Small tortuous high OM1 with 30% ostial disease. Medium OM2 with widely patent proximal stent. RCA - dominant, medium caliber, 99% earlymid stenosis, 100% chronic latemid occlusion. Right PLB fills via ntjr-je-zasne collaterals. LVEDP -3 IVUS of ostial left main procedure: -Left main cannulated with JL 3.5 guide -BMW wire placed into mid LAD -VoterTide IVUS catheter placed to mid LAD. Pullback revealed mild LAD disease and mild eccentric calcified plaque at left main ostium. No significant obstru ctive disease. -Coronary angiography revealed no apparent complications post wire/catheter removal Arterial Closure: TR band Summary: 1. Chronic multivessel coronary artery disease -100% chronic total occlusion of mid RCA with [id number] collaterals. Widely patent OM2 stent -30% mid LAD at bifurcation with D1 20% ostial left main (nonobstructive, eccentric calcified plaque by IVUS) 2. Normal intracardiac filling pressure Hemodynamics Rest Ao:: 96/55/74 Final Ao: 101/57/77 LV: 99/3 Recommendations Recommendations: Medical Therapy and/or Counseling Specimens Specimens: None Radiation Exposure (mGy) 2237 Contrast (mls) 60 Anesthesia Moderate 7831-5963 Procedural Complication(s) None Disposition Rack Worker Holding/Recovery I attest to the content of the Intraoperative Record and any orders documented therein. Any exceptions are noted below. [facility] Card Cath Procedure Codes Cardiac Catheterization Procedure 1: Cardiovascular Cath Procedures: 33061 Coronaries and LHC (+/-LV) Therapeutic Services & Ancillary Procedure 1: Cardiovascular Tx and Anc Procedures: 03295 IV Ultrasound (Coronary or Graft) Moderate Sedation Procedure 1: Sedation/Anesthesia: 83792 Mod Sedation by the same physician;Init15 Min Child Age 5 & Up Procedure 2: Sedation/Anesthesia: 40392 Mod Sedation by the same physician; Ea [id number] Minutes PG Care Time/CCT Total # of Minutes Spent Total Time Spent with Patient: Total time spent is greater than 50% in coordination of care (as documented) at patient's floor/unit and/or counseling patient:
[2023-01-30] MEDS ORDERED: SODIUM CHLORIDE 0.9% 1000ML 1,000 ML IV SCH (13:30)
--- NOTE | 2023-01-30 13:31 | Hospitalist Progress Note ---
Date of Service January 30, 2023 Assessment & Plan (1) Wide-complex tachycardia: Plan: -57yo female presenting with palpitations found with wide complex tachycardia concerning for VT s/p synchronized cardioversion -Last night, 01/29, she had sudden onset of her rapid heart rate which was captured on telemetry, -She received Adenosine, which did not work, but later got IV Amiodarone and she spontaneousy converted about 40 min later. New Car Driver was on hand -Patient currently not in heart failure -Patient was informed that she may need transfer to a tertiary center where they can do ablation if need be, however, she wants to think about it -In the interim, Dr Rodriguez wants to carry out an EP study today. -Appreciate EP recs (2) Hypertension: Plan: Continue home meds BP under fair control (3) Uncontrolled type 2 diabetes mellitus with hyperglycemia: Plan: Hold oral agents -ISS, Lantus 7u BID, goal blood sugar 110-140 (4) Multi-vessel coronary artery stenosis: Plan: Patient underwent cardiac cath Chronic multivessel coronary artery disease -100% chronic total occlusion of mid RCA with kxwu-ut-jrioc collaterals. Widely patent OM2 stent -30% mid LAD at bifurcation with D1 20% ostial left main (nonobstructive, eccentric calcified plaque by IVUS -Continue ASA -Continue Atorvastatin (5) Ischemic cardiomyopathy: Plan: Compensated -Monitor weight, I/Os -Cardiology recs appreciated Plan Awaiting final reccs by electrophysiology after EP study today Admission and Anticipated Discharge Date Admission Date: January 27, 2023 Subjective Events of last night noted. I was involved with this event via telephone. She had sudden onset of her rapid heart rate which was captured on telemetry, the morphology on telemetry appears to be same as her premature ventricular beats and the heart rate is similar to her prior tachycardia (161 bpm last night, 155 beats on presentation) however the morphology is very different. Her recent arrhythmia does not have the upright morphology across her precordium, and the axis is not rightward but instead left axis deviation. The QRS duration on her initial tachycardia was 158 ms, last night it appears narrower at under 120 ms. I believe she has A-V dissociation but I cannot be confident. We did try 12 mg of adenosine to convert the arrhythmia which did not change it, IV amiodarone did after about 40 minutes where she spontaneously converted. At the time of my evaluation today she is feeling well, although may have had some slight chest discomfort. She is not short of breath and has not been active. She has been n.p.o. Review of Systems Review of Systems: All systems reviewed are negative, apart from the ones contained in the history. Physical Exam Physical Exam: The patient is awake, alert and oriented 3, well developed and well nourished, normocephalic and atraumatic, lying in bed and in no acute distress. HEENT--PERRL, EOMI, mucous membranes and oropharynx mildly dry Neck--supple. No JVD. No bruits. Thyroid normal, trachea midline, no flavia nopathy. Heart--normal S1 and S2. No murmurs, rubs or gallops. Lungs--clear bilaterally, no respiratory distress, no accessory muscle use. Abdomen--normal bowel sounds and soft. Mild epigastric and left sided abdominal pain Extremities--no cyanosis or clubbing. No edema. Dermatologic--normal skin turgor, normal color, no abnormal lymph nodes, no rash. Neurologic--cranial nerves II through XII grossly intact. Rheumatologic--normal range of motion. Psychiatric--normal affect. Results & Data Results & Data Vital Signs (Past 12 Hours) Vital Signs Temp Pulse Pulse Pulse Resp BP BP 01/30/23 13:10 59 L 16 107/67 01/30/23 11:28 55 L 20 112/81 01/30/23 08:23 98.2 F 54 L 20 123/76 01/30/23 07:50 56 L 01/30/23 03:38 97.9 F 59 L 18 106/70 Pulse Ox O2 Del Method 01/30/23 13:10 94 Room Air 01/30/23 11:28 97 Room Air 01/30/23 08:23 93 Room Air 01/30/23 07:50 01/30/23 03:38 96 Room Air PG Care Time/CCT Total # of Minutes Spent Total Time Spent with Patient: Total time spent is greater than 50% in coordination of care (as documented) at patient's floor/unit and/or counseling patient: Coding Level of Care Code 98622 SUB INP/OBS CARE 2/35MIN Diagnoses Wide-complex tachycardia R00.0 Hypertension I10 Hypertension type: essential hypertension Uncontrolled type 2 diabetes mellitus with hyperglycemia E11.65 Multi-vessel coronary artery stenosis I25.10 Ischemic cardiomyopathy I25.5 Time Spent (min) 35 (2) Hypertension Hypertension type: essential hypertension Qualified Code(s): I10 - Essential (primary) hypertension
--- NOTE | 2023-01-30 16:47 | Discharge Summary ---
Date of Service January 30, 2023 Admission HPI Per Admitting Provider Nikky Law is a 57yo female with history of multivessel CAD s/p NSTEMI with stent placement to OM2 in November 2020. She had a cardiac catheterization in February 2022 which revealed 100% chronic occlusion of the mid-RCA with left to right collaterals and a widely patent OM2 stent. She has ischemic cardiomyopathy with EF of 40-45%, DM, HTN, HLP, GERD and restrictive lung disease presenting with palpitations. Patient reports having an irregular feeling in her chest intermittently throughout the day 01/26/23. She felt "funny" with occasional palpitations. Around 19:30 she took an extra aspirin and at 20:50 she took her evening medications. When she laid down for bed she developed some substernal chest discomfort with lightheadedness and palpitations. She checked her heart rate and found it to be elevated from 150 - 162 bpm which prompted her to come to the ER. Upon arrival patient found to be in wide complex tachycardia concerning for ventricular tachycardia with a rate of 155bpm. She was symptomatic with chest tightness and lightheadedness and had a blood pressure of 79/54. Patient was administered Etomidate 10mg IV and received synchronized cardioversion at 200J with return to normal sinus rhythm. Patient's blood pressure improved as did her chest discomfort and lightheadedness. Presently with no complaints. She denies fever, chills, cough, CP, SOB, recent illness. Denies abdominal pa in, nausea, vomiting, diarrhea or constipation. She does not feel that she is volume overloaded - no edema or orthopnea. Weight has been stable (presently 242# with dry weight of 245# per most recent Heart Failure note). Patient did have similar sensations of palpitations and "feeling funny in the chest" in the past - last was in October 2022. No prior cardioversion. No formal diagnosis of arrhythmia. ER Course: Magnesium 2gm Etomidate Principal Diagnosis wide complex tachycardia Discharge Exam The patient is awake, alert and oriented 3, well developed and well nourished, normocephalic and atraumatic, lying in bed and in no acute distress. HEENT--PERRL, EOMI, mucous membranes and oropharynx mildly dry Neck--supple. No JVD. No bruits. Thyroid normal, trachea midline, no adenopathy. Heart--normal S1 and S2. No murmurs, rubs or gallops. Lungs--clear bilaterally, no respiratory distress, no accessory muscle use. Abdomen--normal bowel sounds and soft. Mild epigastric and left sided abdominal pain Extremities--no cyanosis or clubbing. No edema. Dermatologic--normal skin turgor, normal color, no abnormal lymph nodes, no rash. Neurologic--cranial nerves II through XII grossly intact. Rheumatologic--normal range of motion. Psychiatric--normal affect. Discharge Data Allergies Allergy/AdvReac Type Severity Reaction Status Date / Time No Known Allergies Allergy Verified 01/25/23 11:13 Consultations 01/27/23 02:00 Consult Cardiology Routine Procedures Performed Operation Date: 01/30/23 14:00 <No data on this case meets the specified criteria> Ordered Studies 01/30/23 06:45 EP Lab Images for PACS ONCE 01/30/23 11:21 CL Cath Imgs for PACS use only Routine 01/30/23 13:54 CL IVUS Coronary Single Vessel Routine Hospital Course (1) Wide-complex tachycardia: -57yo female presenting with palpitations found with wide complex tachycardia concerning for VT s/p synchronized cardioversion -Last night, 01/29, she had sudden onset of her rapid heart rate which was captured on telemetry, -She received Adenosine, which did not work, but later got IV Amiodarone and she spontaneousy converted about 40 min later. Ingot Header was on hand -Patient currently not in heart failure -Patient was informed that she may need transfer to a tertiary center where they can do ablation if need be, however, she wants to think about it -In the interim, Dr Rodriguez wants to carry out an EP study today. -Appreciate EP recs (2) Hypertension: Continue home meds BP under fair control (3) Uncontrolled type 2 diabetes mellitus with hyperglycemia: Hold oral agents -ISS, Lantus 7u BID, goal blood sugar 110-140 (4) Multi-vessel coronary artery stenosis: Patient underwent cardiac cath Chronic multivessel coronary artery disease -100% chronic total occlusion of mid RCA with mcgi-is-pydha collaterals. Widely patent OM2 stent -30% mid LAD at bifurcation with D1 20% ostial left main (nonobstructive, eccentric calcified plaque by IVUS -Continue ASA -Continue Atorvastatin (5) Ischemic cardiomyopathy: Compensated -Monitor weight, I/Os -Cardiology recs appreciated Plan Transfer to [facility] Total Time Total Time Spent Total Time Spent (In Minutes): 35 Discharge Plan Discharge Items Patient Disposition: Transfer Acute Care Hospital Reason For Visit: PALPITATIONS,WIDE COMPLEX TACHYCARDIA Discharge Diagnosis: wide complex tachycardia Activity: Resume your previous activity Non-emergency contact: Primary Care Provider and Supervisor Boarding Call non-emergency contact if: you have any medication questions Follow-up/Referrals: Terri Sherman DO [Primary Care Provider] - Diet: Regular Addtl Attending Provider Instructions: please make arrangements to follow up with your marketing executive Pending Studies at Discharge: No Stand-Alone Forms: My [facility] Skilled Items Patient informed of condition?: Yes DNR: No Discharge Level of Care: Other Communicable Disease: No Discharge Prognosis: Stable Lines: None Urinary Catheter: No Medications and DC Order Prescriptions: Continued magnesium oxide 400 mg magnesium tablet 400 mg PO DAILY Qty: 90 3RF atorvastatin 80 mg tablet 80 mg PO QAM Qty: 90 2RF furosemide 20 mg tablet 20 mg PO DAILY PRN (Reason: weight gain) Qty: 90 3RF carvedilol 25 mg tablet 25 mg PO BID Qty: 180 3RF glimepiride 4 mg tablet 8 mg PO QAM Qty: 180 1RF Rx Instructions: TAKE TWO TABLETS EVERY MORNING metformin 500 mg tablet extended release 24 hr 1,000 mg PO BID Qty: 360 1RF (DME) blood sugar diagnostic Strip See Rx Instructions .Route Qty: 100 3RF Rx Instructions: one touch verio test twice daily as directed nizatidine 150 mg capsule 150 mg PO BID Qty: 180 2RF Rx Instructions: to replace famotidine spironolactone 25 mg tablet 25 mg PO QAM Qty: 90 3RF dapagliflozin propanediol 10 mg tablet 10 mg PO DAILY Qty: 90 3RF Entresto 97-103 mg tablet 1 tab PO BID Qty: 180 1RF aspirin [Adult Low Dose Aspirin] 81 mg tablet,delayed release (DR/EC) 81 mg PO QAM Discharge Orders: Discharge Order (Routine); Ordered 01/30/23 Ordered By: Reji Simpson Admission Data Admit Date/Time: 01/27/23 00:24 Attending Provider: Reji Simpson Admit Provider: Nancy Hardy Primary Care Provider: Terri Sherman Other Providers: Levi Eddy Coding Level of Care Code 81137 INP/OBS DISCH >30 MIN Diagnoses Wide-complex tachycardia R00.0 Hypertension I10 Hypertension type: essential hypertension Uncontrolled type 2 diabetes mellitus with hyperglycemia E11.65 Multi-vessel coronary artery stenosis I25.10 Ischemic cardiomyopathy I25.5 Time Spent (min) 35
== END 2023-01-30 22:00 | disposition short-term general hospital (02) | DRG 287 ==
LOC: ED 22:24 → SUATTDRO 01-27 00:24 → 2S 01-27 00:24